=== PATIENT | male | born 1955 | race Caucasian/White ===

== ENCOUNTER 2020-01-20 13:43 | Emergency (ER) | payer OTHER, MEDICARE, SELFPAY ==
--- NOTE | ~2020-01-20 | XR_ITS ---
XR chest 2V DATE: 01/20/2020 14:10 INDICATION: Left-sided chest pain since last evening. Hypertension. Left hip surgery 2 weeks ago. TECHNIQUE: PA and lateral views COMPARISON: 02/27/2019 portable AP chest FINDINGS: Normal heart size. No hilar or mediastinal enlargement. No pulmonary infiltrate or consolid ation, pleural effusion or pulmonary vascular congestion or pneumothorax. Diffuse idiopathic skeletal hyperostosis. IMPRESSION: No active cardiopulmonary disease Diffuse idiopathic skeletal hyperostosis Reviewed, dictated and finalized at location A.
--- NOTE | ~2020-01-20 | CT_ITS ---
EXAMINATION: CTA chest PE protocol DATE: 01/20/2020 15:29 INDICATION: Chest pain for 2 days. Hip surgery 2 weeks ago. TECHNIQUE: Computed tomography angiography (CTA) of the chest was performed with 100 mL Omnipaque-350 intravenous contrast timed to evaluate the pulmonary arteries. Coronal maximum intensity projection 3D-reconstructions were created by the technologist. Automated exposure control and iterative reconst ruction technique were employed. Exam dose: 746.44 mGy-cm total exam DLP. COMPARISON: 01/20/2020 PA and lateral chest FINDINGS: There is moderate enhancement of the pulmonary arteries; no central or segmental pulmonary embolism is identified the peripheral pulmonary arteries are not optimally evaluated. No thoracic aor tic aneurysm or dissection. Heart size is normal. Coronary artery calcifications. No pericardial or pleural effusion. No hilar or mediastinal mass lesion or lymphadenopathy. Calcified right paratracheal lymph nodes. There is discoid atelectasis or scarring in the lower lobes. No pulmonary infiltrate or consolidation or pulmonary mass lesion is detected. Diffuse idiopathic skeletal hyperostosis of the thoracic spine. IMPRESSION: No pulmonary embolism detected Reviewed, dictated and finalized at Location A. Reviewed, dictated and finalized at location A.
[2020-01-20 13:45] VITALS: BP 123/88; PULSE 93; RESP 17; TEMP 36.6; O2SAT 99
--- NOTE | 2020-01-20 13:45 | ECG_ITS ---
Measurements Intervals [place] Rate: 88 P: 18 FL: 146 QRS: 19 QRSD: 96 T: 52 QT: 362 QTc: 439 Interpretive Statements SINUS RHYTHM VOLTAGE CRITERIA FOR LVH NONSPECIFIC ST ELEVATION IN DIFFUSE LEADS BASELINE ARTIFACT- I, II, III, AVR, AVL BORDERLINE ECG Electronically Signed On 01-20-2020 14:09:11 CDT by Clifton Cisneros D.O.
[2020-01-20 14:08] LABS: Basophils Absolute Auto 0.1 K/mm3 (0.0-0.1); Basophils Percent Auto 0.9 % (0.2-1.2); Eosinophils Absolute Auto 0.3 K/mm3 (0-0.3); Eosinophils Percent Auto 3.8 % (0-4.4); Hemoglobin 12.1 g/dL (14.0-18.0); Immature Granulocyte Absolute 0.02 K/mm3 (0.00-0.031); Immature Granulocyte Percent A 0.3 % (0-0.5); Lymphocytes Absolute Auto 1.44 K/mm3 (0.9-3.2); Lymphocytes Percent Auto 21.7 % (18.3-44.2); Mean Corpuscular HGB Conc 32.7 g/dl (32-36); Mean Corpuscular Hemoglobin 30.3 pg (26-34); Mean Corpuscular Volume 92.7 fl (80-100); Mean Platelet Volume 10.1 fl (7.4-10.4); Monocytes Absolute Auto 0.6 K/mm3 (0.1-0.6); Monocytes Percent Auto 9.4 % (2.6-8.5); Neutrophils Absolute Auto 4.2 K/mm3 (1.3-6.7); Neutrophils Percent Auto 63.9 % (45.5-73.1); Platelet Count Result 505 k/mm3 (150-375); Red Blood Count 3.99 M/mm3 (4.6-6.20); Red Cell Distribution Width 14.1 % (11.5-14.5); White Blood Count 6.6 K/mm3 (4.5-10.0)
[2020-01-20 14:18] LABS: INR 1.1; Prothrombin Time 14.1 Seconds (11.1-14.7)
[2020-01-20 14:19] LABS: Partial Thromboplastin Time 30.7 SECONDS (22.3-36.8)
[2020-01-20 14:33] LABS: Anion Gap 7 mmol/L (8-16); Blood Urea Nitrogen 20 mg/dL (9-20); Calcium 9.4 mg/dL (8.4-10.2); Carbon Dioxide 30 mmol/L (22-30); Chloride 98 mmol/L (98-107); Estimated CRCL calculation 97 ml/min; Estimated Glomerular Filt Rate > 60; Glucose 101 mg/dL (75-110); Potassium 4.4 mmol/L (3.4-5.0); Sodium 135 mmol/L (137-145)
[2020-01-20 14:45] LABS: Troponin I < 0.012 ng/mL (0.000-0.034)
[2020-01-20 14:51] VITALS: BP 138/87; PULSE 83; RESP 19; TEMP 36.7; O2SAT 98; O2SAT 99
--- NOTE | 2020-01-20 14:54 | PC.NURSE ---
Patient reports that he has been having occasional chest pains. States once last night and twice today. Last night he took a nitro and reports pain was gone shortly after that. Today he did not take any nitro but states that the pain self resolved. He describes the pain as a tightness that was noted to the left chest, described as tightness, and was accompanied by some nausea and shortness of breath.
--- NOTE | 2020-01-20 14:59 | PC.NURSE ---
Patient reports taking 1, 325mg, aspirin before coming to the ED
--- NOTE | 2020-01-20 15:08 | ED.CHESTPAIN ---
HPI - Chest Pain General Chief Complaint: Chest Pain Stated Complaint: Chest pain Time Seen by Provider: 01/20/20 14:48 Source: patient Mode of arrival: ambulatory Limitations: no limitations History of Present Illness HPI narrative: 61-year-old white male presents with intermittent left chest pain since last night at 8 PM. At rest, lasted 10 minutes last night, this morning the chest pain recurs twice, the first 1 lasted for 5 minutes, the second 1 lasted for 2 minutes. Patient denies any fever, chills, nausea, vomiting, shortness of breath. Patient is a status post left hip reconstruction at [facility] 2 weeks ago. Patient have history of A. fib, supposed to be on Xarelto which he stopped on his own May 2019 because he did not like it. History of hypertension, patient currently on aspirin. Related Data Home Medications Medication Instructions Recorded Confirmed clonazepam 0.5 mg PO DAILY 04/13/19 04/13/19 duloxetine 60 mg PO DAILY 04/13/19 04/13/19 metoprolol succinate 100 mg PO DAILY 04/13/19 04/13/19 Allergies Allergy/AdvReac Type Severity Reaction Status Date / Time No Known Allergies Allergy Verified 12/22/19 07:57 Review of Systems Review of Systems: Narrative: CONSTITUTIONAL: Denies fever, chills, or sweats. EYES: Denies visual changes, redness, or discharge. ENT: Denies rhinorrhea, congestion, sore throat, or otalgia. CARDIOVASCULAR: Denies chest pain, palpitations, or edema. RESPIRATORY: Denies cough or dyspnea. GASTROINTESTINAL: Denies abdominal pain, nausea, vomiting, or diarrhea. GENITOURINARY: Denies dysuria or hematuria. SKIN: Denies rash or itching. MUSCULOSKELETAL: Denies back pain, joint pain, or myalgia. NEUROLOGIC: Denies headache, numbness, or weakness. PSYCHIATRIC: Denies anxiety or depression. [facility] Past Medical History Medical History Atrial flutter Essential (primary) hypertension Gout Hip osteoarthritis Major depressive disorder, single episode, unspecified Sleep apnea Sleep apnea in adult Spondylosis without myelopathy or radiculopathy, cervical region Family History Family History Mother Depression Hypertension Family history of osteoarthritis Grandparent Hypertension Father Family history of osteoarthritis Family history of coronary artery disease Other Family history of malignant neoplasm Social History Social History Smoking status: Never smoker Gender identity (if verbalized by the patient): Male Exam Narrative: Exam Narrative: General appearance: Well-developed, well-nourished Skin: Normal color Head: Normocephalic, nontraumatic Eyes: Clear conjunctiva ENT: Oropharynx normal, ears normal, nose normal Neck: Supple, nontender Chest and respiratory: Airway patent, no respiratory distress, no accessory muscle use Heart: Regular rate/rhythm Abdomen: Soft, nontender, no organomegaly, quiet bowel sounds Vascular: Normal peripheral pulses, normal capillary refill. Musculoskeletal: Normal range of motion, nontender back Neurologic: Alert and oriented ?3, [employer] is normal as tested, no gross motor deficit Course Course Emergency Course: Stable, currently denying any shortness of breath or chest pain. Vital Signs Vital signs: Vital Signs Temperature 36.6 C 01/20/20 13:45 Pulse Rate 93 01/20/20 13:45 Respiratory Rate 17 01/20/20 13:45 Blood Pressure 123/88 01/20/20 13:45 Pulse Oximetry 99 01/20/20 13:45 Temperature 36.7 C 01/20/20 16:33 Pulse Rate 73 01/20/20 16:33 Respiratory Rate 20
[2020-01-20 15:35] LABS: D Dimer 11.24 ug/mL (<0.48)
[2020-01-20 16:33] VITALS: BP 155/89; PULSE 73; RESP 20; TEMP 36.7; O2SAT 99
[2020-01-20 17:03] LABS: Troponin I < 0.012 ng/mL (0.000-0.034)
[2020-01-20 18:10] VITALS: BP 142/90; PULSE 84; RESP 17; O2SAT 98
== END 2020-01-20 18:12 | disposition home or self-care (01) ==
PROVIDERS: Emergency Medicine; Emergency Provider Emergency Medicine; PCP Family Medicine
DX: R07.89 Other chest pain (principal); I48.91 Unspecified atrial fibrillation; I10 Essential (primary) hypertension; M10.9 Gout, unspecified; M16.10 Unilateral primary osteoarthritis, unspecified hip; G47.30 Sleep apnea, unspecified; M47.812 Spondylosis without myelopathy or radiculopathy, cervical region
CPT/HCPCS: 36415; 71046; 71275; 80048; 84484; 85025; 85380; 85610; 85730; 93005; 99284; Q9967

== ENCOUNTER → 2020-09-25 11:30 | Outpatient (CLI) | payer OTHER, MEDICARE, SELFPAY ==
--- NOTE | ~2020-09-25 | XR_ITS ---
XR chest 2V DATE: 09/25/2020 12:24 INDICATION: Cough TECHNIQUE: PA and lateral views COMPARISON: 01/20/2020 CT pulmonary scan 01/19/2022 view chest FINDINGS: No pulmonary infiltrate or consolidation, pleural effusion or pulmonary vascular congestion or pneumothorax. Heart size is within normal range. There is aortic atherosclerosis. Diffuse idiopathic skeletal hyperostosis of the thoracic spine. IMPRESSION: No active pulmonary disease Reviewed, dictated and finalized at location B. IMPRESSION: No active pulmonary disease
== END ==
PROVIDERS: PCP Family Medicine; Visit Provider Family Medicine
DX: R05 Cough (principal)
CPT/HCPCS: 71046

== ENCOUNTER 2021-02-25 02:31 | Day surgery (SDC) | payer OTHER, MEDICARE, SELFPAY ==
[2021-02-11 08:32] VITALS: BMI 33.9
--- NOTE | 2021-02-22 18:26 | WPDANESEPPF ---
Anes - Initial Pre Proc Eval Procedure: Operation Date: 02/25/21 10:00 Proposed Procedures p Screening Colonoscopy - Fran Martínez MD Date/Time: 02/22/21 18:26 Surgeon: Fran Martínez MD Pre Op Diagnosis: hx of colon polyps Patient Data Age: 65 Gender: M Height: 1.83 m Weight: 113.5 kg Allergies Allergy/AdvReac Type Severity Reaction Status Date / Time No Known Allergies Allergy Verified 02/25/21 08:59 Home Medications Medication Instructions Recorded Confirmed Type clonazepam 0.5 mg PO DAILY 04/13/19 02/11/21 History duloxetine 60 mg PO DAILY 04/13/19 02/11/21 History metoprolol succinate 100 mg PO DAILY 04/13/19 02/11/21 History allopurinol 100 mg tablet 100 mg PO DAILY #30 tablet 12/24/20 02/11/21 Rx aspirin 81 mg tablet,delayed 81 mg PO DAILY 01/08/21 02/11/21 History release amlodipine 10 mg tablet 10 mg PO DAILY #90 tablet 01/31/21 02/11/21 Rx lisinopril 20 mg tablet 20 mg PO DAILY #90 tablet 01/31/21 02/11/21 Rx Patient hx anesthesia problems: none Family hx anesthesia problems: none Results Review: All pre-operative results and documents have been reviewed as part of the pre-operative evaluation. [facility] Past Medical History Medical History Atrial flutter BMI 34.0-34.9,adult DDD (degenerative disc disease) Essential (primary) hypertension Gout Hip osteoarthritis Major depressive disorder, single episode, unspecified Sleep apnea Sleep apnea in adult Spondylosis without myelopathy or radiculopathy, cervical region Surgical History Surgical History H/O neck surgery History of back surgery History of hip surgery Family History Family History Mother Depression Hypertension Family history of osteoarthritis Grandparent Hypertension Father Family history of osteoarthritis Family history of coronary artery disease Other Family history of malignant neoplasm Social History Social History Smoking status: Never smoker Alcohol intake: current Drinks per week: 12 Alcohol use details: 12 pack beer weekly Substance use: never Substance use type: does not use Living arrangements: with family Additional living arrangements comments: lives with spouse Additional occupation/education comments: disability since 2016 Gender identity (if verbalized by the patient): Male Sexual Orientation (if Verbalized by the Patient): Straight or Heterosexual Spiritual care concerns: No Agree to blood products: Yes Anes - Eval Final PreProcedure Day of Procedure 02/22/21 18:26 Patient weight: obese Heart: regular rate and rhythm Lungs: clear to auscultation and normal air movement Airway: Mallampati scale class III Neurological: alert and oriented Last oral intake: >/= 8 hours ASA classification: III Emergent: no Anesthetic plan: proceed Anesthesia type and monitoring: general GIVS and standard monitoring Results Review: All pre-operative results and documents have been reviewed as part of the pre-operative evaluation. Informed Consent: The patient's anesthetic plan and its attendant risks and benefits were discussed with the patient/family/POA. Questions were solicited and answers provided to the satisfaction of the patient/family/POA.
--- NOTE | 2021-02-25 09:00 | PM.HPGS ---
History of Present Illness History of Present Illness Consent: Risks, benefits, and alternatives have been discussed and questions answered. Patient agrees to proceed with procedure. Chief complaint: hx of colon polyps Narrative: Cristian Jones is a 65 year old male With a history of colon polyps Review of Systems Review of Systems: All systems reviewed & are unremarkable except as noted in HPI and below PMFSH Past Medical History Medical History Atrial flutter BMI 34.0-34.9,adult DDD (degenerative disc disease) Essential (primary) hypertension Gout Hip osteoarthritis Major depressive disorder, single episode, unspecified Sleep apnea Sleep apnea in adult Spondylosis without myelopathy or radiculopathy, cervical region Surgical History Surgical History H/O neck surgery History of back surgery History of hip surgery Family History Family History Mother Depression Hypertension Family history of osteoarthritis Grandparent Hypertension Father Family history of osteoarthritis Family history of coronary artery disease Other Family history of malignant neoplasm Social History Social History Smoking status: Never smoker Alcohol intake: current Drinks per week: 12 Alcohol use details: 12 pack beer weekly Substance use: never Substance use type: does not use Living arrangements: with family Additional living arrangements comments: lives with spouse Additional occupation/education comments: disability since 2016 Gender identity (if verbalized by the patient): Male Sexual Orientation (if Verbalized by the Patient): Straight or Heterosexual Spiritual care concerns: No Agree to blood products: Yes Meds Home Medications and Allergies Home Medications Medication Instructions Recorded Confirmed Type clonazepam 0.5 mg PO DAILY 04/13/19 02/11/21 History duloxetine 60 mg PO DAILY 04/13/19 02/11/21 History metoprolol succinate 100 mg PO DAILY 04/13/19 02/11/21 History allopurinol 100 mg tablet 100 mg PO DAILY #30 tablet 12/24/20 02/11/21 Rx aspirin 81 mg tablet,delayed 81 mg PO DAILY 01/08/21 02/11/21 History release amlodipine 10 mg tablet 10 mg PO DAILY #90 tablet 01/31/21 02/11/21 Rx lisinopril 20 mg tablet 20 mg PO DAILY #90 tablet 01/31/21 02/11/21 Rx Allergies Allergy/AdvReac Type Severity Reaction Status Date / Time No Known Allergies Allergy Verified 02/25/21 08:59 Exam Const: General: alert Orientation/consciousness: patient oriented x3 Resp: Auscultation: clear to auscultation bilaterally Cardio: Rhythm: regular rhythm GI: GI Palp: Yes Soft to palpation and No Tenderness to palpation present (GI) Neuro: General: patient oriented x3 Assessment and Plan Assessment and plan (1) Colon cancer screening: Code(s): Z12.11 - Encounter for screening for malignant neoplasm of colon Status: Acute Assessment and Plan: Colonoscopy with possible biopsy or polypectomy or cautery or injection of substances.
[2021-02-25 09:01] VITALS: BP 202/104; PULSE 64; RESP 20; TEMP 36.2; O2SAT 99; BMI 34.4
[2021-02-25] MEDS: LACTATED RINGERS 1,000 ML 150 ML IV CONT (09:23)
--- NOTE | 2021-02-25 09:32 | SUR.PREOP ---
pts preop bp 201/104, waited a few minutes, retaken. 196/106. pt did take his metoprolol this am. dr sky aware, no new orders.
[2021-02-25 09:55] VITALS: BP 119/67; PULSE 65; RESP 22; O2SAT 98
[2021-02-25 10:06] VITALS: BP 130/77; PULSE 57; RESP 24; O2SAT 100
[2021-02-25 10:16] VITALS: BP 151/109; PULSE 55; RESP 18; O2SAT 100
== END 2021-02-25 10:17 | disposition home or self-care (01) ==
PROVIDERS: PCP Family Medicine; Visit Provider Internal Medicine Gastroenterology
PROC: 0DJD8ZZ Inspection of Lower Intestinal Tract, Via Natural or Artificial Opening Endoscopic (ICD-10-PCS; CPT 45378; principal; 2021-02-25 10:00)
DX: Z12.11 Encounter for screening for malignant neoplasm of colon (principal); K64.8 Other hemorrhoids; K57.30 Diverticulosis of large intestine without perforation or abscess without bleeding; D12.5 Benign neoplasm of sigmoid colon; I48.92 Unspecified atrial flutter; I10 Essential (primary) hypertension; M10.9 Gout, unspecified; F32.9 Major depressive disorder, single episode, unspecified; G47.30 Sleep apnea, unspecified; Z79.82 Long term (current) use of aspirin; E66.9 Obesity, unspecified; Z68.34 Body mass index [BMI] 34.0-34.9, adult
CPT/HCPCS: 45385; 88305; J2704; J7120

== ENCOUNTER 2023-03-06 10:53 | Outpatient (CLI) | payer MEDICARE, SELFPAY ==
--- NOTE | ~2023-03-06 | XR_ITS ---
XR abdomen/kub 1V 03/06/2023 11:05 INDICATION: Lower abdomen pain TECHNIQUE: KUB COMPARISON: None FINDINGS: Bowel gas pattern is normal. There is no evidence of free air, mass, organomegaly, ascites or obstruction. No abnormal calculi are seen. The bones appear intact. There is diffuse idiopathic skeletal hyperostosis (DISH) of the lumbar spine. There are bilateral hip arthroplasties. IMPRESSION: 1: No acute abdominal abnormality identified. Reviewed, dictated and finalized at location B.
== END 2023-03-06 10:54 | disposition home or self-care (01) ==
LOC: ANHIMG 10:55
PROVIDERS: PCP Family Medicine; Visit Provider Nurse Practitioner Family
DX: R10.9 Unspecified abdominal pain (principal)
CPT/HCPCS: 74018

== ENCOUNTER 2023-04-07 01:39 | Day surgery (SDC) | payer MEDICARE, SELFPAY ==
[2023-04-06 15:33] VITALS: BMI 33.4
[2023-04-07] VITALS (18 sets, daily range): BP systolic 106–172; BP diastolic 66–93; PULSE 69–82; RESP 19–24; TEMP 37–38.2; O2SAT 91–98; BMI 33.5
[2023-04-07 07:39] LABS: Basophils Percent Auto 0.6 % (0.2-1.2); Eosinophils Absolute Auto 0.2 K/mm3 (0-0.3); Eosinophils Percent Auto 2.2 % (0-4.4); Hematocrit 44.9 % (42.0-52.0); Hemoglobin 14.6 g/dL (14.0-18.0); Immature Granulocyte Absolute 0.01 K/mm3 (0.00-0.031); Immature Granulocyte Percent A 0.1 % (0-0.5); Lymphocytes Absolute Auto 0.56 K/mm3 (0.9-3.2); Lymphocytes Percent Auto 8.4 % (18.3-44.2); Mean Corpuscular HGB Conc 32.5 g/dl (32-36); Mean Corpuscular Hemoglobin 31.4 pg (26-34); Mean Corpuscular Volume 96.6 fl (80-100); Mean Platelet Volume 10.8 fl (7.4-10.4); Monocytes Absolute Auto 0.6 K/mm3 (0.1-0.6); Monocytes Percent Auto 8.5 % (2.6-8.5); Neutrophils Absolute Auto 5.3 K/mm3 (1.3-6.7); Neutrophils Percent Auto 80.2 % (45.5-73.1); Platelet Count Result 199 k/mm3 (150-375); Red Blood Count 4.65 M/mm3 (4.6-6.20); White Blood Count 6.7 K/mm3 (4.5-10.0)
[2023-04-07 07:51] LABS: Anion Gap 10 mmol/L (8-16); Blood Urea Nitrogen 20 mg/dL (9-20); Calcium 9.4 mg/dL (8.4-10.2); Carbon Dioxide 29 mmol/L (22-30); Chloride 101 mmol/L (98-107); Estimated CRCL calculation 90 ml/min; Estimated Glomerular Filt Rate > 60; Glucose 108 mg/dL (65-110); Potassium 3.1 mmol/L (3.4-5.0); Sodium 140 mmol/L (137-145)
--- NOTE | 2023-04-07 10:17 | P.HP_ITS ---
H&P: HPI History of Present Illness Date/Time: 04/07/23 10:17 Chief Complaint: Abnormal stress test Narrative: Patient is a 68 year old male who is referred for [facility] for chest pain in the setting of abnormal stress test. Review of Systems Review of Systems: All systems reviewed & are unremarkable except as noted in HPI and below (HPI) PMFSH Past Medical History Medical History Anxiety Arthritis Atrial flutter BMI 34.0-34.9,adult BMI 35.0-35.9,adult BPH w urinary obs/LUTS DDD (degenerative disc disease) Degenerative arthritis of knee, bilateral DISH (diffuse idiopathic skeletal hyperostosis) Essential (primary) hypertension Gout Hip osteoarthritis Hyperlipidemia Hypertension Major depressive disorder, single episode, unspecified Sleep apnea Sleep apnea in adult Spondylosis without myelopathy or radiculopathy, cervical region Vitamin D deficiency, unspecified Surgical History Surgical History H/O neck surgery History of back surgery x2 History of left hip replacement x2 - Revision for recurrent dislocation History of right hip replacement Family History Family History Mother Depression Hypertension Family history of osteoarthritis Grandparent Hypertension Father Family history of osteoarthritis Family history of coronary artery disease Heart disease Sibling Diabetes mellitus Hypertension Other Family history of malignant neoplasm Social History Social History Smoking status: Never smoker Second hand tobacco smoke exposure: Yes Alcohol intake: current Drinks per week: 18 Alcohol use details: 12 pack beer weekly Substance use: never Substance use type: does not use Lack of Transportation: No Lack of Food: Never True Current Housing: I Have Housing Concerned About Future Housing: No Difficulty Paying Gas/Electric Bills: No Difficulty Paying for Meds: No Currently Unemployed: No Education: Trade/Vocational Certificate Living arrangements: with family Additional living arrangements comments: lives with spouse Occupation/Education: retired 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 Gender identity (if verbalized by the patient): Male Sexual Orientation (if Verbalized by the Patient): Straight or Heterosexual Spiritual care concerns: No Agree to blood products: Yes Meds Home Medications and Allergies Home Medications Medication Instructions Recorded Confirmed Type clonazepam 0.5 mg tablet 0.5 mg PO DAILY 04/13/19 04/06/23 History duloxetine 60 mg capsule,delayed 60 mg PO DAILY 04/13/19 04/06/23 History release metoprolol succinate 100 mg 100 mg PO DAILY 04/13/19 04/07/23 History tablet,extended release 24 hr allopurinol 100 mg tablet 100 mg PO DAILY #30 tabs 04/06/22 04/07/23 Rx amlodipine 10 mg tablet 10 mg PO DAILY #90 tabs 05/04/22 04/07/23 Rx lisinopril 20 mg tablet 20 mg PO DAILY #90 tabs 05/04/22 04/07/23 Rx aspirin 81 mg tablet,delayed 81 mg PO DAILY PRN pain 04/06/23 04/06/23 History release esomeprazole magnesium 40 mg 40 mg PO DAILY PRN Stomach Upset 04/06/23 04/06/23 History
--- NOTE | 2023-04-07 10:19 | WPDMODSED ---
Moderate Sedation Note-Pt Data Patient Data Diagnosis: Coronary artery disease Present Complaint: Abnormal stress test Procedure to be performed/Plan: Coronary angiography, left heart cath, +/- PCI Allergies Allergy/AdvReac Type Severity Reaction Status Date / Time No Known Allergies Allergy Verified 04/06/23 15:52 Home Medications Medication Instructions Recorded Confirmed Type clonazepam 0.5 mg tablet 0.5 mg PO DAILY 04/13/19 04/06/23 History duloxetine 60 mg capsule,delayed 60 mg PO DAILY 04/13/19 04/06/23 History release metoprolol succinate 100 mg 100 mg PO DAILY 04/13/19 04/07/23 History tablet,extended release 24 hr allopurinol 100 mg tablet 100 mg PO DAILY #30 tabs 04/06/22 04/07/23 Rx amlodipine 10 mg tablet 10 mg PO DAILY #90 tabs 05/04/22 04/07/23 Rx lisinopril 20 mg tablet 20 mg PO DAILY #90 tabs 05/04/22 04/07/23 Rx aspirin 81 mg tablet,delayed 81 mg PO DAILY PRN pain 04/06/23 04/06/23 History release esomeprazole magnesium 40 mg 40 mg PO DAILY PRN Stomach Upset 04/06/23 04/06/23 History capsule,delayed release Current Medications: Active Medications Sodium Chloride (Normal Saline Iv) 500 mls @ 100 mls/hr IV CONT .Q5H GEOVANI Sedation/Anesthesia: No previous sedation/anesthesia problems (including family history). [facility] Past Medical History Medical History Anxiety Arthritis Atrial flutter BMI 34.0-34.9,adult BMI 35.0-35.9,adult BPH w urinary obs/LUTS DDD (degenerative disc disease) Degenerative arthritis of knee, bilateral DISH (diffuse idiopathic skeletal hyperostosis) Essential (primary) hypertension Gout Hip osteoarthritis Hyperlipidemia Hypertension Major depressive disorder, single episode, unspecified Sleep apnea Sleep apnea in adult Spondylosis without myelopathy or radiculopathy, cervical region Vitamin D deficiency, unspecified Surgical History Surgical History H/O neck surgery History of back surgery x2 History of left hip replacement x2 - Revision for recurrent dislocation History of right hip replacement Family History Family History Mother Depression Hypertension Family history of osteoarthritis Grandparent Hypertension Father Family history of osteoarthritis Family history of coronary artery disease Heart disease Sibling Diabetes mellitus Hypertension Other Family history of malignant neoplasm Social History Social History Smoking status: Never smoker Second hand tobacco smoke exposure: Yes Alcohol intake: current Drinks per week: 18 Alcohol use details: 12 pack beer weekly Substance use: never Substance use type: does not use Lack of Transportation: No Lack of Food: Never True Current Housing: I Have Housing Concerned About Future Housing: No Difficulty Paying Gas/Electric Bills: No Difficulty Paying for Meds: No Currently Unemployed: No Education: Trade/Vocational Certificate Living arrangements: with family Additional living arrangements comments: lives with spouse Occupation/Education: retired 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 Gender identity (if verbalized by the patient): Male Sexual Orientation (if Verbalized by the Patient): Straight or Heterosexual Spiritual care concerns: No Agree to blood products: Yes Mod Sed Physical Exam Physical Exam Pre Procedural Exam: Normal: Appearance, Lungs, Heart Rate, Heart Rhythm, Neuro Exam, Extremities and Skin and Variation: Abdomen (Obese abdomen) Hours since solid foods: 12 Hours since liquid intake: 8 Mallampati Classification: class III Internal Medicine - PN: Obj Da Vital Signs Vital Signs: Vital Signs - 24 hr 04/07/23 07:17 Temperature 37.0 C P
--- NOTE | 2023-04-07 10:22 | WPDCARDPROC ---
Cardiac Cath Procedure Note Date of procedure:: 04/07/23 Performing physician:: CATHETERIZATION LABORATORY REPORT Procedure Date: 04/07/2023 Hot Punch Press Operator: Haim Ortega M.D., [facility]? Referring Physician: Tommy Rob M.D. ? Anesthesia: Versed and Fentanyl were ordered and given in my presence at 08:54, procedure ended at 10:11. Supervision of nurse monitored moderate sedation with Versed and Fentanyl was provided for 77 minutes. Total of Versed 3mg and Fentanyl 100mcg were administered by the Data Entry Representative RN Marisela Hoffman. Pre-op Diagnosis: Coronary artery disease Post-op Diagnosis: Moderate calcific mid LAD stenosis. Attempted to IFR the lesion, however, unable to -- had a prolonged case time due to switching from radial to femoral access, patient difficulty laying on pie bakery laborer table due to chronic back pain despite sedation/pain medications, and iliac tortuosity that made it difficult to engage guide catheters. Recommend to maximize antianginal therapy, and if patient continues to have angina despite maximal tolerated antianginal therapy, then can consider IFR/FFR-guided PCI. Would not be able to do PCI at [facility] given the heavily calcific nature of the lesion. Procedure(s): 1. Moderate sedation 2. Ultrasound-guided access of the right radial artery 3. Ultrasound-guided access of the right common femoral artery 4. Coronary angiography 5. Angioseal closure of the right common femoral artery Access Site: Right radial artery / Right common femoral artery Brief History and Clinical Indications: Patient is a 68 year old male who is referred for [facility] for chest pain in the setting of abnormal stress test. All risks, benefits and alternatives to left heart catheterization with or without percutaneous coronary intervention was discussed at length with the patient. Risk of complications including but not limited to bleeding, infection, arrhythmia, stroke, worsening kidney function, blood loss, groin hematoma, limb loss, emergency coronary artery bypass grafting, and even were discussed with the patient and all questions were answered. The patient understood and wished to proceed. Time out called, patient name, date of , medical record number, allergies, procedure performed, identify Hot Punch Press Operator, patient and staff member concurred with accurate data, procedure carried on. Findings: LEFT HEART CATHETERIZATION FINDINGS: 1. Left main: The left main coronary artery is widely patent without any significant obstructive disease. 2. Left anterior descending: Heavy calcifications seen in the proximal and mid LAD. The first diagonal branch is a very small caliber vessel. The mid LAD has a calcified moderate 50-70% stenosis. Remainder of the LAD has luminal irregularities. The second diagonal branch is a medium caliber vessel without obstructive disease. 3. Left circumflex: The left circumflex artery and the main marginal branches have mild diffuse disease without any significant obstructive angiographic disease. 4. Right coronary artery: The RCA has mild diffuse disease without any significant obstructive angiographic disease. The RCA is the dominant vessel. Description of Procedure: Informed consent signed and placed in the chart. Patient transferred to pie bakery laborer room. Prepped and draped in usual sterile fashion. 2% lidocaine injected subcutaneously in right wrist area. 22-gauge venipuncture catheter used to access the right radial artery under ultrasound guidance. 6-FR slender sheath placed in right radial artery. Nitroglycerine and Verapamil were given intraarterial through the sheath. Versacore wire advanced under fluoroscopy 5F Tig 4 diagnostic catheter engaged Left Main Coronary Artery. Multiple orthogonal angiogram obtained and reviewed Unable to engage the RCA with Tig 4 catheter. Attempted to engage the RCA with a 5F FR 4 diagnostic catheter, but unable to due to subclavian/aorta tortuosity that made it diffic
[2023-04-07] MEDS: SODIUM CHLORIDE 0.9% IV 1,000 ML 125 ML IV CONT (11:59)
[2023-04-07] MEDS: hydrALAZINE HCL 20 MG/ML VIAL 10 MG IV PUSH (11:59)
[2023-04-07] MEDS: ACETAMINOPHEN 500 MG TABLET 1000 MG PO (12:00)
== END 2023-04-07 15:05 | disposition home or self-care (01) ==
PROVIDERS: PCP Family Medicine; Visit Provider Internal Medicine
PROC: (CPT 93454; principal; 2023-04-07 08:30)
PROC: (CPT 36140; 2023-04-07 08:30)
DX: R94.39 Abnormal result of other cardiovascular function study (principal); R07.9 Chest pain, unspecified; I25.84 Coronary atherosclerosis due to calcified coronary lesion; F41.9 Anxiety disorder, unspecified; I10 Essential (primary) hypertension; E78.5 Hyperlipidemia, unspecified; F32.A Depression, unspecified; E55.9 Vitamin D deficiency, unspecified; G47.30 Sleep apnea, unspecified; F32.9 Major depressive disorder, single episode, unspecified; M17.0 Bilateral primary osteoarthritis of knee; N40.1 Benign prostatic hyperplasia with lower urinary tract symptoms; Z79.82 Long term (current) use of aspirin; Z96.642 Presence of left artificial hip joint; Z86.79 Personal history of other diseases of the circulatory system; Z87.39 Personal history of other diseases of the musculoskeletal system and connective tissue; Z82.49 Family history of ischemic heart disease and other diseases of the circulatory system; Z80.9 Family history of malignant neoplasm, unspecified
CPT/HCPCS: 36140; 36415; 80048; 85025; 93454; A9270; C1760; C1769; C1887; C1894; G0269; J0360; J0583; J1644; J2250; J2305; J2405; J3010; J7030; J7040

== ENCOUNTER 2023-07-29 22:09 | Observation (INO) | payer MEDICARE, SELFPAY ==
--- NOTE | ~2023-07-29 | CT_ITS ---
Clinical Indication: Chest pain CT Scan of the Chest with Contrast: Technique: Contiguous sections were acquired throughout the chest after intravenous administration of 100 cc of Omnipaque 350. Dose reduction technique was used on this scan by utilizing automated expos ure control and iterative reconstruction technique. The dose-length product (DLP) was 970.78 mGy-cm. COMPARISON: 01/20/2020 Findings: There is no evidence of any significant mediastinal, hilar or axillary lymphadenopathy. There is no f illing defect in the pulmonary arterial tree to suggest pulmonary embolus. Ascending aorta is dilated to 5 cm. No aortic dissection. There is no evidence of pleural or pericardial effusion. The lungs are clear. No pulmonary nodules or infiltrates are noted. Images through the upper abdomen reveal no abnormalities. There is extensive DISH of the spine. Impression: No evidence of pulmonary embolus or aortic dissection. Ascending aortic aneurysm measures 5 cm in diameter. Clear lungs. Reviewed, dictated and finalized at [facility]. Impression: No evidence of pulmonary embolus or aortic dissection. Ascending aortic aneurysm measures 5 cm in diameter. Clear lungs.
--- NOTE | ~2023-07-29 | XR_ITS ---
EXAMINATION: XR chest 1V portable INDICATION: Chest pain TECHNIQUE: Portable AP chest at 2302 hours COMPARISON: 09/25/2020 FINDINGS: The lungs are free of acute opacities. No pleural effusion or pneumothorax. The cardiomedia stinal silhouette is normal. IMPRESSION: 1. No acute cardiopulmonary abnormality. Reviewed, dictated and finalized at location F.
[2023-07-29 22:11] VITALS: BP 179/96; PULSE 147; RESP 18; TEMP 36.6; O2SAT 99
--- NOTE | 2023-07-29 22:14 | ECG_ITS ---
Measurements Intervals [place] Rate: 149 P: [place]: 0 QRS: 27 QRSD: 96 T: 120 QT: 294 QTc: 464 Interpretive Statements ATRIAL FLUTTER/TACHYCARDIA WITH RAPID VENTRICULAR RESPONSE VOLTAGE CRITERIA FOR LVH ST-T WAVE ABNORMALITY IN INF/LAT LEADS- CONSIDER ISCHEMIA OR RATE RELATED ABNORMAL ECG COMPARED TO ECG 01/20/2020 13:49:04 ATRIAL FLUTTER NOW PRESENT ST-T WAVE ABNORMALITY NOW PRESENT Electronically Signed On 07-30-2023 6:26:36 CDT by Clifton Cisneros D.O.
[2023-07-29 22:19] VITALS: O2SAT 100
[2023-07-29 22:23] VITALS: PULSE 145
[2023-07-29 22:27] LABS: Basophils Percent Auto 0.5 % (0.2-1.2); Eosinophils Absolute Auto 0.3 K/mm3 (0-0.3); Eosinophils Percent Auto 3.7 % (0-4.4); Hematocrit 41.9 % (42.0-52.0); Hemoglobin 13.7 g/dL (14.0-18.0); Immature Granulocyte Absolute 0.02 K/mm3 (0.00-0.031); Immature Granulocyte Percent A 0.3 % (0-0.5); Lymphocytes Absolute Auto 2.12 K/mm3 (0.9-3.2); Lymphocytes Percent Auto 28.3 % (18.3-44.2); Mean Corpuscular HGB Conc 32.7 g/dl (32-36); Mean Corpuscular Hemoglobin 31.3 pg (26-34); Mean Corpuscular Volume 95.7 fl (80-100); Mean Platelet Volume 10.7 fl (7.4-10.4); Monocytes Absolute Auto 0.8 K/mm3 (0.1-0.6); Monocytes Percent Auto 11.2 % (2.6-8.5); Neutrophils Absolute Auto 4.2 K/mm3 (1.3-6.7); Platelet Count Result 233 k/mm3 (150-375); Red Blood Count 4.38 M/mm3 (4.6-6.20); Red Cell Distribution Width 12.9 % (11.5-14.5); White Blood Count 7.5 K/mm3 (4.5-10.0)
[2023-07-29] MEDS: ASPIRIN 81 MG CHEWABLE TABLET 324 MG PO (22:27)
[2023-07-29] MEDS: dilTIAZem HCl INJ 25 MG/5 ML VIAL 10 MG IV PUSH (22:27)
[2023-07-29 22:31] VITALS: BP 135/80; PULSE 145; RESP 20; O2SAT 100
[2023-07-29 22:36] VITALS: BP 135/80; PULSE 150
[2023-07-29] MEDS: dilTIAZem 100 MG/100 ML 100 MG/100 ML BAG IV CONT (22:36)
[2023-07-29 22:37] LABS: Alanine Aminotransferase 20 U/L (6-50); Albumin Level 4.3 g/dL (3.5-5.1); Alkaline Phosphatase 87 U/L (38-126); Anion Gap 6 mmol/L (8-16); Aspartate Amino Transferase 25 U/L (17-59); Bilirubin,Total 0.5 mg/dL (0.2-1.3); Blood Urea Nitrogen 21 mg/dL (9-20); Calcium 9.3 mg/dL (8.4-10.2); Carbon Dioxide 33 mmol/L (22-30); Chloride 98 mmol/L (98-107); Estimated CRCL calculation 82 ml/min; Estimated Glomerular Filt Rate > 60; Glucose 164 mg/dL (65-110); Lipase 152 U/L (23-300); Potassium 3.4 mmol/L (3.4-5.0); Prothrombin Time 13.6 Seconds (11.1-14.7); Sodium 137 mmol/L (137-145)
[2023-07-29 22:38] LABS: Partial Thromboplastin Time 31.5 Seconds (22.3-36.8)
--- NOTE | 2023-07-29 22:41 | ED.ARRPALP ---
HPI - Arrhythmia/Palpitations General Chief Complaint: Arrhythmia/Palpitations Stated Complaint: rapid heart rate and L arm pain Time Seen by Provider: 07/29/23 22:19 History of Present Illness HPI narrative: 68-year-old male with a history of paroxysmal atrial flutter and hypertension presents to the emergency department for palpitations, chest pain or shortness of breath that developed 45 minutes prior to arrival. Patient states he was attempting to go to sleep and lying in bed when symptoms started. States it feels like his heart is racing. He is reporting pain to the left mid axillary chest wall that radiates down into his left arm with associated dyspnea. Reports recent URI symptoms including cough and congestion. Denies lower extremity edema, history CHF. States he took sublingual nitroglycerin prior to arrival without improvement. His drop wire aligner is Dr. Rob. Chart review reveals a cardiac catheterization performed by Dr. Ortega in 04/07/23 which revealed moderate calcific mid LAD stenosis with failed attempt to IFR of the lesion Related Data Home Medications Medication Instructions Recorded Confirmed clonazepam 0.5 mg tablet 0.5 mg PO DAILY 04/13/19 04/06/23 duloxetine 60 mg capsule,delayed 60 mg PO DAILY 04/13/19 04/06/23 release metoprolol succinate 100 mg 100 mg PO DAILY 04/13/19 04/07/23 tablet,extended release 24 hr aspirin 81 mg tablet,delayed 81 mg PO DAILY PRN pain 04/06/23 04/06/23 release esomeprazole magnesium 40 mg 40 mg PO DAILY PRN Stomach Upset 04/06/23 04/06/23 capsule,delayed release Allergies Allergy/AdvReac Type Severity Reaction Status Date / Time No Known Allergies Allergy Verified 04/06/23 15:52 Review of Systems Review of Systems: CONSTITUTIONAL: Denies fever, chills, or sweats. EYES: Denies visual changes, redness, or discharge. ENT: Denies rhinorrhea, congestion, sore throat, or otalgia. CARDIOVASCULAR: See HPI RESPIRATORY: See HPI GASTROINTESTINAL: Denies abdominal pain, nausea, vomiting, or diarrhea. GENITOURINARY: Denies dysuria or hematuria. SKIN: Denies rash or itching. MUSCULOSKELETAL: Denies back pain, joint pain, or myalgia. NEUROLOGIC: Denies headache, numbness, or weakness. PSYCHIATRIC: Denies anxiety or depression. [facility] Past Medical History Medical History Anxiety Arthritis Atrial flutter BMI 34.0-34.9,adult BMI 35.0-35.9,adult BPH w urinary obs/LUTS DDD (degenerative disc disease) Degenerative arthritis of knee, bilateral DISH (diffuse idiopathic skeletal hyperostosis) Essential (primary) hypertension Gout Hip osteoarthritis Hyperlipidemia Hypertension Major depressive disorder, single episode, unspecified Sleep apnea Sleep apnea in adult Spondylosis without myelopathy or radiculopathy, cervical region Vitamin D deficiency, unspecified Surgical History Surgical History H/O neck surgery History of back surgery x2 History of left hip replacement x2 - Revision for recurrent dislocation History of right hip replacement Family History Family History Mother Depression Hypertension Family history of osteoarthritis Grandparent Hypertension Father Family history of osteoarthritis Family history of coronary artery disease Heart disease Sibling Diabetes mellitus Hypertension Other Family history of malignant neoplasm Social History Social History Smoking status: Never smoker Second hand tobacco smoke exposure: Yes Alcohol intake: current Drinks per week: 18 Alcohol use details: 12 pack beer weekly Substance use: never Substance use type: does not use Lack of Transportation: No Lack of Food: Never True Current Housing: I Have Housing Concerned About Future Housing: No D
[2023-07-29 22:48] LABS: Troponin I 0.025 ng/mL (0.000-0.034)
[2023-07-29] MEDS: ENOXAPARIN 120 MG/0.8 ML SYRINGE 111 MG SUB-Q (23:03)
[2023-07-29 23:06] LABS: Magnesium 2.2 mg/dL (1.6-2.3)
[2023-07-29 23:16] VITALS: BP 123/95; PULSE 128
[2023-07-29 23:16] LABS: NT Pro B Type Natriuretic Pept 3520 pg/mL (19.9-100)
[2023-07-29] MEDS: SODIUM CHLORIDE 0.9% IV 1,000 ML 999 ML IV CONT (23:16)
[2023-07-29 23:26] LABS: D Dimer 1.28 ug/mL (<0.48)
[2023-07-30] VITALS (24 sets, daily range): BP systolic 119–179; BP diastolic 67–101; PULSE 58–99; RESP 14–24; TEMP 36.5–36.6; O2SAT 93–98; BMI 34.9
[2023-07-30 00:02] LABS: Influenza A QL RT-PCR Negative (Negative); Influenza B QL RT-PCR Negative (Negative); RSV RNA, RT-PCR Negative (Negative); SARS-CoV-2 RNA PCR Negative (Negative)
[2023-07-30 00:16] LABS: Appearance Urine Clear (Clear); Bilirubin Urine Negative (Negative); Blood Urine Negative (Negative); Color Urine Yellow (Yellow); Glucose Urine UA Negative (Negative); Ketones Urine Negative (Negative); Leukocyte Esterase Ur Negative LEU/UL (Negative); Nitrate Urine Negative (Negative); Protein Urine Negative (Negative); Specific Grav Ur 1.007 (1.001-1.035); Urobilinogen Urine 0.2 mg/dL (<2.0); pH Urine 5.5 (5.0-9.0)
[2023-07-30 00:18] LABS: Add Urine Microscopic? NO
--- NOTE | 2023-07-30 01:14 | ECG_ITS ---
Measurements Intervals [place] Rate: 91 P: [place]: 0 QRS: 32 QRSD: 98 T: 74 QT: 385 QTc: 474 Interpretive Statements ATRIAL FIBRILLATION LEFT VENTRICULAR HYPERTROPHY WITH ST-T CHANGE BORDERLINE ST-T WAVE ABNORMALITY- INFERIOR LEADS BASELINE ARTIFACT- I, III, AVL ABNORMAL ECG COMPARED TO ECG 07/29/2023 22:16:17 ATRIAL FIBRILLATION NOW PRESENT Electronically Signed On 07-30-2023 6:35:24 CDT by Clifton Cisneros D.O.
[2023-07-30 02:06] LABS: Troponin I 0.022 ng/mL (0.000-0.034)
[2023-07-30] MEDS: AZITHROMYCIN 500 MG/NS 250 ML 500 MG/250 ML BAG 250 MG IVPB (03:21)
--- NOTE | 2023-07-30 05:47 | ADMGEN ---
This patient, Cristian Jones, was admitted to IMU Room 205-02. Patient/family oriented to hospital policies and general routines including ID bracelet, bed and alarms, visiting hours, pain management, procedures, bathroom and other care routines, personal items, smoking policy, room service/diet, and visiting hours. Information on how to activate the Rapid Response Team has been discussed. Patient/Family are encouraged to report perceived risks to care and to ask questions if they do not understand what they are told or what they should do.
[2023-07-30] MEDS: dilTIAZem 100 MG/100 ML 100 MG/100 ML BAG 10 MG IV CONT (06:48)
--- NOTE | 2023-07-30 07:16 | ECG_ITS ---
Measurements Intervals [place] Rate: 78 P: [place]: 0 QRS: 27 QRSD: 98 T: 138 QT: 418 QTc: 477 Interpretive Statements ATRIAL FIBRILLATION LEFT VENTRICULAR HYPERTROPHY WITH ST-T CHANGE BORDERLINE ST-T WAVE ABNORMALITY- INF/LAT LEADS BASELINE ARTIFACT- I, III, AVR, AVL, AVF ABNORMAL ECG COMPARED TO ECG 07/30/2023 01:23:22 NO SIGNIFICANT CHANGES Electronically Signed On 07-30-2023 8:04:04 CDT by Clifton Cisneros D.O.
[2023-07-30 07:30] LABS: Troponin I 0.019 ng/mL (0.000-0.034)
--- NOTE | 2023-07-30 09:08 | PM.IMHP ---
H&P: HPI History of Present Illness Date/Time: 07/30/23 09:08 Chief Complaint: racing heart rate Narrative: This is a 68-year-old male with past medical history significant for paroxysmal aflutter, CAD status post cardiac catheterization in 03/2023 without stent placement,BPH, degenerative joint disease, gout, hyperlipidemia, hypertension, depression, PERI, and GERD who presented to the ER overnight with complaints of a racing heart rate. He currently has an viral upper respiratory infection which has been going on for the last 10 days. In the ER he received a bolus of diltiazem and was placed on a drip. He was admitted to IMU for observation. He remains in atrial fibrillation with a rate in the 70s and on diltiazem drip at 10mg/hr. Today he is seen resting in bed with his , Rekha at bedside. He does not appear in acute distress but he does appear anxious. He states that yesterday he went to lay down to go to bed and felt his heart racing. He also experienced left-sided chest pain and dyspnea. He states that his chest pain has resolved and he is slightly short of breath but contributes this to his congestion. He does endorse sinus congestion, nasal drainage, sore throat, and productive cough with white sputum. We discussed need for anticoagulation given his history of high blood pressure, hyperlipidemia, CAD, and proximal A-Fib. He states that his leasing property manager had said in the past that he did not need anticoagulation but he cannot remember if this was before the results of his cardiac catheterization. Given his history and chads Vasc score of 3 it is recommended that he would be anticoagulated. I discussed with him risks and benefits of anticoagulation. He mentioned the possibility of a procedure that his leasing property manager mentioned rather than anticoagulation. Explained that this could be discussed outpatient but he should still consider anticoagulation now for stroke prevention. He and his like to formally be consulted by Cardiology while inpatient. Review of Systems Review of Systems: All systems reviewed & are unremarkable except as noted in HPI and below [facility] Past Medical History Medical History Anxiety Arthritis Atrial flutter BMI 34.0-34.9,adult BMI 35.0-35.9,adult BPH w urinary obs/LUTS DDD (degenerative disc disease) Degenerative arthritis of knee, bilateral DISH (diffuse idiopathic skeletal hyperostosis) Essential (primary) hypertension Gout Hip osteoarthritis Hyperlipidemia Hypertension Major depressive disorder, single episode, unspecified Sleep apnea Sleep apnea in adult Spondylosis without myelopathy or radiculopathy, cervical region Vitamin D deficiency, unspecified Surgical History Surgical History H/O neck surgery History of back surgery x2 History of left hip replacement x2 - Revision for recurrent dislocation History of right hip replacement Family History Family History Mother Depression Hypertension Family history of osteoarthritis Grandparent Hypertension Father Family history of osteoarthritis Family history of coronary artery disease Heart disease Sibling Diabetes mellitus Hypertension Other Family history of malignant neoplasm Social History Social History Smoking status: Never smoker Second hand tobacco smoke exposure: Yes Alcohol intake: current Drinks per week: 12 Alcohol use details: 12 pack beer weekly Substance use: never Substance use type: does not use Do You Feel Safe in your Home?: Yes Lack of Transportation: No Lack of Food: Never True Current Housing: I Have Housing Concerned About Future Housing: No Difficulty Paying Gas/Electric Bills: No Difficulty Paying for Meds: No Currently Unemployed: No Ed
--- NOTE | 2023-07-30 10:15 | PM.CNCAR ---
Assessment and Plan Assessment and plan (1) Atrial fibrillation with RVR: Code(s): I48.91 - Unspecified atrial fibrillation Status: Acute Assessment and Plan: History of paroxysmal atrial flutter. Presents now with symptomatic recurrence of atrial flutter. He spontaneously converted on IV diltiazem but currently is in atrial fibrillation with controlled heart rate. He takes metoprolol at home, so will shift him off the diltiazem drip back to metoprolol Previously had not been anticoagulated because of [id number] score of 1, but he now as additional risk factors (CAD, HTN, age >65). Therefore, will start him on Xarelto for cardioembolic risk reduction. Long conversation with patient and his regarding this important piece of management Outpatient referral to EP Continue to monitor on telemetry If his rate remains controlled on metoprolol, anticipate discharge tomorrow (2) CAD (coronary artery disease): Code(s): I25.10 - Atherosclerotic heart disease of [place] coronary artery without angina pectoris Status: Acute Assessment and Plan: He had a left heart cath performed here in March showing mild, nonobstructive CAD. Continue ASA, statin, and risk factor modification (3) Essential (primary) hypertension: Code(s): I10 - Essential (primary) hypertension Status: Acute Assessment and Plan: Blood pressure elevated. Resume home antihypertensives. History of Present Illness History of Present Illness Consult date/time: 07/30/23 10:15 Requesting physician: Amena Harper APRN Consult reason: atrial fibrillation, known to you and Other (CAD) Reason For Visit: AFIB with RVR Narrative: Cristian Jones is a 68 year old male with paroxysmal atrial flutter, coronary artery disease, hypertension. This is a patient who is followed in our office by Dr. Rob. He enters the hospital with a chief complaint of palpitations. He has been having symptoms of an upper respiratory infection for about 10 days. Initial EKG showed atrial flutter with a heart rate of 149. He has been placed on a diltiazem drip and did spontaneously convert to sinus rhythm but at this time he is back in atrial fibrillation with heart rate controlled. At this point he is denying any palpitations, shortness of breath, chest pain. Review of Systems Review of Systems: All systems reviewed & are unremarkable except as noted in HPI and below PMFSH Past Medical History Medical History Anxiety Arthritis Atrial flutter BMI 34.0-34.9,adult BMI 35.0-35.9,adult BPH w urinary obs/LUTS DDD (degenerative disc disease) Degenerative arthritis of knee, bilateral DISH (diffuse idiopathic skeletal hyperostosis) Essential (primary) hypertension Gout Hip osteoarthritis Hyperlipidemia Hypertension Major depressive disorder, single episode, unspecified Sleep apnea Sleep apnea in adult Spondylosis without myelopathy or radiculopathy, cervical region Vitamin D deficiency, unspecified Surgical History Surgical History H/O neck surgery History of back surgery x2 History of left hip replacement x2 - Revision for recurrent dislocation History of right hip replacement Family History Family History Mother Depression Hypertension Family history of osteoarthritis Grandparent Hypertension Father Family history of osteoarthritis Family history of coronary artery disease Heart disease Sibling Diabetes mellitus Hypertension Other Family history of malignant neoplasm Social History Social History Smoking status: Never smoker Second hand tobacco smoke exposure: Yes Alcohol intake: current Drinks per week: 12 Alcohol use details: 12 pack beer weekly Substance use: never [place]
[2023-07-30] MEDS: DULoxetine HCL 60 MG CAPSULE.DR PO (11:42)
[2023-07-30] MEDS: amLODIPine BESYLATE 5 MG TABLET 10 MG PO (11:42)
[2023-07-30] MEDS: lisinopriL 20 MG TABLET PO (11:42)
[2023-07-30] MEDS: METOPROLOL TARTRATE 25 MG TABLET PO ×2 (11:42→17:24)
[2023-07-30] MEDS: clonazePAM (*CRX) 0.5 MG TABLET PO (11:43)
[2023-07-30] MEDS: allopurinoL 100 MG TABLET PO (11:43)
[2023-07-30] MEDS: ONDANSETRON INJ 4 MG/2 ML VIAL IV PUSH (13:28)
[2023-07-30] MEDS: RIVAROXABAN 20 MG TABLET PO (17:24)
[2023-07-31] VITALS (16 sets, daily range): BP systolic 130–179; BP diastolic 74–102; PULSE 66–101; RESP 17–18; TEMP 36.4–36.6; O2SAT 92–94
[2023-07-31] MEDS: ASPIRIN 81 MG ENTERIC TABLET PO (00:10)
[2023-07-31] MEDS: METOPROLOL TARTRATE 25 MG TABLET PO ×2 (00:10→05:59)
[2023-07-31 05:08] LABS: Hemoglobin 12.1 g/dL (14.0-18.0); Mean Corpuscular HGB Conc 32.7 g/dl (32-36); Mean Corpuscular Hemoglobin 31.6 pg (26-34); Mean Corpuscular Volume 96.6 fl (80-100); Platelet Count Result 217 k/mm3 (150-375); Red Blood Count 3.83 M/mm3 (4.6-6.20); Red Cell Distribution Width 13.2 % (11.5-14.5)
[2023-07-31 05:20] LABS: Alanine Aminotransferase 18 U/L (6-50); Albumin Level 3.9 g/dL (3.5-5.1); Alkaline Phosphatase 65 U/L (38-126); Anion Gap 1 mmol/L (8-16); Aspartate Amino Transferase 20 U/L (17-59); Bilirubin,Total 0.6 mg/dL (0.2-1.3); Blood Urea Nitrogen 17 mg/dL (9-20); Calcium 9.2 mg/dL (8.4-10.2); Carbon Dioxide 33 mmol/L (22-30); Chloride 101 mmol/L (98-107); Cholesterol 176 mg/dL (0-200); Estimated CRCL calculation 92 ml/min; Estimated Glomerular Filt Rate > 60; Glucose 103 mg/dL (65-110); HDL Direct 42 mg/dL; Sodium 135 mmol/L (137-145); Triglycerides 109 mg/dL (<150)
[2023-07-31 05:31] LABS: LDL Cholesterol Direct 109 mg/dL
--- NOTE | 2023-07-31 07:14 | ECG_ITS ---
Measurements Intervals [place] Rate: 75 P: 101 [place]: 196 QRS: 29 QRSD: 98 T: -12 QT: 408 QTc: 456 Interpretive Statements SINUS RHYTHM VENTRICULAR PREMATURE COMPLEX LEFT VENTRICULAR HYPERTROPHY WITH ST-T CHANGE NONSPECIFIC ST-T WAVE ABNORMALITY- INFERIOR LEADS BASELINE ARTIFACT- I, II, III, AVR, AVL, AVF, V1, V6 BORDERLINE ECG COMPARED TO ECG 07/30/2023 07:25:10 SINUS RHYTHM NOW PRESENT Electronically Signed On 07-31-2023 8:16:39 CDT by Clifton Cisneros D.O.
--- NOTE | 2023-07-31 08:16 | PM.DS ---
DS: Admitting Diagnosis Discharge Date 07/30 Admitting Diagnosis atrial fibrillation DS: Discharge Diagnosis Discharge Diagnosis (1) Atrial fibrillation with RVR: Code(s): I48.91 - Unspecified atrial fibrillation Status: Acute Assessment and Plan: Presented with atrial fibrillation rate of 149 on EKG -history of proximal A-Fib on metoprolol succinate 100 mg daily -TSH normal -BNP 3520 -he received bolus of diltiazem and was started on a diltiazem drip. Currently drip is running at 10 mg per hour. Heart rate is in the 70s AFib. -chest pain and dyspnea have resolved -plan to stop diltiazem drip and start metoprolol tartrate 25 mg q.6 per cardiology recommendation -formal cardiology consult planned. Assistance with care and recommendations are appreciated -anticipate starting on DOAC given CHADS Vasc of 3 (2) Hyperlipidemia: Code(s): E78.5 - Hyperlipidemia, unspecified Status: Acute Assessment and Plan: Does not appear to be on a statin -lipid panel ordered -baby aspirin daily (3) Essential (primary) hypertension: Code(s): I10 - Essential (primary) hypertension Status: Acute Assessment and Plan: Blood pressures reviewed -SBP 150-170 -Restart home agents lisinopril, metoprolol, and amlodipine. Plan Feeding:heart healthy Analgesia:acetaminophen prn Thromboembolic prophylaxis: SCD Ulcer prophylaxis: n/a Glycemic control: n/a Bowel regimen: n/a Lines: PIV Antibiotics: n/a Disposition: home DS: Summary Hospital Course Reason for hospitalization: atrial fibrillation Hospital Course: This is a 68-year-old male with past medical history significant for paroxysmal aflutter, CAD status post cardiac catheterization in 03/2023 without stent placement,BPH, degenerative joint disease, gout, hyperlipidemia, hypertension, depression, PERI, and GERD who presented to the ER overnight with complaints of a racing heart rate.? He currently has an viral upper respiratory infection which has been going on for the last 10 days.? In the ER he received a bolus of diltiazem and was placed on a drip. He was admitted to IMU for observation.? He remains in atrial fibrillation with a rate in the 70s and on diltiazem drip at 10mg/hr. Today he is seen resting in bed with his , Rekha at bedside.? He does not appear in acute distress but he does appear anxious.? He states that yesterday he went to lay down to go to bed and felt his heart racing.? He also experienced left-sided chest pain and dyspnea.? He states that his chest pain has resolved and he is slightly short of breath but contributes this to his congestion.? He does endorse sinus congestion, nasal drainage, sore throat, and productive cough with white sputum.? We discussed need for anticoagulation given his history of high blood pressure, hyperlipidemia, CAD, and proximal A-Fib.? 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 Given his history and chads Vasc score of 3 it is recommended that he would be anticoagulated.? I discussed with him risks and benefits of anticoagulation.? He mentioned the possibility of a procedure that his precision agriculture specialist mentioned rather than anticoagulation.? Explained that this could be discussed outpatient but he should still consider anticoagulation now for stroke prevention.? He and his like to formally be consulted by Cardiology while inpatient. 07/30: Mr. Jones is doing well today. His heart rate is in sinus rhythm in the 70's. He is hypertensive this morning so cardiology has resumed his Imdur that was previously prescribed by his precision agriculture specialist. He is also having some atypical chest pain and nausea. The nausea he has been having on and off at home and reports difficulty with taking his pills. I gave him some Protonix which alleviated his nausea. His blood pressure is more cont
--- NOTE | 2023-07-31 08:23 | PC.NURSE ---
The pt is c/o pain to chest 3/10 numeric pain scale. Declines the need for intervention. ECG report given to Jennifer HERNÁNDEZ will place new interventions in place
--- NOTE | 2023-07-31 08:48 | PM.PNCARD ---
Progress Note: A&P Assessment and Plan (1) Atrial fibrillation with RVR: Code(s): I48.91 - Unspecified atrial fibrillation Status: Acute Assessment and Plan: History of paroxysmal atrial flutter. Presents now with symptomatic recurrence of atrial flutter. He spontaneously converted on IV diltiazem but currently is in atrial fibrillation with controlled heart rate. Continue metoprolol, shift to Toprol XL 100mg daily Previously had not been anticoagulated because of [id number] score of 1, but he now as additional risk factors (CAD, HTN, age >65). Therefore, will start him on Xarelto for cardioembolic risk reduction. Long conversation with patient and his regarding this important piece of management Outpatient referral to [facility] for discharge from the hospital today from a cardiac perspective (2) CAD (coronary artery disease): Code(s): I25.10 - Atherosclerotic heart disease of [place] coronary artery without angina pectoris Status: Acute Assessment and Plan: He had a left heart cath performed here in March showing mild, nonobstructive CAD. Continue ASA, statin, and risk factor modification. Had some CP overnight. Atypical chest pain. EKG performed this morning with no ischemic changes. Start Imdur 30mg daily (3) Essential (primary) hypertension: Code(s): I10 - Essential (primary) hypertension Status: Acute Assessment and Plan: Blood pressure remains elevated. Adding Imdur today. If BP remains above goal, recommend increasing lisinopril to 40mg daily. Subjective Date/time seen: 07/31/23 08:48 Interval history: Cardiology follow up for atrial fibrillation Date of service 07/31/2023: He had some chest pain overnight. He describes it as a squeezing pain in his axilla. No substernal pain. He spontaneously converted back to sinus rhythm yesterday. Review of Systems Review of Systems: All systems reviewed & are unremarkable except as noted in HPI and below Exam Const: General: comfortable, no acute distress, alert and awake Orientation/consciousness: patient oriented x3 HENMT: Head: normal to inspection Eyes: General: appearance normal, both eyes and all related structures Pupils: Equal, round and reactive pupils present Neck: Neck: normal visual inspection, supple and no JVD Carotids: normal carotid upstroke Resp: Effort & Inspection: normal respiratory effort Auscultation: not clear to auscultation bilaterally and diminished lung sounds Cardio: Rate: regular rate Rhythm: regular rhythm Heart sounds: S1 normal heart sound present, S2 normal heart sound present and no murmurs GI: Auscultation: normal bowel sounds Skin: General skin exam: normal color Neuro: General: patient oriented x3 Cranial nerves: Yes Equal, round and reactive pupils present Extrem: General: normal to inspection Psych: Appearance: grossly normal Mental Status: mental status grossly normal Objective Data Vital Signs Vital Signs: Vital Signs - 24 hr 07/30/23 09:36 07/30/23 11:42 07/30/23 11:23 Temperature 36.6 C Pulse Rate 86 71 Respiratory Rate 14 Blood Pressure 154/93 H Pulse Oximetry 96 98 Oxygen Delivery Room Air Fraction of Inspired Oxygen 07/30/23 10:00 07/30/23 12:00 07/30/23 12:00 Temperature Pulse Rate 82 86 Respiratory Rate Blood Pressure Pulse Oximetry Oxygen Delivery Room Air Fraction of Inspired Oxygen 07/30/23 14:00 07/30/23 16:00 07/30/23 10:00 Temperature 36.6 C Pulse Rate 69 77 82 Respiratory Rate 18 Blood Pressure 147/89 H Pulse Oximetry 93 Oxygen Delivery Fraction of Inspired Oxygen 07/30/23 12:00 07/30/23 12:45 07/30/23 16:00 Temperature Pulse Rate 82 88 78 Respiratory Rate Blood Pressure Pulse Oximetry Oxygen Delivery Fraction of Inspired Oxygen 07/30/23 17:24 07/30/23 16:00 07/30/23 18:00 Temperature Pulse Rate 86 65 Respiratory R
[2023-07-31] MEDS: DULoxetine HCL 60 MG CAPSULE.DR PO (08:53)
[2023-07-31] MEDS: amLODIPine BESYLATE 5 MG TABLET 10 MG PO (08:54)
[2023-07-31] MEDS: allopurinoL 100 MG TABLET PO (08:54)
[2023-07-31] MEDS: ISOSORBIDE MONONITRATE 30 MG TAB.ER.24H PO (08:54)
[2023-07-31] MEDS: lisinopriL 20 MG TABLET PO (08:54)
[2023-07-31] MEDS: clonazePAM (*CRX) 0.5 MG TABLET PO (08:54)
[2023-07-31] MEDS: ONDANSETRON INJ 4 MG/2 ML VIAL IV PUSH (08:55)
[2023-07-31] MEDS: METOPROLOL SUCCINATE EXT REL 100 MG TABCR PO (12:04)
[2023-07-31] MEDS: PANTOPRAZOLE 40 MG TABLET PO (12:05)
--- NOTE | 2023-07-31 14:43 | PC.NURSE ---
Education given on Discharge education. Denies pain no distress noted at the time of discharge education except for wanting to speak to case management about the Daphne coupon. Report given to case management et the pt is awaiting escort to private vehicle per w/c et staff escort. All belongings packed et waiting to be removed per family at the time of exit from the pts room.
--- NOTE | 2023-07-31 18:31 | PC.NURSE ---
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
[2023-07-31 18:47] LABS: Hemoglobin A1C 5.3 % (<5.7)
== END 2023-07-31 14:53 | disposition home or self-care (01) ==
LOC: ANHED 07-30 02:26 → ANHIMU 07-30 06:50
PROVIDERS: Nurse Practitioner Acute Care; Admitting Provider Internal Medicine; Emergency Provider Physician Assistant; PCP Family Medicine; Visit Provider General Practice
DX: I48.91 Unspecified atrial fibrillation (principal); J06.9 Acute upper respiratory infection, unspecified; R06.02 Shortness of breath; I25.10 Atherosclerotic heart disease of native coronary artery without angina pectoris; I10 Essential (primary) hypertension; E78.5 Hyperlipidemia, unspecified; M48.10 Ankylosing hyperostosis [Forestier], site unspecified; F32.9 Major depressive disorder, single episode, unspecified; G47.30 Sleep apnea, unspecified; M47.812 Spondylosis without myelopathy or radiculopathy, cervical region; E55.9 Vitamin D deficiency, unspecified; F41.9 Anxiety disorder, unspecified; N40.0 Benign prostatic hyperplasia without lower urinary tract symptoms; M10.9 Gout, unspecified; Z20.822 Contact with and (suspected) exposure to COVID-19; Z79.82 Long term (current) use of aspirin; Z79.899 Other long term (current) drug therapy
CPT/HCPCS: 36415; 71045; 71275; 80053; 80061; 83036; 83690; 83735; 83880; 84443; 84484; 85025; 85027; 85380; 85610; 85730; 87637; 93005; 96361; 96365; 96366; 96367; 96372; 96375; 96376; 99285; A9270; G0378; J0456; J0696; J1650; J2405; J7030; Q9967

== ENCOUNTER 2023-11-02 19:39 | Observation (INO) | payer MEDICARE, SELFPAY ==
[2023-11-02] VITALS (11 sets, daily range): BP systolic 146–174; BP diastolic 80–106; PULSE 79–168; RESP 16–22; TEMP 36.4–36.8; O2SAT 97–100; BMI 34.0
--- NOTE | ~2023-11-02 | XR_ITS ---
XR chest 2V Ordering provider: Radha Crane MD History: 68 years Male with . weakness, DIZZINESS. HX AFIB . Comparison: July 29, 2023 FINDINGS: MEDIASTINUM: The cardiac silhouette is not enlarged. LUNGS: No effusion or pneumothorax. Prominent markings in the lung bases is seen which may indicate a telectasis versus pneumonia. OTHER: No free air under the diaphragm. Degenerative changes of the spine. IMPRESSION: Prominent markings in the lower lobes which may indicate atelectasis versus pneumonia. Reviewed, dictated and finalized at location A. IMPRESSION: Prominent markings in the lower lobes which may indicate atelectasis versus pne umonia.
--- NOTE | 2023-11-02 19:41 | ECG_ITS ---
Test Date: 2023-11-02 19:48:39 Measurements Intervals [place] Rate: 135 P: 0 DE: 0 QRS: -11 QRSD: 91 T: 154 QT: 284 QTc: 426 Interpretive Statements ATRIAL FIBRILLATION WITH RAPID VENTRICULAR RESPONSE TRANSITIONING TO SINUS RHYTHM ABNORMAL QRS-T ANGLE [QRS-T AXIS DIFFERENCE > 60] No previous ECG available for comparison Electronically Signed On 11-03-2023 13:31:32 CDT by Haim Ortega M.D.
[2023-11-02 19:56] LABS: Basophils Percent Auto 0.4 % (0.2-1.2); Eosinophils Absolute Auto 0.3 K/mm3 (0-0.3); Eosinophils Percent Auto 3.6 % (0-4.4); Hematocrit 40.3 % (42.0-52.0); Hemoglobin 13.4 g/dL (14.0-18.0); Immature Granulocyte Absolute 0.01 K/mm3 (0.00-0.031); Immature Granulocyte Percent A 0.1 % (0-0.5); Lymphocytes Absolute Auto 1.85 K/mm3 (0.9-3.2); Lymphocytes Percent Auto 25.7 % (18.3-44.2); Mean Corpuscular HGB Conc 33.3 g/dl (32-36); Mean Corpuscular Volume 93.3 fl (80-100); Mean Platelet Volume 10.5 fl (7.4-10.4); Monocytes Absolute Auto 0.7 K/mm3 (0.1-0.6); Monocytes Percent Auto 9.4 % (2.6-8.5); Neutrophils Absolute Auto 4.4 K/mm3 (1.3-6.7); Neutrophils Percent Auto 60.8 % (45.5-73.1); Platelet Count Result 195 k/mm3 (150-375); Red Blood Count 4.32 M/mm3 (4.6-6.20); Red Cell Distribution Width 14.4 % (11.5-14.5); White Blood Count 7.2 K/mm3 (4.5-10.0)
[2023-11-02 20:07] LABS: Alanine Aminotransferase 20 U/L (6-50); Albumin Level 4.5 g/dL (3.5-5.1); Alkaline Phosphatase 78 U/L (38-126); Anion Gap 7 mmol/L (4-12); Aspartate Amino Transferase 24 U/L (17-59); Bilirubin,Total 0.6 mg/dL (0.2-1.3); Blood Urea Nitrogen 24 mg/dL (9-20); Calcium 9.2 mg/dL (8.4-10.2); Carbon Dioxide 29 mmol/L (22-30); Chloride 103 mmol/L (98-107); Estimated CRCL calculation 82 ml/min; Estimated Glomerular Filt Rate > 60; Glucose 137 mg/dL (65-110); Potassium 3.5 mmol/L (3.4-5.0); Sodium 139 mmol/L (137-145)
--- NOTE | 2023-11-02 20:48 | ED.ARRPALP ---
HPI - Arrhythmia/Palpitations General Chief Complaint: Arrhythmia/Palpitations Stated Complaint: dizziness, rapid heart rate Time Seen by Provider: 11/02/23 20:41 Source: patient and family Mode of arrival: ambulatory Limitations: no limitations History of Present Illness HPI narrative: Patient presents with complaint of dizziness and palpitations/rapid rate approximately prior to arrival. 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 His non-municipal maintenance worker is Dr Rob. His next scheduled f/u appt w/ Dr Valero is end of November. This episode today was associated with left-sided chest pain and some mild shortness of breath. He denies any lower extremity edema. He is on Xarelto and endorses taking medication missing doses. For his hypertension he is on amlodipine, lisinopril, and metoprolol. Related Data Home Medications Medication Instructions Recorded Confirmed duloxetine 60 mg capsule,delayed 60 mg PO DAILY 04/13/19 11/02/23 release clonazepam 0.5 mg tablet 0.5 mg PO DAILY anxiety 11/02/23 11/02/23 isosorbide mononitrate 30 mg 30 mg PO QAM PRN Chest Pain 11/02/23 11/02/23 tablet,extended release 24 hr pantoprazole 40 mg tablet,delayed 40 mg PO DAILY PRN Indigestion 11/02/23 11/02/23 release rivaroxaban 20 mg tablet (Xarelto) 20 mg PO DAILY 11/02/23 11/02/23 Allergies Allergy/AdvReac Type Severity Reaction Status Date / Time No Known Allergies Allergy Verified 11/02/23 20:00 [facility] Past Medical History Medical History Anxiety Arthritis Atrial flutter BMI 34.0-34.9,adult BMI 35.0-35.9,adult BPH w urinary obs/LUTS DDD (degenerative disc disease) Degenerative arthritis of knee, bilateral DISH (diffuse idiopathic skeletal hyperostosis) Essential (primary) hypertension Gout Hip osteoarthritis Hyperlipidemia Hypertension Major depressive disorder, single episode, unspecified Sleep apnea in adult Spondylosis without myelopathy or radiculopathy, cervical region Vitamin D deficiency, unspecified Surgical History Surgical History H/O neck surgery History of back surgery x2 History of left hip replacement x2 - Revision for recurrent dislocation History of radiofrequency ablation procedure for cardiac arrhythmia October 2023; Dr Valero ([facility]) History of right hip replacement Family History Family History Mother Depression Hypertension Family history of osteoarthritis Grandparent Hypertension Father Family history of osteoarthritis Family history of coronary artery disease Heart disease Sibling Diabetes mellitus Hypertension Other Family history of malignant neoplasm Social History Social History Smoking status: Never smoker Second hand tobacco smoke exposure: Yes Alcohol intake: current Drinks per week: 6 Alcohol use details: 12 pack beer weekly Substance use: never Substance use type: does not use Do You Feel Safe in your Home?: Yes Lack of Transportation: No Lack of Food: Never True Current Housing: I Have Housing Concerned About Future Housing: No Difficulty Paying Gas/Electric Bills: No Difficulty Paying for Meds: No Currently Unemployed: No Education: High School Diploma/GED Difficulty w/ Childcare or Family Care: No Living arrangements: with family Additional living arrangements comments: lives with spouse Occupation/Education: retired 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 Gender identity (if verbalized by the patient): Male Sexual Orientation (if Verbalized by the Patient): Straight or Heterosexual Spiritual care concerns: Yes (Brittaney
[2023-11-02] MEDS: METOPROLOL TARTRATE INJ 5 MG/5 ML VIAL IV PUSH (21:41)
[2023-11-02] MEDS: ASPIRIN 81 MG CHEWABLE TABLET 324 MG PO (21:52)
--- NOTE | 2023-11-02 22:27 | PM.IMHP ---
H&P: HPI History of Present Illness Date/Time: 11/02/23 22:27 Chief Complaint: palpitations Narrative: 68-year-old male with past medical history significant for paroxysmal atrial fibrillation, rate controlled, anticoagulated, underwent ablation on a week ago, hypertension, patient presents today to the emergency room after having episode of palpitations, patient has been doing fairly well after ablation, denies any fevers, rigors, chills, cough, sputum production, nausea, vomiting, abdominal pain, leg swelling, syncope or near-syncope. In emergency room he was found to heart rate 135, this responded to a dose of metoprolol. Preliminary workup was significant for troponin of 0.08 and 0.007 x2 a chest x-ray was concerning for likely lung atelectasis versus pneumonia. Patient has been admitted for further evaluation management and treatment. XR chest 2V Ordering provider: Radha Crane MD History: 68 years Male with . weakness, DIZZINESS. HX AFIB . Comparison: July 29, 2023 FINDINGS: MEDIASTINUM: The cardiac silhouette is not enlarged. LUNGS: No effusion or pneumothorax. Prominent markings in the lung bases is seen which may indicate atelectasis versus pneumonia. OTHER: No free air under the diaphragm. Degenerative changes of the spine. IMPRESSION: Prominent markings in the lower lobes which may indicate atelectasis versus pneumonia. Review of Systems Review of Systems: Palpitations, lightheadedness, shortness of breath PMFSH Past Medical History Medical History Anxiety Arthritis Atrial flutter BMI 34.0-34.9,adult BMI 35.0-35.9,adult BPH w urinary obs/LUTS DDD (degenerative disc disease) Degenerative arthritis of knee, bilateral DISH (diffuse idiopathic skeletal hyperostosis) Essential (primary) hypertension Gout Hip osteoarthritis Hyperlipidemia Hypertension Major depressive disorder, single episode, unspecified Sleep apnea in adult Spondylosis without myelopathy or radiculopathy, cervical region Vitamin D deficiency, unspecified Surgical History Surgical History H/O neck surgery History of back surgery x2 History of left hip replacement x2 - Revision for recurrent dislocation History of radiofrequency ablation procedure for cardiac arrhythmia October 2023; Dr Valero ([facility]) History of right hip replacement Family History Family History Mother Depression Hypertension Family history of osteoarthritis Grandparent Hypertension Father Family history of osteoarthritis Family history of coronary artery disease Heart disease Sibling Diabetes mellitus Hypertension Other Family history of malignant neoplasm Social History Social History Smoking status: Never smoker Second hand tobacco smoke exposure: Yes Alcohol intake: current Drinks per week: 6 Alcohol use details: 12 pack beer weekly Substance use: never Substance use type: does not use Do You Feel Safe in your Home?: Yes Lack of Transportation: No Lack of Food: Never True Current Housing: I Have Housing Concerned About Future Housing: No Difficulty Paying Gas/Electric Bills: No Difficulty Paying for Meds: No Currently Unemployed: No Education: High School Diploma/GED Difficulty w/ Childcare or Family Care: No Living arrangements: with family Additional living arrangements comments: lives with spouse Occupation/Education: retired 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 Gender identity (if verbalized by the patient): Male Sexual Orientation (if Verbalized by the Patient): Straight or Heterosexual Spiritual care concerns: Yes ([place]) Agree to blood products: Yes
[2023-11-02 22:42] LABS: Thyroid Stimulating Hormone 0.878 uIU/mL (0.465-4.680)
--- NOTE | 2023-11-02 23:59 | ADMGEN ---
This patient, Cristian Jones, was admitted to IMU Room 211-01 at 2318. Patient/family oriented to hospital policies and general routines including ID bracelet, bed and alarms, visiting hours, pain management, procedures, bathroom and other care routines, personal items, smoking policy, room service/diet, and visiting hours. Information on how to activate the Rapid Response Team has been discussed. Patient/Family are encouraged to report perceived risks to care and to ask questions if they do not understand what they are told or what they should do.
[2023-11-03] VITALS (10 sets, daily range): BP systolic 130–174; BP diastolic 82–99; PULSE 73–87; RESP 12–16; TEMP 36.6–36.8; O2SAT 97–100
[2023-11-03 01:09] LABS: Troponin I 0.079 ng/mL (0.000-0.034)
[2023-11-03] MEDS: amLODIPine BESYLATE 5 MG TABLET 10 MG PO ×2 (01:25→08:55)
[2023-11-03] MEDS: ACETAMINOPHEN 325 MG TABLET 650 MG PO (01:25)
--- NOTE | 2023-11-03 08:55 | PM.CNCAR ---
Assessment and Plan Assessment and plan (1) Atrial fibrillation with RVR: Code(s): I48.91 - Unspecified atrial fibrillation Status: Acute Assessment and Plan: Recurrence of atrial fibrillation following catheter ablation. Spontaneously converted to sinus rhythm, remains in sinus rhythm now Increase metoprolol to 150mg daily Continue a/c with Xarelto Untreated PERI, educated about importance of managing PERI Follow up with EP at [facility] - made Dr. Mcgowan aware of this admission OK for discharge today (2) Hypertension: Code(s): I10 - Essential (primary) hypertension Status: Acute Assessment and Plan: Above goal. Increase lisinopril to 40mg daily (3) Sleep apnea: Code(s): G47.30 - Sleep apnea, unspecified Status: Acute Assessment and Plan: Untreated. Outpatient sleep study History of Present Illness History of Present Illness Consult date/time: 11/03/23 08:55 Requesting physician: Radha Crane MD Consult reason: atrial fibrillation Reason For Visit: Afib RVR; Elev trop Narrative: Cristian Jones is a 68-year-old male with atrial fibrillation who recently underwent radiofrequency catheter ablation with Dr. Mcgowan at [facility]. He presents to [facility] with complaints of palpitations and dizziness. He was found to be in atrial fibrillation with rapid ventricular response, rate in the 150s. He spontaneously converted to sinus rhythm after receiving some IV Lopressor. He remains in sinus rhythm now. He feels fatigued and ?run down? but otherwise is asymptomatic at this point. Review of Systems Review of Systems: All systems reviewed & are unremarkable except as noted in HPI and below PMFSH Past Medical History Medical History Anxiety Arthritis Atrial flutter BMI 34.0-34.9,adult BMI 35.0-35.9,adult BPH w urinary obs/LUTS DDD (degenerative disc disease) Degenerative arthritis of knee, bilateral DISH (diffuse idiopathic skeletal hyperostosis) Essential (primary) hypertension Gout Hip osteoarthritis Hyperlipidemia Hypertension Major depressive disorder, single episode, unspecified Sleep apnea Sleep apnea in adult Spondylosis without myelopathy or radiculopathy, cervical region Vitamin D deficiency, unspecified Surgical History Surgical History H/O neck surgery History of back surgery x2 History of left hip replacement x2 - Revision for recurrent dislocation History of right hip replacement Family History Family History Mother Depression Hypertension Family history of osteoarthritis Grandparent Hypertension Father Family history of osteoarthritis Family history of coronary artery disease Heart disease Sibling Diabetes mellitus Hypertension Other Family history of malignant neoplasm Social History Social History Smoking status: Never smoker Second hand tobacco smoke exposure: Yes Alcohol intake: current Drinks per week: 6 Alcohol use details: 12 pack beer weekly Substance use: never Substance use type: does not use Do You Feel Safe in your Home?: Yes Lack of Transportation: No Lack of Food: Never True Current Housing: I Have Housing Concerned About Future Housing: No Difficulty Paying Gas/Electric Bills: No Difficulty Paying for Meds: No Currently Unemployed: No Education: High School Diploma/GED Difficulty w/ Childcare or Family Care: No Living arrangements: with family Additional living arrangements comments: lives with spouse Occupation/Education: retired 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 Gender identity (if verbalized by the patient): Male Sexual Orientation (if Verbalized by the Patient
[2023-11-03] MEDS: DULoxetine HCL 60 MG CAPSULE.DR PO (08:56)
[2023-11-03] MEDS: allopurinoL 100 MG TABLET PO (08:56)
[2023-11-03] MEDS: METOPROLOL SUCCINATE EXT REL 100 MG TABCR PO (08:57)
[2023-11-03] MEDS: clonazePAM (*CRX) 0.5 MG TABLET PO (08:57)
[2023-11-03] MEDS: ISOSORBIDE MONONITRATE 30 MG TAB.ER.24H PO (08:58)
[2023-11-03] MEDS: lisinopriL 20 MG TABLET PO (08:58)
--- NOTE | 2023-11-03 09:06 | PM.IMPN ---
Progress Note: A&P Assessment and Plan (1) Atrial fibrillation with RVR: Code(s): I48.91 - Unspecified atrial fibrillation Status: Acute Plan 68-year-old male with past medical history significant for paroxysmal atrial fibrillation, rate controlled, anticoagulated, underwent ablation on a week ago, hypertension, patient presents today to the emergency room after having episode of palpitations, patient has been doing fairly well after ablation, denies any fevers, rigors, chills, cough, sputum production, nausea, vomiting, abdominal pain, leg swelling, syncope or near-syncope. In emergency room he was found to heart rate 135, this responded to a dose of metoprolol. Preliminary workup was significant for troponin of 0.08 and 0.007 x2 a chest x-ray was concerning for likely lung atelectasis versus pneumonia. Paroxysmal AFib History of AFib, underwent ablation of week ago Patient present ED with a chief complaint of palpitation Patient found to have recurrent AFib RVR Continue metoprolol 100 mg daily p.o., Xarelto 20 mg daily p.o. Telemetry monitoring Continue billing machine operator for evaluation treatment Now patient has sinus rhythm, condition recommends increased metoprolol does of 150 mg daily p.o. Elevated troponin: Code(s): R79.89 - Other specified abnormal findings of blood chemistry Status: Acute Possible due to AFib RVR and uncontrolled blood pressure Patient is on Imdur 30 mg daily p.o., aspirin 324 mg once, no EKG changes (3) Hypertension: Code(s): I10 - Essential (primary) hypertension Status: Acute Assessment and Plan: home medication lisinopril 20 mg daily p.o., metoprolol 100 mg daily p.o. Increase to lisinopril 40 mg daily p.o., metoprolol 150 mg daily p.o. up to discharge, blood pressure is well controlled GERD Continue Protonix 40 mg daily p.o. Gout: continue allopurinol Subjective Date/time seen: 11/03/23 09:06 Interval history: I saw exam patient today, patient feels comfortable, denies palpitation, dizziness, chest pain, abdomen pain, nausea vomiting. Telemetry shows sinus rhythm Exam Narrative: GENERAL: Pleasant, in no acute distress. Well-nourished. - EYES: EOMI. Anicteric. - HENT: Moist mucous membranes. - LUNGS: Clear to auscultation bilaterally, no wheezing, rhonchi, or rales. - CARDIOVASCULAR: Regular rate and rhythm. No murmur. No JVD. - ABDOMEN: Soft, non-tender and non-distended. No palpable masses. - EXTREMITIES: No edema. Peripheral pulses 2+. Non-tender. - NEUROLOGIC: No focal neurological deficits. CN II-XII grossly intact. - PSYCHIATRIC: Awake, Alert and oriented x 3. Appropriate mood and affect. - SKIN: No rashes or lesions. Warm. - LYMPH: No cervical lymphadenopathy. Objective Data Vital Signs Vital Signs: Vital Signs - 24 hr 11/02/23 19:55 11/02/23 19:56 11/02/23 21:06 Temperature 97.5 F L 97.8 F Pulse Rate 80 84 82 Respiratory Rate 19 18 Blood Pressure 147/89 H 147/89 H Pulse Oximetry 97 99 Oxygen Delivery Room Air 11/02/23 20:49 11/02/23 21:01 11/02/23 21:41 Temperature Pulse Rate 85 82 168 H Respiratory Rate 18 20 Blood Pressure 149/101 H 146/83 H Pulse Oximetry 100 97 Oxygen Delivery 11/02/23 21:28 11/02/23 21:31 11/02/23 21:34 Temperature Pulse Rate 113 H 98 97 Respiratory Rate 22 H 22 H 17 Blood Pressure 149/91 H 156/106 H 155/87 H Pulse Oximetry 97 97 97 Oxygen Delivery 11/02/23 21:46 11/02/23 23:23 11/03/23 00:00 Temperature 98.2 F Pulse Rate 79 80 75 Respiratory Rate 19 16 Blood Pressure 155/80 H 174/99 H Pulse Oximetry 99 99 Oxygen Delivery 11/03/23 00:00 11/03/23 00:00 11/03/23 02:13 Temperature 98.2 F Pulse Rate 83 Respiratory Rate 16 Blood Pressure 174/99 H 159/97 H Pulse Oximetry 99 99 Oxygen Delivery Room Air 11/03/23 02:00 11/03/23 03:57 11/03/23 04:00 Temperature 97.9 F Pulse Rate 75 76 76 Respiratory Rate 16
--- NOTE | 2023-11-03 14:44 | PM.DS ---
DS: Admitting Diagnosis Discharge Date 11/02 Admitting Diagnosis (1) Atrial fibrillation with RVR: Code(s): I48.91 - Unspecified atrial fibrillation Status: Acute DS: Discharge Diagnosis Discharge Diagnosis (1) Atrial fibrillation with RVR: Code(s): I48.91 - Unspecified atrial fibrillation Status: Acute DS: Summary Hospital Course Hospital Course: 68-year-old male with past medical history significant for paroxysmal atrial fibrillation, rate controlled, anticoagulated, underwent ablation on a week ago, hypertension, patient presents today to the emergency room after having episode of palpitations, patient has been doing fairly well after ablation, denies any fevers, rigors, chills, cough, sputum production, nausea, vomiting, abdominal pain, leg swelling, syncope or near-syncope. In emergency room he was found to heart rate 135, this responded to a dose of metoprolol. Preliminary workup was significant for troponin of 0.08 and 0.007 x2 a chest x-ray was concerning for likely lung atelectasis versus pneumonia. Paroxysmal AFib History of AFib, underwent ablation of week ago Patient present ED with a chief complaint of palpitation Patient found to have recurrent AFib RVR Continue metoprolol 100 mg daily p.o., Xarelto 20 mg daily p.o. Telemetry monitoring Continue kettle skimmer for evaluation treatment Now patient has sinus rhythm, condition recommends increased metoprolol does of 150 mg daily p.o. Elevated troponin: Code(s): R79.89 - Other specified abnormal findings of blood chemistry Status: Acute Possible due to AFib RVR and uncontrolled blood pressure Patient is on Imdur 30 mg daily p.o., aspirin 324 mg once, no EKG changes Uncontrolled Hypertension: Code(s): I10 - Essential (primary) hypertension Status: Acute Assessment and Plan: home medication lisinopril 20 mg daily p.o., metoprolol 100 mg daily p.o. Increase to lisinopril 40 mg daily p.o., metoprolol 150 mg daily p.o. up to discharge, blood pressure is well controlled GERD Continue Protonix 40 mg daily p.o. Gout: continue allopurinol Patient is afebrile, white blood cell within normal limit, denies cough, shortness breath, no sign of pneumonia Patient is ready to be discharged, kettle skimmer has approved to discharge patient today Time Spent with Patient Time attestation: Total time spent providing and/or coordinating discharge services: Exam Narrative: GENERAL: Pleasant, in no acute distress. Well-nourished. - EYES: EOMI. Anicteric. - HENT: Moist mucous membranes. - LUNGS: Clear to auscultation bilaterally, no wheezing, rhonchi, or rales. - CARDIOVASCULAR: Regular rate and rhythm. No murmur. No JVD. - ABDOMEN: Soft, non-tender and non-distended. No palpable masses. - EXTREMITIES: No edema. Peripheral pulses 2+. Non-tender. - NEUROLOGIC: No focal neurological deficits. CN II-XII grossly intact. - PSYCHIATRIC: Awake, Alert and oriented x 3. Appropriate mood and affect. - SKIN: No rashes or lesions. Warm. - LYMPH: No cervical lymphadenopathy. DS: Data Data Completed and Pending Labs on day of discharge: Labs from last 24 hours 11/03/23 11/02/23 00:35 19:47 WBC 7.2 RBC 4.32 L Hgb 13.4 L Hct 40.3 L MCV 93.3 MCH 31.0 MCHC 33.3 RDW 14.4 Plt Count 195 MPV 10.5 H Immature Gran % (Auto) 0.1 Neut % (Auto) 60.8 Lymph % (Auto) 25.7 [place] % (Auto) 9.4 H Eos % (Auto) 3.6 Baso % (Auto) 0.4 Lymph # (Auto) 1.85 [place] # (Auto) 0.7 H Eos # (Auto) 0.3 Baso # (Auto) 0.0 Abs Immat Gran (auto) 0.01 Absolute Neuts (auto) 4.4 Absolute Nucleated RBC 0.000 Nucleated RBC % 0.0 Sodium 139 Potassium 3.5 Chloride 103 Carbon Dioxide 29 Anion Gap 7 BUN 24 H Creatinine 1.00 Estim Creat Clear Calc 82 Estimated GFR > 60 Glucose 137 H Calcium 9.2 Total Bilirubin 0.6 AST 24 ALT 20 Alkaline Phosphatase 7
[2023-11-03] MEDS: RIVAROXABAN 20 MG TABLET PO (16:07)
== END 2023-11-03 16:15 | disposition home or self-care (01) ==
LOC: ANHED 20:54 → ANHIMU 23:18
PROVIDERS: Admitting Provider Internal Medicine; Emergency Provider Student in an Organized Health Care Education/Training Program; PCP Family Medicine; Visit Provider Hospitalist
DX: I48.0 Paroxysmal atrial fibrillation (principal); R79.89 Other specified abnormal findings of blood chemistry; D64.9 Anemia, unspecified; I10 Essential (primary) hypertension; E78.5 Hyperlipidemia, unspecified; N40.1 Benign prostatic hyperplasia with lower urinary tract symptoms; N13.9 Obstructive and reflux uropathy, unspecified; G47.30 Sleep apnea, unspecified; M10.9 Gout, unspecified; K21.9 Gastro-esophageal reflux disease without esophagitis; F32.9 Major depressive disorder, single episode, unspecified; F41.9 Anxiety disorder, unspecified; E55.9 Vitamin D deficiency, unspecified; M48.10 Ankylosing hyperostosis [Forestier], site unspecified; Z79.01 Long term (current) use of anticoagulants
CPT/HCPCS: 36415; 71046; 80053; 84443; 84484; 85025; 93005; 96374; 99285; A9270; G0378

== ENCOUNTER 2023-12-30 08:42 | Outpatient (CLI) | payer MEDICARE, SELFPAY ==
--- NOTE | 2024-01-13 10:58 | WPDSLEEPSTUD ---
Sleep Study Date of Study: 12/30/23 Ordering Provider: No Dao, IMAGE SCIENTIST Interpreting Physician: Rosa Maria Smalls MD Sleep Study Type: Split Polysomnogram Height: 1.83 m Weight: 112.945 kg Body Mass Index: 33.7 Neck Circumference (inches): 18 [place]: 5 Reason for Sleep Study Known obstructive sleep apnea, has use CPAP; atrial fibrillation, poor sleep * 10/14/2018, home sleep test, AHI 31.9, merna 79%, BMI 33.2 * 12/07/2018, CPAP titration, optimum pressure CPAP 9 with 2 EPR Sleep History Cristian Jones is a 68-year-old man with a history of obstructive sleep apnea, has used CPAP in the past. He has difficulty falling asleep and he wakes up several times during the night. Medical comorbidities include hypertension, atrial fibrillation and depression. He never awakens from sleep feeling short of breath. He rarely wakes at night with heartburn, belching or coughing.??He frequently snores loudly enough that others complain. He occasionally has trouble sleeping when he has a cold. He never wakes up gasping for breath during the night. He rarely has breathing problems at night. He occasionally sweats excessively at night. He occasionally notices his heart pounding or beating irregularly during the night. He rarely falls asleep during the day. He never falls asleep involuntarily, never falls asleep while driving. He never experiences loss of muscle tone with strong emotion. He occasionally has daytime difficulty at work due to excessive sleepiness, currently is retired. He never feels paralyzed on waking or falling asleep. He never experiences vivid dreams upon waking or falling asleep. He never occasionally feels afraid of going to sleep. He occasionally has nightmares. He occasionally recalls his dreams. He occasionally has thoughts racing through his mind. He occasionally feels sad or depressed. He occasionally feels anxiety. He occasionally notices parts of his body jerk. He occasional kicks during the night. He occasionally feels crawling or aching feelings in his legs. He occasionally feels leg pain at night. He never has morning jaw pain, never grinds his teeth at night. He rarely feels bothered by pain during the day, occasionally awakened by pain during the night. He frequently wakes up feeling stiff in the morning, and he occasionally wakes feeling sore or achy. He occasionally awakens with pain in his neck, spine, or joints. He has fatigue Normal bedtime is 9:00 p.m. sometimes taking longer to fall asleep than at other times. He typically wakes up 3 times at night to urinate, does not stay awake long. These awakenings occur somewhere around 2:00 a.m.. On weekends, bedtime is an hour later, 10:00 p.m. and his wake time is 6:00 a.m.. He estimates getting 6 hours of sleep at night. He takes naps in the afternoon or evening. A short nap lasting 10-15 minutes sometimes is refreshing. Does not awaken feeling refreshed, often feels tired and drowsy for an hour. He feels better in the afternoon compared to other times of day. Habits:??Tobacco: Never smoked Caffeine: 2 cups of coffee daily Alcohol: 2 beers daily Recreational substances: none PMFSH Past Medical History Medical History (Updated 01/13/24 @ 11:46 by Rosa Maria Smalls MD) Anxiety Arthritis Atrial flutter BMI 34.0-34.9,adult BMI 35.0-35.9,adult BPH w urinary obs/LUTS DDD (degenerative disc disease) Degenerative arthritis of knee, bilateral DISH (diffuse idiopathic skeletal hyperostosis) Essential (primary) hypertension Gout Hip osteoarthritis Hyperlipidemia Hypertension Major depressive disorder, single episode, unspecified Obstructive sleep apnea Sleep apnea in adult Spondylosis without myelopathy or radiculopathy, cervical region Vitamin D deficiency, unspecified Surgical History Surgical History H/O neck surgery History of back surgery x2 History of left hip replacement x2 -
[2024-01-13 12:00] VITALS: BMI 33.7
== END 2023-12-31 07:00 | disposition home or self-care (01) ==
LOC: ANHCSM 08:43
PROVIDERS: PCP Family Medicine; Visit Provider Nurse Practitioner Adult Health
DX: G47.33 Obstructive sleep apnea (adult) (pediatric) (principal); I48.91 Unspecified atrial fibrillation; Z68.33 Body mass index [BMI] 33.0-33.9, adult
CPT/HCPCS: 95811

== ENCOUNTER 2024-02-01 08:35 | Outpatient (CLI) | payer MEDICARE, SELFPAY ==
--- NOTE | ~2024-02-01 | CT_ITS ---
EXAMINATION:CT diagnostic chest wo con DATE: 02/01/2024 09:06 INDICATION: Aneurysm of ascending aorta. TECHNIQUE: Computed tomography (CT) of the chest was performed without intravenous contrast. Automate d exposure control and iterative reconstruction technique were employed. The dose-length product (DLP ) was 498.18 mGy-cm. COMPARISON: Chest CT 07/30/2023 FINDINGS: The lungs demonstrate mild atelectasis. No pleural effusion. The heart size is normal. Ther e are coronary artery calcifications. Calcific mediastinal lymph nodes are consistent with old granul omatous disease. Thoracic aorta measures 4.9 cm at the sinuses of Valsalva, 3.8 cm at the sinotubular junction, 4.8 cm at the mid ascending aorta, 3.3 cm in the isthmus, and 3.5 cm at the mid descending aorta. Aortic atherosclerosis is noted. There is a 1.5 cm cyst in left kidney. There are bridging en dplate osteophytes at multiple levels in the spine, consistent with diffuse idiopathic skeletal hyper ostosis (DISH). There are changes of anterior fusion procedure at C3-C4. IMPRESSION: 1. Stable ectasia of thoracic aorta measuring 4.9 cm at the sinuses of Valsalva. Reviewed, dictated and finalized at location A. IMPRESSION: 1. Stable ectasia of thoracic aorta measuring 4.9 cm at the sinuses of Valsalva .
== END 2024-02-01 08:36 | disposition home or self-care (01) ==
LOC: ANHIMG 08:37
PROVIDERS: PCP Family Medicine; Visit Provider Nurse Practitioner Adult Health
DX: I77.810 Thoracic aortic ectasia (principal)
CPT/HCPCS: 71250

== ENCOUNTER 2024-07-01 09:04 | Emergency (ER) | payer MEDICARE, SELFPAY ==
--- NOTE | ~2024-07-01 | XR_ITS ---
XR hip LT min 3V w AP pelvis 07/01/2024 13:29 Indication: Total hip arthroplasty. Possible dislocation. Procedure: AP pelvis and 2 views left hip Comparison: No prior studies for comparison. Findings: No acute fracture or traumatic malalignment. There is a left total hip arthroplasty. There are multiple cerclage wires transfixing the proximal femur one of which is broken. There is a right t otal hip arthroplasty. Pelvic rings are intact. There is advanced lumbar spondylosis. Impression: 1: No acute fracture or traumatic malalignment. Reviewed, dictated and finalized at location L. OGY RESEARCH ASSISTANT Impression: 1: No acute fracture or traumatic malalignment.
[2024-07-01 09:13] VITALS: BP 167/89; PULSE 69; RESP 16; TEMP 36.6; O2SAT 97
--- OUTSIDE RECORDS SUMMARY | 2024-07-01 09:48 | XMS_ITS | Referral Summary ---
Author Organization [facility] [address] [address] [place] [id number] Care Team Providers Care Registrar Nurses' Registry Name Role Phone Андрей Solomon MD Primary Care Provider Encounters Date Type Department Care Team Description 05/19/2024 2:00 PM BPM ANALYST [facility] [address] [place] [phone] Lakia Kamara NP Cardiac arrhythmia, unspecified cardiac arrhythmia type (Primary Dx) 04/25/2024 Telephone [facility] Medical [facility] Cardiology [address] [place] [phone] Amador Rob MD Med Refill 04/19/2024 9:30 AM BPM ANALYST Office Visit [facility] Cardiology [address] [place] [phone] No Dao NP Paroxysmal atrial flutter (CMS/HCC) (HCC) (Primary Dx); History of radiofrequency ablation (RFA) procedure for cardiac arrhythmia; Chronic anticoagulation; Coronary artery disease involving [place] coronary artery of [place] heart, unspecified whether angina present; Statin intolerance; Aneurysm of ascending aorta without rupture (HCC); PERI (obstructive sleep apnea) from Last 3 Months Allergies No known active allergies Medications clonazePAM (KlonoPIN) 0.5 mg tablet Take one by mouth one time per day [address] (CYMBALTA) 60 mg capsule take 1 capsule (60MG) by oral route every day 0 1 Active amLODIPine (NORVASC) 10 mg tablet take 1 tablet (10MG) by oral route every day 30 11 1 Active allopurinol (ZYLOPRIM) 100 mg tablet Take 1 tablet (100 mg total) by mouth daily Active metoprolol XL (TOPROL-XL) 100 mg 24 hr tablet TAKE 1 TABLET BY MOUTH EVERY DAY 90 tablet 2 3 Active isosorbide mononitrate ER (IMDUR) 30 mg 24 hr tablet Take 1 tablet (30 mg total) by mouth daily 30 tablet 11 3 Active ondansetron ODT (ZOFRAN-ODT) 8 mg disintegrating tablet Take 1 tablet (8 mg total) by mouth as needed 4 Active lisinopriL (PRINIVIL,ZESTRIL) 40 mg tablet Take 1 tablet (40 mg total) by mouth daily Active indomethacin (INDOCIN) 50 mg capsule Take 1 capsule (50 mg total) by mouth as needed 4 Active nitroglycerin (NITROSTAT) 0.4 mg SL tabletIndications: Coronary artery disease involving [place] coronary artery of [place] heart, unspecified whether angina present Place 1 tablet (0.4 mg total) under the tongue every 5 (five) minutes as needed for chest pain May repeat dose q 5 min, up to 3 doses total 25 tablet 3 4 11/26/19 25 Active Xarelto 20 mg tabletIndications: Paroxysmal atrial flutter (CMS/HCC) (HCC) Take 1 tablet (20 mg total) by mouth daily with breakfast 90 tablet 3 4 Active lisinopriL (PRINIVIL,ZESTRIL) 40 mg tablet Take 1 tablet (40 mg total) by mouth daily 90 tablet 2 4 Active Active Problems Problem Noted Date Diagnosed Date Anticoagulation management encounter 11/10/2023 Assessment & Plan (11/10/2023 3:53 PM CDT): -remains compliant on rivaroxaban -recently reporting right red blood in stool and while wiping -we will obtain CBC and CMP to evaluate -encouraged him to reach out to his PCP for further workup Paroxysmal atrial fibrillation (CMS/HCC) 024 Coronary artery disease invo lving [place] coronary artery of [place] heart 04/27/2023 LVH (left ventricular hypertrophy) 03/03/2023 Palpitations 08/26/2022 Abnormal stress test 05/20/2019 Atypical chest pain 05/20/2019 Paroxysmal atrial flutter (CMS/HCC) 03/18/2019 Assessment & Plan (11/10/2023 3:54 PM CDT): -status post radiofrequency catheter ablation with Dr. Mcgowan -recent ER visit for atrial fibrillation with rapid ventricular rates, resolved with IV metoprolol -remains compliant on rivaroxaban and metoprolol -no medication changes were made today -reporting left lower extremity weakness and pain at the groin site -EKG today demonstrates sinus rhythm -we will obtain left lower extremity ultrasound, CBC, and CMP -we will fax the results to his PCP, patient encouraged to follow up with his PCP for further workup Assessment & Plan (09/11/2023 12:30 PM CDT): The patient has symptomatic paroxysmal atrial fibrillation / flutter. After considering possible options for manage, the patient is not in favor of antiarrhythmic pharmacologic therapy. As an alternative, we discussed catheter ablation. We discussed the rationale for atrial fibrillation ablation, including the steps involved in ablation. I detailed the risks of the procedure, including vascular injury/hematoma, myocardial injury/perforation, stroke, myocardial infarction, pulmonary vein stenosis, thermal esophageal injury, phrenic nerve injury and . I estimated a 70-80% chance of freedom from long-term atrial arrhythmia, and the patient understands that occasionally a second procedure is necessary. Because of the patient's persistent atrial fibrillation, I recommended that they undergo transesophageal echocardiography (to exclude the presence of left atrial thrombus) immediately prior to EP study and ablation. The patient has a [id number] score of 2. I have therefore recommended initiation of anticoagulation (the patient has rivaroxaban, but has not yet initiated). My office will make the appropriate arrangements. From: May, Vu LS, Demian JS, Vera H, John TAVON, Haylie JE, June OLIVIA, Emmanuelle PT, Nasrin HERNANDEZ, ME, Willi KT, Dian RL, Dejan WG, Mika PJ, Kemi CM, Shayy CW. 2014 AHA/ACC/HRS guideline for the management of patients with atrial fibrillation: a report of the [place] [employer]/[place] [employer] Association Task Force on Practice Guidelines and the Heart Rhythm Society. J Am Jnaette Cardiol 2014. 6.3. AF Catheter Ablation to Maintain Sinus Rhythm: Recommendations Class IIA. In patients with recurrent symptomatic paroxysmal AF, catheter ablation is a reasonable initial rhythm control strategy prior to therapeutic trials of antiarrhythmic drug therapy, after weighing risks and outcomes of drug and ablation therapy ([phone]). (Level of Evidence: B) Essential hypertension 03/18/2019 PERI (obstructive sleep apnea) 03/18/2019 Social History Tobacco Use Types Packs/Day Years Used Date Smoking Tobacco: Never Smokeless Tobacco: Never Tobacco Cessation:Counseling Given: Not Answered Alcohol Use Standard Drinks/Week Comments Yes 28 (1 standard drink = 0.6 oz pu re alcohol) AUDIT-C Answer Date Recorded Q1: How often do you have a drink containing alc ohol? 2-3 times a week 10/27/2023 Q2: How many drinks containi ng alcohol do you have on a typical day when you are drinking? 3 or 4 10/27/2023 Q3: How often do you have si x or more drinks on one occasion? Less than monthly 10/27/2023 Personal Safety Answer Date Recorded Have you ever been in or are you currently in a harmful physical or emotional relationship or is someone making you feel afraid or unsafe? Denies 10/27/2023 Sex and Gender Information Value Date Recorded Sex Assigned at Not on file Legal Sex Male 2:37 AM BPM ANALYST Gender Identity Not on file Sexual Orientation Not on file Last Filed Vital Signs Vital Sign Reading Time Taken Comments Blood Pressure 164/102 05/19/2024 1:45 PM BPM ANALYST Pulse 70 05/19/2024 1:45 PM BPM ANALYST Temperature 36.6 C (97.8 F) 10/27/2023 12:20 PM CDT Respiratory Rate 14 10/27/2023 12:50 PM CDT Oxygen Saturation 98% 04/19/2024 9:29 AM BPM ANALYST Inhaled Oxygen Concentration - - Weight 117.5 kg (259 lb) 05/19/2024 1:45 PM BPM ANALYST Height 182.9 cm (6') 05/19/2024 1:45 PM BPM ANALYST Body Mass Index 35.13 05/19/2024 1:45 PM BPM ANALYST Plan of Treatment Not on file Medical Devices Implanted Type Area Milk Driver Device Identifier Shelf Expiration Date Model / Serial / Lot [employer] Vascade Mvp 6-12fr Venous Closure [id number] - [id number] - [id number] Implanted:Qty: 1 on 10/27/2023 by Aleksandar Mcgowan MD at [facility] Collagen [employer] 07/19/2025 [id number]-[id number] [id number] / [id number] / [id number] [employer] Device Vascular Closure Femoral Artery Bioabsorbable Dual Method Vascade 6-7fr Collagen [id number] - [id number] - [id number] Implanted:Qty: 1 on 10/27/2023 by Aleksandar Mcgowan MD at [facility] Collagen [employer] 07/07/2025 [id number] / [id number] / [id number] [employer] Vascade Mvp 6-12fr Venous Closure [id number] - [id number] - [id number] Implanted:Qty: 1 on 10/27/2023 by Aleksandar Mcgowan MD at [facility] Collagen [employer] 07/19/2025 800-612C-1 [id number] / [id number] / [id number] [employer] Vascade Mvp 6-12fr Venous Closure [id number] - [id number] - [id number] Implanted:Qty: 1 on 10/27/2023 by Aleksandar Mcgowan MD at [facility] Collagen [employer] 07/19/2025 800-612C-[id number] [id number] / [id number] / [id number] Procedures Procedure Name Priority Date/Time Associated Diagnosis Comments ECG 12-LEAD Routine 05/19/2024 1:57 PM BPM ANALYST Cardiac arrhythmia, unspecified cardiac arrhythmia type from Last 3 Months Results * ECG 12 lead (05/19/2024 1:57 PM BPM ANALYST) Lakia Jim Kamara LIFE SKILLS EDUCATOR ECG ORDERABLES Final Resu lt from Last 3 Months Insurance T MEDICARE [facility] TNA MEDICARE GOLD Care Teams Registrar Nurses' Registry Relationship Specialty Start Date End Date Андрей Solomon MD PCP - General 07/04/09
--- OUTSIDE RECORDS SUMMARY | 2024-07-01 09:48 | XMS_ITS | Referral Summary ---
Author Organization [facility] [employer] Address [address] [place] [address] Care Team Providers Care Algology Teacher Name Role Phone Андрей Solomon MD Primary Care Provider Source Comments [facility] [employer],non-owned Affiliates and Associated Physician Practices is amultiple site organization consisting of ambulatory clinics and hospital sitesin [place], [place], [place] and [place]. This disclosure is being madepursuant to the Care Everywhere program and may not contain all information available regarding this patient. Last updated 18.[facility] [employer] Allergies No known active allergies Medications * Be aware that medications may not be up to date on this document. Alwaysverify current medications with the patient. Medication Sig Dispensed Refills Start Date End Date Status amLODIPine (NORVASC) 10 MG tablet Take 10 mg by mouth once daily. Active clonazePAM (KLONOPIN) 0.5 MG tablet Take 0.5 mg by mouth 2 times daily. Active DULoxetine (CYMBALTA) 60 MG capsule Take 60 mg by mouth once daily. Active lisinopril (PRINIVIL; ZESTRIL) 20 MG tablet Take 1 tablet by mouth once daily 01/11/2019 Active metoprolol succinate XL 24hr (TOPROL XL) 100 MG tablet Take 1 tablet by mouth once daily 07/25/2019 Active allopurinol (ZYLOPRIM) 100 MG tablet Take 1 tablet by mouth once daily 05/27/2019 Active Active Problems No known active problems Social History Tobacco Use Types Packs/Day Years Used Date Smoking Tobacco: Never Smokeless Tobacco: Never Alcohol Use Standard Drinks/Week Comments No 0 (1 standard drink = 0.6 oz pur e alcohol) not in last 3 months Sex and Gender Information Value Date Recorded Sex Assigned at Not on file Gender Identity Not on file Sexual Orientation Not on file Last Filed Vital Signs Vital Sign Reading Time Taken Comments Blood Pressure - - Pulse - - Temperature - - Respiratory Rate - - Oxygen Saturation - - Inhaled Oxygen Concentration - - Weight 108 kg (238 lb) 09/22/2012 10:10 AM CDT Height 182.9 cm (6') 09/22/2012 10:10 AM CDT Body Mass Index 32.28 09/22/2012 10:10 AM CDT Plan of Treatment Not on file Care Teams Algology Teacher Relationship Specialty Start Date End Date Андрей Solomon MD [address] [place] [address] PCP - General Family Medicine 09/22/12
--- OUTSIDE RECORDS SUMMARY | 2024-07-01 09:48 | XMS_ITS | Encounter Summary ---
Author Organization [facility] Address [address] [place] [address] Care Team Providers Care Film Library Clerk Name Role Phone Андрей Solomon MD Primary Care Provider [phone] Encounter Details Date Type Department Care Team (Late st Contact Info) Description 12/30/2023 Orders Only [facility] Health Information Management [address] [place] [id number] No Dao NP [address] [facility] [address] [place] [address] Social History Tobacco Use Types Packs/Day Years Used Date Smoking Tobacco: Never Smokeless Tobacco: Never Alcohol Use Standard Drinks/Week Comments Yes 28 [...] on file 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 Gender Identity Not on file Sexual Orientation Not on file documented as of this encounter Plan of Treatment Not on file documented as of this encounter Procedures Procedure Name Priority Date/Time Associated Diagnosis Comments SLEEP LAB/STUDY - RESULT 12/30/2023 documented in this encounter Results * SLEEP LAB/STUDY - RESULT (12/30/2023) No Dao CORPORATE EXECUTIVE CHEF Final Res ult documented in this encounter Visit Diagnoses Not on filedocumented in this encounter Care Teams Film Library Clerk Relationship Specialty Start Date End Date Андрей Solomon MD PCP - General 07/04/09 documented as of this encounter
--- OUTSIDE RECORDS SUMMARY | 2024-07-01 09:48 | XMS_ITS | Clinical Summary ---
Author Organization [facility] Address [address] [place] [phone] Phone Care Team Providers Care Bit Shaver Name Role Phone Provider, None Primary Care Provider Unavailabl e Allergies No known active allergies Medications allopurinol (ZYLOPRIM) 100 MG Tablet 05/27/2019 Active amLODIPine (NORVASC) 10 MG Tablet Take 10 mg by mouth. 05/30/2010 Active amLODIPine (NORVASC) 2.5 MG Tablet Active clonazePAM (KLONOPIN) 0.5 MG Tablet 07/04/2009 Active DULoxetine (CYMBALTA) [address] Particles Take 60 mg by mouth. 05/30/2010 Active isosorbide mononitrate (IMDUR) 30 MG TABLET SR 24 HR Take 30 mg by mouth. Active lisinopril (PRINIVIL, ZESTRIL) 20 MG Tablet Take 1 Tab by mouth. 01/11/2019 Active metoprolol Succinate (TOPROL-XL) 100 MG TABLET SR 24 HR Take 1 Tab by mouth. 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 Gender Identity Not on file Sexual Orientation Not on file Last Filed Vital Signs Vital Sign Reading Time Taken Comments Blood Pressure 196/104 10/27/2019 2:13 AM CDT Pulse 86 10/27/2019 1:22 AM CDT Temperature 36.7 C (98 F) 10/27/2019 1:09 AM CDT Respiratory Rate 17 10/27/2019 2:13 AM CDT Oxygen Saturation 100% 10/27/2019 2:13 AM CDT Inhaled Oxygen Concentration - - Weight 120.2 kg (265 lb) 10/27/2019 12:20 AM CDT Height 182.9 cm (6') 10/27/2019 12:20 AM CDT Body Mass Index 35.94 10/27/2019 12:20 AM CDT Plan of Treatment Health Maintenance Due Date Last Done Comments Hepatitis C Virus (HCV) Screening 1955 TdaP Immunization 1955 Colonoscopy 2001 Colorectal Cancer Screening 2001 Cologuard 2006 Immunochemical Fecal Occult Blood 2006 Pneumococcal Immunization (5 0+ years) (1 of 1 - PCV) 2006 Zoster Immunization (1 of 2) 2006 PSA Discussion 2011 Influenza Immunization (#1) 2024 02/11/2017 SARS-COV-2 Immunization ( season) 2024 04/19/2021, 07/16/2020 Respiratory Syncytial Virus (RSV) Immunization (Adult) (1 - 1-dose 75+ series) 2031 Hepatitis B Immunization Aged Out No longer eligible based on patient's age to complete this topic Meningococcal Immunization (ACWY) Aged Out No longer eligible b ased on patient's age to complete this topic Rotavirus Immunization Aged Out No lo nger eligible based on patient's age to complete this topic Insurance MEDICARE Care Teams Bit Shaver Relationship Specialty Start Date End Date Provider, None [place] PCP - General 10/27/19
--- OUTSIDE RECORDS SUMMARY | 2024-07-01 09:48 | XMS_ITS | Clinical Summary ---
Author Organization [facility] [employer] Address [address] [place] [address] Care Team Providers Care Manager Solar Name Role Phone Андрей Solomon MD Primary Care Provider [phone] Source Comments [facility] [employer],non-owned Affiliates and Associated Physician Practices is amultiple site organization consisting of ambulatory clinics and hospital sitesin [place], [place], [place] and [place]. This disclosure is being madepursuant to the Care Everywhere program and may not contain all information available regarding this patient. Last updated 18.[employer] Allergies No known active allergies Medications * [...] Active Active Problems No known active problems Family History Medical History Relation Name Comments CAD (Coronary Artery Disease) Father Hypertension Mother Relation Name Status Comments Father Mother Social History Tobacco Use Types Packs/Day Years [...] 09/22/2012 10:10 AM CDT Plan of Treatment Health Maintenance Due Date Last Done Comments COLOGUARD (AGES 45-75) - COL ON CA SCREENING 1956 COLON MONITORING 1956 COLONOSCOPY - COLON CA SCREENING 1956 CT COLONOGRAPHY - COLON CA SCREENING 1956 Colorectal Cancer Screening 1956 FIT - COLON CA SCREENING 1956 FLEX SIG - COLON CA SCREENING 1956 LIPID TESTING 1956 MEDICARE AWV 12 MONTHS 1956 HEPATITIS C SCREENING 03/02/1974 DTAP/TDAP/TD VACCINES (1 - Tdap) 1975 PNEUMOCOCCAL VACCINE 50+ (1 of 1 - PCV) 2006 ZOSTER VACCINE (1 of 2) 2006 COVID-19 VACCINE ( - 2023-2 5 season) 2024 INFLUENZA VACCINE (#1) 2024 8, 03/12/2016, 03/11/2015 DEPRESSION SCREENING 05/11/2024 Respiratory Syncytial Virus (RSV) Vaccine Pt: or over 60 yrs (1 - 1-dose 75+ series) 2031 HEPATITIS B VACCINE Aged Out No longe r eligible based on patient's age to complete this topic HIB VACCINE Aged Out No longer eligi ble based on patient's age to complete this topic HPV VACCINE Aged Out No longer eligi ble based on patient's age to complete this topic MENINGOCOCCAL (Group B) VACCINE Aged Out No longer eligible b ased on patient's age to complete this topic MENINGOCOCCAL VACCINE Aged Out No pacheco bridger eligible based on patient's age to complete this topic Care Teams Manager Solar Relationship Specialty Start Date End Date Андрей Solomon MD [address] [place] [address] PCP - General Family Medicine 09/22/12
--- OUTSIDE RECORDS SUMMARY | 2024-07-01 09:48 | XMS_ITS | Clinical Summary ---
Author Organization [facility] Address [address] [place] [address] Phone Care Team Providers Care Wind Field Service Manager Name Role Phone Андрей Solomon MD Primary Care Provider Allergies No known active allergies Medications lisinopril (PRINIVIL) 10 mg tablet Take 20 mg by mouth daily . Active allopurinol (ZYLOPRIM) 100 mg tablet Take 100 mg by mouth daily. Active clonazePAM (KLONOPIN) 0.5 mg Tablet Take 0.5 mg by mouth daily. Active DULoxetine (CYMBALTA) 60 mg Capsule, Delayed Release(E.C.) Take 60 mg by mouth daily. Active diazepam (VALIUM) 5 mg tablet Take 1 Tablet (5 mg) by mouth every 6 hours as needed for Spasm. 90 Tablet 0 07/19/2015 Active aspirin (GONZALO CHEWABLE) 81 mg Tablet, Chewable Take 1 Tablet (81 mg) by mouth daily with breakfast. 07/22/2015 Active metoprolol tartrate (LOPRESSOR) 50 mg tablet Take 1 Tablet (50 mg) by mouth 2 times daily. 60 Tablet 0 07/22/2015 Active isosorbide mononitrate (IMDUR) 30 mg Extended Release 24 hour tablet Take 30 mg by mouth daily doctorate of chiropractic. Active Active Problems Problem Noted Date Diagnosed Date Acute chest pain 07/20/2015 Benign hypertension 07/20/2015 HLD (hyperlipidemia) 07/20/2015 PERI (obstructive sleep apnea) 07/20/2015 Cervical stenosis of spine 07/20/2015 Leukocytosis 07/20/2015 Immunizations Immunization Administration Dates Next Due Influenza Seasonal Unspecified Formulation IM Family History Medical History Relation Name Comments Heart Disease Father CABG x 2, mult iple stents. had OK at age 39. 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 Gender Identity Not on file Sexual Orientation Not on file Last Filed Vital Signs Vital Sign Reading Time Taken Comments Blood Pressure 112/64 08/13/2015 2:46 PM CDT Pulse 71 08/13/2015 2:46 PM CDT Temperature 36.6 C (97.9 F) 07/22/2015 11:40 AM CDT Respiratory Rate 18 07/22/2015 11:40 AM CDT Oxygen Saturation 96% 08/13/2015 2:46 PM CDT Inhaled Oxygen Concentration - - Weight 115.7 kg (255 lb) 08/13/2015 2:46 PM CDT Height 182.9 cm (6') 08/13/2015 2:46 PM CDT Body Mass Index 34.58 08/13/2015 2:46 PM CDT Plan of Treatment Health Maintenance Due Date Last Done Comments DTAP/TDAP/TD VACCINES (1 - Tdap) 1975 COLORECTAL SCREENING 2001 Colorectal Cancer Screening 2001 FIT-DNA Q 3 years 2001 FIT/FOBT Q 1 year 2001 Flex Sig/CT Colonography Q 5 years 2001 PNEUMOCOCCAL VACCINE 65+ YEARS (1 of 1 - PCV) 03/06/20 06 ZOSTER VACCINE (1 of 2) 2006 INFLUENZA VACCINE (#1) 2023 03/11/2015 RSV VACCINE (60+ or ) (1 - 1-dose 75+ series) 2031 Medical Devices Implanted Type Area Manager House Device Identifier Shelf Expiration Date Model / Serial / Lot Allgrft Spacer Acf 7mm [id number] - [id number] Implanted:Qt y: 1 on 07/18/2015 by Kyle Velasco MD at [facility] Bone N/A: Spine Cervical Anterior MUSCULOSKELETAL TRANSPLANT FOU 11/05/2019 [id number] / [id number] / Description:This MTF spacer was processed on requisition,[id number] Plate Cslp Héctor Ang 29mm 450.154 - [id number] Implanted:Qt y: 1 on 07/18/2015 by Kyle Velasco MD at [facility] Plate N/A: Spine Cervical Anterior SYNTHES-STRATEC- SPINAL 450.154 / / Description:Load No 18.All S ynthes spinal hardware was processed on requisition,[id number]. Sterilized July 10, 2015 Screw Xpnhead C Spine [id number] 487.056 - [id number] Implanted:Qt y: 4 on 07/18/2015 by Kyle Velasco MD at [facility] Screw N/A: Spine Cervical Anterior SYNTHES STRATEC 487.056 / / Description:Load No 18 Sterilized July 10, 2015 Screw Lock C Spine 1.8mm 497.78 - [id number] Implanted:Qt y: 4 on 07/18/2015 by Kyle Velasco MD at [facility] Screw N/A: Spine Cervical Anterior SYNTHES-STRATEC- SPINAL 497.78 / / Description:Load No 18 Sterilized July 10, 2015 Sealant Floseal W/ Adptr 10ml [id number] - [id number] Implanted:Qt y: 1 on 07/18/2015 by Kyle Velasco MD at [facility] Sealant N/A: Spine Cervical Anterior FOSTER- BIOSCIENCE [id number] 11/07/2016 [id number] / / [id number] Insurance MEDICARE PART A AND B Advance Directives For more information, please contact: [phone] Documents on File Type Date Recorded Patient Clinical Nurse Leader Expl anation Advance Directive POA 07/25/2015 1:24 PM A dvance Directive POA Advance Directive POA 07/21/2015 5:27 PM [place] PO[place] * Full Code (Latest Code Status on File) Date Activated Date Inactivated Comments 07/20/2015 5:31 PM 07/22/2015 5:26 PM * Full Code Date Activated Date Inactivated Comments 07/18/2015 3:59 PM 07/19/2015 12:41 PM * Full Code Date Activated Date Inactivated Comments 07/18/2015 8:55 AM 07/18/2015 3:59 PM * Full Code Date Activated Date Inactivated Comments 07/18/2015 8:46 AM 07/18/2015 8:55 AM * Full Code Date Activated Date Inactivated Comments 07/18/2015 7:51 AM 07/18/2015 8:46 AM Care Teams Wind Field Service Manager Relationship Specialty Start Date End Date Андрей Solomon MD [address] [place] [address] PCP - General Family Practice 04/23/15
--- OUTSIDE RECORDS SUMMARY | 2024-07-01 09:48 | XMS_ITS | Clinical Summary ---
Author Organization [facility] [address] Address [address] [place] [address] Care Team Providers Care Clay Plant Treater Name Role Phone Андрей Solomon MD Primary Care Provider [phone] Allergies No known active allergies Medications clonazePAM [...] mg SL tabletIndications: Coronary artery disease involving cloverdale coronary artery of cloverdale heart, unspecified whether angina present Place 1 [...] (CMS/HCC) 024 Coronary artery disease invo lving cloverdale coronary artery of cloverdale heart 04/27/2023 LVH (left ventricular hypertrophy) 03/03/2023 [...] study and ablation. The patient has a [id number] score of 2. I have therefore recommended [...] with atrial fibrillation: a report of the [place] College of [employer]iology/[place] Heart Association Task Force on Practice Guidelines and the Heart Rhythm Society. J Am Janette Cardiol 2014. 6.3. AF Catheter Ablation to Maintain Sinus Rhythm: Recommendations Class IIA. In patients with recurrent symptomatic paroxysmal AF, catheter ablation is a reasonable initial rhythm control strategy prior to therapeutic trials of antiarrhythmic drug therapy, after weighing risks and outcomes of drug and ablation therapy (395-397). (Level of Evidence: B) Essential hypertension 03/18/2019 PERI (obstructive sleep apnea) 03/18/2019 Encounters Date Type Department Care Team Description 05/19/2024 2:00 PM GAS DISTRIBUTION SUPERVISOR Office Visit [facility] [address] [address] Lakia Kamara NP Cardiac arrhythmia, unspecified cardiac arrhythmia type (Primary Dx) 04/25/2024 Telephone [facility] [address] [place] [address] fraley, Amador Cristian, MD Med Refill 04/19/2024 9:30 AM GAS DISTRIBUTION SUPERVISOR Office Visit [facility] [address] [place] [address] No Dao NP Paroxysmal atrial flutter (CMS/HCC) (HCC) (Primary Dx); History of radiofrequency ablation (RFA) procedure for cardiac arrhythmia; Chronic anticoagulation; Coronary artery disease involving cloverdale coronary artery of cloverdale heart, unspecified whether angina present; Statin intolerance; Aneurysm of ascending aorta without rupture (HCC); PERI (obstructive sleep apnea) from Last 3 Months Surgical History Surgery Date Site/Laterality Comments HIP SURGERY BACK SURGERY NECK SURGERY Medical History Medical History Date Comments Hx Other Medical DJD Hx Other Medical disc problems Sleep apnea Sleep Apnea Hx Other Medical Hypertension - severe Personal history of other me ntal and behavioral disorders History of depression - (Add ed by TW Conv) Gout Gout - (Added by TW Conv) Anxiety disorder Anxiety - (Adde d by TW Conv) Personal history of other di seases of the circulatory system History of hypertension - (A dded by TW Conv) Hypertension Gout Arthritis Anxiety Atrial flutter (CMS/HCC) (HCC) Forestier disease Family History Medical History Relation Name Comments Coronary artery disease Father Michel nary Artery Bypass Graft; /Family history of coronary artery disease - (Added by TW Conv) Heart attack Father Family history of heart attack - (Added by TW Conv) Hypertension Father Hypertension - (Added by TW Conv) Hypertension Mother Hypertension - (Added by TW Conv) Heart disease Other 1 Heart Disease - (Added by TW Conv) Cancer Other 2 Cancer - (Added by TW Conv) Hypertension Other 3 Hypertension - (Added by TW Conv) Relation Name Status Comments Brother Alive Father Alive Mother Alive Other 1 Other 2 Other 3 Social History Tobacco Use Types Packs/Day Years [...] on file 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 Gender Identity Not on file Sexual Orientation Not on file Obstetrics History Last Filed Vital Signs Vital Sign Reading Time Taken Comments Blood Pressure 164/102 05/19/2024 1:45 PM GAS DISTRIBUTION SUPERVISOR Pulse 70 05/19/2024 1:45 PM GAS DISTRIBUTION SUPERVISOR Temperature 36.6 C (97.8 F) 10/27/2023 12:20 PM CDT Respiratory Rate 14 10/27/2023 12:50 PM CDT Oxygen Saturation 98% 04/19/2024 9:29 AM GAS DISTRIBUTION SUPERVISOR Inhaled Oxygen Concentration - - Weight 117.5 kg (259 lb) 05/19/2024 1:45 PM GAS DISTRIBUTION SUPERVISOR Height 182.9 cm (6') 05/19/2024 1:45 PM GAS DISTRIBUTION SUPERVISOR Body Mass Index 35.13 05/19/2024 1:45 PM GAS DISTRIBUTION SUPERVISOR Plan of Treatment Health Maintenance Due Date Last Done Comments Colon Cancer Screening-Colonoscopy 1956 Depression Screening 1956 Hepatitis C Screening 1956 Prostate Cancer Screening-PSA 1956 DTaP/Tdap/Td Vaccine (1 - Tdap) 1967 Hepatitis B Screening 1974 Pneumococcal vaccine 65+ (1 of 1 - PCV) 2006 Zoster Vaccine (1 of 2) 2006 Well Visit 65+ 2021 Influenza Vaccine (#1) 2024 8, 02/11/2017, 03/11/2015 Fall Risk Assessment 10/26/2024 10/27/2023 Medical Devices Implanted Type Area General Lot Attendant Device Identifier Shelf Expiration Date Model / Serial / Lot [employer] Vascade Mvp 6-12fr Venous Closure [id number] - [id number] - [id number] Implanted:Qty: 1 on 10/27/2023 by Aleksandar Mcgowan MD at [facility] Collagen [employer] 07/19/2025 [id number] / [id number] / [id number] [employer] Device Vascular Closure Femoral Artery Bioabsorbable Dual Method Vascade 6-7fr Collagen [id number] - [id number] - [id number] Implanted:Qty: 1 on 10/27/2023 by Aleksandar Mcgowan MD at [facility] Collagen [employer] 07/07/2025 [id number] / [id number] / [id number] [employer] Vascade Mvp 6-12fr Venous Closure [id number] - [id number] - [id number] Implanted:Qty: 1 on 10/27/2023 by Aleksandar Mcgowan MD at [facility] Collagen [employer] 07/19/2025 800-612C-[id number] [id number] / [id number] / [id number] [employer] Vascade Mvp 6-12fr Venous Closure [id number] - [id number] - [id number] Implanted:Qty: 1 on 10/27/2023 by Aleksandar Mcgowan MD at [facility] Collagen [employer] 07/19/2025 800-612C-[id number] [id number] / [id number] / [id number] Procedures Procedure Name Priority Date/Time Associated Diagnosis Comments ECG 12-LEAD Routine 05/19/2024 1:57 PM GAS DISTRIBUTION SUPERVISOR Cardiac arrhythmia, unspecified cardiac arrhythmia type from Last 3 Months Results * ECG 12 lead (05/19/2024 1:57 PM GAS DISTRIBUTION SUPERVISOR) Lakia Kamara NP ECG ORDERABLES Final Resu lt from Last 3 Months Insurance [employer] MEDICARE GOLD AET[employer] MEDICARE GOLD Care Teams Clay Plant Treater Relationship Specialty Start Date End Date Андрей Solomon MD PCP - General 07/04/09
--- OUTSIDE RECORDS SUMMARY | 2024-07-01 09:48 | XMS_ITS | Encounter Summary ---
Author Organization [facility] Address 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 [address] PCP - General Family Practice 04/23/15 documented as of this encounter
--- OUTSIDE RECORDS SUMMARY | 2024-07-01 09:48 | XMS_ITS | Clinical Summary ---
Author Organization [facility] Address [address] [place] [address] Care Team Providers Care Billing Typist Name Role Phone Unavailable Primary Care Provider Unavailabl e Social History Tobacco Use Types Packs/Day Years Used Date Smoking Tobacco: Never Sex and Gender Information Value Date Recorded Sex Assigned at Not on file Legal Sex Male 10:49 PM CDT Gender Identity Not on file Sexual Orientation Not on file Last Filed Vital Signs Vital Sign Reading Time Taken Comments Blood Pressure 135/90 07/01/2010 5:00 PM PLATER PRODUCTION Pulse 60 07/01/2010 4:59 PM PLATER PRODUCTION Temperature - - Respiratory Rate 16 07/01/2010 4:59 PM PLATER PRODUCTION Oxygen Saturation - - Inhaled Oxygen Concentration - - Weight 122.9 kg (271 lb) 07/01/2010 4:59 PM PLATER PRODUCTION Height 181.6 cm (5' 11.5 ) 07/01/2010 4:59 PM CS T Body Mass Index 37.27 07/01/2010 4:59 PM PLATER PRODUCTION Plan of Treatment Health Maintenance Due Date Last Done Comments Colorectal Cancer Screening Colonoscopy (10 Years) 1956 Hepatitis C 1974 DTaP, Tdap and Td Vaccines ( 1 - Tdap) 1975 Zoster Vaccines (1 of 2) 2006 Pneumococcal Vaccine: 65+ Ye ars (1 of 1 - PCV) 2021 COVID-19 Vaccine (1 - 2023-2 5 season) 2024 Influenza Adult (#1) 2024 RSV Immunization or 60+ Years (1 - 1-dose 75+ series) 2031 Meningococcal B Vaccine Aged Out No l onger eligible based on patient's age to complete this topic Meningococcal Vaccine Aged Out No pacheco bridger eligible based on patient's age to complete this topic RSV Immunizations Under 20 Months Aged Out No longer eligible based on patient's age to complete this topic
--- OUTSIDE RECORDS SUMMARY | 2024-07-01 09:48 | XMS_ITS | Patient Health Summary ---
Author Organization [facility] Address [address] [place] [address] Care Team Providers Care Operator Automated Process Name Role Phone Андрей Solomon MD Primary Care Provider [phone] Note from [facility],non-owned Affiliates and Associated Physician Practices is amultiple site organization consisting of ambulatory clinics and hospital sitesin [place], [place], [place] and [place]. This disclosure is being madepursuant to the Care Everywhere program and may not contain all information available regarding this patient. Last updated 18.[facility] Allergies No known active allergies Medications * Be aware that medications may not be up to date on this document. Alwaysverify current medications with the patient. * amLODIPine (NORVASC) 10 MG tablet Take 10 mg by mouth once daily. * clonazePAM (KLONOPIN) 0.5 MG tablet Take 0.5 mg by mouth 2 times daily. * DULoxetine (CYMBALTA) 60 MG capsule Take 60 mg by mouth once daily. * lisinopril (PRINIVIL; ZESTRIL) 20 MG tablet(Started 01/11/2019) Take 1 tablet by mouth once daily * metoprolol succinate XL 24hr (TOPROL XL) 100 MG tablet(Started 07/25/2019) Take 1 tablet by mouth once daily * allopurinol (ZYLOPRIM) 100 MG tablet(Started 05/27/2019) Take 1 tablet by mouth once daily Active Problems No known active problems Social [...] Mass Index 32.28 09/22/2012 10:10 AM CDT Procedures * EYE EXAM(Performed 06/24/2019) * FL SWALLOWING FUNCTION STUDY(Performed 10/06/2012) Performed for Dysphagia, Unspecified(787.20) * MOTILITY ESOPHAGEAL(Performed 09/22/2012) Performed for Dysphagia, Unspecified(787.20) * ESOPHAGEAL FUNCTION TEST(Performed 09/22/2012) Performed for Dysphagia, Unspecified(787.20) Results * EYE EXAM (06/24/2019 3:18 PM BOILER ERECTOR) Anatomical Region Laterality Modality Other Narrative 06/24/2019 3:18 PM BOILER ERECTOR Ordered by an unspecified provider. Scanned Document SCANNING ONLY * FL MODIFIED BARIUM SWALLOW W/SPEECH (10/06/2012 9:05 AM CDT) Anatomical Region Laterality Modality Chest Radio Fluoroscop y 10/06/2012 9:30 AM CDT Impressions 10/06/2012 9:35 AM CDT Findings as noted. Narrative 10/06/2012 9:35 AM CDT MODIFIED BARIUM SWALLOW WITH SPEECH THERAPY HISTORY: Dysphagia. 38 seconds of fluoroscopy is utilized. Fluoroscopy and filming were provided for speech therapy during a modified barium swallow. No aspiration was seen during the course of this study. Large osteophytes and cervical fusion is seen. This displaces the esophagus and hypopharynx anteriorly but does not obstruct flow through the lumen. Procedure Note Armando Cordova MD - 10/06/2012 MODIFIED BARIUM SWALLOW WITH SPEECH THERAPY HISTORY: Dysphagia. 38 seconds of fluoroscopy is utilized. Fluoroscopy and filming were provided for speech therapy during a modified barium swallow. No aspiration was seen during the course of this study. Large osteophytes and cervical fusion is seen. This displaces the esophagus and hypopharynx anteriorly but does not obstruct flow through the lumen. IMPRESSION Findings as noted. Aleksander Estrada MD FLUOROSCOPY ORDER YOANDY Care Teams Operator Automated Process Relationship Specialty Start Date End Date Андрей Solomon MD [address] [place] [address] PCP - General Family Medicine 09/22/12
--- OUTSIDE RECORDS SUMMARY | 2024-07-01 09:48 | XMS_ITS | Continuity of Care Document ---
Author Organization [facility] Address [address] [place] [address] Phone Care Team Providers Care Store Deli Manager Name Role Phone Kyle Velasco MD Unavailable [...] Diagnoses Date Provider Providers Copied on Encounter [facility], [address] [place] [address], [id number], tel:[phone] [facility] Follow Up of PO cervical (chief complaint) Cervical spinal stenosis 6 Rod Wright. [address] [place], [place], [id number] . tel: [phone] [facility], [address] [place] [address], [address], tel:[phone] [facility] Cervical spinal stenosis 2 - 6 Curylo Kyle. [address] [place], [place], [id number] . tel: [phone] [facility], [address] [place] [address], [facility], tel:[phone] [facility] Cervical spinal stenosis 6 Curylo Kyle. [address] [place], [place], [id number] . tel: [phone] OFFICE/OUTPAT IENT VISIT [facility], [address] [place] [address], [facility], tel:[phone] [facility] f/u cervical (chief complaint) Cervical spinal stenosis 3- 6 Curylo Kyle. [address] [place] [address], [id number] . tel: [phone] OFFICE/OUTPAT IENT VISIT [facility], [address] [place] [address], [address], [place] tel:[phone] [facility] Follow Up of cervical-M RI results (chief complaint) Cervical spinal stenosis 5 Curylo Kyle. [address] [place] [address], [id number] . tel: [phone] OFFICE/OUTPAT IENT VISIT [facility], [address] [place] [address], [facility], [place] tel:[phone] [facility] Cervical spinal stenosis 5 Curylo Kyle. [address] [place] [address], [id number] . tel: [phone] Referring Provider: Андрей Blanton, [address], [place], [address]. tel:[phone] Family History Family Member Type Diagnosis Age At Onset Daughter Problem (finding) Alive and well Daughter Problem (finding) depression Payers Payer name Insurance type Covered constitution party ID Murphy herrmann(s) [employer] [employer] [place] [id number] [facility] [place] [id number] Social History Type Description Quantity Date Captured [...]
[2024-07-01 12:30] VITALS: BP 155/73; PULSE 66; RESP 16; O2SAT 98
--- OUTSIDE RECORDS SUMMARY | 2024-07-01 12:40 | XMS_ITS | Clinical Summary ---
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
--- OUTSIDE RECORDS SUMMARY | 2024-07-01 12:40 | XMS_ITS | Referral Summary ---
Author Organization [facility] [address] Address [address] [place] [address] Care Team Providers Care Straw Hat Washer Operator Name Role Phone Андрей Solomon MD Primary Care Provider Encounters Date Type Department Care Team Description 05/19/2024 2:00 PM VICE PRESIDENT QUALITY IMPROVEMENT Office [facility] [address] [place] [phone] Lakia Kamara NP Cardiac arrhythmia, unspecified cardiac arrhythmia type (Primary Dx) 04/25/2024 Telephone [facility] Medical [facility] [address] [place] [phone] Amador Rob MD Med Refill 04/19/2024 9:30 AM VICE PRESIDENT QUALITY IMPROVEMENT Office Visit [facility] Card[facility] [address] [place] [phone] No Dao NP Paroxysmal atrial flutter (CMS/HCC) (HCC) (Primary Dx); History of radiofrequency ablation (RFA) procedure for cardiac arrhythmia; Chronic anticoagulation; Coronary artery disease involving [place] coronary artery of [place] heart, unspecified whether angina present; Statin intolerance; [...] mg SL tabletIndications: Coronary artery disease involving [place] coronary artery of [place] heart, unspecified whether angina present Place 1 [...] (CMS/HCC) 024 Coronary artery disease invo lving [place] coronary artery of [place] heart 04/27/2023 LVH (left ventricular hypertrophy) 03/03/2023 [...] study and ablation. The patient has a LIY5CH3-RRGc score of 2. I have therefore recommended [...] with atrial fibrillation: a report of the [place] College of Cardiology/[place] Heart Association Task Force on Practice Guidelines [...] on file Legal Sex Male 2:37 AM VICE PRESIDENT QUALITY IMPROVEMENT Gender Identity Not on file Sexual Orientation Not on file Last Filed Vital Signs Vital Sign Reading Time Taken Comments Blood Pressure 164/102 05/19/2024 1:45 PM VICE PRESIDENT QUALITY IMPROVEMENT Pulse 70 05/19/2024 1:45 PM VICE PRESIDENT QUALITY IMPROVEMENT Temperature 36.6 C (97.8 F) 10/27/2023 12:20 PM CDT Respiratory Rate 14 10/27/2023 12:50 PM CDT Oxygen Saturation 98% 04/19/2024 9:29 AM VICE PRESIDENT QUALITY IMPROVEMENT Inhaled Oxygen Concentration - - Weight 117.5 kg (259 lb) 05/19/2024 1:45 PM VICE PRESIDENT QUALITY IMPROVEMENT Height 182.9 cm (6') 05/19/2024 1:45 PM VICE PRESIDENT QUALITY IMPROVEMENT Body Mass Index 35.13 05/19/2024 1:45 PM VICE PRESIDENT QUALITY IMPROVEMENT Plan of Treatment Not on file Medical Devices Implanted Type Area Student Accounts Coordinator Device Identifier Shelf Expiration Date Model / Serial / Lot [employer] Vascade Mvp 6-12fr Venous Closure [id number] - [id number] - [id number] Implanted:Qty: 1 on 10/27/2023 by Aleksandar Mcgowan MD at [facility] Collagen [employer] 07/19/2025 800-612C-1 0U / [id number] / [id number] [employer] Device Vascular Closure Femoral Artery Bioabsorbable Dual Method Vascade 6-7fr Collagen [id number] - [id number] - [id number] Implanted:Qty: 1 on 10/27/2023 by Aleksandar Mcgowan MD at [facility] Collagen [employer] 07/07/2025 [id number] [id number] / [id number] / [id number] [employer] Vascade Mvp 6-12fr Venous Closure [id number] - [id number] - [id number] Implanted:Qty: 1 on 10/27/2023 by Aleksandar Mcgowan MD at [facility] Collagen [employer] 07/19/2025 800-612C-1 0U / [id number] / [id number] [employer] Vascade Mvp 6-12fr Venous Closure [id number] - [id number] - [id number] Implanted:Qty: 1 on 10/27/2023 by Aleksandar Mcgowan MD at [facility] Collagen [employer] 07/19/2025 800-612C-1 0U / [id number] / [id number] Procedures Procedure Name Priority Date/Time Associated Diagnosis Comments ECG 12-LEAD Routine 05/19/2024 1:57 PM VICE PRESIDENT QUALITY IMPROVEMENT Cardiac arrhythmia, unspecified cardiac arrhythmia type from Last 3 Months Results * ECG 12 lead (05/19/2024 1:57 PM VICE PRESIDENT QUALITY IMPROVEMENT) Lakia Jim Kamara ALBERENE STONE SETTER ECG ORDERABLES Final Resu lt from Last 3 Months Insurance T MEDICARE [facility] TNA MEDICARE GOLD Care Teams Straw Hat Washer Operator Relationship Specialty Start Date End Date Андрей Solomon MD PCP - General 07/04/09
--- OUTSIDE RECORDS SUMMARY | 2024-07-01 12:40 | XMS_ITS | Clinical Summary ---
Author Organization [facility] [employer] Address [address] [place] [address] Care Team Providers Care Pathology Laboratory Director Name Role Phone Андрей Solomon MD Primary Care Provider [phone] Source Comments [facility] [employer],non-owned Affiliates and Associated Physician Practices is amultiple site organization consisting of ambulatory clinics and hospital sitesin [place], [place], [place] and [place]. This disclosure is being madepursuant to the Care Everywhere program and may not contain all information available regarding this patient. Last updated 18.[employer] [facility] [employer] Allergies No known active allergies Medications * [...] age to complete this topic Care Teams Pathology Laboratory Director Relationship Specialty Start Date End Date Андрей Solomon MD [address] [place] [address] PCP - General Family Medicine 09/22/12
--- OUTSIDE RECORDS SUMMARY | 2024-07-01 12:40 | XMS_ITS | Encounter Summary ---
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 Gender Identity Not on file Sexual Orientation Not on file documented as of this encounter Plan of Treatment Not on file documented as of this encounter Procedures Procedure Name Priority Date/Time Associated Diagnosis Comments SLEEP LAB/STUDY - RESULT 12/30/2023 documented in this encounter Results * SLEEP LAB/STUDY - RESULT (12/30/2023) No Dao CNC MACHINE PROGRAMMER Final Res ult documented in this encounter Visit Diagnoses Not on filedocumented in this encounter Care Teams Jawbone Puller Relationship Specialty Start Date End Date Андрей Solomon MD PCP - General 07/04/09 documented as of this encounter
--- OUTSIDE RECORDS SUMMARY | 2024-07-01 12:40 | XMS_ITS | Patient Health Summary ---
Author Organization [facility] [employer] Address [address] [place] [address] Care Team Providers Care Dba Manager Name Role Phone Андрей Solomon MD Primary Care Provider [phone] Note from [facility],non-owned Affiliates and Associated Physician Practices is amultiple site organization consisting of ambulatory clinics and hospital sitesin [place], [place], [place] and [place]. This disclosure is being madepursuant to the Care Everywhere program and may not contain all information available regarding this patient. Last updated 18.[facility] Allergies No known active allergies Medications [...] Results * EYE EXAM (06/24/2019 3:18 PM DONOR SERVICES TEAM LEADER) Anatomical Region Laterality Modality Other Narrative 06/24/2019 3:18 PM DONOR SERVICES TEAM LEADER Ordered by an unspecified provider. Scanned Document [...] Estrada MD FLUOROSCOPY ORDER YOANDY Care Teams Dba Manager Relationship Specialty Start Date End Date Андрей Solomon MD [address] [place] [address] PCP - General Family Medicine 09/22/12
--- OUTSIDE RECORDS SUMMARY | 2024-07-01 12:40 | XMS_ITS | Clinical Summary ---
Author Organization [facility] Address [address] [place] [place] [address] Phone Care Team Providers Care Exchange Consultant Name Role Phone Андрей Solomon MD Primary Care Provider [phone] Allergies No known active allergies Medications lisinopril [...] tablet Take 30 mg by mouth daily wire weaver cloth. Active Active Problems Problem Noted Date Diagnosed Date Acute chest pain 07/20/2015 Benign hypertension 07/20/2015 HLD (hyperlipidemia) 07/20/2015 PERI (obstructive sleep apnea) 07/20/2015 Cervical stenosis of spine 07/20/2015 Leukocytosis 07/20/2015 Immunizations Immunization Administration Dates Next Due Influenza Seasonal Unspecified Formulation IM Family History Medical History Relation Name Comments Heart Disease Father CABG x 2, mult iple stents. had RI at age 39. 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 Gender Identity Not on file Sexual [...] series) 2031 Medical Devices Implanted Type Area Spray Foam Installer Device Identifier Shelf Expiration Date Model / Serial / Lot Allgrft Spacer Acf 7mm [id number] - [id number] Implanted:Qt y: 1 on 07/18/2015 by Kyle Velasco MD at [facility] Bone N/A: Spine Cervical Anterior MUSCULOSKELETAL TRANSPLANT FOU 11/05/2019 [id number] / [id number] / Description:This MTF spacer was processed on requisition,[id number] Plate Cslp Héctor Ang 29mm 450.154 - [id number] Implanted:Qt y: 1 on 07/18/2015 by Kyle Velasco MD at [facility] Plate N/A: Spine Cervical Anterior SYNTHES-STRATEC- SPINAL 450.154 / / Description:Load No 18.All S ynthes spinal hardware was processed on requisition,[id number]. Sterilized July 10, 2015 Screw Xpnhead C Spine 4.75y42sc 487.056 - [id number] Implanted:Qt y: 4 on 07/18/2015 by Kyle Velasco MD at [facility] Screw N/A: Spine Cervical Anterior SYNTHES STRATEC 487.056 / / Description:Load No 18 Sterilized July 10, 2015 Screw Lock C Spine 1.8mm 497.78 - [id number] Implanted:Qt y: 4 on 07/18/2015 by Kyle Velasco MD at [facility] Screw N/A: Spine Cervical Anterior SYNTHES-STRATEC- SPINAL 497.78 / / Description:Load No 18 Sterilized July 10, 2015 Sealant Floseal W/ Adptr 10ml [id number] - [id number] Implanted:Qt y: 1 on 07/18/2015 by Kyle Velasco MD at [facility] Sealant N/A: Spine Cervical Anterior FOSTER- BIOSCIENCE [id number] 11/07/2016 [id number] / / [id number] Insurance MEDICARE PART A AND B Advance Directives For more information, please contact: [phone] Documents on File Type Date Recorded Patient Pt Sitter Expl anation Advance Directive POA 07/25/2015 1:24 [...] 7:51 AM 07/18/2015 8:46 AM Care Teams Exchange Consultant Relationship Specialty Start Date End Date Андрей Solomon MD [address] [place] [address] PCP - General Family Practice 04/23/15
--- OUTSIDE RECORDS SUMMARY | 2024-07-01 12:40 | XMS_ITS | Clinical Summary ---
Author Organization [facility] [address] Address [address] [place] [address] Care Team Providers Care Rotoformer Backtender Name Role Phone Андрей Solomon MD Primary Care Provider [phone] Allergies No known active allergies Medications clonazePAM [...] mg SL tabletIndications: Coronary artery disease involving [place] coronary artery of [place] heart, unspecified whether angina present Place 1 [...] (CMS/HCC) 024 Coronary artery disease invo lving [place] coronary artery of [place] heart 04/27/2023 LVH (left ventricular hypertrophy) 03/03/2023 [...] study and ablation. The patient has a EMP0ZB3-TNJs score of 2. I have therefore recommended initiation of anticoagulation (the patient has rivaroxaban, but has not yet initiated). My office will make the appropriate arrangements. From: May, Vu LS, Demian JS, Vera H, John TAVON, Haylie JE, June OLIVIA, Emmanuelle PT, Nasrin HERANNDEZ, ME, Willi KT, Dian RL, Dejan WG, Mika PJ, Kemi CM, Shayy CW. 2014 AHA/ACC/HRS guideline for the management of patients with atrial fibrillation: a report of the [place] College of Cardiology/[place] Heart Association Task Force on Practice Guidelines [...] Department Care Team Description 05/19/2024 2:00 PM BUSINESS DEVELOPMENT SALES EXECUTIVE Office Visit [facility] [address], [place] [address] Lakia Kamara NP Cardiac arrhythmia, unspecified cardiac arrhythmia type (Primary Dx) 04/25/2024 Telephone [facility] Cardiology [address] [place] [address] fraley, Amador Cristian, MD Med Refill 04/19/2024 9:30 AM BUSINESS DEVELOPMENT SALES EXECUTIVE Office Visit [facility] Cardiology [address] [place] [address] No Dao NP Paroxysmal atrial flutter (CMS/HCC) (HCC) (Primary Dx); History of radiofrequency ablation (RFA) procedure for cardiac arrhythmia; Chronic anticoagulation; Coronary artery disease involving [place] coronary artery of [place] heart, unspecified whether angina present; Statin intolerance; [...] on file Legal Sex Male 2:37 AM BUSINESS DEVELOPMENT SALES EXECUTIVE Gender Identity Not on file Sexual Orientation Not on file Obstetrics History Last Filed Vital Signs Vital Sign Reading Time Taken Comments Blood Pressure 164/102 05/19/2024 1:45 PM BUSINESS DEVELOPMENT SALES EXECUTIVE Pulse 70 05/19/2024 1:45 PM BUSINESS DEVELOPMENT SALES EXECUTIVE Temperature 36.6 C (97.8 F) 10/27/2023 12:20 PM CDT Respiratory Rate 14 10/27/2023 12:50 PM CDT Oxygen Saturation 98% 04/19/2024 9:29 AM BUSINESS DEVELOPMENT SALES EXECUTIVE Inhaled Oxygen Concentration - - Weight 117.5 kg (259 lb) 05/19/2024 1:45 PM BUSINESS DEVELOPMENT SALES EXECUTIVE Height 182.9 cm (6') 05/19/2024 1:45 PM BUSINESS DEVELOPMENT SALES EXECUTIVE Body Mass Index 35.13 05/19/2024 1:45 PM BUSINESS DEVELOPMENT SALES EXECUTIVE Plan of Treatment Health Maintenance Due Date [...] 10/26/2024 10/27/2023 Medical Devices Implanted Type Area Sponge Clipper Device Identifier Shelf Expiration Date Model / Serial / Lot [employer] Vascade Mvp 6-12fr Venous Closure [id number] - [id number] - [id number] Implanted:Qty: 1 on 10/27/2023 by Aleksandar Mcgowan MD at [facility] Collagen [employer] 07/19/2025 800-612C-1 0U / [id number] / [id number] [employer] Device Vascular Closure Femoral Artery Bioabsorbable Dual Method Vascade 6-7fr Collagen [id number] - [id number] - [id number] Implanted:Qty: 1 on 10/27/2023 by Aleksandar Mcgowan MD at [facility] Collagen [employer] 07/07/2025 700-580I-0 5U / [id number] / [id number] [employer] Vascade Mvp 6-12fr Venous Closure [id number] - [id number] - [id number] Implanted:Qty: 1 on 10/27/2023 by Aleksandar Mcgowan MD at [facility] Collagen [employer] 07/19/2025 800-612C-1 0U / [id number] / [id number] [employer] Vascade Mvp 6-12fr Venous Closure [id number] - [id number] - [id number] Implanted:Qty: 1 on 10/27/2023 by Aleksandar Mcgowan MD at [facility] Collagen [employer] 07/19/2025 800-612C-1 0U / [id number] / [id number] Procedures Procedure Name Priority Date/Time Associated Diagnosis Comments ECG 12-LEAD Routine 05/19/2024 1:57 PM BUSINESS DEVELOPMENT SALES EXECUTIVE Cardiac arrhythmia, unspecified cardiac arrhythmia type from Last 3 Months Results * ECG 12 lead (05/19/2024 1:57 PM BUSINESS DEVELOPMENT SALES EXECUTIVE) Lakia Kamara NP ECG ORDERABLES Final Resu lt from Last 3 Months Insurance [employer] MEDICARE GOLD [employer] MEDICARE GOLD Care Teams Rotoformer Backtender Relationship Specialty Start Date End Date Андрей Solomon MD PCP - General 07/04/09
--- OUTSIDE RECORDS SUMMARY | 2024-07-01 12:40 | XMS_ITS | Clinical Summary ---
Author Organization [facility] Address [address] [place] [address] Care Team Providers Care Design Verification Engineer Name Role Phone Unavailable Primary Care Provider [...] Comments Blood Pressure 135/90 07/01/2010 5:00 PM TEACHER [employer]USTRI[employer]S Pulse 60 07/01/2010 4:59 PM TEACHER [employer] Temperature - - Respiratory Rate 16 07/01/2010 4:59 PM TEACHER [employer] Oxygen Saturation - - Inhaled Oxygen Concentration - - Weight 122.9 kg (271 lb) 07/01/2010 4:59 PM TEACHER [employer] Height 181.6 cm (5' 11.5 ) 07/01/2010 4:59 PM CS T Body Mass Index 37.27 07/01/2010 4:59 PM TEACHER [employer]USTRI[employer]S Plan of Treatment Health Maintenance Due Date [...]
--- OUTSIDE RECORDS SUMMARY | 2024-07-01 12:40 | XMS_ITS | Encounter Summary ---
Author Organization [facility] Address 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 [address] PCP - General Family Practice 04/23/15 documented as of this encounter
--- OUTSIDE RECORDS SUMMARY | 2024-07-01 12:40 | XMS_ITS | Continuity of Care Document ---
Author Organization [facility] Address [address] [facility] [address] [place] [address] Phone Care Team Providers Care Head Of Conservation Name Role Phone Kyle Velasco MD Unavailable [...] Diagnoses Date Provider Providers Copied on Encounter [facility], [address] [place] [address], [address], tel:[phone] [facility] Follow Up of PO cervical (chief complaint) Cervical spinal stenosis [address] [place], [place], [id number] . tel: [phone] [facility], [address] [place] [address], [address], tel:[phone] [facility] Cervical spinal stenosis 2 - 6 Curylo Kyle. [address] [place], [place], [id number] . tel: [phone] [facility], [address] [place] [address], [facility], tel:[phone] [facility] Cervical spinal stenosis 6 [address]. [address] [place], [place], [id number] . tel: [phone] OFFICE/OUTPAT IENT VISIT [facility] Orth[facility], [address] [place] [address], [facility], tel:[phone] [facility] f/u cervical (chief complaint) Cervical spinal stenosis 3- 6 Curylo Kyle. [address] [place] [address], [id number] . tel: [phone] OFFICE/OUTPAT IENT VISIT [facility] Orth[facility], [address] [place] [address], [id number], [place] tel:[phone] [facility] Follow Up of cervical-M RI results (chief complaint) Cervical spinal stenosis 5 Curylo Kyle. [address] [place] [address], [id number] . tel: [phone] OFFICE/OUTPAT IENT VISIT [facility] Orthopaedic Surgery, [address] [place] [address], [facility], [place] tel:[phone] [facility] Cervical spinal stenosis 5 Curylo Kyle. [address] [place] [address], [id number] . tel: [phone] Referring Provider: Андрей Blanton, [address], [place], [address]. tel:[phone] Family History Family Member Type Diagnosis Age At Onset Daughter Problem (finding) Alive and well Daughter Problem (finding) depression Payers Payer name Insurance type Covered alliance party ID Murphy herrmann(s) Shavon Administrative Services [place] [id number] [facility] E2 OT [id number] Social History Type Description Quantity Date Captured [...]
--- OUTSIDE RECORDS SUMMARY | 2024-07-01 12:40 | XMS_ITS | Referral Summary ---
Author Organization [facility] Address [address] [place] [address] Care Team Providers Care Energy Specialist Name Role Phone Андрей Solomon MD Primary Care Provider [phone] Source Comments [facility],non-owned Affiliates and Associated Physician Practices is amultiple site organization consisting of ambulatory clinics and hospital sitesin [place], [place], [place]. This disclosure is being madepursuant to the Care Everywhere program and may not contain all information available regarding this patient. Last updated 18.[facility] Allergies No known active allergies Medications * [...] of Treatment Not on file Care Teams Energy Specialist Relationship Specialty Start Date End Date Андрей Solomon MD [address] [place] [address] PCP - General Family Medicine 09/22/12
--- NOTE | 2024-07-01 12:56 | ED.LOWEXIN ---
HPI - Extremity Injury (Lower) General Chief Complaint: Extremity Injury, Lower Stated Complaint: L. hip pain, hx hip replacement Time Seen by Provider: 07/01/24 12:31 History of Present Illness HPI Narrative: 69-year-old male with a past medical history including left-sided total hip arthroplasty 5 years ago with Orthopedic surgery. He has a history of degenerative joint disease with arthritis of the knee as well. Patient presents to the emergency department today for concerns of possible dislocations left hip. He states that about 5 years prior when he had this total hip arthroplasty was having frequent dislocations posteriorly of his left hip. This resolved after the replacement and he been asymptomatic since then. Yesterday while sitting at the kitchen counter and trying to ascend with a twisting motion he felt like a possible dislocation occurred with his left hip. He was not able to bear weight. He arrived to the ER today after calling his orthopedic doctor for instruction. Was told to go the emergency department for x-rays. He states while in the waiting room he felt his hip potentially pop back into place and his pain is significantly improved. Denies any fever, chills, nausea, vomiting, abdominal pain, back pain. No paresthesias. Endorses some pain in the sciatic nerve distribution of his left-sided lower extremity. No central or midline back pain, no incontinence or saddle anesthesias. No other trauma. No falls or injury. Related Data Home Medications ?Medication ?Instructions ?Recorded ?Confirmed ?Last Taken ?Type clonazepam 0.5 mg tablet 0.5 mg PO DAILY anxiety 11/02/23 06/26/24 Unknown History rivaroxaban 20 mg tablet (Xarelto) 20 mg PO DAILY 11/02/23 06/26/24 11/02/23 History Allergies Allergy/AdvReac Type Severity Reaction Status Date / Time No Known Allergies Allergy Verified 07/01/24 09:05 Review of Systems Review of Systems: As reviewed above in HPI [facility] Past Medical History Medical History Adenomatous polyp of sigmoid colon AAA (abdominal aortic aneurysm) without rupture Obstructive sleep apnea BPH w urinary obs/LUTS Degenerative arthritis of knee, bilateral Hypertension Arthritis Anxiety Vitamin D deficiency, unspecified Hyperlipidemia DISH (diffuse idiopathic skeletal hyperostosis) DDD (degenerative disc disease) Hip osteoarthritis Gout Atrial flutter Essential (primary) hypertension Major depressive disorder, single episode, unspecified Sleep apnea in adult Spondylosis without myelopathy or radiculopathy, cervical region Surgical History Surgical History History of radiofrequency ablation procedure for cardiac arrhythmia October 2023; Dr Valero ([facility]) History of right hip replacement History of left hip replacement x2 - Revision for recurrent dislocation History of back surgery x2 H/O neck surgery History of hip replacement, total Family History Family History Mother Depression Hypertension Family history of osteoarthritis Grandparent Hypertension Father Family history of osteoarthritis Family history of coronary artery disease Heart disease Sibling Diabetes mellitus Hypertension Other Family history of malignant neoplasm Social History Social History Smoking status: Never smoker Second hand tobacco smoke exposure: Yes Alcohol intake: current Drinks per week: 6 Alcohol use details: 12 pack beer weekly Substance use: never Substance use type: does not use Do You Feel Safe in your Home?: Yes Lack of Transportation: No Lack of Food: Never True Current Housing: I Have Housing Concerned About Future Housing: No Difficulty Paying Gas/Electric Bills: No Difficulty Paying for Meds: No Currently Unemployed: No Education: Trade/Vocational Certificate Difficulty w/ Childcare or Family Care: No Living arrangements: with family Additional living arrangements comments: lives with spouse Occupation/Education: retired 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 Gender identity (if verbalized by the patient): Male Sexual Orientation (if Verbalized by the Patient): Straight or Heterosexual Spiritual care concerns: Yes (Cathoplic) Agree to blood products: Yes Exam Narrative: GENERAL: [Well-appearing, well-nourished, and in no acute distress.] HEAD: [Normocephalic, atraumatic.] EYES: [PERRLA and EOMI.] ENT: Nares clear, no rhinorrhea or epistaxis. Mucous membranes moist. NECK: Supple. CHEST: [Clear to auscultation. No respiratory distress.] HEART: [Regular rate and rhythm]. No murmur heard. [Normal peripheral pulses.] ABDOMEN: [Soft, nondistended], [nontender], [No rigidity or guarding] EXTREMITIES: Limited range of motion of left lower extremity with pain on passive hip flexion and internal external rotation. No crepitus or any palpable deformity in the left lower extremity. Intact extensor mechanism, EHL and FHL 5/5 strength. Pain with palpation of the sciatic nerve distribution left-sided lower extremity. No overlying skin changes. SKIN: Warm, dry, no rash. NEURO: [No focal deficits]. Alert and oriented [x3.] Full strength and sensation throughout both arms and legs, no saddle anesthesia. No incontinence. PSYCH: [Normal mood and affect.] Course Vital Signs Vital signs: Vital Signs Temperature 36.6 C 07/01/24 09:13 Pulse Rate 69 07/01/24 09:13 Respiratory Rate 16 07/01/24 09:13 Blood Pressure 167/89 H 07/01/24 09:13 Pulse Oximetry 97 07/01/24 09:13 Oxygen Delivery Room Air 07/01/24 09:13 Temperature 36.6 C 07/01/24 09:13 Pulse Rate 67 07/01/24 13:00 Respiratory Rate 16 07/01/24 13:00 Blood Pressure 151/73 H 07/01/24 13:00 Pulse Oximetry 97 07/01/24 13:00 Oxygen Delivery Room Air 07/01/24 09:13 MDM - Extremity Injury (Lower) MDM Narrative Medical decision making narrative: 69-year-old male presenting with left-sided hip pain. He has a history of left-sided total hip arthroplasty 5 years prior for recurrent dislocations. He presents with atraumatic left hip pain after getting up from the kitchen counter and feels like he had a dislocation once again. Appears to have spontaneously reduced as he was waiting in triage according to himself with immediate resolution of pain after feeling a pop back into place. He has not tried ambulating since this happened. He does have pain with passive range of motion but strength is intact with full strength and sensation without any neurological deficits. Vital signs are reassuring without any significant hypertension, no tachycardia, fever, hypoxia. No red flag signs on his history or physical exam concerning for any central pathology or cord compression. Possibility of hip prosthesis dislocation, relocation, periprosthetic fracture, ligamentous injury. Will obtain multiple view x-rays left hip and pelvis to assess and give him Toradol and Robaxin for analgesia. Patient was re-evaluated after pain medications and had significant improvement. Patient was able to ambulate in the emergency department without any assistance. X-rays were taken that shows no acute fractures or traumatic malalignment but there is a cerclage wire that is broken in left proximal femur although the surrounding wires appear intact. No malalignment. Discussed with the patient at bedside that this could be the issue and causing his pain as the wire could be irritating his soft tissues rather than a true dislocation given that there is no traumatic injury and his x-rays are normal otherwise. Given his ambulatory status and pain being under control I believe he can be safely discharged with orthopedic follow-up. He has an compliance specialist in [place] who he will call today and make an appointment with. Patient will be given prescription for tramadol and ketorolac for pain medication regimen and given strict return precautions. He will be made weight-bearing as tolerated and safely discharged. is comfortable with this plan will drive him home. Medical Records Attestation: I reviewed the patient's medical records. Lab Data Attestation: I reviewed the patient's lab results. Imaging Data Attestation: I personally reviewed and interpreted this imaging study as follows: My impression: Broken cerclage wire also evident. Impressions Hip/Pelvis X-Ray 07/01/24 13:57 Impression: 1: No acute fracture or traumatic malalignment. Discharge Plan Discharge Clinical Impression: Hardware failure, History of bilateral total hip arthroplasty Hip osteoarthritis Qualifiers: Osteoarthritis type: other secondary Laterality: left Qualified Code(s): M16.7 - Other unilateral secondary osteoarthritis of hip Patient Disposition: Home, Self-Care Condition: Stable Instructions: Antibiotic Form Additional Instructions: Call your compliance specialist to make an appointment for close follow-up and repeat imaging. You have a broken cerclage wire in your left hip but the surrounding wires are intact and the arthroplasty is in place without any signs of instability on your examination or imaging. We will send you home with pain medications for breakthrough pain and if you experience any recurrence of her symptoms, worsening symptoms, inability to tolerate weight-bearing, trauma or injury please return to the emergency department otherwise safely follow-up with your regular doctor outpatient. Patient Language: Yoruba Prescriptions: New ketorolac 10 mg tablet 10 mg PO Q8H PRN (Reason: pain) 5 Days Qty: 20 0RF Rx Instructions: maximum total duration of 5 days from all oral, intranasal, or parenteral formulations tramadol 50 mg tablet 50 mg PO Q8H PRN (Reason: pain) Qty: 14 0RF No Action clonazepam 0.5 mg tablet 0.5 mg PO DAILY Xarelto 20 mg tablet 20 mg PO DAILY lisinopril 20 mg tablet 40 mg PO DAILY Qty: 90 1RF metoprolol succinate 100 mg Tablet Extended Release 24 Hr 150 mg PO DAILY Qty: 90 1RF allopurinol 100 mg tablet 100 mg PO DAILY Qty: 30 2RF amlodipine 10 mg tablet See Rx Instructions .ROUTE .COMPLEX Qty: 90 0RF Dose Instruction: TAKE 1 TABLET (10 MG) BY MOUTH EVERY DAY Rx Instructions: TAKE 1 TABLET (10 MG) BY MOUTH EVERY DAY Follow-up/Referrals: Андрей Solomon MD [Primary Care Provider] - Time of Disposition: 14:46
[2024-07-01 13:00] VITALS: BP 151/73; PULSE 67; RESP 16; O2SAT 97
[2024-07-01] MEDS: methocarbamoL 750 MG TABLET PO (13:10)
[2024-07-01] MEDS: KETOROLAC 30 MG/ML VIAL (*BKC) IM (13:10)
[2024-07-01 15:30] VITALS: BP 164/94; PULSE 69; RESP 18; O2SAT 95
== END 2024-07-01 15:35 | disposition home or self-care (01) ==
PROVIDERS: Emergency Provider Student in an Organized Health Care Education/Training Program; PCP Family Medicine
DX: T84.011A Broken internal left hip prosthesis, initial encounter (principal); M16.7 Other unilateral secondary osteoarthritis of hip; I10 Essential (primary) hypertension; E78.5 Hyperlipidemia, unspecified; E55.9 Vitamin D deficiency, unspecified; N40.1 Benign prostatic hyperplasia with lower urinary tract symptoms; N13.8 Other obstructive and reflux uropathy; M17.0 Bilateral primary osteoarthritis of knee; M10.9 Gout, unspecified; G47.33 Obstructive sleep apnea (adult) (pediatric); F41.9 Anxiety disorder, unspecified; Z96.643 Presence of artificial hip joint, bilateral; Z86.0101 Personal history of adenomatous and serrated colon polyps; Z79.01 Long term (current) use of anticoagulants; Z79.899 Other long term (current) drug therapy; Z77.22 Contact with and (suspected) exposure to environmental tobacco smoke (acute) (chronic); Y79.2 Prosthetic and other implants, materials and accessory orthopedic devices associated with adverse incidents
CPT/HCPCS: 73502; 96372; 99283; A9270; J1885

== ENCOUNTER 2024-07-15 13:41 | Outpatient (CLI) | payer MEDICARE, SELFPAY ==
--- NOTE | ~2024-07-15 | CT_ITS ---
EXAMINATION: CT hip LT wo con DATE: 07/15/2024 14:14 INDICATION: Presence of left artificial hip joint. TECHNIQUE: Computed tomography (CT) of the left hip was performed without intravenous contrast. Autom ated exposure control and iterative reconstruction technique were employed. The dose-length product w as 778.61 mGy-cm. COMPARISON: Left hip radiographs 07/01/2024 FINDINGS: Partially visualizes an acute hyperdense hematoma in the left iliopsoas muscle. There is an old healed fracture of proximal left femur. There is a total left hip arthroplasty in near-anatomic alignment. There are multiple cables around the proximal left femur, one of which is broken. No perip rosthetic lucency to suggest loosening or infection. IMPRESSION: 1. Acute hematoma in the left iliopsoas muscle. 2. Total left hip arthroplasty in near-anatomic alignment. Reviewed, dictated and finalized at location A. DEALER
--- OUTSIDE RECORDS SUMMARY | 2024-07-15 14:02 | XMS_ITS | Clinical Summary ---
Author Organization [facility] Address [address] [place] 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 Active Active Problems Problem Noted Date Diagnosed Date Acute chest pain 07/20/2015 Benign hypertension 07/20/2015 HLD (hyperlipidemia) 07/20/2015 PERI (obstructive sleep apnea) 07/20/2015 Cervical stenosis of spine 07/20/2015 Leukocytosis 07/20/2015 Immunizations Immunization Administration Dates Next Due Influenza Seasonal Unspecified Formulation IM Family History Medical History Relation Name Comments Heart Disease Father CABG x 2, mult iple stents. had [place] at age 39. 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 Gender Identity Not on file Sexual Orientation [...] Colonography Q 5 years 2001 PNEUMOCOCCAL VACCINE 50+ YEARS (1 of 1 - PCV) 03/06/20 06 ZOSTER VACCINE (1 of 2) 2006 INFLUENZA VACCINE (#1) 2023 03/11/2015 RSV VACCINE (60+ or ) (1 - 1-dose 75+ series) 2031 Medical Devices Implanted Type Area Base Manager Device Identifier Shelf Expiration Date Model / Serial / Lot Allgrft Spacer Acf 7mm [id number] - [id number] Implanted:Qt y: 1 on 07/18/2015 by Kyle Velasco MD at [facility] Bone N/A: Spine Cervical Anterior MUSCULOSKELETAL TRANSPLANT FOU 11/05/2019 [id number] / [id number] / Description:This MTF spacer was processed on requisition,[id number] Plate Cslp Héctor Ang 29mm 450.154 - [id number] Implanted:Qt y: 1 on 07/18/2015 by Kyle Velasco MD at [facility] Plate N/A: Spine Cervical Anterior SYNTHES-STRATEC- SPINAL 450.154 / / Description:Load No 18.All S ynthes spinal hardware was processed on requisition,[id number]. Sterilized July 10, 2015 Screw Xpnhead C Spine [id number] 487.056 - [id number] Implanted:Qt y: 4 on 07/18/2015 by Kyle Velasco MD at [facility] Screw N/A: Spine Cervical Anterior SYNTHES STRATEC 487.056 / / Description:Load No 18 Sterilized July 10, 2015 Screw Lock C Spine 1.8mm 497.78 - [id number] Implanted:Qt y: 4 on 07/18/2015 by Kyle Velasco MD at [facility] Screw N/A: Spine Cervical Anterior SYNTHES-STRATEC- SPINAL 497.78 / / Description:Load No 18 Sterilized July 10, 2015 Sealant Floseal W/ Adptr 10ml [id number] - [id number] Implanted:Qt y: 1 on 07/18/2015 by Kyle Velasco MD at [facility] Sealant N/A: Spine Cervical Anterior FOSTER- BIOSCIENCE [id number] 11/07/2016 [id number] / / [id number] Insurance MEDICARE PART A AND B Advance Directives For more information, please contact: [phone] Documents on File Type Date Recorded Patient Quality Engineer Medical Device Expl anation Advance Directive POA 07/25/2015 1:24 [...] 7:51 AM 07/18/2015 8:46 AM Care Teams Coining Press Operator Relationship Specialty Start Date End Date Андрей Solomon MD [address] [place] [address] PCP - General Family Practice 04/23/15
--- OUTSIDE RECORDS SUMMARY | 2024-07-15 14:02 | XMS_ITS | Clinical Summary ---
Author Organization [facility] Address [address] [place] [address] Care Team Providers Care Lead Installer Name Role Phone Андрей Solomon MD Primary Care Provider [phone] Source Comments [facility],non-owned Affiliates and Associated Physician Practices is amultiple site organization consisting of ambulatory clinics and hospital sitesin [place], [place]. This disclosure is being madepursuant to the Care Everywhere program and may not contain all information available regarding this patient. Last updated 18.[facility] Allergies No known active allergies Medications * [...] age to complete this topic Care Teams Lead Installer Relationship Specialty Start Date End Date Андрей Solomon MD [address] [place] [address] PCP - General Family Medicine 09/22/12
--- OUTSIDE RECORDS SUMMARY | 2024-07-15 14:02 | XMS_ITS | Continuity of Care Document ---
Author Organization [facility] Address [address] [place] [address] Phone Care Team Providers Care Level Vial Curvature Gauger Name Role Phone Kyle Velasco MD Unavailable [...] Diagnoses Date Provider Providers Copied on Encounter [facility], [address] [place] [address], [address], tel:[phone] [facility] Orthoped[facility] Follow Up of PO cervical (chief complaint) Cervical spinal stenosis 6 [address]. [address] [place], [place], [id number] . tel: [phone] [facility], [address] [place] [address], [address], tel:[phone] [facility] Cervical spinal stenosis 2 - 6 Curylo Kyle. [address] [place], [place], [id number] . tel: [phone] [facility], [address] [place] [address], [facility], tel:[phone] [facility] Cervical spinal stenosis 6 Curylo Kyle. [address] [place], [place], [id number] . tel: [phone] OFFICE/OUTPAT IENT VISIT [facility] Surgery, [address] [place] [address], [facility], tel:[phone] [facility] f/u cervical (chief complaint) Cervical spinal stenosis 3- 6 Curylo Kyle. [address] [place] [address], [id number] . tel: [phone] OFFICE/OUTPAT IENT VISIT [facility], [address] [place] [address], [address], [place] tel:[phone] [facility] Follow Up of cervical-M RI results (chief complaint) Cervical spinal stenosis 5 Curylo Kyle. [address] [place] [address], [id number] . tel: [phone] OFFICE/OUTPAT IENT VISIT [facility], [address] [place] [address], [facility], [place] tel:[phone] [facility] Cervical spinal stenosis 5 Curylo Kyle. [address] [place] [address], [id number] . tel: [phone] Referring Provider: Андрей Blanton, [address], [place], [address]. tel:[phone] Family History Family Member Type Diagnosis Age At Onset Daughter Problem (finding) Alive and well Daughter Problem (finding) depression Payers Payer name Insurance type Covered republican ID Murphy herrmann(s) Shavon Administrative Services [place] [id number] [facility] E2 OT [id number] Social History Type Description Quantity Date Captured [...]
--- OUTSIDE RECORDS SUMMARY | 2024-07-15 14:02 | XMS_ITS | Clinical Summary ---
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
--- OUTSIDE RECORDS SUMMARY | 2024-07-15 14:02 | XMS_ITS | Referral Summary ---
Author Organization [facility] Address [address] [place] [address] Care Team Providers Care Svp Research And Strategic Analysis Name Role Phone Андрей Solomon MD Primary Care Provider [phone] Source Comments [facility],non-owned Affiliates and Associated Physician Practices is amultiple site organization consisting of ambulatory clinics and hospital sitesin [place], [place], [place] and [place]. This disclosure is being madepursuant to the Care Everywhere program and may not contain all information available regarding this patient. Last updated 18.[facility] Allergies No known active allergies Medications * [...] of Treatment Not on file Care Teams Svp Research And Strategic Analysis Relationship Specialty Start Date End Date Андрей Solomon MD [address] [place] [address] PCP - General Family Medicine 09/22/12
--- OUTSIDE RECORDS SUMMARY | 2024-07-15 14:02 | XMS_ITS | Clinical Summary ---
Author Organization [facility] [address] Address [address] [place] [address] Care Team Providers Care Sign Builder Name Role Phone Андрей Solomon MD Primary Care Provider [phone] Allergies No known active allergies Medications clonazePAM [...] mg SL tabletIndications: Coronary artery disease involving tejon coronary artery of tejon heart, unspecified whether angina present Place 1 tablet (0.4 mg total) under the tongue every 5 (five) minutes as needed for chest pain May repeat dose q 5 min, up to 3 doses total 25 tablet 3 4 11/26/19 25 Active Xarelto 20 mg tabletIndications: Paroxysmal atrial flutter (HCC) Take 1 tablet (20 mg total) [...] PCP for further workup Paroxysmal atrial fibrillation 11/10/2023 Coronary artery disease invo lving tejon coronary artery of tejon heart 04/27/2023 LVH (left ventricular hypertrophy) 03/03/2023 Palpitations 08/26/2022 Abnormal stress test 05/20/2019 Atypical chest pain 05/20/2019 Paroxysmal atrial flutter 03/18/2019 Assessment & Plan (11/10/2023 3:54 PM [...] study and ablation. The patient has a BZC5OB0-FOQt score of 2. I have therefore recommended [...] with atrial fibrillation: a report of the [place] College of Cardiology/[place] Heart Association Task Force on Practice Guidelines [...] Department Care Team Description 05/19/2024 2:00 PM EDI MANAGER Office Visit [facility] [address], [place] [address] Lakia Kamara NP Cardiac arrhythmia, unspecified cardiac arrhythmia type (Primary Dx) 04/25/2024 Telephone [facility] Cardiology [address] [place] [address] Amador Rob MD Med Refill 04/19/2024 9:30 AM EDI MANAGER Office Visit [facility]iology [address] [place] [address] No Dao NP Paroxysmal atrial flutter (HCC) (Primary Dx); History of radiofrequency ablation (RFA) procedure for cardiac arrhythmia; Chronic anticoagulation; Coronary artery disease involving te[place] coronary artery of tejon heart, unspecified whether angina present; Statin intolerance; Aneurysm of ascending aorta without rupture; PERI (obstructive sleep apnea) from Last 3 [...] Conv) Hypertension Gout Arthritis Anxiety Atrial flutter (HCC) Forestier disease Family History Medical History [...] on file Legal Sex Male 2:37 AM EDI MANAGER Gender Identity Not on file Sexual Orientation Not on file Obstetrics History Last Filed Vital Signs Vital Sign Reading Time Taken Comments Blood Pressure 164/102 05/19/2024 1:45 PM EDI MANAGER Pulse 70 05/19/2024 1:45 PM EDI MANAGER Temperature 36.6 C (97.8 F) 10/27/2023 12:20 PM CDT Respiratory Rate 14 10/27/2023 12:50 PM CDT Oxygen Saturation 98% 04/19/2024 9:29 AM EDI MANAGER Inhaled Oxygen Concentration - - Weight 117.5 kg (259 lb) 05/19/2024 1:45 PM EDI MANAGER Height 182.9 cm (6') 05/19/2024 1:45 PM EDI MANAGER Body Mass Index 35.13 05/19/2024 1:45 PM EDI MANAGER Plan of Treatment Health Maintenance Due Date [...] 10/26/2024 10/27/2023 Medical Devices Implanted Type Area Machine Engineer Device Identifier Shelf Expiration Date Model / Serial / Lot [employer] Vascade Mvp 6-12fr Venous Closure [id number] - [id number] - [id number] Implanted:Qty: 1 on 10/27/2023 by Aleksandar Mcgowan MD at [facility] Collagen [employer] 07/19/2025 800-612C-1 0U / [id number] / [id number] [employer] Device Vascular Closure Femoral Artery Bioabsorbable Dual Method Vascade 6-7fr Collagen [id number] - [id number] - [id number] Implanted:Qty: 1 on 10/27/2023 by Aleksandar Mcgowan MD at [facility] Collagen [employer] 07/07/2025 700-580I-0 5U / [id number] / [id number] [employer] Vascade Mvp 6-12fr Venous Closure [id number] - [id number] - [id number] Implanted:Qty: 1 on 10/27/2023 by Aleksandar Mcgowan MD at [facility] Collagen [employer] 07/19/2025 800-612C-1 0U / [id number] / [id number] [employer] Vascade Mvp 6-12fr Venous Closure [id number] - [id number] - [id number] Implanted:Qty: 1 on 10/27/2023 by Aleksandar Mcgowan MD at [facility] Collagen [employer] 07/19/2025 800-612C-1 0U / [id number] / [id number] Procedures Procedure Name Priority Date/Time Associated Diagnosis Comments ECG 12-LEAD Routine 05/19/2024 1:57 PM EDI MANAGER Cardiac arrhythmia, unspecified cardiac arrhythmia type from Last 3 Months Results * ECG 12 lead (05/19/2024 1:57 PM EDI MANAGER) Lakia Kamara A[employer]URE INTERNS[employer]IP ECG ORDERABLES Final Resu lt from Last 3 Months Insurance AETNA MEDICARE GOLD AETNA MEDICARE GOLD Care Teams Sign Builder Relationship Specialty Start Date End Date Андрей Solomon MD PCP - General 07/04/09
--- OUTSIDE RECORDS SUMMARY | 2024-07-15 14:02 | XMS_ITS | Encounter Summary ---
Author Organization [facility] Address [address] [place] [address] Care Team Providers Care Chief Scientist Name Role Phone Андрей Solomon MD Primary Care Provider Encounter Details Date Type Department Care Team (Late st Contact Info) Description 01/09/2005 Outpatient Historical [facility] Family Medicine [address] [address] Hilary Schulte MD NO ADDRESS ON FILE Social History Tobacco Use Types Packs/Day Years Used Date Smoking Tobacco: Never Assessed Sex and Gender Information Value Date Recorded Sex Assigned at Not on file Legal Sex Male 3:[address] Gender Identity Not on file Sexual Orientation Not on file documented as of this encounter Plan of Treatment Not on file documented as of this encounter Visit Diagnoses Not on filedocumented in this encounter Care Teams Chief Scientist Relationship Specialty Start Date End Date Андрей Solomon MD [address] [place] [address] PCP - General Family Practice 04/23/15 documented as of this encounter
--- OUTSIDE RECORDS SUMMARY | 2024-07-15 14:02 | XMS_ITS | Referral Summary ---
Author Organization [facility] [address] Address [address] [place] [address] Care Team Providers Care Animal Husbandry Teacher Name Role Phone Андрей Solomon MD Primary Care Provider Encounters Date Type Department Care Team Description 05/19/2024 2:00 PM SPIRITUAL MINISTER Office [facility] [address] [place] [address] Lakia Kamara NP Cardiac arrhythmia, unspecified cardiac arrhythmia type (Primary Dx) 04/25/2024 Telephone [facility] Cardiology [address] [place] [phone] Amador Rob MD Med Refill 04/19/2024 9:30 AM SPIRITUAL MINISTER Office Visit [facility] Cardiology [address] [place] [address] No Dao NP Paroxysmal atrial flutter (HCC) (Primary Dx); History of radiofrequency ablation (RFA) procedure for cardiac arrhythmia; Chronic anticoagulation; Coronary artery disease involving [place] coronary artery of [place] heart, unspecified whether angina present; Statin intolerance; [...] mg SL tabletIndications: Coronary artery disease involving [place] coronary artery of [place] heart, unspecified whether angina present Place 1 [...] fibrillation 11/10/2023 Coronary artery disease invo lving [place] coronary artery of [place] heart 04/27/2023 LVH (left ventricular hypertrophy) 03/03/2023 [...] study and ablation. The patient has a KVJ7KD0-BDZf score of 2. I have therefore recommended [...] with atrial fibrillation: a report of the [place] College of Cardiology/[place] Heart Association Task Force on Practice Guidelines [...] on file Legal Sex Male 2:37 AM SPIRITUAL MINISTER Gender Identity Not on file Sexual Orientation Not on file Last Filed Vital Signs Vital Sign Reading Time Taken Comments Blood Pressure 164/102 05/19/2024 1:45 PM SPIRITUAL MINISTER Pulse 70 05/19/2024 1:45 PM SPIRITUAL MINISTER Temperature 36.6 C (97.8 F) 10/27/2023 12:20 PM CDT Respiratory Rate 14 10/27/2023 12:50 PM CDT Oxygen Saturation 98% 04/19/2024 9:29 AM SPIRITUAL MINISTER Inhaled Oxygen Concentration - - Weight 117.5 kg (259 lb) 05/19/2024 1:45 PM SPIRITUAL MINISTER Height 182.9 cm (6') 05/19/2024 1:45 PM SPIRITUAL MINISTER Body Mass Index 35.13 05/19/2024 1:45 PM SPIRITUAL MINISTER Plan of Treatment Not on file Medical Devices Implanted Type Area Surplus Property Disposal Agent Device Identifier Shelf Expiration Date Model / Serial / Lot [employer] Vascade Mvp 6-12fr Venous Closure [id number] - [id number] - [id number] Implanted:Qty: 1 on 10/27/2023 by Aleksandar Mcgowan MD at [facility] Collagen [employer] 07/19/2025 800-612C-1 0U / [id number] / [id number] [employer] Device Vascular Closure Femoral Artery Bioabsorbable Dual Method Vascade 6-7fr Collagen [id number] - [id number] - [id number] Implanted:Qty: 1 on 10/27/2023 by Aleksandar Mcgowan MD at [facility] Collagen [employer] 07/07/2025 700-580I-0 5U / [id number] / [id number] [employer] Vascade Mvp 6-12fr Venous Closure [id number] - [id number] - [id number] Implanted:Qty: 1 on 10/27/2023 by Aleksandar Mcgowan MD at [facility] Collagen [employer] 07/19/2025 800-612C-1 0U / [id number] / [id number] [employer] Vascade Mvp 6-12fr Venous Closure [id number] - [id number] - [id number] Implanted:Qty: 1 on 10/27/2023 by Aleksandar Mcgowan MD at [facility] Collagen [employer] 07/19/2025 800-612C-1 0U / [id number] / [id number] Procedures Procedure Name Priority Date/Time Associated Diagnosis Comments ECG 12-LEAD Routine 05/19/2024 1:57 PM SPIRITUAL MINISTER Cardiac arrhythmia, unspecified cardiac arrhythmia type from Last 3 Months Results * ECG 12 lead (05/19/2024 1:57 PM SPIRITUAL MINISTER) Lakia Kamara SHARK BIOLOGIST ECG ORDERABLES Final Resu lt from Last 3 Months Insurance AETNA MEDICARE GOLD AETNA MEDICARE GOLD Care Teams Animal Husbandry Teacher Relationship Specialty Start Date End Date Андрей Solomon MD PCP - General 07/04/09
--- OUTSIDE RECORDS SUMMARY | 2024-07-15 14:02 | XMS_ITS | Patient Health Summary ---
Author Organization [facility] Address [address] [place] [address] Care Team Providers Care Principal Database Developer Name Role Phone Андрей Solomon MD Primary Care Provider [phone] Note from [facility],non-owned Affiliates and Associated Physician Practices is amultiple site organization consisting of ambulatory clinics and hospital sitesin [place], [place], [place] and [place]. This disclosure is being madepursuant to the Care Everywhere program and may not contain all information available regarding this patient. Last updated 18.[facility] Allergies No known active allergies Medications * [...] Results * EYE EXAM (06/24/2019 3:18 PM PUBLIC WELFARE WORKER) Anatomical Region Laterality Modality Other Narrative 06/24/2019 3:18 PM PUBLIC WELFARE WORKER Ordered by an unspecified provider. Scanned Document [...] Estrada MD FLUOROSCOPY ORDER YOANDY Care Teams Principal Database Developer Relationship Specialty Start Date End Date Андрей Solomon MD [address] [place] [address] PCP - General Family Medicine 09/22/12
--- OUTSIDE RECORDS SUMMARY | 2024-07-15 14:02 | XMS_ITS | Clinical Summary ---
Author Organization [facility] Address [address] [place] [address] Care Team Providers Care Development Team Lead Name Role Phone Unavailable Primary Care Provider [...] Comments Blood Pressure 135/90 07/01/2010 5:00 PM HAND THERMAL CUTTER Pulse 60 07/01/2010 4:59 PM HAND THERMAL CUTTER Temperature - - Respiratory Rate 16 07/01/2010 4:59 PM HAND THERMAL CUTTER Oxygen Saturation - - Inhaled Oxygen Concentration - - Weight 122.9 kg (271 lb) 07/01/2010 4:59 PM HAND THERMAL CUTTER Height 181.6 cm (5' 11.5 ) 07/01/2010 4:59 PM CS T Body Mass Index 37.27 07/01/2010 4:59 PM HAND THERMAL CUTTER Plan of Treatment Health Maintenance Due Date [...]
--- OUTSIDE RECORDS SUMMARY | 2024-07-15 14:02 | XMS_ITS | Encounter Summary ---
Author Organization [facility] Address [address] [place] [address] Care Team Providers Care Transportation Job Titles Name Role Phone Андрей Solomon MD Primary Care Provider [phone] Encounter Details Date Type Department Care Team (Late st Contact Info) Description 12/30/2023 Orders Only [facility] Health Information Management [address] [place] [id number] No Dao NP [address] [facility] [address] [place] [address] Social History Tobacco Use Types Packs/Day Years [...] on file Legal Sex Male 2:37 AM ELECTRICAL TESTER Gender Identity Not on file Sexual Orientation Not on file documented as of this encounter Plan of Treatment Not on file documented as of this encounter Procedures Procedure Name Priority Date/Time Associated Diagnosis Comments SLEEP LAB/STUDY - RESULT 12/30/2023 documented in this encounter Results * SLEEP LAB/STUDY - RESULT (12/30/2023) No Dao ACCESS LIAISON Final Res ult documented in this encounter Visit Diagnoses Not on filedocumented in this encounter Care Teams Transportation Job Titles Relationship Specialty Start Date End Date Андрей Solomon MD PCP - General 07/04/09 documented as of this encounter
== END 2024-07-15 13:42 | disposition home or self-care (01) ==
PROVIDERS: PCP Family Medicine; Visit Provider Nurse Practitioner Adult Health
DX: S70.02XA Contusion of left hip, initial encounter (principal); X58.XXXA Exposure to other specified factors, initial encounter; M79.81 Nontraumatic hematoma of soft tissue; M16.7 Other unilateral secondary osteoarthritis of hip; Z96.642 Presence of left artificial hip joint
CPT/HCPCS: 73700

== ENCOUNTER 2024-07-23 11:10 | Emergency (ER) | payer MEDICARE, SELFPAY ==
--- OUTSIDE RECORDS SUMMARY | 2024-07-23 11:16 | XMS_ITS | Clinical Summary ---
Author Organization [facility] [place] Address [address] [place] [phone] Phone Care Team Providers Care Sieve Maker Name Role Phone Provider, None Primary Care [...] on file Legal Sex Male 2:58 AM WATER VESSEL CAPTAIN Gender Identity Not on file Sexual Orientation [...] 2006 PSA Discussion 2011 Influenza Immunization (#1) 01/10/202402/08, 02/11/2017 SARS-COV-2 Immunization ( season) 2024 04/19/2021, [...] complete this topic Insurance MEDICARE Care Teams Sieve Maker Relationship Specialty Start Date End Date Provider, None [place] PCP - General 10/27/19
--- OUTSIDE RECORDS SUMMARY | 2024-07-23 11:16 | XMS_ITS | Referral Summary ---
Author Organization [facility] Address [address] [place] [address] Care Team Providers Care Architect In Training Name Role Phone Андрей Solomon MD Primary Care Provider [phone] Source Comments [facility],non-owned Affiliates and Associated Physician Practices is amultiple site organization consisting of ambulatory clinics and hospital sitesin [place], [place], [place] and [place]. This disclosure is being madepursuant to the Care Everywhere program and may not contain all information available regarding this patient. Last updated 18.[facility] Allergies No known active allergies Medications * [...] of Treatment Not on file Care Teams Architect In Training Relationship Specialty Start Date End Date Андрей Solomon MD [address] [place] [address] PCP - General Family Medicine 09/22/12
--- OUTSIDE RECORDS SUMMARY | 2024-07-23 11:16 | XMS_ITS | Referral Summary ---
Author Organization [facility] [address] [place] [address] [address] [place] [address] Care Team Providers Care Ortho Nurse Name Role Phone Андрей Solomon MD Primary Care Provider Encounters Date Type Department Care Team Description 05/19/2024 2:00 PM TRAINING DEVELOPMENT SPECIALIST Office Visit Arrhythmia Center [address], [place] [address] Lakia Kamara NP Cardiac arrhythmia, unspecified cardiac arrhythmia type (Primary Dx) 04/25/2024 Telephone [facility] Cardiology [address] [place] [address] Amador Rob MD Med Refill from Last 3 Months Allergies No known [...] mg SL tabletIndications: Coronary artery disease involving [place] coronary artery of [place] heart, unspecified whether angina present Place 1 [...] fibrillation 11/10/2023 Coronary artery disease invo lving [place] coronary artery of [place] heart 04/27/2023 LVH (left ventricular hypertrophy) 03/03/2023 Palpitations 08/26/2022 Abnormal stress test 05/20/2019 Atypical chest pain 05/20/2019 Paroxysmal atrial flutter 03/18/2019 Assessment & Plan (11/10/2023 3:54 PM CDT): -status post radiofrequency catheter ablation with Dr. Mcgowna -recent ER visit for atrial fibrillation with [...] study and ablation. The patient has a RCO1YR1-OLRk score of 2. I have therefore recommended [...] with atrial fibrillation: a report of the [place] College of Cardiology/[place] Heart Association Task Force on Practice Guidelines [...] on file Legal Sex Male 2:37 AM TRAINING DEVELOPMENT SPECIALIST Gender Identity Not on file Sexual Orientation Not on file Last Filed Vital Signs Vital Sign Reading Time Taken Comments Blood Pressure 164/102 05/19/2024 1:45 PM TRAINING DEVELOPMENT SPECIALIST Pulse 70 05/19/2024 1:45 PM TRAINING DEVELOPMENT SPECIALIST Temperature 36.6 C (97.8 F) 10/27/2023 12:20 PM CDT Respiratory Rate 14 10/27/2023 12:50 PM CDT Oxygen Saturation 98% 04/19/2024 9:29 AM TRAINING DEVELOPMENT SPECIALIST Inhaled Oxygen Concentration - - Weight 117.5 kg (259 lb) 05/19/2024 1:45 PM TRAINING DEVELOPMENT SPECIALIST Height 182.9 cm (6') 05/19/2024 1:45 PM TRAINING DEVELOPMENT SPECIALIST Body Mass Index 35.13 05/19/2024 1:45 PM TRAINING DEVELOPMENT SPECIALIST Plan of Treatment Not on file Medical Devices Implanted Type Area Clerk Guide Device Identifier Shelf Expiration Date Model / Serial / Lot [employer] Vascade Mvp 6-12fr Venous Closure [id number] - [id number] - [id number] Implanted:Qty: 1 on 10/27/2023 by Aleksandar Mcgowan MD at [facility] Collagen [employer] 07/19/2025 800-612C-1 0U / [id number] / [id number] [employer] Device Vascular Closure Femoral Artery Bioabsorbable Dual Method Vascade 6-7fr Collagen [id number] - [id number] - [id number] Implanted:Qty: 1 on 10/27/2023 by Aleksandar Mcgowan MD at [facility] Collagen [employer] 07/07/2025 700-580I-0 5U / [id number] / [id number] [employer] Vascade Mvp 6-12fr Venous Closure [id number] - [id number] - [id number] Implanted:Qty: 1 on 10/27/2023 by Aleksandar Mcgowan MD at [facility] Collagen [employer] 07/19/2025 800-612C-1 0U / [id number] / [id number] [employer] Vascade Mvp 6-12fr Venous Closure [id number] - [id number] - [id number] Implanted:Qty: 1 on 10/27/2023 by Aleksandar Mcgowan MD at [facility] Collagen [employer] 07/19/2025 800-612C-1 0U / [id number] / [id number] Procedures Procedure Name Priority Date/Time Associated Diagnosis Comments ECG 12-LEAD Routine 05/19/2024 1:57 PM TRAINING DEVELOPMENT SPECIALIST Cardiac arrhythmia, unspecified cardiac arrhythmia type from Last 3 Months Results * ECG 12 lead (05/19/2024 1:57 PM TRAINING DEVELOPMENT SPECIALIST) Lakia Kamara NP ECG ORDERABLES Final Resu lt from Last 3 Months Insurance AETNA MEDICARE GOLD AETNA MEDICARE GOLD Care Teams Ortho Nurse Relationship Specialty Start Date End Date Андрей Solomon MD PCP - General 07/04/09
--- OUTSIDE RECORDS SUMMARY | 2024-07-23 11:16 | XMS_ITS | Clinical Summary ---
Author Organization [facility] [address] Address [address] [place] [address] Care Team Providers Care Corporate Strategist Name Role Phone Андрей Solomon MD Primary Care Provider [phone] Allergies No known active allergies Medications clonazePAM [...] mg SL tabletIndications: Coronary artery disease involving [place] coronary artery of [place] heart, unspecified whether angina present Place 1 [...] fibrillation 11/10/2023 Coronary artery disease invo lving [place] coronary artery of [place] heart 04/27/2023 LVH (left ventricular hypertrophy) 03/03/2023 [...] study and ablation. The patient has a [id number] score of 2. I have therefore recommended [...] with atrial fibrillation: a report of the [place] [employer]/[place] [employer] Task Force on Practice Guidelines [...] Department Care Team Description 05/19/2024 2:00 PM CONSULTANT ELECTRONICS Office Visit [facility] [address] [address] Lakia Kamara NP Cardiac arrhythmia, unspecified cardiac arrhythmia type (Primary Dx) 04/25/2024 Telephone [facility] [address] [place] [address] Amador Rob MD Med Refill from Last 3 Months Surgical History Surgery [...] TW Conv) Gout Gout - (Added by Conv) Anxiety disorder Anxiety - (Adde d by Conv) Personal history of other di seases of the circulatory system History of hypertension - (A dded by Conv) Hypertension Gout Arthritis Anxiety Atrial flutter (HCC) Forestier disease Family History Medical History Relation Name Comments Coronary artery disease Father Michel nary Artery Bypass Graft; /Family history of coronary artery disease - (Added by Conv) Heart attack Father Family history of heart attack - (Added by Conv) Hypertension Father Hypertension - (Added by Conv) Hypertension Mother Hypertension - (Added by Conv) Heart disease Other 1 Heart Disease - (Added by Conv) Cancer Other 2 Cancer - (Added by Conv) Hypertension Other 3 Hypertension - (Added by Conv) Relation Name Status Comments Brother Alive [...] on file Legal Sex Male 2:37 AM CONSULTANT ELECTRONICS Gender Identity Not on file Sexual Orientation Not on file Obstetrics History Last Filed Vital Signs Vital Sign Reading Time Taken Comments Blood Pressure 164/102 05/19/2024 1:45 PM CONSULTANT ELECTRONICS Pulse 70 05/19/2024 1:45 PM CONSULTANT ELECTRONICS Temperature 36.6 C (97.8 F) 10/27/2023 12:20 PM CDT Respiratory Rate 14 10/27/2023 12:50 PM CDT Oxygen Saturation 98% 04/19/2024 9:29 AM CONSULTANT ELECTRONICS Inhaled Oxygen Concentration - - Weight 117.5 kg (259 lb) 05/19/2024 1:45 PM CONSULTANT ELECTRONICS Height 182.9 cm (6') 05/19/2024 1:45 PM CONSULTANT ELECTRONICS Body Mass Index 35.13 05/19/2024 1:45 PM CONSULTANT ELECTRONICS Plan of Treatment Health Maintenance Due Date [...] 10/26/2024 10/27/2023 Medical Devices Implanted Type Area Elevated Work Platform Operator Device Identifier Shelf Expiration Date Model / Serial / Lot [employer] Vascade Mvp 6-12fr Venous Closure [id number] - [id number] - [id number] Implanted:Qty: 1 on 10/27/2023 by Aleksandar Mcgowan MD at [facility] Collagen [employer] 07/19/2025 800-612C-1 [id number] / [id number] / [id number] [employer] Device Vascular Closure Femoral Artery Bioabsorbable Dual Method Vascade 6-7fr Collagen [id number] - [id number] - [id number] Implanted:Qty: 1 on 10/27/2023 by Aleksandar Mcgowan MD at [facility] Collagen [employer] 07/07/2025 [id number] 5U / [id number] / [id number] [employer] Vascade Mvp 6-12fr Venous Closure [id number] - [id number] - [id number] Implanted:Qty: 1 on 10/27/2023 by Aleksandar Mcgowan MD at [facility] Collagen [employer] 07/19/2025 800-612C-1 0U / [id number] / [id number] [employer] Vascade Mvp 6-12fr Venous Closure [id number] - [id number] - [id number] Implanted:Qty: 1 on 10/27/2023 by Aleksandar Mcgowan MD at [facility] Collagen [employer] 07/19/2025 800-612C-1 0U / [id number] / [id number] Procedures Procedure Name Priority Date/Time Associated Diagnosis Comments ECG 12-LEAD Routine 05/19/2024 1:57 PM CONSULTANT ELECTRONICS Cardiac arrhythmia, unspecified cardiac arrhythmia type from Last 3 Months Results * ECG 12 lead (05/19/2024 1:57 PM CONSULTANT ELECTRONICS) Lakia Kamara NP ECG ORDERABLES Final Resu lt from Last 3 Months Insurance A[employer] MEDICARE GOLD AETNA MEDICARE GOLD Care Teams Corporate Strategist Relationship Specialty Start Date End Date Андрей Solomon MD PCP - General 07/04/09
--- OUTSIDE RECORDS SUMMARY | 2024-07-23 11:16 | XMS_ITS | Encounter Summary ---
Author Organization [facility] Address [address] [place] [address] Care Team Providers Care Child Care Cook Name Role Phone Андрей Solomon MD Primary Care Provider [phone] Encounter Details Date Type Department Care Team (Late st Contact Info) Description 01/09/2005 Outpatient Historical [facility] Family Medicine [address] [address] Hilary Schulte MD NO ADDRESS ON FILE Social History Tobacco Use Types Packs/Day Years Used Date Smoking Tobacco: Never Assessed Sex and Gender Information Value Date Recorded Sex Assigned at Not on file Legal Sex Male 3:06 AM GROUNDS SUPERVISOR Gender Identity Not on file Sexual Orientation Not on file documented as of this encounter Plan of Treatment Not on file documented as of this encounter Visit Diagnoses Not on filedocumented in this encounter Care Teams Child Care Cook Relationship Specialty Start Date End Date Андрей Solomon MD [address] [place] [address] PCP - General Family Practice 04/23/15 documented as of this encounter
--- OUTSIDE RECORDS SUMMARY | 2024-07-23 11:16 | XMS_ITS | Clinical Summary ---
Author Organization [facility] Address [address] [place] [address] Care Team Providers Care Partition Making Machine Operator Name Role Phone Unavailable Primary Care Provider [...] Comments Blood Pressure 135/90 07/01/2010 5:00 PM PATROL CAPTAIN Pulse 60 07/01/2010 4:59 PM PATROL CAPTAIN Temperature - - Respiratory Rate 16 07/01/2010 4:59 PM PATROL CAPTAIN Oxygen Saturation - - Inhaled Oxygen Concentration - - Weight 122.9 kg (271 lb) 07/01/2010 4:59 PM PATROL CAPTAIN Height 181.6 cm (5' 11.5 ) 07/01/2010 4:59 PM CS T Body Mass Index 37.27 07/01/2010 4:59 PM PATROL CAPTAIN Plan of Treatment Health Maintenance Due Date [...]
--- OUTSIDE RECORDS SUMMARY | 2024-07-23 11:16 | XMS_ITS | Clinical Summary ---
Author Organization [facility] Address [address] [place] [address] Care Team Providers Care Grain Blender Name Role Phone Андрей Solomon MD Primary Care Provider [phone] Source Comments [facility],non-owned Affiliates and Associated Physician Practices is amultiple site organization consisting of ambulatory clinics and hospital sitesin [place], [place], [place]. This disclosure is being madepursuant to the Care Everywhere program and may not contain all information available regarding this patient. Last updated 18.[employer] [facility] Allergies No known active allergies Medications * [...] complete this topic MENINGOCOCCAL (Group B) VACCINE SHARED DECISION-MAKING Aged Out No longer eligible based on patient's age to complete this topic MENINGOCOCCAL GROUPS A/C/Y/W VACCINE Aged Out No longer eligible b ased on patient's age to complete this topic Care Teams Grain Blender Relationship Specialty Start Date End Date Андрей Solomon MD [address] [place] [address] PCP - General Family Medicine 09/22/12
--- OUTSIDE RECORDS SUMMARY | 2024-07-23 11:16 | XMS_ITS | Patient Health Summary ---
Author Organization [facility] Address [address] [place] [address] Care Team Providers Care Assistant Hairstylist Name Role Phone Андрей Solomon MD Primary Care Provider [phone] Note from [facility],non-owned Affiliates and Associated Physician Practices is amultiple site organization consisting of ambulatory clinics and hospital sitesin [place], [place], [place] and [place]. This disclosure is being madepursuant to the Care Everywhere program and may not contain all information available regarding this patient. Last updated 18.[facility] Allergies No known active allergies Medications [...] Results * EYE EXAM (06/24/2019 3:18 PM LAND ECONOMIST) Anatomical Region Laterality Modality Other Narrative 06/24/2019 3:18 PM LAND ECONOMIST Ordered by an unspecified provider. Scanned Document [...] Estrada MD FLUOROSCOPY ORDER YOANDY Care Teams Assistant Hairstylist Relationship Specialty Start Date End Date Андрей Solomon MD [address] [place] [address] PCP - General Family Medicine 09/22/12
--- OUTSIDE RECORDS SUMMARY | 2024-07-23 11:17 | XMS_ITS | Clinical Summary ---
Author Organization [facility] Address [address] 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 Active Active Problems Problem Noted Date Diagnosed Date Acute chest pain 07/20/2015 Benign hypertension 07/20/2015 HLD (hyperlipidemia) 07/20/2015 PERI (obstructive sleep apnea) 07/20/2015 Cervical stenosis of spine 07/20/2015 Leukocytosis 07/20/2015 Immunizations Immunization Administration Dates Next Due Influenza Seasonal Unspecified Formulation IM Family History Medical History Relation Name Comments Heart Disease Father CABG x 2, mult iple stents. had MA at age 39. 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 Gender Identity Not on file Sexual Orientation [...] series) 2031 Medical Devices Implanted Type Area Management Trainee Program Stores Device Identifier Shelf Expiration Date Model / Serial / Lot Allgrft Spacer Acf 7mm [id number] - [id number] Implanted:Qt y: 1 on 07/18/2015 by Kyle Velasco MD at [facility] Bone N/A: Spine Cervical Anterior MUSCULOSKELETAL TRANSPLANT FOU 11/05/2019 [id number] / [id number] / Description:This MTF spacer was processed on requisition,[id number] Plate Cslp Héctor Ang 29mm 450.154 - [id number] Implanted:Qt y: 1 on 07/18/2015 by Kyle Velasco MD at [facility] Plate N/A: Spine Cervical Anterior SYNTHES-STRATEC- SPINAL 450.154 / / Description:Load No 18.All S ynthes spinal hardware was processed on requisition,[id number]. Sterilized July 10, 2015 Screw Xpnhead C Spine 4.42a47rj 487.056 - [id number] Implanted:Qt y: 4 on 07/18/2015 by Kyle Velasco MD at [facility] Screw N/A: Spine Cervical Anterior SYNTHES STRATEC 487.056 / / Description:Load No 18 Sterilized July 10, 2015 Screw Lock C Spine 1.8mm 497.78 - [id number] Implanted:Qt y: 4 on 07/18/2015 by Kyle Velasco MD at [facility] Screw N/A: Spine Cervical Anterior SYNTHES-STRATEC- SPINAL 497.78 / / Description:Load No 18 Sterilized July 10, 2015 Sealant Floseal W/ Adptr 10ml [id number] - [id number] Implanted:Qt y: 1 on 07/18/2015 by Kyle Velasco MD at [facility] Sealant N/A: Spine Cervical Anterior FOSTER- BIOSCIENCE [id number] 11/07/2016 [id number] / / [id number] Insurance MEDICARE PART A AND B Advance Directives For more information, please contact: [phone] Documents on File Type Date Recorded 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 [address] PCP - General Family Practice 04/23/15
--- OUTSIDE RECORDS SUMMARY | 2024-07-23 11:17 | XMS_ITS | Continuity of Care Document ---
Author Organization [facility] Address [address] [place] [address] Phone Care Team Providers Care Learning Support Assistant Name Role Phone Kyle Velasco MD Unavailable [...] Diagnoses Date Provider Providers Copied on Encounter [facility], [address] [place] [address], [address], tel:[phone] [facility] Orthopedics [facility] Follow Up of PO cervical (chief complaint) Cervical spinal stenosis 6 Rod Wright. [address] [place], [place], [id number] . tel: [phone] [facility], [address] [place] [address], [id number], tel:[phone] [facility] Cervical spinal stenosis 2 - 6 Curylo Kyle. [address] [place], [place], [id number] . tel: [phone] [facility], [address] [place] [address], [facility], tel:[phone] [facility] Cervical spinal stenosis 6 Curylo Kyle. [address] [place], [place], [id number] . tel: [phone] OFFICE/OUTPAT IENT VISIT [facility], [address] [place] [address], [facility], tel:[phone] [facility] f/u cervical (chief complaint) Cervical spinal stenosis 3- 6 Curylo Kyle. [address] [place] [address], [id number] . tel: [phone] OFFICE/OUTPAT IENT VISIT [facility], [address] [place] [address], [id number], [place] tel:[phone] [facility] Follow Up of cervical-M RI results (chief complaint) Cervical spinal stenosis 5 Curylo Kyle. [address] [place] [address], [id number] . tel: [phone] OFFICE/OUTPAT IENT VISIT [facility] Surgery, [address] [place] [address], [facility], [place] tel:[phone] [facility] Cervical spinal stenosis 5 Curylo Kyle. [address] [place] [address], [id number] . tel: [phone] Referring Provider: Андрей Blanton, [address], [place], [address]. tel:[phone] Family History Family Member Type Diagnosis Age At Onset Daughter Problem (finding) Alive and well Daughter Problem (finding) depression Payers Payer name Insurance type Covered constitution party ID Murphy herrmann(s) [employer]on Administrative Services [place] [id number] [facility] E2 OT [id number] Social History Type Description Quantity Date Captured [...]
--- OUTSIDE RECORDS SUMMARY | 2024-07-23 11:17 | XMS_ITS | Encounter Summary ---
Author Organization 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 Gender Identity Not on file Sexual Orientation Not on file documented as of this encounter Plan of Treatment Not on file documented as of this encounter Procedures Procedure Name Priority Date/Time Associated Diagnosis Comments SLEEP LAB/STUDY - RESULT 12/30/2023 documented in this encounter Results * SLEEP LAB/STUDY - RESULT (12/30/2023) No Dao CABLE ARMORER Final Res ult documented in this encounter Visit Diagnoses Not on filedocumented in this encounter Care Teams Head Operator Sulfide Relationship Specialty Start Date End Date Андрей Solomon MD PCP - General 07/04/09 documented as of this encounter
--- OUTSIDE RECORDS SUMMARY | 2024-07-23 11:19 | XMS_ITS | Continuity of Care Document ---
Author Organization [facility] Address [address] [place] [address] Phone Care Team Providers Care Dry Press Operator Helper Name Role Phone Kyle Velasco MD Unavailable [...] Diagnoses Date Provider Providers Copied on Encounter [facility], [address] [place] [address], [id number], tel:[phone] [facility] Orthoped[facility] Follow Up of PO cervical (chief complaint) Cervical spinal stenosis 6 Rod Wright. [address] [place], [place], [id number] . tel: [phone] [facility], [address] [place] [address], [address], tel:[phone] [facility] Cervical spinal stenosis 2 - 6 Curylo Kyle. [address] [place], [place], [id number] . tel: [phone] [facility] Surgery, [address] [place] [address], [facility], tel:[phone] [facility] Cervical spinal stenosis 6 Curylo Kyle. [address] [place], [place], [id number] . tel: [phone] OFFICE/OUTPAT IENT VISIT [facility] Orthopaedic Surgery, [address] [place] [address], [facility], tel:[phone] [facility] f/u cervical (chief complaint) Cervical spinal stenosis 3- 6 Curylo Kyle. [address] [place] [address], [id number] . tel: [phone] OFFICE/OUTPAT IENT VISIT [facility] Orthopa[facility] Surgery, [address] [place] [address], [id number], [place] tel:[phone] [facility] Follow Up of cervical-M RI results (chief complaint) Cervical spinal stenosis 5 Curylo Kyle. [address] [place] [address], [id number] . tel: [phone] OFFICE/OUTPAT IENT VISIT [facility] Orthopaedic Surgery, [address] [place] [address], [facility], [place] tel:[phone] [facility] Cervical spinal stenosis 5 Curylo Kyle. [address] [place] [address], [id number] . tel: [phone] Referring Provider: Андрей Blanton, [address], [place], [address]. tel:[phone] Family History Family Member Type Diagnosis Age At Onset Daughter Problem (finding) Alive and well Daughter Problem (finding) depression Payers Payer name Insurance type Covered democrat ID Murphy herrmann(s) Sh[employer]on Administrative Services OT [id number] [facility] E2 OT [id number] Social History Type Description Quantity Date Captured [...]
[2024-07-23 11:29] VITALS: BP 173/91; PULSE 105; RESP 17; TEMP 37.8; O2SAT 97
--- NOTE | 2024-07-23 11:40 | ED.URI ---
HPI - URI/Sore Throat General Chief Complaint: Upper Respiratory Infection Stated Complaint: congestion and coughing History of Present Illness HPI Narrative: 69-year-old male presents today with complaints of having a slight cough last Thursday but was doing fine then last night started with a fever of 101 with worsening cough, body aches, chills. Denies any nausea, vomiting, diarrhea. Did have sick contacts including his . Denies any shortness of breath. MD elicited complaint: fever, cough and nasal congestion Onset (ago): day(s) Related Data Home Medications ?Medication ?Instructions ?Recorded ?Confirmed ?Last Taken ?Type rivaroxaban 20 mg tablet (Xarelto) 20 mg PO DAILY 11/02/23 07/18/24 11/02/23 History Allergies Allergy/AdvReac Type Severity Reaction Status Date / Time No Known Allergies Allergy Verified 07/23/24 11:31 Review of Systems Review of Systems: All systems reviewed & are unremarkable except as noted in HPI and below Eyes: Eyes: Reports as per HPI ENT: Reports as per HPI Cardiovascular: Cardiovascular: Reports as per HPI Respiratory: Respiratory: Reports as per HPI Genitourinary: Genitourinary: Reports as per HPI Musculoskeletal: Musculoskeletal: Reports as per HPI Integumentary/Breasts: Skin/Breast: Reports as per HPI Neurologic: Reports as per HPI Psychiatric: Psychiatric: Reports as per HPI Endocrine: Endocrine: Reports as per HPI Hematologic/Lymphatic: Hematologic/Lymphatic: Reports as per HPI Allergic/Immunologic: Allergic/Immunologic: Reports as per HPI PMFSH Past Medical History Medical History Broken prosthetic joint implant Adenomatous polyp of sigmoid colon AAA (abdominal aortic aneurysm) without rupture Obstructive sleep apnea BPH w urinary obs/LUTS Degenerative arthritis of knee, bilateral Hypertension Arthritis Anxiety Vitamin D deficiency, unspecified Hyperlipidemia DISH (diffuse idiopathic skeletal hyperostosis) DDD (degenerative disc disease) Hip osteoarthritis Gout Atrial flutter Essential (primary) hypertension Major depressive disorder, single episode, unspecified Sleep apnea in adult Spondylosis without myelopathy or radiculopathy, cervical region Surgical History Surgical History History of revision of total replacement of left hip joint History of radiofrequency ablation procedure for cardiac arrhythmia October 2023; Dr Valero ([facility]) History of right hip replacement History of left hip replacement x2 - Revision for recurrent dislocation History of back surgery x2 H/O neck surgery History of hip replacement, total Family History Family History Mother Depression Hypertension Family history of osteoarthritis Grandparent Hypertension Father Family history of osteoarthritis Family history of coronary artery disease Heart disease Sibling Diabetes mellitus Hypertension Other Family history of malignant neoplasm Social History Social History Smoking status: Never smoker Second hand tobacco smoke exposure: Yes Alcohol intake: current Drinks per week: 6 Alcohol use details: 12 pack beer weekly Substance use: never Substance use type: does not use Do You Feel Safe in your Home?: Yes Lack of Transportation: No Lack of Food: Never True Current Housing: I Have Housing Concerned About Future Housing: No Difficulty Paying Gas/Electric Bills: No Difficulty Paying for Meds: No Currently Unemployed: No Education: Trade/Vocational Certificate Difficulty w/ Childcare or Family Care: No Living arrangements: with family Additional living arrangements comments: lives with spouse Occupation/Education: retired 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 Gender identity (if verbalized by the patient): Male Sexual Orientation (if Verbalized by the Patient): Straight or Heterosexual Spiritual care concerns: Yes (Cathoplic) Agree to blood products: Yes Exam Const: General: cooperative, healthy appearing, comfortable, no acute distress and well developed Orientation/consciousness: patient oriented x3 HENMT: Head: normal to inspection Ears: TM's normal bilaterally Face and sinus: sinuses nontender Throat: posterior oropharynx normal Eyes: General: appearance normal, both eyes and all related structures Resp: Effort & Inspection: normal respiratory effort and able to speak in complete sentences Auscultation: clear to auscultation bilaterally Cardio: Rate: regular rate Rhythm: regular rhythm Heart sounds: S1 normal heart sound present and S2 normal heart sound present Skin: General skin exam: normal color Neuro: General: patient oriented x3 Cognition (Neuro): normal cognition Speech: normal speech Psych: Mental Status: mental status grossly normal Course Course Level of Care: Express Care Visit Vital Signs Vital signs: Vital Signs Temperature 100.0 F H 07/23/24 11:29 Pulse Rate 105 H 07/23/24 11:29 Respiratory Rate 17 07/23/24 11:29 Blood Pressure 173/91 H 07/23/24 11:29 Pulse Oximetry 97 07/23/24 11:29 Oxygen Delivery Room Air 07/23/24 11:29 Temperature 100.0 F H 07/23/24 11:29 Pulse Rate 105 H 07/23/24 11:29 Respiratory Rate 17 07/23/24 11:29 Blood Pressure 173/91 H 07/23/24 11:29 Pulse Oximetry 97 07/23/24 11:29 Oxygen Delivery Room Air 07/23/24 11:29 MDM - URI/Sore Throat MDM Narrative Medical decision making narrative: 69-year-old male HPI is noted. Differentials include influenza, COVID, sinusitis, viral infection, bronchitis, pneumonia. Influenza COVID swabs completed. Patient did test positive for influenza A. Lungs are clear without being diminished. Considering patient is positive for influenza A at this time I do not see a need for chest x-ray considering patient is not severely short of breath and lungs are clear without being diminished. Tamiflu prescribed with symptomatic treatment. Differential Diagnosis Differential diagnosis: Likely upper respiratory infection, sinusitis, viral infection and influenza Lab Data Attestation: I reviewed the patient's lab results. Labs: Lab Results 07/23/24 Range/Units 12:01 POC Influenza A Ag Positive (Negative) POC Influenza B Ag Negative (Negative) POC SARS CoV-2 Ag Negative (Negative) Discharge Plan Discharge Clinical Impression: Influenza A Patient Disposition: Home, Self-Care Condition: Stable Instructions: Antibiotic Form, Influenza (DC) Additional Instructions: he tested positive for influenza a today. I am sending Tamiflu over please start as soon as you pick it up and take as prescribed. May use Mucinex DM as needed for cough or congestion as you were. That is not working you can try the benzonatate with guaifenesin to help with the cough. Tylenol only as needed for pain or fever you are on Xarelto so you should not be using NSAIDs. To the emergency department with any urgent concerns such as severe shortness of breath or worsening Symptoms. Return for any urgent concerns. Follow-up with primary care as needed Patient Language: Japanese Prescriptions: New oseltamivir [Tamiflu] 75 mg capsule 75 mg PO Q12H 5 Days Qty: 10 0RF benzonatate 100 mg capsule See Rx Instructions .ROUTE .COMPLEX PRN (Reason: cough) Qty: 30 0RF Rx Instructions: 1-2 tabs as needed up to 3 times a day for cough guaifenesin 400 mg tablet 400 mg PO Q4H PRN (Reason: congestion) Qty: 30 0RF No Action tramadol 50 mg tablet 50 mg PO Q8H PRN (Reason: pain) Qty: 30 0RF cyclobenzaprine 5 mg tablet 5 mg PO TID PRN (Reason: muscle spasm) Qty: 20 1RF Xarelto 20 mg tablet 20 mg PO DAILY lisinopril 20 mg tablet 40 mg PO DAILY Qty: 90 1RF metoprolol succinate 100 mg Tablet Extended Release 24 Hr 150 mg PO DAILY Qty: 90 1RF amlodipine 10 mg tablet See Rx Instructions .ROUTE .COMPLEX Qty: 90 0RF Dose Instruction: TAKE 1 TABLET (10 MG) BY MOUTH EVERY DAY Rx Instructions: TAKE 1 TABLET (10 MG) BY MOUTH EVERY DAY allopurinol 100 mg tablet See Rx Instructions .ROUTE .COMPLEX Qty: 90 0RF Dose Instruction: TAKE 1 TABLET BY MOUTH EVERY DAY Rx Instructions: TAKE 1 TABLET BY MOUTH EVERY DAY Follow-up/Referrals: Андрей Solomon MD [Primary Care Provider] - ( as needed) Time of Disposition: 12:09
[2024-07-23 12:06] LABS: EDCOVIDSCREEN Negative (Negative); EDINFLUASCREEN Positive (Negative); EDINFLUBSCREEN Negative (Negative)
== END 2024-07-23 12:16 | disposition home or self-care (01) ==
PROVIDERS: Emergency Provider Nurse Practitioner Family; PCP Family Medicine
DX: J10.1 Influenza due to other identified influenza virus with other respiratory manifestations (principal); Z20.822 Contact with and (suspected) exposure to COVID-19; N40.1 Benign prostatic hyperplasia with lower urinary tract symptoms; M17.0 Bilateral primary osteoarthritis of knee; I10 Essential (primary) hypertension; E78.5 Hyperlipidemia, unspecified; M10.9 Gout, unspecified; M47.812 Spondylosis without myelopathy or radiculopathy, cervical region; I48.92 Unspecified atrial flutter; Z79.01 Long term (current) use of anticoagulants; Z96.643 Presence of artificial hip joint, bilateral
CPT/HCPCS: 87426; 87804; 99213; G0463

== ENCOUNTER 2024-08-03 09:52 | Outpatient (CLI) | payer MEDICARE, SELFPAY ==
--- NOTE | ~2024-08-03 | CT_ITS ---
EXAMINATION:CT diagnostic chest wo con DATE: 08/03/2024 10:14 INDICATION: Aortic aneurysm. TECHNIQUE: Computed tomography (CT) of the chest was performed without intravenous contrast. Automate d exposure control and iterative reconstruction technique were employed. The dose-length product (DLP ) was 508.20 mGy-cm. COMPARISON: Chest CT 02/01/2024 FINDINGS: The lungs demonstrate minimal atelectasis. A calcified right lung nodule and calcified righ t hilar and mediastinal lymph nodes are consistent with old granulomatous disease. No pleural effusio n. The heart size is normal. There are coronary artery calcifications. No pericardial effusion. There is a 17 mm cyst in left kidney. There is bilateral gynecomastia. The aorta measures 4.8 cm at the si nuses of Valsalva, 4.0 cm at the sinotubular junction, 4.8 cm in the mid ascending aorta, 3.2 cm at t he aortic isthmus, and 3.4 cm in the mid descending aorta. IMPRESSION: 1. Stable ectasia of ascending aorta measuring 4.8 cm. Reviewed, dictated and finalized at location A.
--- OUTSIDE RECORDS SUMMARY | 2024-08-03 10:59 | XMS_ITS | Clinical Summary ---
Author Organization [facility] Address [address] [place] [address] Care Team Providers Care Youth Associate Name Role Phone Андрей Solomon MD Primary Care Provider [phone] Source Comments [facility],non-owned Affiliates and Associated Physician Practices is amultiple site organization consisting of ambulatory clinics and hospital sitesin [place], [place], [place] and [place]. This disclosure is being madepursuant to the Care Everywhere program and may not contain all information available regarding this patient. Last updated [employer] [facility] Allergies No known active allergies Medications * [...] age to complete this topic Care Teams Youth Associate Relationship Specialty Start Date End Date Андрей Solomon MD [address] [place] [address] PCP - General Family Medicine 09/22/12
--- OUTSIDE RECORDS SUMMARY | 2024-08-03 10:59 | XMS_ITS | Clinical Summary ---
Author Organization [facility] Address [address] [place] [address] Care Team Providers Care Operations Tech Name Role Phone Unavailable Primary Care Provider [...] Comments Blood Pressure 135/90 07/01/2010 5:00 PM ROLL WINDER Pulse 60 07/01/2010 4:59 PM ROLL WINDER Temperature - - Respiratory Rate 16 07/01/2010 4:59 PM ROLL WINDER Oxygen Saturation - - Inhaled Oxygen Concentration - - Weight 122.9 kg (271 lb) 07/01/2010 4:59 PM ROLL WINDER Height 181.6 cm (5' 11.5 ) 07/01/2010 4:59 PM CS T Body Mass Index 37.27 07/01/2010 4:59 PM ROLL WINDER Plan of Treatment Health Maintenance Due Date [...]
--- OUTSIDE RECORDS SUMMARY | 2024-08-03 10:59 | XMS_ITS | Encounter Summary ---
Author Organization [facility] Address 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 [id number] PCP - General Family Practice 04/23/15 documented as of this encounter
--- OUTSIDE RECORDS SUMMARY | 2024-08-03 11:00 | XMS_ITS | Clinical Summary ---
Author Organization [facility] [address] Address [address] [place] [address] Care Team Providers Care Airplane Woodworker Name Role Phone Андрей Solomon MD Primary Care Provider + [phone] Caterina Walters PA Unavailable + [phone] Allergies No known active allergies Medications clonazePAM [...] mg SL tabletIndications: Coronary artery disease involving [place] coronary artery of [place] heart, unspecified whether angina present Place 1 [...] fibrillation 11/10/2023 Coronary artery disease invo lving [place] coronary artery of [place] heart 04/27/2023 LVH (left ventricular hypertrophy) 03/03/2023 [...] study and ablation. The patient has a [id number] score of 2. I have therefore recommended initiation of anticoagulation (the patient has rivaroxaban, but has not yet initiated). My office will make the appropriate arrangements. From: May, Vu LS, Demian JS, Vera H, John TAVON, Haylie JE, June OLIVIA, Emmanuelle PT, Nasrin HENRANDEZ, ME, Willi KT, Dian RL, Dejan WG, Mika PJ, Kemi CM, Shayy CW. 2014 AHA/ACC/HRS guideline for the management of patients with atrial fibrillation: a report of the [place] College of [employer]iology/[place] Heart Association Task Force on Practice Guidelines [...] Encounters Date Type Department Care Team Description 07/26/2024 Telephone [facility] Department of Otolaryngology Head-Neck Division [address] [place] [address] Ailyn Quinteros RN 07/26/2024 Telephone [facility] Cardiology [address] [facility] [address] [place] [address] Amador Rob MD 05/19/2024 2:00 PM INSULATION AND 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 Office Visit [facility] [address] [facility] [address] [place] [address] Lakia Kamara NP Cardiac arrhythmia, unspecified cardiac arrhythmia type (Primary Dx) from Last 3 Months Surgical History Surgery [...] on file Legal Sex Male 2:37 AM 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 AND 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 Gender Identity Not on file Sexual Orientation Not on file Obstetrics History Last Filed Vital Signs Vital Sign Reading Time Taken Comments Blood Pressure 164/102 05/19/2024 1:45 PM INSULATION AND 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 Pulse 70 05/19/2024 1:45 PM INSULATION AND 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 Temperature 36.6 C (97.8 F) 10/27/2023 12:20 PM CDT Respiratory Rate 14 10/27/2023 12:50 PM CDT Oxygen Saturation 98% 04/19/2024 9:29 AM INSULATION AND 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 Inhaled Oxygen Concentration - - Weight 117.5 kg (259 lb) 05/19/2024 1:45 PM INSULATION AND 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 Height 182.9 cm (6') 05/19/2024 1:45 PM INSULATION AND 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 Body Mass Index 35.13 05/19/2024 1:45 PM INSULATION AND 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 Plan of Treatment Health Maintenance Due Date [...] 10/26/2024 10/27/2023 Medical Devices Implanted Type Area Tire Worker Device Identifier Shelf Expiration Date Model / Serial / Lot [employer] Vascade Mvp 6-12fr Venous Closure [id number] - [id number] - [id number] Implanted:Qty: 1 on 10/27/2023 by Aleksandar Mcgowan MD at [facility] Collagen [employer] 07/19/2025 800-612C-1 0U / [id number] / [id number] [employer] Device Vascular Closure Femoral Artery Bioabsorbable Dual Method Vascade 6-7fr Collagen [id number] - [id number] - [id number] Implanted:Qty: 1 on 10/27/2023 by Aleksandar Mcgowan MD at [facility] Collagen [employer] 07/07/2025 700-580I-0 5U / [id number] / [id number] [employer] Vascade Mvp 6-12fr Venous Closure [id number] - [id number] - [id number] Implanted:Qty: 1 on 10/27/2023 by Aleksandar Mcgowan MD at [facility] Collagen [employer] 07/19/2025 800-612C-1 0U / [id number] / [id number] [employer] Vascade Mvp 6-12fr Venous Closure [id number] - [id number] - [id number] Implanted:Qty: 1 on 10/27/2023 by Aleksandar Mcgowan MD at [facility] Collagen [employer] 07/19/2025 800-612C-1 0U / [id number] / [id number] Procedures Procedure Name Priority Date/Time Associated Diagnosis Comments ECG 12-LEAD Routine 05/19/2024 1:57 PM INSULATION AND 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 Cardiac arrhythmia, unspecified cardiac arrhythmia type from Last 3 Months Results * ECG 12 lead (05/19/2024 1:57 PM INSULATION AND 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) Lakia Kamara NP ECG ORDERABLES Final Resu lt from Last 3 Months Insurance A[employer] MEDICARE GOLD AETNA MEDICARE GOLD Care Teams Airplane Woodworker Relationship Specialty Start Date End Date Андрей Solomon MD PCP - General 07/04/09 Caterina Walters PA [address] [address] Physician Radio Producer 07/26/24
--- OUTSIDE RECORDS SUMMARY | 2024-08-03 11:00 | XMS_ITS | Clinical Summary ---
Author Organization [facility] Address [address] 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 Active Active Problems Problem Noted Date Diagnosed Date Acute chest pain 07/20/2015 Benign hypertension 07/20/2015 HLD (hyperlipidemia) 07/20/2015 PERI (obstructive sleep apnea) 07/20/2015 Cervical stenosis of spine 07/20/2015 Leukocytosis 07/20/2015 Immunizations Immunization Administration Dates Next Due Influenza Seasonal Unspecified Formulation IM Family History Medical History Relation Name Comments Heart Disease Father CABG x 2, mult iple stents. had AK at age 39. 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 Gender Identity Not on file Sexual Orientation [...] series) 2031 Medical Devices Implanted Type Area Process Description Writer Device Identifier Shelf Expiration Date Model / Serial / Lot Allgrft Spacer Acf 7mm [id number] - [id number] Implanted:Qt y: 1 on 07/18/2015 by Kyle Velasco MD at [facility] Bone N/A: Spine Cervical Anterior MUSCULOSKELETAL TRANSPLANT FOU 11/05/2019 [id number] / [id number] / Description:This MTF spacer was processed on requisition,[id number] Plate Cslp Héctor Ang 29mm 450.154 - [id number] Implanted:Qt y: 1 on 07/18/2015 by Kyle Velasco MD at [facility] Plate N/A: Spine Cervical Anterior SYNTHES-STRATEC- SPINAL 450.154 / / Description:Load No 18.All S ynthes spinal hardware was processed on requisition,[id number]. Sterilized July 10, 2015 Screw Xpnhead C Spine 4.36b74vo 487.056 - [id number] Implanted:Qt y: 4 on 07/18/2015 by Kyle Velasco MD at [facility] Screw N/A: Spine Cervical Anterior SYNTHES STRATEC 487.056 / / Description:Load No 18 Sterilized July 10, 2015 Screw Lock C Spine 1.8mm 497.78 - [id number] Implanted:Qt y: 4 on 07/18/2015 by Kyle Velasco MD at [facility] Screw N/A: Spine Cervical Anterior SYNTHES-STRATEC- SPINAL 497.78 / / Description:Load No 18 Sterilized July 10, 2015 Sealant Floseal W/ Adptr 10ml [id number] - [id number] Implanted:Qt y: 1 on 07/18/2015 by Kyle Velasco MD at [facility] Sealant N/A: Spine Cervical Anterior FOSTER- BIOSCIENCE [id number] 11/07/2016 [id number] / / [id number] Insurance MEDICARE PART A AND B Advance Directives For more information, please contact: [phone] Documents on File Type Date Recorded 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 [address] PCP - General Family Practice 04/23/15
--- OUTSIDE RECORDS SUMMARY | 2024-08-03 11:00 | XMS_ITS | Referral Summary ---
Author Organization [facility] [address] [place] [address] [address] [place] [address] Care Team Providers Care Buying Intern Name Role Phone Андрей Solomon MD Primary Care Provider + [phone] Caterina Walters PA Unavailable + [phone] Encounters Date Type Department Care Team Description 07/26/2024 Telephone [facility] Department of Otolaryngology Head-Neck Division [address] [facility] [address] [place] [address] Ailyn Quinteros RN 07/26/2024 Telephone [facility] Cardiology [address] [place] [address] [address] [place] [address] Amador Rob MD 05/19/2024 2:00 PM ALARM SIGNALER Office Visit Arrhythmia Center [address] [facility] [address], [place] [address] Lakia Kamara NP Cardiac arrhythmia, unspecified cardiac arrhythmia type (Primary Dx) from Last 3 Months Allergies No known [...] mg SL tabletIndications: Coronary artery disease involving [place] coronary artery of [place] heart, unspecified whether angina present Place 1 [...] fibrillation 11/10/2023 Coronary artery disease invo lving [place] coronary artery of [place] heart 04/27/2023 LVH (left ventricular hypertrophy) 03/03/2023 [...] study and ablation. The patient has a [id number] score of 2. I have therefore recommended [...] with atrial fibrillation: a report of the [place] College of Cardiology/[place] Heart Association Task Force on Practice Guidelines [...] on file Legal Sex Male 2:37 AM ALARM SIGNALER Gender Identity Not on file Sexual Orientation Not on file Last Filed Vital Signs Vital Sign Reading Time Taken Comments Blood Pressure 164/102 05/19/2024 1:45 PM ALARM SIGNALER Pulse 70 05/19/2024 1:45 PM ALARM SIGNALER Temperature 36.6 C (97.8 F) 10/27/2023 12:20 PM CDT Respiratory Rate 14 10/27/2023 12:50 PM CDT Oxygen Saturation 98% 04/19/2024 9:29 AM ALARM SIGNALER Inhaled Oxygen Concentration - - Weight 117.5 kg (259 lb) 05/19/2024 1:45 PM ALARM SIGNALER Height 182.9 cm (6') 05/19/2024 1:45 PM ALARM SIGNALER Body Mass Index 35.13 05/19/2024 1:45 PM ALARM SIGNALER Plan of Treatment Not on file Medical Devices Implanted Type Area Sample Distributor Device Identifier Shelf Expiration Date Model / Serial / Lot [employer] Vascade Mvp 6-12fr Venous Closure [id number] - [id number] - [id number] Implanted:Qty: 1 on 10/27/2023 by Aleksandar Mcgowan MD at [facility] Collagen [employer] 07/19/2025 800-612C-1 0U / [id number] / [id number] [employer] Device Vascular Closure Femoral Artery Bioabsorbable Dual Method Vascade 6-7fr Collagen [id number] - [id number] - [id number] Implanted:Qty: 1 on 10/27/2023 by Aleksandar Mcgowan MD at [facility] Collagen [employer] 07/07/2025 700-580I-0 5U / [id number] / [id number] [employer] Vascade Mvp 6-12fr Venous Closure [id number] - [id number] - [id number] Implanted:Qty: 1 on 10/27/2023 by Aleksandar Mcgowan MD at [facility] Collagen [employer] 07/19/2025 800-612C-1 0U / [id number] / [id number] [employer] Vascade Mvp 6-12fr Venous Closure [id number] - [id number] - [id number] Implanted:Qty: 1 on 10/27/2023 by Aleksandar Mcgowan MD at [facility] Collagen [employer] 07/19/2025 800-612C-1 0U / [id number] / [id number] Procedures Procedure Name Priority Date/Time Associated Diagnosis Comments ECG 12-LEAD Routine 05/19/2024 1:57 PM ALARM SIGNALER Cardiac arrhythmia, unspecified cardiac arrhythmia type from Last 3 Months Results * ECG 12 lead (05/19/2024 1:57 PM ALARM SIGNALER) us Lakia Kamara FUEL EFFICIENT AIRCRAFT DESIGNER ECG ORDERABLES Final Resu lt from Last 3 Months Insurance T MEDICARE [facility] T MEDICARE [facility] Care Teams Buying Intern Relationship Specialty Start Date End Date Андрей Solomon MD PCP - General 07/04/09 Caterina Walters PA [address] [place] [address] Physician Modular Home Crew Member 07/26/24
--- OUTSIDE RECORDS SUMMARY | 2024-08-03 11:00 | XMS_ITS | Encounter Summary ---
Author Organization [facility] Healthcare Address [address] [place] [address] Care Team Providers Care Information Technology Technician Name Role Phone Андрей Solomon MD Primary Care Provider + [phone] Caterina Walters PA Unavailable + [phone] Encounter Details Date Type Department Care Team (Late st Contact Info) Description 12/30/2023 Orders Only [facility] [place] Health Information Management [address] [place] [address] No Dao NP [address] [address] Social History Tobacco Use Types Packs/Day Years [...] on file 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 Gender Identity Not on file Sexual Orientation Not on file documented as of this encounter Plan of Treatment Not on file documented as of this encounter Procedures Procedure Name Priority Date/Time Associated Diagnosis Comments SLEEP LAB/STUDY - RESULT 12/30/2023 documented in this encounter Results * SLEEP LAB/STUDY - RESULT (12/30/2023) No Dao 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
--- OUTSIDE RECORDS SUMMARY | 2024-08-03 11:00 | XMS_ITS | Clinical Summary ---
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
== END 2024-08-03 09:53 | disposition home or self-care (01) ==
PROVIDERS: PCP Family Medicine; Visit Provider Nurse Practitioner Adult Health
DX: I77.810 Thoracic aortic ectasia (principal)
CPT/HCPCS: 71250

== ENCOUNTER 2024-10-24 14:48 | Outpatient (CLI) | payer MEDICARE, SELFPAY ==
--- NOTE | ~2024-10-24 | XR_ITS ---
Cervical Spine: AP, lateral, open-mouth views Clinical History: Pain Findings: The normal lordotic curve is maintained. There is anterior plate and screws at the C3-C4 le bernard. There are extensive bridging anterior osteophytes from C2 through C7, which could reflect severe /extensive DISH. There is advanced facet arthropathy throughout the cervical spine. Pre-vertebral sof t tissues are unremarkable. Impression: Anterior orthopedic fusion at C3-C4. Extensive flowing contiguous osteophytes anteriorly from C2 through C7. Correlate for severe DISH. Advanced facet arthropathy throughout the cervical spine. Reviewed, dictated and finalized at location . Impression: Anterior orthopedic fusion at C3-C4. Extensive flowing contiguous osteophytes anteriorly from C2 through C7. Correla te for severe DISH. Advanced facet arthropathy throughout the cervical spine.
--- NOTE | ~2024-10-24 | MR_ITS ---
MR brain/brain stem wo/w con Ordering provider: RICK Fonseca History: 69 years Male with . S09.90XA - Unspecified injury of head, initial encounter . Comparison: CT head performed yesterday. Technique: MRI brain was performed with and without contrast. 20 mL MultiHance was given IV. FINDINGS: BONES: Normal. CRANIOCERVICAL JUNCTION: T1 Isointense and T2 hyperintense signal area soft tissue mass is seen in the area of the foramen magnum measuring 1.9 x 1 cm. The differential include ligamentous thickening, versus meningioma versus chor doma versus metastatic lesion. This finding sometimes seen in patient with rheumatoid arthritis. Beau vitor is less likely. No CT available for comparison. On comparison with the previous MRI done on 2019 this area was not as prominent. Cord compression is seen in the area with the anteroposte rior measurement of the cord is 5.5 mm. PITUITARY: Normal. MAJOR INTRACRANIAL VESSELS: Normal flow void. OPTIC NERVES AND CRANIAL NERVES VII AND VIII COMPLEXES: Grossly normal. BRAIN PARENCHYMA AND CSF SPACES: Mild nonspecific T2 white matter hyperintensities are seen in a jd ateral periventricular and deep white matter distribution which are likely related to chronic ischemi c small vessel disease. Mild diffuse cortical atrophy. 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 Otherwise, The brainstem and cerebellum are normal. Susceptibility focus is seen in the left parietal area measuring 6 mm. This may be due to calcificati on, hemangioma or blood either acute or chronic. Another small focus seen in the right cerebellar hem isphere which is most likely chronic hemorrhage adjacent to the old lacunar infarct mentioned above. No extra axial fluid collections. Diffusion weighted and ADC mapping images reveal no recent ischemia . No midline shift or mass effect. No abnormal contrast enhancement. PARANASAL SINUSES: Bilateral ethmoid sinus disease. MASTOIDS: Normal SUPERFICIAL/SURROUNDING SOFT TISSUES: Normal. IMPRESSION: 1. T1 isointense and T2 hyperintense signal area is seen in the foramen magnum with cord compression in the area. Differential include thickening in the ligaments which is the most probable. Other diff erential include Meningioma, metastatic lesion, chordoma and hematoma although less likely.Neurosurgi leilani consultation is advised. 2. Small foci of susceptibility artifact seen in the left parietal area which may be due to calcific ation versus acute versus chronic hemorrhage. Hemangioma also in the differential. A focus in the rig ht cerebellar hemisphere is most likely due to chronic hemorrhage.. 3. No abnormal enhancement. Physician: RICK Fonseca Was notified with the result of the patient at 4:57 PM on October 24, 2024. Reviewed, dictated and finalized at location A. IMPRESSION: 1. T1 isointense and T2 hyperintense signal area is seen in the foramen magnum with cord compression in the area. Differential include thickening in the liga ments which is the most probable. Other differential include Meningioma, metast atic lesion, chordoma and hematoma although less likely.Neurosurgical consultat ion is advised. 2. Small foci of susceptibility artifact seen in the left parietal area which may be due to calcification versus acute versus chronic hemorrhage. Hemangioma also in the differential. A focus in the right cerebellar hemisphere is most li cooper due to chronic hemorrhage.. 3. No abnormal enhancement. Physician: RICK Fonseca Was notified with the result of the patient at 4:57 PM on October 24, 2024.
--- OUTSIDE RECORDS SUMMARY | 2024-10-24 15:57 | XMS_ITS | Referral Summary ---
Author Organization [facility] [address] Address [address] [place] [address] Care Team Providers Care Law Professor Name Role Phone Андрей Solomon MD Primary Care Provider + [phone] Caterina Walters PA Unavailable + [phone] Encounters Date Type Department Care Team Description 10/18/2024 2:13 PM CDT - 10/18/2024 11:59 PM CDT Hospital Encounter [facility] [address] [place] [address] Discharge Disposition: Discharge to home or self care 10/17/2024 9:30 AM CDT - 10/17/2024 11:59 PM CDT Hospital Encounter [facility] [address] [facility] [address] [place] [address] Left hip pain Discharge Disposition: Discharge to home or self care 10/17/2024 10:00 AM CDT Office Visit [facility] Orthopaedic Surgery [address] [facility] Medical Office Building [address] [place] [address] Devonte Chambers MD Left hip pain (Primary Dx); Presence of left artificial hip joint; Broken internal joint prosthesis, initial encounter 08/08/2024 Results Follow-Up [facility] Cardiology [address] [place] [address] No Dao NP SCAN - RADIOLOGY/IMAGING 08/03/2024 Orders Only [facility] Health Information Management [address] [place] [address] No Dao NP 08/03/2024 Telephone [facility] Cardiology [address] [place] [address] Amador Rob MD 07/26/2024 Telephone [facility] Department of Otolaryngology Head-Neck Division [address] [facility] Floor 5 [place] [phone] Ailyn Quinteros RN 07/26/2024 Telephone [facility] Cardiology [address] [place] [address] Amador Rob MD from Last 3 Months Allergies No known active allergies Medications clonazePAM (KlonoPIN) 0.5 mg tablet Take one by mouth one time per day 0 0 07/04/19 10 Active Additional Information Patient not taking.Reported on 10/17/[address] (CYMBALTA) 60 mg capsule take 1 capsule (60MG) by oral route every day 0 05/30/19 11 Active Additional Information Patient not taking.Reported on 10/17/2024 amLODIPine (NORVASC) 10 mg tablet take 1 tablet (10MG) by oral route every day 30 11 05/30/19 11 Active allopurinol (ZYLOPRIM) 100 mg tablet Take 1 tablet (100 mg total) by mouth daily Active metoprolol XL (TOPROL-XL) 100 mg 24 hr tablet TAKE 1 TABLET BY MOUTH EVERY DAY 90 tablet 2 09/20/19 23 Active isosorbide mononitrate ER (IMDUR) 30 mg 24 hr tablet Take 1 tablet (30 mg total) by mouth daily 30 tablet 11 04/09/20 23 Active Additional Information Patient not taking.Reported on 10/17/2024 ondansetron ODT (ZOFRAN-ODT) 8 mg disintegrating tablet Take 1 tablet (8 mg total) by mouth as needed 08/05/19 24 Active lisinopriL (PRINIVIL,ZESTRIL) 40 mg tablet Take 1 tablet (40 mg total) by mouth daily Active indomethacin (INDOCIN) 50 mg capsule Take 1 capsule (50 mg total) by mouth as needed 11/10/19 Active nitroglycerin (NITROSTAT) 0.4 mg SL tabletIndications: Coronary artery disease involving ke[place] coronary artery of ke[place] heart, unspecified whether angina present Place 1 tablet (0.4 mg total) under the tongue every 5 (five) minutes as needed for chest pain May repeat dose q 5 min, up to 3 doses total 25 tablet 3 11/26/19 24 025 Active Xarelto 20 mg tabletIndications: Paroxysmal atrial flutter (HCC) Take 1 tablet (20 mg total) by mouth daily with breakfast 90 tablet 3 04/19/20 24 Active lisinopriL (PRINIVIL,ZESTRIL) 40 mg tablet Take 1 tablet (40 mg total) by mouth daily 90 tablet 2 04/26/20 24 025 Discontin ued(Dupli kayce order) Active Problems Problem Noted Date Diagnosed Date Anticoagulation management encounter 11/10/2023 Assessment & Plan (11/10/2023 3:53 PM CDT): -remains compliant on rivaroxaban -recently reporting right red blood in stool and while wiping -we will obtain CBC and CMP to evaluate -encouraged him to reach out to his PCP for further workup Paroxysmal atrial fibrillation 11/10/2023 Coronary artery disease invo lving keweenaw coronary artery of ke[place] heart 04/27/2023 LVH (left ventricular hypertrophy) 03/03/2023 [...] study and ablation. The patient has a PCQ2XZ6-PKCw score of 2. 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 Gender Identity Not on file Sexual Orientation Not on file Last Filed Vital Signs Vital Sign Reading Time Taken Comments Blood Pressure 164/102 05/19/2024 1:45 PM PATIENT MANAGER Pulse 70 05/19/2024 1:45 PM PATIENT MANAGER Temperature 36.6 C (97.8 F) 10/27/2023 12:20 PM CDT Respiratory Rate 14 10/27/2023 12:50 PM CDT Oxygen Saturation 98% 04/19/2024 9:29 AM PATIENT MANAGER Inhaled Oxygen Concentration - - Weight 117.5 kg (259 lb) 05/19/2024 1:45 PM PATIENT MANAGER Height 182.9 cm (6') 05/19/2024 1:45 PM PATIENT MANAGER Body Mass Index 35.13 05/19/2024 1:45 PM PATIENT MANAGER Plan of Treatment Not on file Medical Devices Implanted Type Area Phlebotomy Technologist Device Identifier Shelf Expiration Date Model / Serial / Lot [employer] Vascade Mvp 6-12fr Venous Closure [id number] - [id number] - [id number] Implanted:Qty: 1 on 10/27/2023 by Aleksandar Mcgowan MD at [facility] Collagen [employer] 07/19/2025 800-612C-1 0U / [id number] / [id number] [employer] Device Vascular Closure Femoral Artery Bioabsorbable Dual Method Vascade 6-7fr Collagen [id number] - [id number] - [id number] Implanted:Qty: 1 on 10/27/2023 by Aleksandar Mcgowan MD at [facility] Collagen [employer] 07/07/2025 [id number] 5U / [id number] / [id number] [employer] Vascade Mvp 6-12fr Venous Closure [id number] - [id number] - [id number] Implanted:Qty: 1 on 10/27/2023 by Aleksandar Mcgowan MD at [facility] Collagen [employer] 07/19/2025 800-612C-1 0U / [id number] / [id number] [employer] Vascade Mvp 6-12fr Venous Closure [id number] - [id number] - [id number] Implanted:Qty: 1 on 10/27/2023 by Aleksandar Mcgowan MD at [facility] Collagen [employer] 07/19/2025 800-612C-1 0U / [id number] / [id number] Procedures Procedure Name Priority Date/Time Associated Diagnosis Comments MSK CT OUTSIDE REFERENCE Routine 10/18/2024 2:13 PM CDT XR HIP LEFT W PELVIS 2 OR 3 VIEWS Schedule Routine, Read Routine (OP Routine) 10/17/2024 9:43 AM CDT Left hip pain SCAN - RADIOLOGY/IMAGING 08/03/2024 from Last 3 Months Results * MSK CT Outside Reference (10/18/2024 2:13 PM CDT) Impressions [facility] - 10/18/2024 2:13 PM CDT These images are for Reference purposes only and have not been reviewed by [facility] Radiology. There will be no report generated by a [facility] Radiologist. Narrative RAD_PACS_[facility] - 10/18/2024 2:13 PM CDT EXAMINATION: Images For Reference Purposes Only us Devonte Chambers MD IMG CT PROCEDURES Final Resul t RAD_PACS[facility] * XR Hip Left 2 or 3 Views W Pelvis (10/17/2024 9:43 AM CDT) Anatomical Region Laterality Modality Lower Extremities, Hip, Pelvis Left C omputed Radiography 10/17/2024 10:1 5 AM CDT Impressions 10/17/2024 5:06 PM CDT Postsurgical changes from bilateral total hip arthroplasties and interval revision of the left hip arthroplasty with left proximal femoral cerclage cable fixation. Dictated by: Zion Brown MD The radiology attending physician has personally reviewed this study, and had reviewed and/or edited this written report and agrees with it. Electronically signed by: Yolanda Dent MD Narrative 10/17/2024 5:06 PM CDT EXAMINATION: XR HIP LEFT 2 OR 3 VIEWS W PELVIS HISTORY: Left hip joint pain FINDINGS: Comparison is made to radiographs dated 09/01/2013. Postsurgical changes from bilateral total hip arthroplasties, with interval revision of the left hip arthroplasty with liner constraint and proximal femoral cerclage cable fixation. No asymmetric liner wear or periprosthetic fracture. There is fracturing of the 3rd cerclage wire. Alignment of the left hip is normal. There is extensive heterotopic ossification versus healed fracture of the proximal left femoral shaft. Procedure Note Ginger Dent MD - 10/17/2024 EXAMINATION: XR HIP LEFT 2 OR 3 VIEWS W PELVIS HISTORY: Left hip joint pain FINDINGS: Comparison is made to radiographs dated 09/01/2013. Postsurgical changes from bilateral total hip arthroplasties, with interval revision of the left hip arthroplasty with liner constraint and proximal femoral cerclage cable fixation. No asymmetric liner wear or periprosthetic fracture. There is fracturing of the 3rd cerclage wire. Alignment of the left hip is normal. There is extensive heterotopic ossification versus healed fracture of the proximal left femoral shaft. IMPRESSION: Postsurgical changes from bilateral total hip arthroplasties and interval revision of the left hip arthroplasty with left proximal femoral cerclage cable fixation. Dictated by: Zion Brown MD The radiology attending physician has personally reviewed this study, and had reviewed and/or edited this written report and agrees with it. Electronically signed by: Yolanda Dent MD us Devonte Chambers MD IMG XR PROCEDURES Final Resul t * SCAN - RADIOLOGY/IMAGING (08/03/2024) Anatomical Region Laterality Modality Other us No Dao NP Final Res ult from Last 3 Months Insurance [employer] MEDICARE [facility] [employer] MEDICARE GOLD Care Teams Law Professor Relationship Specialty Start Date End Date Андрей Solomon MD PCP - General 07/04/09 Caterina Walters PA [address] [place] [address] Physician Sash Installer 07/26/24
--- OUTSIDE RECORDS SUMMARY | 2024-10-24 15:57 | XMS_ITS | Clinical Summary ---
Author Organization [facility] Address [address] [place] [place] [address] Phone Care Team Providers Care Servicing Manager Name Role Phone Андрей Solomon MD [...] tablet Take 30 mg by mouth daily early childhood aide classroom. Active Active Problems Problem Noted Date Diagnosed Date Acute chest pain 07/20/2015 Benign hypertension 07/20/2015 HLD (hyperlipidemia) 07/20/2015 PERI (obstructive sleep apnea) 07/20/2015 Cervical stenosis of spine 07/20/2015 Leukocytosis 07/20/2015 Immunizations Immunization Administration Dates Next Due Influenza Seasonal Unspecified Formulation IM Family History Medical History Relation Name Comments Heart Disease Father CABG x 2, mult iple stents. had CA at age 39. 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 Gender Identity Not on file Sexual Orientation [...] series) 2031 Medical Devices Implanted Type Area Continuous Improvement Coordinator Device Identifier Shelf Expiration Date Model / Serial / Lot Allgrft Spacer Acf 7mm [id number] - [id number] Implanted:Qt y: 1 on 07/18/2015 by Kyle Velasco MD at [facility] Bone N/A: Spine Cervical Anterior MUSCULOSKELETAL TRANSPLANT FOU 11/05/2019 [id number] / [id number] / Description:This MTF spacer was processed on requisition,[id number] Plate Cslp Héctor Ang 29mm 450.154 - [id number] Implanted:Qt y: 1 on 07/18/2015 by Kyle Velasco MD at [facility] Plate N/A: Spine Cervical Anterior SYNTHES-STRATEC- SPINAL 450.154 / / Description:Load No 18.All S ynthes spinal hardware was processed on requisition,[id number]. Sterilized July 10, 2015 Screw Xpnhead C Spine 4.11d32ac 487.056 - [id number] Implanted:Qt y: 4 on 07/18/2015 by Kyle Velasco MD at [facility] Screw N/A: Spine Cervical Anterior SYNTHES STRATEC 487.056 / / Description:Load No 18 Sterilized July 10, 2015 Screw Lock C Spine 1.8mm 497.78 - [id number] Implanted:Qt y: 4 on 07/18/2015 by Kyle Velasco MD at [facility] Screw N/A: Spine Cervical Anterior SYNTHES-STRATEC- SPINAL 497.78 / / Description:Load No 18 Sterilized July 10, 2015 Sealant Floseal W/ Adptr 10ml [id number] - [id number] Implanted:Qt y: 1 on 07/18/2015 by Kyle Velasco MD at [facility] Sealant N/A: Spine Cervical Anterior FOSTER- BIOSCIENCE [id number] 11/07/2016 [id number] / / [id number] Insurance MEDICARE PART A AND B Advance Directives For more information, please contact: [phone] Documents on File Type Date Recorded Patient Site Administrator Expl anation Advance Directive POA 07/25/2015 1:24 [...] 7:51 AM 07/18/2015 8:46 AM Care Teams Servicing Manager Relationship Specialty Start Date End Date Андрей Solomon MD [address] [place] [address] PCP - General Family Practice 04/23/15
--- OUTSIDE RECORDS SUMMARY | 2024-10-24 15:57 | XMS_ITS | Clinical Summary ---
Author Organization [facility] [address] Address [address] [place] [address] Care Team Providers Care Federal District Clerk Name Role Phone Андрей Solomon MD Primary Care Provider + [phone] Caterina Walters PA Unavailable + [phone] Allergies No known active allergies Medications clonazePAM [...] mg total) by mouth as needed 11/10/19 24 Active nitroglycerin (NITROSTAT) 0.4 mg SL tabletIndications: [...] 90 tablet 2 04/26/20 24 025 Discontin ued(Rozli kayce order) Active Problems Problem Noted Date [...] study and ablation. The patient has a IVY9FS6-FTOy score of 2. I have therefore recommended initiation of anticoagulation (the patient has rivaroxaban, but has not yet initiated). My office will make the appropriate arrangements. From: May, Vu LS, Demian JS, Vera H, John TAVON, Haylie JE, June OLIVIA, Emmanuelle PT, Nasrin HERNANDEZ, Field DOMINGUEZ, Willi KT, Dian RL, Dejan WG, Mika PJ, Kemi CM, Shayy CW. 2014 AHA/ACC/HRS guideline for the management of patients with atrial fibrillation: a report of the [place] College of Cardiology/[place] Heart Association Task Force on Practice Guidelines [...] 07/06/2012 Arthritis 05/26/2012 Pain in extremity 05/24/2012 Encounters Date Type Department Care Team Description 10/18/2024 2:13 PM CDT - 10/18/2024 11:59 PM CDT Hospital Encounter [facility] [place] [address] Discharge Disposition: Discharge to home or self care 10/17/2024 10:00 AM CDT Office Visit [facility] Orthopaedic Surgery [address] [facility] Medical Office Building [address] [place] [address] Devonte Chambers MD Left hip pain (Primary Dx); Presence of left artificial hip joint; Broken internal joint prosthesis, initial encounter 10/17/2024 9:30 AM CDT - 10/17/2024 11:59 PM CDT Hospital Encounter [facility] [address] [facility] [address] [place] [phone] Left hip pain Discharge Disposition: Discharge to home or self care 08/08/2024 Results Follow-Up [facility] Cardiology [address] [place] [address] [place] [address] No Dao NP SCAN - RADIOLOGY/IMAGING 08/03/2024 Orders Only [facility] Health Information Management [address] [place] [address] No Dao NP 08/03/2024 Telephone [facility] Cardiology [address] [place] [address] [place] [phone] Amador Rob MD 07/26/2024 Telephone [facility] Department of Otolaryngology Head-Neck Division [address] [facility] Floor 5 [place] [address] Ailyn Quinteros RN 07/26/2024 Telephone [facility] Cardiology [address] 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 Gender Identity Not on file Sexual Orientation Not on file Obstetrics History Last Filed Vital Signs Vital Sign Reading Time Taken Comments Blood Pressure 164/102 05/19/2024 1:45 PM AUTO DESIGN DETAILER Pulse 70 05/19/2024 1:45 PM AUTO DESIGN DETAILER Temperature 36.6 C (97.8 F) 10/27/2023 12:20 PM CDT Respiratory Rate 14 10/27/2023 12:50 PM CDT Oxygen Saturation 98% 04/19/2024 9:29 AM AUTO DESIGN DETAILER Inhaled Oxygen Concentration - - Weight 117.5 kg (259 lb) 05/19/2024 1:45 PM AUTO DESIGN DETAILER Height 182.9 cm (6') 05/19/2024 1:45 PM AUTO DESIGN DETAILER Body Mass Index 35.13 05/19/2024 1:45 PM AUTO DESIGN DETAILER Plan of Treatment Health Maintenance Due Date Last Done Comments Colon Cancer Screening-Colonoscopy 1955 Depression Screening 1955 Hepatitis C Screening 1956 Prostate Cancer Screening-PSA 1956 DTaP/Tdap/Td Vaccine (1 - Tdap) 1967 Hepatitis B Screening 1974 Pneumococcal vaccine 65+ (1 of 1 - PCV) 2006 Zoster Vaccine (1 of 2) 2006 Well Visit 65+ 2021 Fall Risk Assessment 10/26/2024 10/27/2023 Influenza Vaccine (Season Ended) 2025 Medical Devices Implanted Type Area Pouncer Machine Device Identifier Shelf Expiration Date Model / Serial / Lot [employer] Vascade Mvp 6-12fr Venous Closure [id number] - [id number] - [id number] Implanted:Qty: 1 on 10/27/2023 by Aleksandar Mcgowan MD at [facility]agen [employer] 07/19/2025 800-612C-1 0U / [id number] / [id number] [employer] Device Vascular Closure Femoral Artery Bioabsorbable Dual Method Vascade 6-7fr Collagen [id number] - [id number] - [id number] Implanted:Qty: 1 on 10/27/2023 by Aleksandar Mcgowan MD at [facility] 07/07/2025 700-580I-[id number] 5U / [id number] / [id number] [employer] Vascade Mvp 6-12fr Venous Closure [id number] - [id number] - [id number] Implanted:Qty: 1 on 10/27/2023 by Aleksandar Mcgowan MD at [facility] Collagen [employer] 07/19/2025 800-612C-1 0U / [id number] / [id number] [employer] Vascade Mvp 6-12fr Venous Closure [id number] - [id number] - [id number] Implanted:Qty: 1 on 10/27/2023 by Aleksandar Mcgowan MD at [facility] Collagen [employer] 07/19/2025 800-612C-1 0U / [id number] / [id number] Procedures Procedure Name Priority Date/Time Associated Diagnosis Comments MSK CT OUTSIDE REFERENCE Routine 10/18/2024 2:13 PM CDT XR HIP LEFT W PELVIS 2 OR 3 VIEWS Schedule Routine, Read Routine (OP Routine) 10/17/2024 9:43 AM CDT Left hip pain SCAN - RADIOLOGY/IMAGING 08/03/2024 from Last 3 Months Results * MSK CT Outside Reference (10/18/2024 2:13 PM CDT) Impressions RAD_PACS[facility] - 10/18/2024 2:13 PM CDT These images are for Reference purposes only and have not been reviewed by [facility] Radiology. There will be no report generated by a [facility] Radiologist. Narrative RAD_PACS[facility] - 10/18/2024 2:13 PM CDT EXAMINATION: Images [...] it. Electronically signed by: Yolanda Dent MD Devonte Chambers MD IMG XR PROCEDURES Final Resul t * SCAN - RADIOLOGY/IMAGING (08/03/2024) Anatomical Region Laterality Modality Other No Dao RELAY ENGINEER Final Res ult from Last 3 Months Insurance [employer] MEDICARE GOLD [employer] MEDICARE GOLD Care Teams Federal District Clerk Relationship Specialty Start Date End Date Андрей Solomon MD PCP - General 2/24/10 Caterina Walters PA [address] [id number] Physician [place] Or [place] Auditor 07/26/24
--- OUTSIDE RECORDS SUMMARY | 2024-10-24 15:57 | XMS_ITS | Clinical Summary ---
Author Organization [facility] Program[facility] Address [address] [place] [address] Care Team Providers Care Golf Club Manager Name Role Phone Андрей Solomon MD Primary Care Provider [phone] Source Comments [facility],non-owned Affiliates and Associated Physician Practices is amultiple site organization consisting of ambulatory clinics and hospital sitesin [place], [place], [place] and [place]. This disclosure is being madepursuant to the Care Everywhere program and may not contain all information available regarding this patient. Last updated 18.Ready [facility] Allergies No known active allergies Medications * Be aware that medications may not be up to date on this document. Alwaysverify current medications with the patient. amLODIPine (NORVASC) 10 MG tablet Take 10 [...] at Not on file Legal Sex Male 2:02 PM CDT Gender Identity Not on file [...] COLON CA SCREENING 1955 LIPID TESTING 1956 HEPATITIS C SCREENING 03/02/1974 DTAP/TDAP/TD VACCINES (1 - Tdap) 1975 PNEUMOCOCCAL VACCINE 50+ (1 of 1 - PCV) 2006 ZOSTER VACCINE (1 of 2) 2006 COVID-19 VACCINE (1 - 2023-2 5 season) 2024 DEPRESSION SCREENING 05/11/2024 INFLUENZA VACCINE (Season Ended) 2025 02/24/2018, 03/12/2016, 03/11/2015 Respiratory Syncytial Virus (RSV) Vaccine Pt: or [...] patient's age to complete this topic Insurance [facility] MEDICARE Care Teams Golf Club Manager Relationship Specialty Start Date End Date Андрей Solomon MD [address] [place] [address] PCP - General Family Medicine 09/22/12
--- OUTSIDE RECORDS SUMMARY | 2024-10-24 15:57 | XMS_ITS | Clinical Summary ---
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 Gender Identity Not on file Sexual [...] Virus (HCV) Screening 1955 TdaP Immunization 1955 Cologuard 2001 Colonoscopy 2001 Colorectal Cancer Screening 2001 Immunochemical Fecal Occult Blood 2001 Pneumococcal Immunization (5 0+ years) (1 of 1 - PCV) 2006 Zoster Immunization (1 of 2) 2006 SARS-COV-2 Immunization (3 - season) 2024 04/19/2021, 07/16/2020 Influenza Immunization (Seas on Ended) 2025 02/24/2018, 02/11/2017 Respiratory Syncytial Virus (RSV) Immunization (Adult) (1 - 1-dose 75+ series) 2031 Hepatitis B Immunization Aged Out No longer eligible based on patient's age to complete this topic Human Papillomavirus (HPV) Immunization Aged Out No longer eligible b ased on patient's age to complete this topic Meningococcal Immunization (ACWY) Aged Out No longer eligible b ased on patient's age to complete this topic Rotavirus Immunization Aged Out No lo nger eligible based on patient's age to complete this topic Insurance MEDICARE Care Teams Correctional Corporal Relationship Specialty Start Date End Date Provider, Eileen JACKSON PCP - General 10/27/19
--- OUTSIDE RECORDS SUMMARY | 2024-10-24 15:57 | XMS_ITS | Encounter Summary ---
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 Gender Identity Not on file Sexual Orientation Not on file documented as of this encounter Plan of Treatment Not on file documented as of this encounter Procedures Procedure Name Priority Date/Time Associated Diagnosis Comments SLEEP LAB/STUDY - RESULT 12/30/2023 documented in this encounter Results * SLEEP LAB/STUDY - RESULT (12/30/2023) No Dao MEDICAL POLICY SPECIALIST Final Res ult documented in this encounter Visit Diagnoses Not on filedocumented in this encounter Care Teams Building Maintenance Custodian Relationship Specialty Start Date End Date Андрей Solomon MD PCP - General 07/04/09 Caterina Walters PA [address] [place] [address] Physician Grease Monkey 07/26/24 documented as of this encounter
--- OUTSIDE RECORDS SUMMARY | 2024-10-24 15:57 | XMS_ITS | Encounter Summary ---
Author Organization [facility] Address 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 [address] PCP - General Family Practice 04/23/15 documented as of this encounter
--- OUTSIDE RECORDS SUMMARY | 2024-10-24 15:57 | XMS_ITS | Continuity of Care Document ---
Author Organization [facility] Address [address] [place] [address] Phone Care Team Providers Care Plant Breeder Name Role Phone Kyle Velasco MD Unavailable [...] Diagnoses Date Provider Providers Copied on Encounter [facility], [address] [place] [address], [address], tel:[phone] [facility] Follow Up of PO cervical (chief complaint) Cervical spinal stenosis 6 Rod Wright. [address] [place], [place], [id number] . tel: [phone] [facility], [address] [place] [address], [address], tel:[phone] [facility] Cervical spinal stenosis 2 - 6 Curylo Kyle. [address] [place], [place], [id number] . tel: [phone] [facility], [address] [place] [address], [facility], tel:[phone] [facility] Cervical spinal stenosis 6 Curylo Kyle. [address] [place], [place], [id number] . tel: [phone] OFFICE/OUTPAT IENT VISIT [facility], [address] [place] [address], [facility], tel:[phone] [facility] f/u cervical (chief complaint) Cervical spinal stenosis 3- 6 Curylo Kyle. [address] [place] [address], [id number] . tel: [phone] OFFICE/OUTPAT IENT VISIT [facility], [address] [place] [address], [address], [place] tel:[phone] [facility] Follow Up of cervical-M RI results (chief complaint) Cervical spinal stenosis 5 Curylo Kyle. [address] [place] [address], [id number] . tel: [phone] OFFICE/OUTPAT IENT VISIT [facility], [address] [place] [address], [facility], [place] tel:[phone] [facility] Cervical spinal stenosis 5 Curylo Kyle. [address] [place] [address], [id number] . tel: [phone] Referring Provider: Андрей Blanton, [address], [place], [address]. tel:[phone] Family History Family Member Type Diagnosis Age At Onset Daughter Problem (finding) Alive and well Daughter Problem (finding) depression Payers Payer name Insurance type Covered alliance party ID Murphy herrmann(s) [employer] [place] [id number] [facility] E2 OT [id number] Social History Type Description Quantity Date Captured [...]
== END 2024-10-24 14:49 | disposition home or self-care (01) ==
PROVIDERS: PCP Family Medicine; Visit Provider Physician Assistant Medical
DX: S09.90XA Unspecified injury of head, initial encounter (principal); X58.XXXA Exposure to other specified factors, initial encounter; M25.78 Osteophyte, vertebrae; M47.812 Spondylosis without myelopathy or radiculopathy, cervical region; G95.20 Unspecified cord compression; Z98.1 Arthrodesis status
CPT/HCPCS: 70553; 72040; A9577

== ENCOUNTER 2024-11-03 14:06 | Outpatient (CLI) | payer MEDICARE, SELFPAY ==
--- NOTE | ~2024-11-03 | CT_ITS ---
EXAM: CT cervical spine wo con - 11/03/2024 14:22 CDT History: 69 years old Male with G95.89 - Other specified diseases of spinal cord COMPARISON: None available. PROCEDURE: CT of the cervical spine without contrast. Axial, sagittal and coronal reformatted plane s were evaluated. Automatic exposure control was used for this study. FINDINGS: No acute fracture or subluxation. Diffuse etiopathic skeletal hyperostosis is seen. Partially ankylos is of cervical spine is noted. Status post ACDF of C3-4 with intact hardware. Straightening of cervic al lordosis, likely positional or may be related to muscle spasm. Multilevel degenerative changes of the cervical spine include varying degrees of disk space narrowing, endplate osteophytosis as well as facet and uncal arthropathy. Prevertebral soft tissues are within normal limits. Visualized lung apices are clear. IMPRESSION: No evidence for cervical spine fracture or traumatic subluxation. Multilevel degenerative changes of the cervical spine. Reviewed, dictated and finalized at location A.
== END 2024-11-03 14:07 | disposition home or self-care (01) ==
PROVIDERS: PCP Family Medicine; Visit Provider Nurse Practitioner Adult Health
DX: M47.812 Spondylosis without myelopathy or radiculopathy, cervical region (principal); G95.89 Other specified diseases of spinal cord
CPT/HCPCS: 72125

== ENCOUNTER 2024-12-30 12:01 | Outpatient (CLI) | payer MEDICARE, SELFPAY ==
--- NOTE | ~2024-12-30 | XR_ITS ---
XR foot RT 2V 12/30/2024 13:00 Indication: Joint pain Procedure: 2 views right foot Comparison: No prior studies for comparison. Findings: There is severe degenerative changes of the right ankle, midfoot and first metatarsophalangeal joints. No acute fracture or traumatic malalignment. Lisfranc joint intact. Osteopenia. Prominent degenerative calcaneal enthesophytes. 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 Reviewed, dictated and finalized at location O. 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
--- NOTE | ~2024-12-30 | XR_ITS ---
XR sacroiliac joints min 3V 12/30/2024 13:00 Indication: Joint pain Procedure: 3 view sacroiliac joints Comparison: 07/01/2024 Findings: Stable mild degenerative changes which are symmetric in the sacroiliac joints. There is lower lumbar spondylosis. There are bilateral hip arthroplasties. No acute fracture or traumatic malalignment. Impression: 1: Stable mild symmetric degenerative changes of the sacroiliac joints. Reviewed, dictated and finalized at location O. Impression: 1: Stable mild symmetric degenerative changes of the sacroiliac joints.
--- NOTE | ~2024-12-30 | XR_ITS ---
XR ankle RT 2V, XR foot LT 2V 12/30/2024 13:00 Indication: Multiple joint pain Procedure: 2 views right ankle and 2 views right foot Comparison: No prior studies for comparison. Findings: There is severe polyarticular osteoarthritis of the right ankle and foot, most advanced at the tibiotalar, talonavicular and first MTP joints. No erosive changes. No acute fracture or traumatic malalignment. There are large calcaneal enthesophytes. There is an old healed medial malleolar fracture. Lisfranc joint intact. Impression: 1: Severe polyarticular osteoarthritis of the right ankle and foot. Reviewed, dictated and finalized at location O. Impression: 1: Severe polyarticular osteoarthritis of the right ankle and foot. Impression: 1: Severe polyarticular osteoarthritis of the right ankle and foot.
--- NOTE | ~2024-12-30 | XR_ITS ---
XR hand LT 2V, XR wrist LT 2V 12/30/2024 13:00 Indication: Joint pain Procedure: 2 views left hand and 2 views left wrist Comparison: No prior studies for comparison. Findings: There is polyarticular osteoarthritis of the radiocarpal joint, triscaphe joint, first carpal metacarpal joint, first-fourth metacarpal phalangeal joints and interphalangeal joints. No acute fracture or traumatic malalignment. Impression: 1: Moderate-severe polyarticular osteoarthritis of the left wrist and hand. Reviewed, dictated and finalized at location O. Impression: 1: Moderate-severe polyarticular osteoarthritis of the left wrist and hand. Impression: 1: Moderate-severe polyarticular osteoarthritis of the left wrist and hand.
--- NOTE | ~2024-12-30 | XR_ITS ---
XR hand RT 2V, XR wrist RT 2V 12/30/2024 13:00 Indication: Joint pain Procedure: 2 views right hand and 2 views right wrist Comparison: No prior studies for comparison. Findings: There is polyarticular osteoarthritis as follows: Radial carpal joint, triscaphe joint, first carpal metacarpal and metacarpal phalangeal joints as well as all interphalangeal joints. No acute fracture or traumatic malalignment. No soft tissue abnormality. No foreign bodies. Impression: 1: Moderate polyarticular osteoarthritis of the right hand and wrist. Reviewed, dictated and finalized at location O. Impression: 1: Moderate polyarticular osteoarthritis of the right hand and wrist. Impression: 1: Moderate polyarticular osteoarthritis of the right hand and wrist.
--- NOTE | ~2024-12-30 | XR_ITS ---
XR ankle LT 2V 12/30/2024 13:00 Indication: Joint pain Procedure: 2 views left ankle and 2 views left foot Comparison: No prior studies for comparison. Findings: There is severe osteoarthritis of the tibiotalar joint. There is a healed medial malleolar fracture. There are large calcaneal enthesophytes. There is severe polyarticular osteoarthritis of the midfoot. There is severe osteoarthritis of the first MTP and IP joints. No acute fracture or traumatic malalignment. No focal soft tissue abnormality. Impression: 1: Severe polyarticular osteoarthritis of the left ankle and foot. Reviewed, dictated and finalized at location O. Impression: 1: Severe polyarticular osteoarthritis of the left ankle and foot.
--- OUTSIDE RECORDS SUMMARY | 2024-12-30 12:07 | XMS_ITS | Clinical Summary ---
Author Organization [facility] [employer] Address [address] [place] [address] Care Team Providers Care Oral Hygienist Name Role Phone Андрей Solomon MD Primary Care Provider [phone] Source Comments [facility] [employer],non-owned Affiliates and Associated Physician Practices is amultiple site organization consisting of ambulatory clinics and hospital sitesin [place], [place], [place] and [place]. This disclosure is being madepursuant to the Care Everywhere program and may not contain all information available regarding this patient. Last updated 18.[facility] [employer] Allergies No known active allergies Medications * [...] Active Active Problems No known active problems Encounters Date Type Department Care Team Description 12/21/2024 Lab Requisition [facility] - DermPath Lab [address] [place] [id number] Ayah ParedesDO from Last 3 Months Family History Medical History Relation Name Comments [...] VACCINE ( - 2023-2 5 season) 2024 DEPRESSION SCREENING 05/11/2024 INFLUENZA VACCINE (#1) 2025 8, 03/12/2016, 03/11/2015 Respiratory Syncytial Virus (RSV) Vaccine [...] on patient's age to complete this topic Procedures Procedure Name Priority Date/Time Associated Diagnosis Comments DERMATOPATHOLOGY Routine 12/21/2024 10:5 6 AM CDT from Last 3 Months Results * DERMATOPATHOLOGY (12/21/2024 10:56 AM CDT) Case Report Dermatopathology Report Case: [id number] Authorizing Provider: Ayah Paredes DO Collected: 12/21/2024 10:56 AM Ordering Location: [facility] - Received: 12/21/2024 04:36 PM DermPath Lab Pathologist: Kerrie Hoffman MD Specimens: A) - Skin, left anteromdial le B) - Skin, left shoulder 5:09 PM CDT DERMATOPATHOLOGY LABORATORY Final Diagnosis Specimen A. SKIN, left anteromdial le: DERMATOFIBROMA (D23.9) Specimen B. SKIN, left shoulder: LENTIGINOUS MELANOCYTIC NEVUS, COMPOUND TYPE, IRRITATED AND INFLAMED (D22.62) PRESENT AT MARGIN (see microscopic description and comment) 5:09 PM CDT DERMATOPATHOLOGY LABORATORY at 1709 CDT Clinical History A: DF; R/O Atypia B: R/O MM 5:09 PM CDT DERMATOPATHOLOGY LABORATORY Gross Description Specimen A: Received is one formalin filled container labeled with the patient's name and designated left anteromdial le. The specimen consists of a shave biopsy measuring 7x6x1 mm. Jar 0. Specimen B: Received is one formalin filled container labeled with the patient's name and designated left shoulder. The specimen consists of a shave biopsy measuring 9x7x1 mm. Jar 0. 5:09 PM CDT DERMATOPATHOLOGY LABORATORY Microscopic Description Specimen A. SKIN, left anteromdial le: There is epidermal hyperplasia. Within the dermis, there are fibrohistiocytic cells in haphazard array among coarse collagen bundles. Specimen B. SKIN, left shoulder: This is a compound nevus. There is melanin pigment in the stratum corneum. There is a lentiginous proliferation of melanocytes between nevus nests of cells along the dermal epidermal junction. There is underlying fibroplasia of the papillary dermis. The intradermal component is bland in appearance and matures with depth and there are scattered melanophages. This lesion is present at the margin of the specimen. The hematoxylin and eosin stain is reviewed; immunohistochemical stains are performed to further characterize this process. Mart1/MelanA highlights the low-lying nature of the lesion. PRAME is not overexpressed (1+). p16 expression is retained and HMB45 is negative within the dermal component. COMMENT: The histopathologic findings of the portion of the lesion sampled are reassuring. However, as this lesion is present at the margins of the specimen, clinicopathological correlation is recommended as to the nature of the remaining lesion. This case has been reviewed by Dr. Loretta Garcia who concurs with the diagnosis. 5:09 PM CDT DERMATOPATHOLOGY LABORATORY Disclaimer An external and internal positive and negative controls are appropriate for the histochemical, immunohistochemical and immunofluorescence stain(s) in this case (if any), except where stated explicitly. The performance characteristics of the stain(s) cited in this report were developed and its performance characteristic determined by the Dermatopathology Laboratory at [facility], directed by Dr. Yolanda Diaz. These tests need not be, and therefore are not, approved by the [place] Food and Drug Administration. The tests are used for clinical purposes. Billing Codes Specimen Charges Stain Charges 21691 92780 1 1 50722 17405 66952 86918 1 1 1 1 5 5:09 PM CDT DERMATOPATHOLOGY LABORATORY Embedded Images 5 5:09 PM CDT DERMATOPATHOLOGY LABORATORY Pathology/Cytology TISSUE SPECIMEN FROM SKIN / Unknown 12/21/2024 10:56 AM CDT 12/21/2024 4:36 PM CDT Miscellaneous samples (specimen) TISSUE SPECIMEN FROM SKIN / Unknown 12/21/2024 10:56 AM CDT 12/21/2024 4:36 PM CDT us Ayah Paredes DO LAB - PATHOLOGY/CYTOLOGY ORDERABLES Final Result DERMATOPATHOLOGY LABORATORY [facility] - Department of Dermatology [facility] [address] [place] [address], [facility] [phone] from Last 3 Months Insurance [facility] Address: [facility] [id number] [place] [address] MEDICARE [facility] [employer]ET[employer] MEDICARE ADV Care Teams Oral Hygienist Relationship Specialty Start Date End Date Андрей Solomon MD [address] [place] [id number] PCP - General Family Medicine 09/22/12
--- OUTSIDE RECORDS SUMMARY | 2024-12-30 12:07 | XMS_ITS | Clinical Summary ---
Author Organization [facility] Address [address] [place] 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 had OH at age 39. 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 Gender Identity Not on file Sexual Orientation [...] (1 of 2) 2006 INFLUENZA VACCINE (#1) 2024 03/11/2015 RSV VACCINE (60+ or ) (1 - 1-dose 75+ series) 2031 Medical Devices Implanted Type Area Tool Design Draftsperson Device Identifier Shelf Expiration Date Model / Serial / Lot Allgrft Spacer Acf 7mm 445000 - [id number] Implanted:Qt y: 1 on 07/18/2015 by Kyle Velasco MD at [facility] Bone N/A: Spine Cervical Anterior MUSCULOSKELETAL TRANSPLANT FOU 11/05/2019 [id number] / [id number] / Description:This MTF spacer was processed on requisition,[id number] Plate Cslp Héctor Ang 29mm 450.154 - [id number] Implanted:Qt y: 1 on 07/18/2015 by Kyle Velasco MD at [facility] Plate N/A: Spine Cervical Anterior SYNTHES-STRATEC- SPINAL 450.154 / / Description:Load No 18.All S ynthes spinal hardware was processed on requisition,[id number]. Sterilized July 10, 2015 Screw Xpnhead C Spine 4.22j00yf 487.056 - [id number] Implanted:Qt y: 4 on 07/18/2015 by Kyle Velasco MD at [facility] Screw N/A: Spine Cervical Anterior SYNTHES STRATEC 487.056 / / Description:Load No 18 Sterilized July 10, 2015 Screw Lock C Spine 1.8mm 497.78 - [id number] Implanted:Qt y: 4 on 07/18/2015 by Kyle Velasco MD at [facility] Screw N/A: Spine Cervical Anterior SYNTHES-STRATEC- SPINAL 497.78 / / Description:Load No 18 Sterilized July 10, 2015 Sealant Floseal W/ Adptr 10ml [id number] - [id number] Implanted:Qt y: 1 on 07/18/2015 by Kyle Velasco MD at [facility] Sealant N/A: Spine Cervical Anterior FOSTER- BIOSCIENCE [id number] 11/07/2016 [id number] / / [id number] Insurance MEDICARE PART A AND B Advance Directives For more information, please contact: [phone] Documents on File Type Date Recorded 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 [address] PCP - General Family Practice 04/23/15
--- OUTSIDE RECORDS SUMMARY | 2024-12-30 12:07 | XMS_ITS | Encounter Summary ---
Author Organization [facility] Healthcare Address [address] [place] [address] Care Team Providers Care Debug Technician Name Role Phone Андрей Solomon MD Primary Care Provider + [phone] Caterina Walters PA Unavailable + [phone] Encounter Details Date Type Department Care Team (Late st Contact Info) Description 12/30/2023 Orders Only [facility] [place] [facility] Information Management [address] [place] [id number] No Dao NP [address] [id number] Social History Tobacco Use Types [...] on file Legal Sex Male 2:37 AM [employer] Gender Identity Not on file Sexual Orientation Not on file documented as of this encounter Plan of Treatment Not on file documented as of this encounter Procedures Procedure Name Priority Date/Time Associated Diagnosis Comments SLEEP LAB/STUDY - RESULT 12/30/2023 documented in this encounter Results * SLEEP LAB/STUDY - RESULT (12/30/2023) No Dao UND[employer]ER Final Res ult documented in this encounter Visit Diagnoses Not on filedocumented in this encounter Care Teams Debug Technician Relationship Specialty Start Date End Date Андрей Solomon MD PCP - General 07/04/09 Caterina Walters PA [address] [place] [id number] Physician Stock Raiser 07/26/24 documented as of this encounter
--- OUTSIDE RECORDS SUMMARY | 2024-12-30 12:07 | XMS_ITS | Clinical Summary ---
Author Organization [facility] [address] Address [address] [place] [address] Care Team Providers Care Game Agent Name Role Phone Андрей Solomon MD Primary Care Provider + [phone] Caterina Walters PA Unavailable + [phone] Allergies No known active allergies Medications DULoxetine DR (CYMBALTA) 60 mg capsule take 1 capsule (60MG) by oral route every day 0 05/30/19 11 Active Additional Information Patient not taking.Reported on 11/16/2024 amLODIPine (NORVASC) 10 mg tablet take 1 tablet (10MG) by oral route every day 30 11 05/30/19 11 Active allopurinol (ZYLOPRIM) 100 mg tablet Take 1 tablet (100 mg total) by mouth daily Active metoprolol XL (TOPROL-XL) 100 mg 24 hr tablet TAKE 1 TABLET BY MOUTH EVERY DAY 90 tablet 2 09/20/19 23 Active lisinopriL (PRINIVIL,ZESTRIL) 40 mg tablet Take 1 tablet (40 mg total) by mouth daily Active nitroglycerin (NITROSTAT) 0.4 mg SL tabletIndications: Coronary artery disease involving [place] coronary artery of [place] heart, unspecified whether angina present Place 1 tablet (0.4 mg total) under the tongue every 5 (five) minutes as needed for chest pain May repeat dose q 5 min, up to 3 doses total 25 tablet 3 11/26/19 24 Active Xarelto 20 mg tabletIndications: Paroxysmal atrial flutter (HCC) Take 1 tablet (20 mg total) by mouth daily with breakfast 90 tablet 3 04/19/20 24 Active traMADoL (ULTRAM) 50 mg tablet Take 1 tablet (50 mg total) by mouth 2 (two) times a day 10/25/19 25 Active clonazePAM (KlonoPIN) 0.5 mg tablet Take one by mouth one time per day 0 0 07/04/19 10 025 Discontin ued(Patie nt Reported) isosorbide mononitrate ER (IMDUR) 30 mg 24 hr tablet Take 1 tablet (30 mg total) by mouth daily 30 tablet 11 04/09/20 23 025 Discontin ued(Patie nt Reported) ondansetron ODT (ZOFRAN-ODT) 8 mg disintegrating tablet Take 1 tablet (8 mg total) by mouth as needed 08/05/19 24 025 Discontin ued(Patie nt Reported) indomethacin (INDOCIN) 50 mg capsule Take 1 capsule (50 mg total) by mouth as needed 11/10/19 24 025 Discontin ued(Patie nt Reported) hydroCHLOROthiazid e (MICROZIDE) 12.5 mg capsuleIndications :Essential hypertension Take 1 capsule (12.5 mg total) by mouth every morning 30 capsule 11 11/03/19 25 025 Discontin ued(Patie nt Reported) Active Problems Problem Noted Date Diagnosed Date Aneurysm of ascending aorta without rupture 10/10 Anticoagulation management encounter 11/10/2023 Assessment & Plan (11/10/2023 3:53 PM CDT): -remains compliant on rivaroxaban -recently reporting right red blood in stool and while wiping -we will obtain CBC and CMP to evaluate -encouraged him to reach out to his PCP for further workup Paroxysmal atrial fibrillation 11/10/2023 Assessment & Plan (12/07/2024 6:40 PM CDT): -Status post catheter ablation with Dr. Mcgowan -remains compliant on rivaroxaban and metoprolol -No medication changes made today -Recommend continued therapy with rivaroxaban for thromboprophylaxis -EKG today demonstrates sinus rhythm -he denies any reoccurrence of his atrial arrhythmia -follow up in 12 months for a 12 lead EKG and clinic visit Coronary artery disease invo lving [place] coronary artery of [place] heart 04/27/2023 LVH (left ventricular hypertrophy) 03/03/2023 [...] study and ablation. The patient has a [id number] score of 2. I have therefore recommended [...] with atrial fibrillation: a report of the [place] [employer]/[place] [employer] Task Force on Practice Guidelines [...] Encounters Date Type Department Care Team Description 12/27/2024 Telephone [facility] [address] [place] [address] [address] [place] [phone] Guadalupe Deng RN 12/27/2024 Telephone [facility] [address] [place] [address] [address] [place] [phone] Guadalupe Deng, BETTY 12/14/2024 8:23 AM CDT - 12/14/2024 11:59 PM CDT Hospital Encounter [facility] Radiology [address] [place] [phone] Bernice Beauchamp MD Parwal, Utkarsh, MD Giesler, Hannah N., RN Left hip pain Discharge Disposition: Discharge to home or self care 12/13/2024 Telephone [facility] Radiology [address] [place] [address] Amy Armenta, B.AJens 12/07/2024 Orders Only [facility] [address] [place] [address] [address] [place] [phone] Devonte Chambers MD Bilateral low back pain with sciatica, sciatica laterality unspecified, unspecified chronicity (Primary Dx) 12/07/2024 Orders Only [facility] Medicine Orthopaedic Surgery [address] Medical Office Building [address] [place] [phone] Devonte Chambers MD Left hip pain (Primary Dx) 12/06/2024 Telephone [facility] Cardiology [address] [place] [address] Amador Rob MD 12/05/2024 7:40 AM CDT Telemedicine [facility] [address] [facility] Office Building [address] [place] [phone] Devonte Chambers MD Pain in right hip (Primary Dx); Aftercare following right hip joint replacement surgery 11/30/2024 10:30 AM CDT Office Visit [facility] [address] [facility] [address] [phone] Rose Mary Aponte NP Paroxysmal atrial fibrillation (HCC) (Primary Dx) 11/16/2024 9:15 AM CDT Lab [facility] [address] [place] [address] Left hip pain 11/16/2024 8:30 AM CDT Office Visit [facility] [address] 2[address] [place] [phone] Dinora Sprague PA Presence of left artificial hip joint (Primary Dx) 11/14/2024 Orders Only [facility] [address] [place] [address] Office Building [address] [place] [phone] Devonte Chambers MD Left hip pain (Primary Dx) 11/14/2024 Telephone [facility] [address] [place] [address] Office Building [address] [place] [phone] Guadalupe Deng RN 11/07/2024 9:29 AM CDT - 11/07/2024 11:59 PM CDT Hospital Encounter [facility] Radiology [address] [phone] Jayden Fuchs MD O'Bryant, Michael William, DO Left hip pain; Presence of left artificial hip joint; Broken internal joint prosthesis, initial encounter Discharge Disposition: Discharge to home or self care 11/04/2024 Telephone [facility] Radiology [address] [place] [address] Amy Armenta, B.AJens 11/02/2024 9:15 AM CDT Office Visit [facility] Cardiology [address] [place] [phone] Amador Rob MD Essential hypertension (Primary Dx); LVH (left ventricular hypertrophy); Coronary artery disease involving [place] coronary artery of [place] heart without angina pectoris; Aneurysm of ascending aorta without rupture 11/02/2024 Orders Only [facility] Cardiology [address] [place] [phone] ProviderJuan MD 10/18/2024 2:13 PM CDT - 10/18/2024 11:59 PM CDT Hospital Encounter [facility] Rad[facility]) [address] [place] [address] Discharge Disposition: Discharge to home or self care 10/17/2024 10:00 AM CDT Office Visit [facility] Medicine Orthopaedic Surgery [address] [place] [address] Medical Office Building [address] [place] [phone] Devonte Chambers MD Left hip pain (Primary Dx); Presence of left artificial hip joint; Broken internal joint prosthesis, initial encounter 10/17/2024 9:30 AM CDT - 10/17/2024 11:59 PM CDT Hospital Encounter [facility] Radiology [address] [place] [address] [address] [place] [phone] Left hip pain Discharge Disposition: Discharge to home or self care from Last 3 Months Surgical History Surgery Date Site/Laterality Comments HIP SURGERY BACK SURGERY NECK SURGERY FLUORO GUIDED ASPIRATION OR INJECTION LARGE JOINT LEFT 11/07/2024 Left JOINT REPLACEMENT FLUORO GUIDED ASPIRATION OR INJECTION LARGE JOINT LEFT 12/14/2024 Left Medical History Medical History Date Comments Hx [...] Name Comments Coronary artery disease Father Michel ramsey Artery Bypass Graft; /Family history of coronary [...] on file Legal Sex Male 2:37 AM [employer] Gender Identity Not on file Sexual Orientation Not on file Obstetrics History Last Filed Vital Signs Vital Sign Reading Time Taken Comments Blood Pressure 179/97 12/14/2024 8:40 AM CDT Pulse 66 12/14/2024 8:40 AM CDT Temperature 36.5 C (97.7 F) 12/14/2024 8:40 AM CDT Respiratory Rate 16 12/14/2024 8:40 AM CDT Oxygen Saturation 98% 12/14/2024 8:40 AM CDT Inhaled Oxygen Concentration - - Weight 106.6 kg (235 lb) 11/30/2024 10:35 AM CDT Height 182.9 cm (6') 11/30/2024 10:35 AM CDT Body Mass Index 31.87 11/30/2024 10:35 AM CDT Plan of Treatment Health Maintenance Due Date Last Done Comments Colon Cancer Screening-Colonoscopy 1955 Depression Screening 1955 Hepatitis C Screening 1956 Prostate Cancer Screening-PSA 1956 DTaP/Tdap/Td Vaccine (1 - Tdap) 1967 Hepatitis B Screening 1974 Pneumococcal vaccine 65+ (1 of 1 - PCV) 2006 Zoster Vaccine (1 of 2) 2006 Well Visit 65+ 2021 Influenza Vaccine (#1) 2025 Fall Risk Assessment 12/14/2025 12/14/2024 Medical Devices Implanted Type 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 Device Identifier Shelf Expiration Date Model / Serial / Lot [employer] Vascade Mvp 6-12fr Venous Closure [id number] - [id number] - [id number] Implanted:Qty: 1 on 10/27/2023 by Aleksandar Mcgowan MD at [facility] Collagen [employer] 07/19/2025 800-612C-[id number] [id number] / [id number] / [id number] [employer] Device Vascular Closure Femoral Artery Bioabsorbable Dual Method Vascade 6-7fr Collagen [id number] - [id number] - [id number] Implanted:Qty: 1 on 10/27/2023 by Aleksandar Mcgowan MD at [facility] Collagen [employer] 07/07/2025 [id number] / [id number] / [id number] [employer] Vascade Mvp 6-12fr Venous Closure [id number] - [id number] - [id number] Implanted:Qty: 1 on 10/27/2023 by Aleksandar Mcgowan MD at [facility] Collagen [employer] 07/19/2025 800-612C-1 [id number] / [id number] / [id number] [employer] Vascade Mvp 6-12fr Venous Closure [id number] - [id number] - [id number] Implanted:Qty: 1 on 10/27/2023 by Aleksandar Mcgowan MD at [facility] Collagen [employer] 07/19/2025 800-612C-[id number] [id number] / [id number] / [id number] Procedures Procedure Name Priority Date/Time Associated Diagnosis Comments BASIC METABOLIC PANEL Routine 12/29/2024 12:56 PM CDT Essential hypertension FLUORO GUIDED ASPIRATION OR INJECTION LARGE JOINT LEFT Schedule Routine, Read Routine (OP Routine) 12/14/2024 9:24 AM CDT Left hip pain CELL DIFFERENTIAL, BODY FLUID Routine 12/14/2024 9:08 AM CDT CELL COUNT W/REFLEX DIFFERENTIAL, BODY FLUID Routine 12/14/2024 9:08 AM CDT CRYSTAL ANALYSIS, BODY FLUID Routine 12/14/2024 9:08 AM CDT AEROBIC AND ANAEROBIC CULTURE AND GRAM STAIN Routine 12/14/2024 9:08 AM CDT ECG 12-LEAD Routine 11/30/2024 10:36 AM CDT Paroxysmal atrial fibrillation (HCC) CRP (ACUTE PHASE) Routine 11/16/2024 9:3 2 AM CDT Left hip pain ERYTHROCYTE SEDIMENTATION RATE Routine 11/16/2024 9:32 AM CDT Left hip pain MI ARTHROCENTESIS ASPIR&/INJ MAJOR JT/BURSA W/O US Routine 11/16/2024 8:30 AM CDT Presence of left artificial hip joint FLUORO GUIDED ASPIRATION OR INJECTION LARGE JOINT LEFT Schedule Routine, Read Routine (OP Routine) 11/07/2024 10:47 AM CDT Left hip pain CRYSTAL ANALYSIS, BODY FLUID Routine 11/07/2024 10:45 AM CDT Left hip pain Presence of left artificial hip joint Broken internal joint prosthesis, initial encounter MYCOLOGY (FUNGAL) CULTURE Routine 11/07/2024 10:45 AM CDT MYCOBACTERIOLOGY AFB CULTURE Routine 11/07/2024 10:45 AM CDT AEROBIC AND ANAEROBIC CULTURE AND GRAM STAIN Routine 11/07/2024 10:45 AM CDT Left hip pain Presence of left artificial hip joint Broken internal joint prosthesis, initial encounter MSK CT OUTSIDE REFERENCE Routine 10/18/2024 2:13 PM CDT LIPID PANEL Routine 10/18/2024 10:42 AM CDT XR HIP LEFT W PELVIS 2 OR 3 VIEWS Schedule Routine, Read Routine (OP Routine) 10/17/2024 9:43 AM CDT Left hip pain from Last 3 Months Results * (ABNORMAL) Basic metabolic panel (12/29/2024 12:56 PM CDT) Glucose 126(H) 65 - 99 mg/dL [facility] Comment: Fasting reference interval For someone without known diabetes, a glucose value >125 mg/dL indicates that they may have diabetes and this should be confirmed with a follow-up test. BUN 25 7 - 25 mg/dL [facility] Creatinine 1.05 0.70 - 1.35 mg/dL [facility] eGFR 77 > OR = 60 mL/min/1.7 3m2 [facility] BUN/creat ratio SEE NOTE: 6 - 22 (calc) [facility] Comment: Not Reported: BUN and Creatinine are within reference range. Sodium 135 135 - 146 mmol/L [facility] Potassium, pl 3.5 3.5 - 5.3 mmol/L [facility] Chloride 99 98 - 110 mmol/L [facility] CO2 30 20 - 32 mmol/L [facility] Calcium 9.1 8.6 - 10.3 mg/dL [facility] Blood 12/29/2024 12:5 6 PM CDT 12/29/2024 12:57 PM CDT us Amador Rob MD LAB BLOOD ORDERABLES Ada l Result [facility] [address] [phone] * FL Fluoro Guided Aspiration or Injection Large Joint Left (12/14/2024 9:24 AM CDT) Anatomical Region Laterality Modality Body Left X-Ray Angiograph y 12/14/2024 9:29 AM CDT Impressions 12/14/2024 1:15 PM CDT 1. Left hip joint aspiration under fluoroscopic guidance. Approximately 12 mL of dark fluid was sent for cell count, Gram stain, culture, crystals, and Synovasure Dictated by: Dell Lemos MD The radiology attending physician has personally reviewed this study, and had reviewed and/or edited this written report and agrees with it. Electronically signed by: Bernice Beauchamp MD Narrative 12/14/2024 1:15 PM CDT EXAMINATION: Left hip joint aspiration under fluoroscopic guidance HISTORY: 69-year-old male with revision left total hip arthroplasty, concern for infection. ATTENDING PRESENCE: Dr. Bernice Beauchamp MD, the attending radiologist, was present from the beginning to the end of the procedure. Dr. Josesito Claudio (radiology fellow) was present and participated in the procedure. Dr. Dell Lemos (vice president of talent acquisition) was present and participated in the procedure. SEDATION: The patient did not require conscious sedation for the procedure. TECHNIQUE: The risks, benefits and alternatives were discussed and informed consent was obtained. Prior to beginning the procedure, [place] Protocol was performed to confirm the patient's identity and the planned procedure. Sterile barriers used during the procedure included cap, mask, hand hygiene, sterile gloves, and sterile drape. Chloraprep was used for cutaneous antisepsis. The patient was placed supine on the procedure table. The left hip joint was localized with fluoroscopic guidance. Local anesthesia was achieved with subcutaneous injection of 1% lidocaine 2 mL. An 18-gauge needle was then introduced into the joint under imaging guidance. Approximately 12 mL of dark fluid was aspirated from the left hip.. Subsequently 3 mL of a 2:1 mixture of Omnipaque-300 and 0.25% bupivacaine was injected to verify intra-articular position of the needle tip. The needle was removed. The skin was cleansed with hydrogen peroxide, and a bandage was placed. The aspirated joint fluid was sent for cell count, Gram stain, culture, crystals, and Synovasure. Complication: None ESTIMATED BLOOD LOSS: None CONDITION: Stable condition. DISCHARGED TO: Home FINDINGS: Imaging confirm intra-articular position of the needle tip. Procedure Note Bernice Beauchamp MD - 12/14/2024 EXAMINATION: Left hip joint aspiration under fluoroscopic guidance HISTORY: 69-year-old male with revision left total hip arthroplasty, concern for infection. ATTENDING PRESENCE: Dr. Bernice Beauchamp MD, the attending radiologist, was present from the beginning to the end of the procedure. Dr. Josesito Claudio (radiology fellow) was present and participated in the procedure. Dr. Dell Lemos (vice president of talent acquisition) was present and participated in the procedure. SEDATION: The patient did not require conscious sedation for the procedure. TECHNIQUE: The risks, benefits and alternatives were discussed and informed consent was obtained. Prior to beginning the procedure, [place] Protocol was performed to confirm the patient's identity and the planned procedure. Sterile barriers used during the procedure included cap, mask, hand hygiene, sterile gloves, and sterile drape. Chloraprep was used for cutaneous antisepsis. The patient was placed supine on the procedure table. The left hip joint was localized with fluoroscopic guidance. Local anesthesia was achieved with subcutaneous injection of 1% lidocaine 2 mL. An 18-gauge needle was then introduced into the joint under imaging guidance. Approximately 12 mL of dark fluid was aspirated from the left hip.. Subsequently 3 mL of a 2:1 mixture of Omnipaque-300 and 0.25% bupivacaine was injected to verify intra-articular position of the needle tip. The needle was removed. The skin was cleansed with hydrogen peroxide, and a bandage was placed. The aspirated joint fluid was sent for cell count, Gram stain, culture, crystals, and Synovasure. Complication: None ESTIMATED BLOOD LOSS: None CONDITION: Stable condition. DISCHARGED TO: Home FINDINGS: Imaging confirm intra-articular position of the needle tip. IMPRESSION: 1. Left hip joint aspiration under fluoroscopic guidance. Approximately 12 mL of dark fluid was sent for cell count, Gram stain, culture, crystals, and Synovasure Dictated by: Dell Lemos MD The radiology attending physician has personally reviewed this study, and had reviewed and/or edited this written report and agrees with it. Electronically signed by: Bernice Beauchamp MD Devonte Chambers MD IMG FLUOROSCOPY PROCEDURES Fi nal Result * Crystal Analysis, Body Fluid (12/14/2024 9:08 AM CDT) Pathologist [facility] Specimen type, fld Synovial Comment:Testing performed by : [facility], [address] [place] [address]., [id number] Crystals Not Present Not Present JOSE ALBERTO CRAWFORD Comment:Testing performed by : [facility], [address] [place] [address]., [id number] Fluid 12/14/2024 9:08 AM CDT 12/14/2024 12:41 PM CDT Devonte Chambers MD LAB BODY FLUIDS AND STOOLS OR DERABLES Final Result [facility] [address] [facility]. [facility] [place] [place] [address] * Cell Differential, Body Fluid (12/14/2024 9:08 AM CDT) Total cells diffed 100 % Comment: Interpretive Data Unless otherwise specified, the reference range and other method performance specifications have not been established for CSF/Body Fluid tests. The test results should be integrated into the clinical context for interpretation. Current interpretive data was last revised on 2018. Neutrophils, fld 73 % [facility] Lymphs, fld 27 % [facility] Fluid 12/14/2024 9:08 AM CDT 12/14/2024 9:32 AM CDT Devonte Chambers MD LAB BODY FLUIDS AND STOOLS OR DERABLES Edited Result - Final Performing Organization Address [facility] Co de Phone Number JOSE ALBERTO RICHARDSONWCH [address] [address] [facility] [employer] [place], [place] [id number] * Cell count w/rflx diff, body fluid (12/14/2024 9:08 AM CDT) Specimen type, fld Synovial Color, fld Red [facility] Clarity, fld Turbid [facility] Nucleated cells, fld 2,236 /cumm [facility] Comment: Interpretive Data Unless otherwise specified, the reference range and other method performance specifications have not been established for CSF/Body Fluid tests. The test results should be integrated into the clinical context for interpretation. Current interpretive data was last revised on 2018. RBC, fld 3,186,000 /cumm [facility] Fluid 12/14/2024 9:08 AM CDT 12/14/2024 9:32 AM CDT Devonte Chambers MD LAB BODY FLUIDS AND STOOLS OR DERABLES Final Result Performing Organization Address [facility] Co de Phone Number JOSE ALBERTO [facility] [address] [address] [facility] [place] [place] [address] * Aerobic and anaerobic culture and gram stain Aspirate Hip, left (12/14/2024 9:08 AM CDT) Direct Specimen Exam Stain: Rare polymorphonuclear leukocytes seen. No organisms seen. Comment:Testing performed by : [facility], [address] [place]., [address] Report Final Report: No growth JOSE ALBERTO RICHARDSONWCH Comment:Testing performed by : [facility], [address] [place]., [address] Aspirate (Hip, left) 12/14/2024 9:08 AM CDT 12/14/2024 12:41 PM CDT Devonte Chambers MD LAB MICROBIOLOGY - GENERAL OR DERABLES Final Result Performing Organization Address [facility] Co de Phone Number JOSE ALBERTO RICHARDSONCH [address] [facility]. [place] [place] [address] * ECG 12 lead (11/30/2024 10:36 AM CDT) Rose Mary Aponte NP ECG ORDERABLES Final Result * (ABNORMAL) Erythrocyte sedimentation rate (11/16/2024 9:32 AM CDT) Erythrocyte sedimentation rate 65(H) 1 - 20 mm/hr Blood 11/16/2024 9:32 AM CDT 11/16/2024 10:22 AM CDT Devonte Chambers MD LAB BLOOD ORDERABLES Final Re sult Performing Organization Address [facility] de Phone Number JOSE ALBERTO [facility] [address] [address] [place] [address] * (ABNORMAL) CRP (acute phase) (11/16/2024 9:32 AM CDT) CRP 46.0(H) <=10.0 mg/L Blood 11/16/2024 9:32 AM CDT 11/16/2024 10:22 AM CDT Devonte Chambers MD LAB BLOOD ORDERABLES Final Re sult Performing Organization Address [facility] Co de Phone Number JOSE ALBERTO [facility] [address] [facility]. [place] [place] [address] * [place] ARTHROCENTESIS ASPIR&/INJ MAJOR JT/BURSA W/O US (11/16/2024 8:30 AM CDT) Dinora Hays PA - 11/16/2024 8:30 AM CDT Dinora Sprague PA 11/16/2024 9:00 AM Large Joint Injection: L greater trochanteric bursa Performed by: Dinora Sprague PA Authorized by: Dinora Sprague PA Large Joint Injection/Aspiration: Consent Given by: Patient Site marked: the procedure site was marked Verbal consent obtained: Yes Supporting Documentation: Indications: Pain Procedure Details: Location: Hip Site: L greater trochanteric bursa Prep: patient was prepped using a clean technique Needle Size: 22 G Approach: Lateral Ultrasound guided: No Fluroscopic guidance: No Medications: 4 mL BUPivacaine HCl 0.5 % (5 mg/mL); 80 mg triamcinolone 40 mg/mL Patient tolerance: Patient tolerated the procedure well with no immediate complications Dinora SANZ IN CLINIC/BEDSIDE OR DERABLES Final Result * FL Fluoro Guided Aspiration or Injection Large Joint Left (11/07/2024 10:47 AM CDT) Anatomical Region Laterality Modality Body Left X-Ray Angiograph y 11/07/2024 11:3 0 AM CDT Impressions 11/07/2024 4:06 PM CDT 1. Left hip joint aspiration under fluoroscopic guidance. 2 mL of sanguinous joint fluid was aspirated and sent for cell count, Gram stain, and culture. Dictated by: Dell Johnson M.D. The radiology attending physician has personally reviewed this study, and had reviewed and/or edited this written report and agrees with it. Electronically signed by: Kt Painter D.O. Narrative 11/07/2024 4:06 PM CDT EXAMINATION: Left hip joint aspiration under fluoroscopic guidance HISTORY: 61-year-old patient with history of left hip arthroplasty. Concern for septic arthritis. ATTENDING PRESENCE: Dr. Kt Painter D.O., the attending radiologist, was present from the beginning to the end of the procedure. SEDATION: The patient did not require conscious sedation for the procedure. TECHNIQUE: The risks, benefits and alternatives were discussed and informed consent was obtained. Prior to beginning the procedure, [place] Protocol was performed to confirm the patient's identity and the planned procedure. Sterile barriers used during the procedure included cap, mask, hand hygiene, sterile gloves, and sterile drape. Chloraprep was used for cutaneous antisepsis. The patient was placed supine on the procedure table. The left hip joint was localized with fluoroscopic guidance. Local anesthesia was achieved with subcutaneous injection of 1% lidocaine 2 mL. An 18-gauge needle was then introduced into the joint under imaging guidance. 2 mL of sanguinous joint fluid was aspirated. Subsequently 2 mL of Optiray 350 was injected to verify intra-articular position of the needle tip. The needle was removed. The skin was cleansed with hydrogen peroxide, and a bandage was placed. Complication: None ESTIMATED BLOOD LOSS: None CONDITION: Stable condition. DISCHARGED TO: Home FINDINGS: Imaging confirm intra-articular position of the needle tip. Procedure Note Kt Painter, DO - 11/07/2024 EXAMINATION: Left hip joint aspiration under fluoroscopic guidance HISTORY: 61-year-old patient with history of left hip arthroplasty. Concern for septic arthritis. ATTENDING PRESENCE: Dr. Kt Painter D.O., the attending radiologist, was present from the beginning to the end of the procedure. SEDATION: The patient did not require conscious sedation for the procedure. TECHNIQUE: The risks, benefits and alternatives were discussed and informed consent was obtained. Prior to beginning the procedure, [place] Protocol was performed to confirm the patient's identity and the planned procedure. Sterile barriers used during the procedure included cap, mask, hand hygiene, sterile gloves, and sterile drape. Chloraprep was used for cutaneous antisepsis. The patient was placed supine on the procedure table. The left hip joint was localized with fluoroscopic guidance. Local anesthesia was achieved with subcutaneous injection of 1% lidocaine 2 mL. An 18-gauge needle was then introduced into the joint under imaging guidance. 2 mL of sanguinous joint fluid was aspirated. Subsequently 2 mL of Optiray 350 was injected to verify intra-articular position of the needle tip. The needle was removed. The skin was cleansed with hydrogen peroxide, and a bandage was placed. Complication: None ESTIMATED BLOOD LOSS: None CONDITION: Stable condition. DISCHARGED TO: Home FINDINGS: Imaging confirm intra-articular position of the needle tip. IMPRESSION: 1. Left hip joint aspiration under fluoroscopic guidance. 2 mL of sanguinous joint fluid was aspirated and sent for cell count, Gram stain, and culture. Dictated by: Dell Johnson M.D. The radiology attending physician has personally reviewed this study, and had reviewed and/or edited this written report and agrees with it. Electronically signed by: Kt Painter D.O. Devonte Chambers MD IMG FLUOROSCOPY PROCEDURES Fi nal Result * Crystal Analysis, Body Fluid (11/07/2024 10:45 AM CDT) Specimen type, fld Synovial Comment:Testing performed by : [facility], [address] [place] [address]., [id number] Crystals Not Present Not Present JOSE ALBERTO CRAWFORD Comment:Testing performed by : [facility], [address] [place] [address]., [id number] Fluid 11/07/2024 10:4 5 AM CDT 11/07/2024 1:20 PM CDT Devonte Chambers MD LAB BODY FLUIDS AND STOOLS OR DERABLES Final Result Performing Organization Address City/State/[facility] Co al Phone Number [facility] [address] [facility] Department [place] [address] * Mycology (fungal) culture Synovial fluid Hip, left (11/07/2024 10:45 AM CDT) Report Final Report: No fungus isolated Comment:Testing performed by : [facility], [address] [place] [address]., [id number] Synovial fluid (Hip, left) 11/07/2024 10:45 AM CDT 11/07/2024 12:51 PM CDT Narrative JOSE ALBERTO FAUSTINCH - 12/05/2024 1:00 PM CDT Mycology cultures are held for 4 weeks. Devonte Chambers MD LAB MICROBIOLOGY - GENERAL OR DERABLES Final Result Performing Organization Address [facility] de Phone Number JOSE ALBERTO FAUSTINCH [address] Department [place] [address] * Aerobic and anaerobic culture and gram stain Synovial fluid Hip, left (11/07/2024 10:45 AM CDT) Direct Specimen Exam Stain: No polymorphonuclear leukocytes seen. No organisms seen. Comment:Testing performed by : [facility], [address] [place] [address]., [id number] Report Final Report: No growth JOSE ALBERTO CRAWFORD Comment:Testing performed by : [facility], [address] [place] [address]., [id number] Synovial fluid (Hip, left) 11/07/2024 10:45 AM CDT 11/07/2024 12:51 PM CDT Devonte Chambers MD LAB MICROBIOLOGY - GENERAL OR DERABLES Final Result Performing Organization Address [facility] Phone Number JOSE ALBERTO RICHARDSONWCH [address] Department [place] [address] * MSK CT Outside Reference (10/18/2024 2:13 PM CDT) Impressions RAD_[facility] - 10/18/2024 2:13 PM CDT These images are for Reference purposes only and have not been reviewed by [facility] Radiology. There will be no report generated by a [facility] Radiologist. Narrative [facility] - 10/18/2024 2:13 PM CDT EXAMINATION: Images For Reference Purposes Only Devonte Chambers MD IMG CT PROCEDURES Final Resul t Performing Organization Address [facility] de Phone Number [facility] * Lipid panel (10/18/2024 10:42 AM CDT) SCRIBED Cholesterol, Total 197 30 - 199 mg/dL [facility] SCRIBED Triglycerides 62 <=149 mg/dL [facility] SCRIBED HDL 64 >=40 mg/dL [facility] SCRIBED LDL 118 <=129 mg/dL [facility] Scribed Non-HDL Cholesterol 133 NONE mg/dL [facility] SCRIBED Total Cholesterol/HDL Ratio 197 NONE [facility] Blood us Historical Provider LAB BLOOD ORDERABLES Edit ed Result - Final [facility] * XR Hip Left 2 or 3 [...] MD IMG XR PROCEDURES Final Resul t from Last 3 Months Insurance [facility] [employer] MED[employer] GOLD Care Teams Game Agent Relationship Specialty Start Date End Date Андрей Solomon MD PCP - General 07/04/09 Caterina Walters PA [address] [place] [address] [phone] Physician Cyber Intel Planner 07/26/24
--- OUTSIDE RECORDS SUMMARY | 2024-12-30 12:07 | XMS_ITS | Encounter Summary ---
Author Organization [facility] Address 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 [id number] PCP - General Family Practice 04/23/15 documented as of this encounter
--- OUTSIDE RECORDS SUMMARY | 2024-12-30 12:07 | XMS_ITS | Clinical Summary ---
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
--- OUTSIDE RECORDS SUMMARY | 2024-12-30 12:07 | XMS_ITS | Encounter Summary ---
Author Organization [facility] Address [address] [facility] [place] [address] Care Team Providers Care Java Core Developer Name Role Phone Андрей Solomon MD Primary Care Provider [phone] Encounter Details Date Type Department Care Team (Late st Contact Info) Description 12/21/2024 Lab Requisition [facility] Lab [address] [facility] [place] [address] Ayah Paredes DO [address] [facility] [address] [place] [address] Social History Tobacco Use Types Packs/Day Years [...] DERMATOPATHOLOGY Routine 12/21/2024 10:5 6 AM CDT documented in this encounter Results * DERMATOPATHOLOGY (12/21/2024 10:56 AM CDT) Case Report Dermatopathology Report Case: [id number] Authorizing Provider: Ayah Paredes DO Collected: 12/21/2024 10:56 AM Ordering Location: [facility] - Received: 12/21/2024 04:36 PM DermPath Lab Pathologist: Kerrie Hoffman MD Specimens: A) - Skin, left anteromdial le B) - Skin, left shoulder 5:09 PM [facility] DERMATOPATHOLOGY LABORATORY Final Diagnosis Specimen A. SKIN, left anteromdial le: DERMATOFIBROMA (D23.9) Specimen B. SKIN, left shoulder: LENTIGINOUS MELANOCYTIC NEVUS, COMPOUND TYPE, IRRITATED AND INFLAMED (D22.62) PRESENT AT MARGIN (see microscopic description and comment) 5:09 PM T DERMATOPATHOLOGY LABORATORY at 1709 CDT Clinical History A: DF; R/O Atypia B: R/O MM 5:09 PM [facility] DERMATOPATHOLOGY LABORATORY Gross Description Specimen A: Received [...] measuring 9x7x1 mm. Jar 0. 5:09 PM [facility] DERMATOPATHOLOGY LABORATORY Microscopic Description Specimen A. SKIN, [...] Loretta Garcia who concurs with the diagnosis. 5 5:09 PM CDT DERMATOPATHOLOGY LABORATORY Disclaimer An external and internal positive and negative controls are appropriate for the histochemical, immunohistochemical and immunofluorescence stain(s) in this case (if any), except where stated explicitly. The performance characteristics of the stain(s) cited in this report were developed and its performance characteristic determined by the Dermatopathology Laboratory at [facility], directed by Dr. Yolanda Diaz. These tests need not be, and therefore are not, approved by the [place] Food and Drug Administration. The tests are used for clinical purposes. Billing Codes Specimen Charges Stain Charges 72629 89615 1 1 36381 34694 99758 08412 1 1 1 1 5 5:09 PM CDT DERMATOPATHOLOGY LABORATORY Embedded Images 5 5:09 PM CDT DERMATOPATHOLOGY LABORATORY Pathology/Cytology TISSUE SPECIMEN FROM SKIN / Unknown 12/21/2024 10:56 AM CDT 12/21/2024 4:36 PM CDT Miscellaneous samples (specimen) TISSUE SPECIMEN FROM SKIN / Unknown 12/21/2024 10:56 AM CDT 12/21/2024 4:36 PM CDT Ayah Paredes DO LAB - PATHOLOGY/CYTOLOGY ORDERABLES Final Result DERMATOPATHOLOGY LABORATORY [facility] - Department of Dermatology [facility] Medicine [address] [place] [address], [address] [phone] documented in this encounter Visit Diagnoses Not on filedocumented in this encounter Care Teams Java Core Developer Relationship Specialty Start Date End Date Андрей Solomon MD [address] [place] [address] PCP - General Family Medicine 09/22/12 documented as of this encounter
--- OUTSIDE RECORDS SUMMARY | 2024-12-30 12:07 | XMS_ITS | Clinical Summary ---
Author Organization [facility] Address [address] [place] [address] Care Team Providers Care Sanitizer Name Role Phone Unavailable Primary Care Provider [...] Comments Blood Pressure 135/90 07/01/2010 5:00 PM BOILERHOUSE MECHANIC Pulse 60 07/01/2010 4:59 PM BOILERHOUSE MECHANIC Temperature - - Respiratory Rate 16 07/01/2010 4:59 PM BOILERHOUSE MECHANIC Oxygen Saturation - - Inhaled Oxygen Concentration - - Weight 122.9 kg (271 lb) 07/01/2010 4:59 PM BOILERHOUSE MECHANIC Height 181.6 cm (5' 11.5) 07/01/2010 4:59 PM CS T Body Mass Index 37.27 07/01/2010 4:59 PM BOILERHOUSE MECHANIC Plan of Treatment Health Maintenance Due Date Last Done Comments Colorectal Cancer Screening Colonoscopy (10 Years) 1956 Hepatitis C 1974 DTaP, Tdap and Td Vaccines ( 1 - Tdap) 1975 Pneumococcal Vaccine: 50+ Ye ars (1 of 1 - PCV) 2006 Zoster Vaccines (1 of 2) 2006 COVID-19 Vaccine ( - 2023-2 5 season) 2024 RSV Immunization or 60+ Years (1 [...]
== END 2024-12-30 12:02 | disposition home or self-care (01) ==
PROVIDERS: PCP Family Medicine; Visit Provider Nurse Practitioner
DX: M79.10 Myalgia, unspecified site (principal); R53.81 Other malaise; M19.041 Primary osteoarthritis, right hand; M19.031 Primary osteoarthritis, right wrist; M19.042 Primary osteoarthritis, left hand; M19.032 Primary osteoarthritis, left wrist; M19.071 Primary osteoarthritis, right ankle and foot; M19.072 Primary osteoarthritis, left ankle and foot; M53.3 Sacrococcygeal disorders, not elsewhere classified
CPT/HCPCS: 72202; 73100; 73120; 73600; 73620

== ENCOUNTER 2025-01-28 08:44 | Outpatient (CLI) | payer MEDICARE, SELFPAY | END 2025-01-28 08:45 | disposition home or self-care (01) | LOC: CHSIMG 08:47 | PROVIDERS: PCP Family Medicine; Visit Provider Nurse Practitioner | DX: M25.552 Pain in left hip (principal) | CPT/HCPCS: 99199 ==

== ENCOUNTER 2025-02-11 11:12 | Outpatient (CLI) | payer MEDICARE, SELFPAY ==
--- OUTSIDE RECORDS SUMMARY | 2015-09-04 04:45 | XMS_ITS | Continuity of Care Document ---
Author Organization [facility] Address [address] [facility] [address] [place] [address] Phone Care Team Providers Care Buck Presser Name Role Phone Kyle Velasco MD Unavailable [...] Diagnoses Date Provider Providers Copied on Encounter [facility], [address] [place] [address], [id number], tel:[phone] [facility] Follow Up of PO cervical (chief complaint) Cervical spinal stenosis 6 Rod Wright. [address] [place], [place], [id number] . tel: [phone] [facility], [address] [place] [address], [id number], tel:[phone] [facility] Cervical spinal stenosis 2 - 6 Curylo Kyle. [address] [place], [place], [id number] . tel: [phone] [facility], [address] [place] [address], [facility], tel:[phone] [facility] Cervical spinal stenosis 6 Curylo Kyle. [address] [place], [place], [id number] . tel: [phone] OFFICE/OUTPAT IENT VISIT [facility], [address] [place] [address], [facility], tel:[phone] [facility] f/u cervical (chief complaint) Cervical spinal stenosis 3- 6 Curylo Kyle. [address] [place] [address], [id number] . tel: [phone] OFFICE/OUTPAT IENT VISIT [facility], [address] [place] [address], [id number], [place] tel:[phone] [facility] Follow Up of cervical-M RI results (chief complaint) Cervical spinal stenosis 5 Curylo Kyle. [address] [place] [address], [id number] . tel: [phone] OFFICE/OUTPAT IENT VISIT [facility], [address] [place] [address], [facility], [place] tel:[phone] [facility] Cervical spinal stenosis 5 Curylo Kyle. [address] [place] [address], [id number] . tel: [phone] Referring Provider: Андрей Blanton, [address], [place], [address]. tel:[phone] Family History Family Member Type Diagnosis Age At Onset Daughter Problem (finding) Alive and well Daughter Problem (finding) depression Payers Payer name Insurance type Covered libertarian ID Murphy herrmann(s) [employer] OT [id number] [facility] [place] [id number] Social History Type Description Quantity Date Captured [...]
--- NOTE | ~2025-02-11 | MR_ITS ---
EXAMINATION: MR hip LT wo/w con DATE: 02/11/2025 13:11 INDICATION: Left hip pain. TECHNIQUE: Magnetic resonance imaging (MRI) of the left hip was performed without and with 20 mL MultiHance intravenous contrast. COMPARISON: Left hip radiographs 07/01/2024 FINDINGS: There are bilateral total hip arthroplasties. No fracture. There is ankylosis of the sacroiliac joints. There are bridging endplate osteophytes at multiple levels in the spine, consistent with diffuse idiopathic skeletal hyperostosis (DISH). There is a large left hip joint effusion with heterogeneous signal intensity. There are bilateral inguinal hernias containing fat. There is diverticulosis of the colon without evidence of diverticulitis. IMPRESSION: 1. Bilateral total hip arthroplasties. Metal artifact obscures detail. Consider radiographs or CT. 2. Large left hip joint effusion. Reviewed, dictated and finalized at location E.
--- OUTSIDE RECORDS SUMMARY | 2025-02-11 11:15 | XMS_ITS | Clinical Summary ---
Author Organization [facility] [address] Address [address] [place] [address] Care Team Providers Care School Treasurer Name Role Phone Андрей Solomon MD Primary Care Provider + [phone] Caterina Walters PA Unavailable + [phone] Allergies No known active allergies Medications DULoxetine DR (CYMBALTA) 60 mg capsule take 1 capsule (60MG) by oral route every day 0 1 Active Additional Information Patient not taking.Reported on 11/16/2024 amLODIPine (NORVASC) 10 mg tablet take 1 tablet (10MG) by oral route every day 30 11 1 Active allopurinol (ZYLOPRIM) 100 mg tablet Take 1 tablet (100 mg total) by mouth daily Active metoprolol XL (TOPROL-XL) 100 mg 24 hr tablet TAKE 1 TABLET BY MOUTH EVERY DAY 90 tablet 2 3 Active lisinopriL (PRINIVIL,ZESTRI L) 40 mg tablet Take 1 tablet (40 mg total) by mouth daily Active nitroglycerin (NITROSTAT) 0.4 mg SL tabletIndication s:Coronary artery disease involving united auburn coronary artery of united [place]urn heart, unspecified whether angina present Place 1 tablet (0.4 mg total) under the tongue every 5 (five) minutes as needed for chest pain May repeat dose q 5 min, up to 3 doses total 25 tablet 3 4 Active Xarelto 20 mg tabletIndication s:Paroxysmal atrial flutter (HCC) Take 1 tablet (20 mg total) by mouth daily with breakfast 90 tablet 3 4 Active traMADoL (ULTRAM) 50 mg tablet Take 1 tablet (50 mg total) by mouth 2 (two) times a day 5 Active Active Problems Problem Noted Date Diagnosed [...] clinic visit Coronary artery disease invo lving united [place]uburn coronary artery of united [place] heart 04/27/2023 LVH (left ventricular hypertrophy) 03/03/2023 [...] study and ablation. The patient has a [id number] score of 2. I have therefore recommended [...] with atrial fibrillation: a report of the [place] [employer]/[place] [employer] Association Task Force on Practice Guidelines [...] Encounters Date Type Department Care Team Description 02/07/2025 Telephone [facility] Orthopaedic Surgery [address] [facility] Medical Office Building [address] [place] [phone] Guadalupe Deng, RN 12/27/2024 Telephone [facility] Orthopaedic Surgery [address] [place] [address] [address] [place] [phone] Guadalupe Deng, RN 12/27/2024 Telephone [facility] Orthopaedic Surgery [address] [place] [address] [address] [place] [phone] Guadalupe Deng, RN 12/14/2024 8:23 AM CDT - 12/14/2024 11:59 PM CDT Hospital Encounter [facility] Radiology [address] [place] [phone] Bernice Beauchamp MD Parwal, Utkarsh, MD Giesler, Hannah N., RN Left hip pain Discharge Disposition: Discharge to home or self care 12/13/2024 Telephone [facility] Radiology [address] [place] [address] Amy Armenta, B.Enrique 12/07/2024 Orders Only [facility] Orthopaedic Surgery [address] [place] [address] [place] [phone] Devonte Chambers MD Bilateral low back pain with sciatica, sciatica laterality unspecified, unspecified chronicity (Primary Dx) 12/07/2024 Orders Only [facility] Orthopaedic Surgery [address] [place] [address] [place] [phone] Devonte Chambers MD Left hip pain (Primary Dx) 12/06/2024 Telephone [facility] Cardiology [address] [place] [phone] Amador Rob MD 12/05/2024 7:40 AM CDT Telemedicine [facility] Orthopaedic Surgery [address] [place] [address] [address] [place] [phone] Devonte Chambers MD Pain in right hip (Primary Dx); Aftercare following right hip joint replacement surgery 11/30/2024 10:30 AM CDT [facility] [address] [place] [address] Rose Mary Aponte NP Paroxysmal atrial fibrillation (HCC) (Primary Dx) 11/16/2024 9:15 AM CDT Lab [facility] [address] [place] [address] Left hip pain 11/16/2024 8:30 AM CDT Office Visit [facility] Orthopaedic Surgery [address] [facility] 2nd Floor [address] [place] [address] Dinora Sprague PA Presence of left artificial hip joint (Primary Dx) 11/14/2024 Orders Only [facility] Orthopaedic Surgery [address] [facility] Medical Office Building 4 [address] [place] [address] Devonte Chambers MD Left hip pain (Primary Dx) 11/14/2024 Telephone [facility] Orthopaedic Surgery [address] [facility] Medical Office Building 4 [address] [place] [address] Guadalupe Deng, BETTY from Last 3 Months Surgical History Surgery [...] on file 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 Gender Identity Not on file Sexual [...] of 1 - PCV) 2006 Zoster Vaccine (2 of 3) 05/07/2016 03/12/2016 Well Visit 65+ 2021 Influenza Vaccine (#1) 2025 , 02/08/2020, 02/11/2017, Additional history exists Fall Risk Assessment 12/14/2025 12/14/2024 Medical Devices Implanted Type Area First Aid Nurse Device Identifier Shelf Expiration Date Model / Serial / Lot [employer] Vascade Mvp 6-12fr Venous Closure [id number] - [id number] - [id number] Implanted:Qty: 1 on 10/27/2023 by Aleksandar Mcgowan MD at [facility] Collagen [employer] 07/19/2025 800-612C-[id number] [id number] / [id number] / [id number] [employer] Device Vascular Closure Femoral Artery Bioabsorbable Dual Method Vascade 6-7fr Collagen [id number] - [id number] - [id number] Implanted:Qty: 1 on 10/27/2023 by Aleksandar Mcgowan MD at [facility] Collagen [employer] 07/07/2025 [id number] 5U / [id number] / [id number] [employer] Vascade Mvp 6-12fr Venous Closure [id number] - [id number] - [id number] Implanted:Qty: 1 on 10/27/2023 by Aleksandar Mcgowan MD at [facility] Collagen [employer] 07/19/2025 800-612C-1 0U / [id number] / [id number] [employer] Vascade Mvp 6-12fr Venous Closure [id number] - [id number] - [id number] Implanted:Qty: 1 on 10/27/2023 by Aleksandar Mcgowan MD at [facility] Collagen [employer] 07/19/2025 800-612C-1 0U / [id number] / [id number] Procedures Procedure Name Priority Date/Time Associated [...] CDT Presence of left artificial hip joint from Last 3 Months Results * (ABNORMAL) [...] BLOOD ORDERABLES Ada l Result [facility] [address] [place] [address] * FL Fluoro Guided Aspiration or Injection [...] participated in the procedure. Dr. Dell Lemos (radiology rn) was present and participated in the procedure. SEDATION: The patient did not require conscious sedation for the procedure. TECHNIQUE: The risks, benefits and alternatives were discussed and informed consent was obtained. Prior to beginning the procedure, [place] Protocol was performed to confirm the patient's [...] participated in the procedure. Dr. Dell Lemos (radiology rn) was present and participated in the procedure. SEDATION: The patient did not require conscious sedation for the procedure. TECHNIQUE: The risks, benefits and alternatives were discussed and informed consent was obtained. Prior to beginning the procedure, [place] Protocol was performed to confirm the patient's [...] Analysis, Body Fluid (12/14/2024 9:08 AM CDT) Specimen type, fld Synovial Comment:Testing performed by : [facility], [address] [place] [address]., [address] Crystals Not Present Not Present JOSE ALBERTO CRAWFORD Comment:Testing performed by : [facility], [address] [place] [address]., [address] Fluid 12/14/2024 9:08 AM CDT 12/14/2024 12:41 PM CDT Devonte Chambers MD LAB BODY FLUIDS AND STOOLS OR DERABLES Edited Result - Final [facility] [address] [facility]. [place] [address] * Cell Differential, Body Fluid [...] Edited Result - Final Performing Organization Address [facility] de Phone Number JOSE ALBERTO FAUSTIN [address] [place] [address] * Cell count w/rflx diff, body fluid [...] OR DERABLES Final Result Performing Organization Address [facility] de Phone Number [facility] [address] [employer] [facility] [place] [address] * Aerobic and anaerobic culture and gram stain Aspirate Hip, left (12/14/2024 9:08 AM CDT) Direct Specimen Exam Stain: Rare polymorphonuclear leukocytes seen. No organisms seen. Comment:Testing performed by : [facility], [address] [place] [address]., [address] Report Final Report: No growth JOSE ALBERTO CRAWFORD Comment:Testing performed by : [facility], [address] [place] [address]., [address] Aspirate (Hip, left) 12/14/2024 9:08 AM CDT 12/14/2024 12:41 PM CDT Devonte Chambers MD LAB MICROBIOLOGY - GENERAL OR DERABLES Final Result Performing Organization Address [facility] Co de Phone Number JOSE ALBERTO [facility] [address] [place] [address] * ECG 12 lead (11/30/2024 10:36 AM CDT) Rose Mary Aponte NP ECG ORDERABLES Final Result * (ABNORMAL) Erythrocyte sedimentation rate (11/16/2024 9:32 AM CDT) Pathologist [facility] Erythrocyte sedimentation rate 65(H) 1 - 20 mm/hr Blood 11/16/2024 9:32 AM CDT 11/16/2024 10:22 AM CDT Devonte Chambers MD LAB BLOOD ORDERABLES Final Re sult Performing Organization Address [facility] Co de Phone Number JOSE ALBERTO [facility] [address] [place] [address] * (ABNORMAL) CRP (acute phase) (11/16/2024 9:32 AM CDT) Pathologist [facility] CRP 46.0(H) <=10.0 mg/L Blood 11/16/2024 9:32 AM CDT 11/16/2024 10:22 AM CDT us Devonte Chambers MD LAB BLOOD ORDERABLES Final Re sult JOSE ALBERTO [facility] [address] [facility]. [place] [address] * [place] ARTHROCENTESIS ASPIR&/INJ MAJOR JT/BURSA W/O US (11/16/2024 8:30 AM CDT) Narrative Dinora Sprague PA - 11/16/2024 8:30 AM CDT Dinora [...] the procedure well with no immediate complications us Dinora SANZ IN CLINIC/BEDSIDE OR DERABLES Final Result from Last 3 Months Insurance AETNA MEDICARE GOLD AEST. [facility] MEDICARE GOLD Care Teams School Treasurer Relationship Specialty Start Date End Date Андрей Solomon MD PCP - General 07/04/09 Caterina Watlers PA [address] [address] Physician Disc Pad Knockout Worker 07/26/24
--- OUTSIDE RECORDS SUMMARY | 2025-02-11 11:15 | XMS_ITS | Encounter Summary ---
Author Organization [facility] Address [address] [facility] [place] [address] Care Team Providers Care Pantry Attendant Name Role Phone Андрей Solomon MD Primary Care Provider [phone] Encounter Details Date Type Department Care Team (Late st Contact Info) Description 12/21/2024 Lab Requisition [facility] - DermPath Lab [address] [facility], [place] [address] Ayah Paredes DO [address] [facility] 3 DEPT [place] [address] Social History Tobacco Use Types Packs/Day Years [...] AM CDT) Case Report Dermatopathology Report Case: [id number] Authorizing Provider: Ayah Paredes DO Collected: 12/21/2024 10:56 AM Ordering Location: [facility] - Received: 12/21/2024 04:36 PM DermPath Lab Pathologist: Kerrie Hoffman MD Specimens: A) - Skin, left anteromdial le B) - Skin, left shoulder 5:09 PM [facility] DERMATOPATHOLOGY LABORATORY Final Diagnosis Specimen A. SKIN, left anteromdial le: DERMATOFIBROMA (D23.9) Specimen B. SKIN, left shoulder: LENTIGINOUS MELANOCYTIC NEVUS, COMPOUND TYPE, IRRITATED AND INFLAMED (D22.62) PRESENT AT MARGIN (see microscopic description and comment) 5:09 PM T DERMATOPATHOLOGY LABORATORY at 1709 CDT Clinical History A: DF; R/O Atypia B: R/O MM 5:09 PM [facility] DERMATOPATHOLOGY LABORATORY Gross Description Specimen A: Received [...] measuring 9x7x1 mm. Jar 0. 5:09 PM [facility] DERMATOPATHOLOGY LABORATORY Microscopic Description Specimen A. SKIN, [...] characteristic determined by the Dermatopathology Laboratory at [facility], directed by Dr. Yolanda Diaz. These tests need not be, and therefore are not, approved by the [place] Food and Drug Administration. The tests are used for clinical purposes. Billing Codes Specimen Charges Stain Charges 99409 05316 1 1 01056 79373 73215 47283 1 1 1 1 5 5:09 PM CDT DERMATOPATHOLOGY LABORATORY Embedded Images 5 5:09 PM CDT DERMATOPATHOLOGY LABORATORY Pathology/Cytology TISSUE SPECIMEN FROM SKIN / Unknown 12/21/2024 10:56 AM CDT 12/21/2024 4:36 PM CDT Miscellaneous samples (specimen) TISSUE SPECIMEN FROM SKIN / Unknown 12/21/2024 10:56 AM CDT 12/21/2024 4:36 PM CDT Ayah Paredes DO LAB - PATHOLOGY/CYTOLOGY ORDERABLES Final Result DERMATOPATHOLOGY LABORATORY [facility] - Department of Dermatology [facility] [address] [place] [address], [address] Floor [address] [phone] documented in this encounter Visit Diagnoses Not on filedocumented in this encounter Care Teams Pantry Attendant Relationship Specialty Start Date End Date Андрей Solomon MD [address] [place] [address] PCP - General Family Medicine 09/22/12 documented as of this encounter
--- OUTSIDE RECORDS SUMMARY | 2025-02-11 11:15 | XMS_ITS | Clinical Summary ---
Author Organization [facility] Address [address] 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 had FL at age 39. 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 Gender Identity Not on file Sexual Orientation [...] 08/13/2015 2:46 PM CDT Plan of Treatment Upcoming Encounters Date Type Department Care Team (Late st Contact Info) Description 04/19/2025 1:30 PM PIECE GOODS PACKER Office Visit [facility] Oncology and Hematology - Xander [address] [facility] [address] [place] [address] Flip Nicole MD [address] [facility] [address] [place] [address] Health Maintenance Due Date Last Done Comments [...] series) 2031 Medical Devices Implanted Type Area Customer Sales Distributor Device Identifier Shelf Expiration Date Model / Serial / Lot Allgrft Spacer Acf 7mm [id number] - [id number] Implanted:Qt y: 1 on 07/18/2015 by Kyle Velasco MD at [facility] Bone N/A: Spine Cervical Anterior MUSCULOSKELETAL TRANSPLANT FOU 11/05/2019 [id number] / [id number] / Description:This MTF spacer was processed on requisition,[id number] Plate Cslp Héctor Ang 29mm 450.154 - [id number] Implanted:Qt y: 1 on 07/18/2015 by Kyle Velasco MD at [facility] Plate N/A: Spine Cervical Anterior SYNTHES-STRATEC- SPINAL 450.154 / / Description:Load No 18.All S ynthes spinal hardware was processed on requisition,[id number]. Sterilized July 10, 2015 Screw Xpnhead C Spine 4.59s17qy 487.056 - [id number] Implanted:Qt y: 4 on 07/18/2015 by Kyle Velasco MD at [facility] Screw N/A: Spine Cervical Anterior SYNTHES STRATEC 487.056 / / Description:Load No 18 Sterilized July 10, 2015 Screw Lock C Spine 1.8mm 497.78 - [id number] Implanted:Qt y: 4 on 07/18/2015 by Kyle Velasco MD at [facility] Screw N/A: Spine Cervical Anterior SYNTHES-STRATEC- SPINAL 497.78 / / Description:Load No 18 Sterilized July 10, 2015 Sealant Floseal W/ Adptr 10ml [id number] - [id number] Implanted:Qt y: 1 on 07/18/2015 by Kyle Velasco MD at [facility] Sealant N/A: Spine Cervical Anterior FOSTER- BIOSCIENCE [id number] 11/07/2016 [id number] / / [id number] Insurance MEDICARE PART A AND B Advance Directives For more information, please contact: [phone] Documents on File Type Date Recorded Patient Driver Sales Expl anation Advance Directive POA 07/25/2015 1:24 [...] 7:51 AM 07/18/2015 8:46 AM Care Teams Loan Clerk Relationship Specialty Start Date End Date Андрей Solomon MD [address] [place] [phone] PCP - General Family Practice 04/23/15
--- OUTSIDE RECORDS SUMMARY | 2025-02-11 11:15 | XMS_ITS | Clinical Summary ---
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
--- OUTSIDE RECORDS SUMMARY | 2025-02-11 11:15 | XMS_ITS | Clinical Summary ---
Author Organization [facility] Address [address] [place] [address] Care Team Providers Care Personal Care Home Administrator Name Role Phone Unavailable Primary Care Provider [...] Comments Blood Pressure 135/90 07/01/2010 5:00 PM VALVE FITTER Pulse 60 07/01/2010 4:59 PM VALVE FITTER Temperature - - Respiratory Rate 16 07/01/2010 4:59 PM VALVE FITTER Oxygen Saturation - - Inhaled Oxygen Concentration - - Weight 122.9 kg (271 lb) 07/01/2010 4:59 PM VALVE FITTER Height 181.6 cm (5' 11.5) 07/01/2010 4:59 PM CS T Body Mass Index 37.27 07/01/2010 4:59 PM VALVE FITTER Plan of Treatment Health Maintenance Due Date Last Done Comments Colorectal Cancer Screening Colonoscopy (10 Years) 1956 Hepatitis C 1974 DTaP, Tdap and Td Vaccines ( 1 - Tdap) 1975 Pneumococcal Vaccine: 50+ Ye ars (1 of 1 - PCV) 2006 Zoster Vaccines (1 of 2) 2006 COVID-19 Vaccine ( - 2023-2 5 season) 2025 RSV Immunization or 60+ Years (1 - [...]
--- OUTSIDE RECORDS SUMMARY | 2025-02-11 11:15 | XMS_ITS | Encounter Summary ---
Author Organization [facility] Address 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 Gender Identity Not on file Sexual Orientation Not on file documented as of this encounter Plan of Treatment Upcoming Encounters Date Type Department Care Team (Late st Contact Info) Description 04/19/2025 1:30 PM LEAD HANDLER Office Visit [facility] Oncology and Hematology - [place] [address] [place] [address] Dr [address] [place] [address] Flip Nicole MD [address] [facility] [address] [place] [address] documented as of this encounter Visit Diagnoses Not on filedocumented in this encounter Care Teams Band Machine Operator Relationship Specialty Start Date End Date Андрей Solomon MD [address] [place] [address] PCP - General Family Practice 04/23/15 documented as of this encounter
--- OUTSIDE RECORDS SUMMARY | 2025-02-11 11:15 | XMS_ITS | Clinical Summary ---
Author Organization [facility] [employer] Address [address] [facility] [place] [address] Care Team Providers Care Fire Officer Name Role Phone Андрей Solomon MD Primary Care Provider Source Comments [facility] [employer],non-owned Affiliates and Associated Physician Practices is amultiple site organization consisting of ambulatory clinics and hospital sitesin [place], [place], [place] and [place]. This disclosure is being madepursuant to the Care Everywhere program and may not contain all information available regarding this patient. Last updated 18.[facility] [employer] Allergies No known active allergies Medications * [...] Department Care Team Description 12/21/2024 Lab Requisition [facility] - DermPath Lab [address] [place] [phone] Ayah ParedesDO from Last 3 Months Family [...] 2006 ZOSTER VACCINE (1 of 2) 2006 DEPRESSION SCREENING 05/11/2024 MEDICARE AWV CALENDAR YEAR 2024 COVID-19 VACCINE (1 - 2023-2 5 season) 2025 INFLUENZA VACCINE (#1) 2025 8, 03/12/2016, 03/11/2015 [...] AM CDT) Case Report Dermatopathology Report Case: [id number] Authorizing Provider: Ayah Paredes DO Collected: 12/21/2024 10:56 AM Ordering Location: [facility] - Received: 12/21/2024 04:36 PM [...] characteristic determined by the Dermatopathology Laboratory at [facility], directed by Dr. Yolanda Diaz. These tests need not be, and therefore are not, approved by the [place] Food and Drug Administration. The tests are used for clinical purposes. Billing Codes Specimen Charges Stain Charges 39950 09704 1 1 97314 80341 95250 84370 1 1 1 1 5 5:09 PM CDT DERMATOPATHOLOGY LABORATORY Embedded Images 5 5:09 PM CDT DERMATOPATHOLOGY LABORATORY Pathology/Cytology TISSUE SPECIMEN FROM SKIN / Unknown 12/21/2024 10:56 AM CDT 12/21/2024 4:36 PM CDT Miscellaneous samples (specimen) TISSUE SPECIMEN FROM SKIN / Unknown 12/21/2024 10:56 AM CDT 12/21/2024 4:36 PM CDT us Ayah Paredes DO LAB - PATHOLOGY/CYTOLOGY ORDERABLES Final Result DERMATOPATHOLOGY LABORATORY [facility] - Department of Dermatology [facility] [address] [facility], 3rd [place] [address], [facility] [phone] from Last 3 Months Insurance [facility] MEDICARE [facility] AETNA MEDICARE ADV Care Teams Fire Officer Relationship Specialty Start Date End Date Андрей Solomon MD [address] [place] [address] PCP - General Family Medicine 09/22/12
== END 2025-02-11 11:13 | disposition home or self-care (01) ==
LOC: CHSIMG 11:14
PROVIDERS: PCP Family Medicine; Visit Provider Nurse Practitioner
DX: M25.552 Pain in left hip (principal); Z96.643 Presence of artificial hip joint, bilateral; M25.452 Effusion, left hip
CPT/HCPCS: 73723; A9577

== ENCOUNTER 2025-02-28 00:21 | Day surgery (SDC) | payer MEDICARE, SELFPAY ==
--- OUTSIDE RECORDS SUMMARY | 2015-09-04 04:45 | XMS_ITS | Continuity of Care Document ---
Author Organization [facility] Address [address] [facility] [address] [place] [address] Phone Care Team Providers Care Check Embosser Name Role Phone Kyle Velasco MD Unavailable Unavailable Allergies, Adverse Reactions, Alerts Substance Reaction Status Criticality No Known Allergies Active No Inform ation Medications Medication Instructions Dosage Effective Dates (start - stop) Status Comments LISINOPRIL (unknown strength) Not Available - Active BYSTOLIC (unknown strength) Not Available - Active DULOXETINE HCL (unknown strength) Not Available - Active CLONAZEPAM (unknown strength) Not Available - Active AMLODIPINE BESYLATE (unknown strength) Not Available - Active ALLOPURINOL (unknown strength) Not Available - Active Procedures Procedure Date POSTOP FOLLOW-UP VISIT POSTOP FOLLOW-UP VISIT OFFICE/OUTPATIENT VISIT EST OFFICE/OUTPATIENT VISIT EST OFFICE/OUTPATIENT VISIT EST Advance Directives Directive Yes / No Effective Date File Name No Information Encounters Encounter Description Practice Location Reason(s) For Visit Diagnoses Date Provider Providers Copied on Encounter [facility], [address] [place] [address], [id number], tel:[phone] [facility] Follow Up of PO cervical (chief complaint) Cervical spinal stenosis 6 Rod Wright. [address] [place], [place], [id number] . tel: [phone] [facility], [address] [place] [address], [id number], tel:[phone] [facility] Cervical spinal stenosis 2 - 6 Curylo Kyle. [address] [place], [place], [id number] . tel: [phone] [facility], [address] [place] [address], [facility], tel:[phone] [facility] Cervical spinal stenosis 6 Curylo Kyle. [address] [place], [place], [id number] . tel: [phone] OFFICE/OUTPAT IENT VISIT [facility], [address] [place] [address], [facility], tel:[phone] [facility] f/u cervical (chief complaint) Cervical spinal stenosis 3- 6 Curylo Kyle. [address] [place] [address], [id number] . tel: [phone] OFFICE/OUTPAT IENT VISIT [facility], [address] [place] [address], [id number], [place] tel:[phone] [facility] Follow Up of cervical-M RI results (chief complaint) Cervical spinal stenosis 5 Curylo Kyle. [address] [place] [address], [id number] . tel: [phone] OFFICE/OUTPAT IENT VISIT [facility], [address] [place] [address], [facility], [place] tel:[phone] [facility] Cervical spinal stenosis 5 Curylo Kyle. [address] [place] [address], [id number] . tel: [phone] Referring Provider: Андрей Blanton, [address], [place], [address]. tel:[phone] Family History Family Member Type Diagnosis Age At Onset Daughter Problem (finding) Alive and well Daughter Problem (finding) depression Payers Payer name Insurance type Covered green party ID Murphy herrmann(s) [employer] OT [id number] [employer] E2 OT [id number] Social History Type Description Quantity Date Captured Comments Alcohol Use Details Unknown Caffeine Use Details Unknown Tobacco Use Status No Information Smoking Status No Information Sex Male Chief Complaint And Reason For Visit From encounter dated '09/04/2015 09:45'. Follow Up of PO cervical (chief complaint) Reason For Referral Reason For Referral No Information Plan Of Treatment Date Type Action Status Referral Ordered: RADEX SPI CRV MINIMUM 4 VIEWS ordered Referral Ordered: RADEX SPI CRV 2/3 VIEWS ordered Referral Ordered: RADEX SPI CRV COMPL W/OBLQ&FLEXION&/XTN STDS ordered Referral Ordered: MRI SPI CANAL&CNTS CRV C-MATRL spine, cervical Appointment date/timeframe: 04/09/2015 ordered History Of Present Illness Encounter Date Complaint History Of Prese nt Illness f/u cervical Follow Up of cervical-MRI result s Functional Status Date Functional Assessmen t No Information Instructions Date Instruction Additional Infor mation Avoid prolonged bed rest. Relate d to Cervical spinal stenosis Take medication as prescribed. R elated to Cervical spinal stenosis Activity as tolerated. Related t o Cervical spinal stenosis Assessments Type Assessment Date assessment Cervical spinal stenosis 2015 Patient Care Teams Name Effective Dates (start - stop) Status Members No Information
[2025-02-21 14:22] VITALS: BMI 30.9
--- NOTE | 2025-02-21 14:51 | PC.NURSE ---
Spoke with PATIENT regarding medication XARELTO. PATIENT verbalizes understanding that the last dose is to be taken on 02/25/2025 and the Endoscopist will instruct them when to restart after the procedure.
--- OUTSIDE RECORDS SUMMARY | 2025-02-28 00:24 | XMS_ITS | Clinical Summary ---
Author Organization [facility] [address] Address [address] [place] [address] Care Team Providers Care Specifications Checker Name Role Phone Андрей Solomon MD Primary Care Provider [phone] Caterina Walters PA Unavailable + [phone] Allergies No known active allergies Medications DULoxetine [...] DAY 90 tablet 2 3 Active lisinopriL (PRINIVIL,ZESTR IL) 40 mg tablet Take 1 tablet (40 mg total) by mouth daily Active nitroglycerin (NITROSTAT) 0.4 mg SL tabletIndicatio ns:Coronary artery disease involving [place] coronary artery of [place] heart, unspecified whether angina present Place 1 tablet (0.4 mg total) under the tongue every 5 (five) minutes as needed for chest pain May repeat dose q 5 min, up to 3 doses total 25 tablet 3 4 Active Xarelto 20 mg tabletIndicatio ns:Paroxysmal atrial flutter (HCC) Take 1 tablet (20 mg total) by mouth daily with breakfast 90 tablet 3 4 Active traMADoL (ULTRAM) 50 mg tablet Take 1 tablet (50 mg total) by mouth 2 (two) times a day 5 Active methylPREDNISol one (MEDROL DOSEPACK) 4 mg Dosepack Take as directed on package. Monitor blood pressure while taking this prescription. 1 packet 5 02/23/20 25 Active Problems Problem Noted Date Diagnosed Date [...] clinic visit Coronary artery disease invo lving [place] coronary artery of [place] heart 04/27/2023 LVH (left ventricular hypertrophy) 03/03/2023 [...] study and ablation. The patient has a CKN1ZM7-TLEs score of 2. I have therefore recommended [...] with atrial fibrillation: a report of the [place] [employer]/[place] [employer] Task Force on Practice Guidelines [...] Encounters Date Type Department Care Team Description 02/17/2025 Telephone [facility] Cardiology [address] [place] [address] Amador Rob MD Med Management 02/17/2025 Orders Only [facility] Orth[facility] [address] [place] [address] Office [facility] [address] [place] [phone] Quintin Bertrand MD Chronic left hip pain; Left thigh pain 02/16/2025 9:01 AM CDT - 02/16/2025 11:59 PM CDT Hospital Encounter [facility] [address] [place] [address] Diagnosis unknown Discharge Disposition: Discharge to home or self care 02/16/2025 8:45 AM CDT - 02/16/2025 11:59 PM CDT Hospital Encounter [facility] [place] [place] Rad[place] [address] [place] [address] [address] [place] [phone] Chronic left hip pain; Left thigh pain Discharge Disposition: Discharge to home or self care 02/16/2025 8:30 AM CDT Office Visit [facility] [address] [place] [address] [address] [place] [phone] Quintin Bertrand MD Chronic left hip pain (Primary Dx); Left thigh pain; Lumbar spondylosis; Ankylosing spondylitis of lumbar region (HCC); Osteoarthritis of both sacroiliac joints 02/16/2025 8:29 AM CDT - 02/16/2025 11:59 PM CDT Hospital Encounter [facility] Radiology [facility] [address] [place] [address] Discharge Disposition: Discharge to home or self care 02/16/2025 Results Follow-Up [facility] Orth[facility] [address] [place] [address] Office [facility] 4 [address] [place] [phone] Quintin Bertrand MD X-ray lumbar spine complete 4+ views 02/07/2025 Telephone [facility] Orth[facility] [address] Medical Office Building [address] [place] [address] Guadalupe Deng, RN 12/27/2024 Telephone [facility] Orth[facility] [address] [place] [address] [address] [place] [phone] Guadalupe Deng, RN 12/27/2024 Telephone [facility] Orth[facility] Surgery [address] [place] [address] [address] [place] [phone] Guadalupe Deng, RN 12/14/2024 8:23 AM CDT - 12/14/2024 11:59 PM CDT Hospital Encounter [facility] Radiology [address] [place] [phone] Bernice Beauchamp MD Parwal, Utkarsh, MD Giesler, Hannah N., RN Left hip pain Discharge Disposition: Discharge to home or self care 12/13/2024 Telephone [facility] Radiology [address] [place] [address] Amy Armenta, B.AJens 12/07/2024 Orders Only [facility] Orthopa[facility] Surgery [address] [place] [address] [place] [phone] Devonte Chambers MD Bilateral low back pain with sciatica, sciatica laterality unspecified, unspecified chronicity (Primary Dx) 12/07/2024 Orders Only [facility] Orth[facility] Surgery [address] [place] [address] [place] [phone] Devonte Chambers MD Left hip pain (Primary Dx) 12/06/2024 Telephone [facility] Cardiology [address] [place] [phone] Amador Rob MD 12/05/2024 7:40 AM CDT Telemedicine [facility] Orthopa[facility] Surgery [address] [place] [address] [address] [place] [phone] Devonte Chambers MD Pain in right hip (Primary Dx); Aftercare following right hip joint replacement surgery 11/30/2024 10:30 AM CDT Office Visit [facility] [address] [facility] [address] [place] [phone] Rose Mary Aponte NP Paroxysmal atrial fibrillation (HCC) (Primary Dx) from Last 3 Months Surgical [...] on file 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 Gender Identity Not on file Sexual Orientation [...] 12/14/2025 12/14/2024 Medical Devices Implanted Type Area Outpatient Coding Specialist Device Identifier Shelf Expiration Date Model / Serial / Lot [employer] Vascade Mvp 6-12fr Venous Closure [id number] - [id number] - [id number] Implanted:Qty: 1 on 10/27/2023 by Aleksandar Mcgowan MD at [facility] Collagen [employer] 07/19/2025 800-612C-1 [id number] / [id number] / [id number] [employer] Device Vascular Closure Femoral Artery Bioabsorbable Dual Method Vascade 6-7fr Collagen [id number] - [id number] - [id number] Implanted:Qty: 1 on 10/27/2023 by Aleksandar Mcgowan MD at [facility] [employer] 07/07/2025 [id number] 5U / [id number] / [id number] [employer] Vascade Mvp 6-12fr Venous Closure [id number] - [id number] - [id number] Implanted:Qty: 1 on 10/27/2023 by Aleksandar Mcgowan MD at [facility] [employer] 07/19/2025 800-612C-1 0U / [id number] / [id number] [employer] Vascade Mvp 6-12fr Venous Closure [id number] - [id number] - [id number] Implanted:Qty: 1 on 10/27/2023 by Aleksandar Mcgowan MD at [facility] [employer] 07/19/2025 800-612C-1 0U / [id number] / [id number] Procedures Procedure Name Priority Date/Time Associated Diagnosis Comments CT BODY OUTSIDE REFERENCE Routine 02/16/2025 9:01 AM CDT Diagnosis unknown XR SPINE LUMBAR COMPLETE 4 OR MORE VIEWS Schedule Routine, Read Routine (OP Routine) 02/16/2025 8:59 AM CDT Chronic left hip pain Left thigh pain MSK MR OUTSIDE REFERENCE Routine 02/16/2025 8:29 AM CDT BASIC METABOLIC PANEL Routine 12/29/2024 12:56 PM [...] 10:36 AM CDT Paroxysmal atrial fibrillation (HCC) from Last 3 Months Results * CT Body Outside Reference (02/16/2025 9:01 AM CDT) Impressions [facility] - 02/16/2025 9:01 AM CDT These images are for Reference purposes only and have not been reviewed by [facility] Radiology. There will be no report generated by a [facility] Radiologist. Narrative [facility] - 02/16/2025 9:01 AM CDT EXAMINATION: Images For Reference Purposes Only us Quintin Bertrand MD IMG CT PROCEDURES Final Re sult [facility] * X-ray lumbar spine complete 4+ views (02/16/2025 8:59 AM CDT) Anatomical Region Laterality Modality Spine N/A Computed Radiogr aphy 02/16/2025 11:5 1 AM CDT Impressions 02/16/2025 5:12 PM CDT 1. Progressive ossification of the anterior and posterior spinal longitudinal ligaments can be seen in ankylosing spondylitis. 2. 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 Dictated by: Abdirahman Matute M.D. The radiology attending physician has personally reviewed this study, and had reviewed and/or edited this written report and agrees with it. Electronically signed by: Bernice Beauchamp MD Narrative 02/16/2025 5:12 PM CDT EXAMINATION: XR SPINE LUMBAR 4 OR MORE VIEWS HISTORY: Chronic left posterior hip pain COMPARISON: X-ray dated 05/24/2012 FINDINGS: 4 views of the lumbar spine was submitted for interpretation. Partially imaged bilateral total hip replacement. There is loss of lumbar lordosis with progressive calcification of the anterior and posterior longitudinal ligaments. Degenerative changes of both sacroiliac joints. Moderate multilevel lumbar spine degenerative disc disease with moderate facet joint osteoarthritis. The lumbar vertebral body heights are maintained. No acute fracture or dislocation. Procedure Note Bernice Beauchamp MD - 02/16/2025 EXAMINATION: XR SPINE LUMBAR 4 OR MORE VIEWS HISTORY: Chronic left posterior hip pain COMPARISON: X-ray dated 05/24/2012 FINDINGS: 4 views of the lumbar spine was submitted for interpretation. Partially imaged bilateral total hip replacement. There is loss of lumbar lordosis with progressive calcification of the anterior and posterior longitudinal ligaments. Degenerative changes of both sacroiliac joints. Moderate multilevel lumbar spine degenerative disc disease with moderate facet joint osteoarthritis. The lumbar vertebral body heights are maintained. No acute fracture or dislocation. IMPRESSION: 1. Progressive ossification of the anterior and posterior spinal longitudinal ligaments can be seen in ankylosing spondylitis. 2. 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 Dictated by: Abdirahman Matute M.D. The radiology attending physician has personally reviewed this study, and had reviewed and/or edited this written report and agrees with it. Electronically signed by: Bernice Beauchamp MD Quintin Bertrand MD [facility] [place] [facility] XR PROCEDURES Final Re sult * MSK MR Outside Reference (02/16/2025 8:29 AM CDT) Impressions [facility] - 02/16/2025 8:29 AM CDT These images are for Reference purposes only and have not been reviewed by [facility] Radiology. There will be no report generated by a [facility] Radiologist. Narrative [facility] - 02/16/2025 8:29 AM CDT EXAMINATION: Images For Reference Purposes Only Quintin MOREL MRI PROCEDURES Final R esult [facility] * (ABNORMAL) Basic metabolic panel (12/29/2024 12:56 [...] en[place] BUN/creat ratio SEE NOTE: 6 - (calc) [facility] Comment: Not Reported: [...] MD LAB BLOOD ORDERABLES Ada l Result Performing Organization Address [facility] Co de Phone Number QUEST [facility] [address] [place] [address] * FL Fluoro Guided Aspiration or Injection [...] participated in the procedure. Dr. Dell Lemos (resident intern) was present and participated in the procedure. SEDATION: The patient did not require conscious sedation for the procedure. TECHNIQUE: The risks, benefits and alternatives were discussed and informed consent was obtained. Prior to beginning the procedure, [place] Protocol was performed to confirm the patient's [...] participated in the procedure. Dr. Dell Lemos (resident intern) was present and participated in the procedure. SEDATION: The patient did not require conscious sedation for the procedure. TECHNIQUE: The risks, benefits and alternatives were discussed and informed consent was obtained. Prior to beginning the procedure, [place] Protocol was performed to confirm the patient's [...] by: Bernice Beauchamp MD Devonte Chambers MD IM FLUOROSCOPY PROCEDURES Fi nal Result * Crystal Analysis, Body Fluid (12/14/2024 9:08 AM CDT) Specimen type, fld Synovial Comment:Testing performed by : [facility], [address] [place] [address], [place]., [address] Crystals Not Present Not Present JOSE ALBERTO [facility]IR[facility] Comment:Testing performed by : [facility], [address] [place] [address]., [id number] Fluid 12/14/2024 9:08 AM CDT 12/14/2024 12:41 PM CDT Devonte Chambers MD LAB BODY FLUIDS AND STOOLS OR DERABLES Edited Result - Final Performing Organization Address [facility] de Phone Number JOSE ALBERTO RICHARDSONIRA [facility] [address] [place] [employer]. [facility] [place] [address] * Cell Differential, Body Fluid (12/14/2024 9:08 [...] Edited Result - Final Performing Organization Address [facility] de Phone Number JOSE ALBERTO RICHARDSONCH [address] [employer] [facility] [place] [address] * Cell count w/rflx diff, body fluid [...] revised on 2018. RBC, fld 3,186,000 /cumm JOSE ALBERTO CRAWFORD Fluid 12/14/2024 9:08 AM CDT 12/14/2024 9:32 AM CDT Devonte Chambers MD LAB BODY FLUIDS AND STOOLS OR DERABLES Final Result Performing Organization Address [facility] de Phone Number JOSE AL[facility]ERTO [facility] [address] [place] [address] * Aerobic and anaerobic culture and gram stain Aspirate Hip, left (12/14/2024 9:08 AM CDT) Direct Specimen Exam Stain: Rare polymorphonuclear leukocytes seen. No organisms seen. Comment:Testing performed by : [facility], [address] [place] [address]., [address] Report Final Report: No growth JOSE ALBERTO CRAWFORD Comment:Testing performed by : [facility], [address] [place] [address]., [id number] Aspirate (Hip, left) 12/14/2024 9:08 AM CDT 12/14/2024 12:41 PM CDT Devonte Chambers MD LAB MICROBIOLOGY - GENERAL OR DERABLES Final Result Performing Organization Address [facility] de Phone Number JOSE ALBERTO [facility] [address] [employer] [facility] [place] [address] * ECG 12 lead (11/30/2024 10:36 AM CDT) Rose Mary Aponte NP ECG ORDERABLES Final Result from Last 3 Months Insurance [employer] MEDICARE GOLD AET MEDICARE GOLD Care Teams Specifications Checker Relationship Specialty Start Date End Date Андрей Solomon MD PCP - General 07/04/09 Caterina Walters PA [address] [address] Physician Spot Checker 07/26/24
--- OUTSIDE RECORDS SUMMARY | 2025-02-28 00:24 | XMS_ITS | Clinical Summary ---
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
--- OUTSIDE RECORDS SUMMARY | 2025-02-28 00:24 | XMS_ITS | Clinical Summary ---
Author Organization [facility] Address [address] [place] [address] Care Team Providers Care Soda Jerker Name Role Phone Unavailable Primary Care Provider [...] Comments Blood Pressure 135/90 07/01/2010 5:00 PM MACHINE BURRER Pulse 60 07/01/2010 4:59 PM MACHINE BURRER Temperature - - Respiratory Rate 16 07/01/2010 4:59 PM MACHINE BURRER Oxygen Saturation - - Inhaled Oxygen Concentration - - Weight 122.9 kg (271 lb) 07/01/2010 4:59 PM MACHINE BURRER Height 181.6 cm (5' 11.5) 07/01/2010 4:59 PM CS T Body Mass Index 37.27 07/01/2010 4:59 PM MACHINE BURRER Plan of Treatment Health Maintenance Due Date Last Done Comments Colorectal Cancer Screening Colonoscopy (10 Years) 1955 Hepatitis C 1974 DTaP, Tdap and Td Vaccines ( 1 - Tdap) 1975 Pneumococcal Vaccine: 50+ Ye ars (1 of 1 - PCV) 2006 Zoster Vaccines (1 of 2) 2006 COVID-19 Vaccine (1 - 2023-2 5 season) 2025 Influenza Adult (#1) 2025 RSV Immunization or 60+ Years (1 - 1-dose 75+ series) 2031 Hepatitis A Vaccines Aged Out No long er eligible based on patient's age to complete this topic Meningococcal B Vaccine Aged Out No l onger eligible based on patient's age to complete this topic Meningococcal Vaccine Aged Out No pacheco bridger eligible based on patient's age to complete this topic RSV Immunizations Under 20 Months Aged Out No longer eligible based on patient's age to complete this topic
--- OUTSIDE RECORDS SUMMARY | 2025-02-28 00:24 | XMS_ITS | Encounter Summary ---
Author Organization [facility] Address [address] [facility] [place] [address] Care Team Providers Care Editor Magazine Name Role Phone Андрей Solomon MD Primary Care Provider [phone] Encounter Details Date Type Department Care Team (Late st Contact Info) Description 12/21/2024 Lab Requisition [facility] - DermPath Lab [address] [facility], [place] [address] Ayah Paredes DO [address] [facility] 3 [place] [address] Social History Tobacco Use Types Packs/Day Years [...] AM CDT) Case Report Dermatopathology Report Case: [id number] Authorizing Provider: Ayah Paredes DO Collected: 12/21/2024 10:56 AM Ordering Location: [facility] - Received: 12/21/2024 04:36 PM DermPath Lab Pathologist: Kerrie Hoffman MD Specimens: A) - Skin, left anteromdial le B) - Skin, left shoulder 5:09 PM [facility] DERMATOPATHOLOGY [facility]ORATORY Final Diagnosis Specimen A. SKIN, left anteromdial le: DERMATOFIBROMA (D23.9) Specimen B. SKIN, left shoulder: LENTIGINOUS MELANOCYTIC NEVUS, COMPOUND TYPE, IRRITATED AND INFLAMED (D22.62) PRESENT AT MARGIN (see microscopic description and comment) 5:09 PM T DERMATOPATHOLOGY LABORATORY at 1709 CDT Clinical History A: DF; R/O Atypia B: R/O MM 5:09 PM [facility] DERMATOPATHOLOGY [facility]OR[facility] Gross Description Specimen A: Received [...] measuring 9x7x1 mm. Jar 0. 5:09 PM [facility] DERMATOPATHOLOGY [facility]ORATORY Microscopic Description Specimen A. SKIN, [...] characteristic determined by the Dermatopathology Laboratory at [facility], directed by Dr. Yolanda Diaz. These tests need not be, and therefore are not, approved by the [place] Food and Drug Administration. The tests are used for clinical purposes. Billing Codes Specimen Charges Stain Charges 18632 65600 1 1 33971 57420 [id number] 62368 1 1 1 1 5 5:09 PM CDT DERMATOPATHOLOGY LABORATORY Embedded Images 5 5:09 PM CDT DERMATOPATHOLOGY LABORATORY Pathology/Cytology TISSUE SPECIMEN FROM SKIN / Unknown 12/21/2024 10:56 AM CDT 12/21/2024 4:36 PM CDT Miscellaneous samples (specimen) TISSUE SPECIMEN FROM SKIN / Unknown 12/21/2024 10:56 AM CDT 12/21/2024 4:36 PM CDT Ayah Paredes DO LAB - PATHOLOGY/CYTOLOGY ORDERABLES Final Result DERMATOPATHOLOGY LABORATORY [facility] - Department of Dermatology [facility] Medicine [address] [place] [address], [address] [phone] documented in this encounter Visit Diagnoses Not on filedocumented in this encounter Care Teams Editor Magazine Relationship Specialty Start Date End Date Андрей Solomon MD [address] [place] [address] PCP - General Family Medicine 09/22/12 documented as of this encounter
--- OUTSIDE RECORDS SUMMARY | 2025-02-28 00:24 | XMS_ITS | Clinical Summary ---
Author Organization [facility] Address [address] [facility] [address] Care Team Providers Care Lace Stripper Name Role Phone Андрей Solomon MD Primary Care Provider [phone] Source Comments [facility],non-owned Affiliates and Associated Physician Practices is amultiple site organization consisting of ambulatory clinics and hospital sitesin [place], [place], [place] and [place]. This disclosure is being madepursuant to the Care Everywhere program and may not contain all information available regarding this patient. Last updated 18.[facility] Allergies No known active allergies Medications * [...] Care Team Description 12/21/2024 Lab Requisition [facility] - DermPath Lab [address] [place] [phone] Ayah ParedesDO from Last 3 Months Family [...] AM CDT) Case Report Dermatopathology Report Case: [id number] Authorizing Provider: Ayah Paredes DO Collected: 12/21/2024 10:56 AM Ordering Location: [facility] - Received: 12/21/2024 [...] purposes. Billing Codes Specimen Charges Stain Charges 15208 [id number] 1 1 [id number] 80432 60380 86113 1 1 1 1 5 5:09 PM [...] DERMATOPATHOLOGY LABORATORY [facility] - Department of Dermatology [facility] [address] [facility], 3rd [place] [address], [facility] [phone] from Last 3 Months Insurance [facility] MEDICARE [facility] AETNA MEDICARE ADV Care Teams Lace Stripper Relationship Specialty Start Date End Date Андрей Solomon MD [address] [place] [address] PCP - General Family Medicine 09/22/12
--- OUTSIDE RECORDS SUMMARY | 2025-02-28 00:24 | XMS_ITS | Encounter Summary ---
Author Organization [facility] Address [address] [place] [address] Phone Care Team Providers Care Instrumentation Tech Name Role Phone Андрей Solomon MD Primary Care Provider + [phone] Caterina Walters PA Unavailable + [phone] Encounter Details Date Type Department Care Team (Latest Contact Info) Description 02/16/2025 Results Follow-Up 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 I have reached out to Dr. Chambers for his review of hip MRI. I recommend CT scan of the lumbar spine as symptoms affecting left hip may in part be related to referred nerve pain from the spine. documented in this encounter Plan of Treatment Not on file documented as of this encounter Visit Diagnoses Not on filedocumented in this encounter Care Teams Instrumentation Tech Relationship Specialty Start Date End Date Андрей Solomon MD PCP - General 07/04/09 Caterina Walters PA [address] [place] [address] Physician Java Android Developer 07/26/24 documented as of this encounter
--- OUTSIDE RECORDS SUMMARY | 2025-02-28 00:24 | XMS_ITS | Encounter Summary ---
Author Organization [facility] Address 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 Gender Identity Not on file Sexual Orientation Not on file documented as of this encounter Plan of Treatment Upcoming Encounters Date Type Department Care Team (Late st Contact Info) Description 04/19/2025 1:30 PM ADVERTISING SALES EXECUTIVE Office Visit [facility] Oncology and Hematology - [place] [address] [place] [address] [address] [place] [address] Flip Nicole MD [address] [facility] [address] [place] [address] documented as of this encounter Visit Diagnoses Not on filedocumented in this encounter Care Teams Human Relations Professor Relationship Specialty Start Date End Date Андрей Solomon MD [address] [place] [address] PCP - General Family Practice 04/23/15 documented as of this encounter
--- OUTSIDE RECORDS SUMMARY | 2025-02-28 00:24 | XMS_ITS | Clinical Summary ---
Author Organization [facility] Address [address] [place] 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 Active Active Problems Problem Noted Date Diagnosed Date Acute chest pain 07/20/2015 Benign hypertension 07/20/2015 HLD (hyperlipidemia) 07/20/2015 PERI (obstructive sleep apnea) 07/20/2015 Cervical stenosis of spine 07/20/2015 Leukocytosis 07/20/2015 Immunizations Immunization Administration Dates Next Due Influenza Seasonal Unspecified Formulation IM Family History Medical History Relation Name Comments Heart Disease Father CABG x 2, mult iple stents. had IA at age 39. 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 CLERK Gender Identity Not on file Sexual Orientation [...] st Contact Info) Description 04/19/2025 1:30 PM TELEVISION PRODUCTION CLERK Office Visit [facility] Oncology and Hematology - Xander [address] [facility] [address] [place] [address] Flip Nicole MD [address] [facility] [address] [place] [address] Health Maintenance Due Date Last Done Comments DTAP/TDAP/TD VACCINES (1 - Tdap) 1975 Traditional Medicare (ACO) Annual Wellness Visit 03/06 COLORECTAL SCREENING 2001 Colorectal Cancer Screening 2001 FIT-DNA Q 3 years 2001 FIT/FOBT Q 1 year 2001 Flex Sig/CT Colonography Q 5 years 2001 PNEUMOCOCCAL VACCINE 50+ YEARS (1 of 1 - PCV) 03/06/20 06 ZOSTER VACCINE (1 of 2) 2006 INFLUENZA VACCINE (#1) 2024 03/11/2015 RSV VACCINE (60+ or ) (1 - 1-dose 75+ series) 2031 Medical Devices Implanted Type Area Fast Food Attendant Device Identifier Shelf Expiration Date Model / Serial / Lot Allgrft Spacer Acf 7mm [id number] - [id number] Implanted:Qt y: 1 on 07/18/2015 by Kyle Velasco MD at [facility] Bone N/A: Spine Cervical Anterior MUSCULOSKELETAL TRANSPLANT FOU 11/05/2019 [id number] / [id number] / Description:This MTF spacer was processed on requisition,[id number] Plate Cslp Héctor Ang 29mm 450.154 - [id number] Implanted:Qt y: 1 on 07/18/2015 by Kyle Velasco MD at [facility] Plate N/A: Spine Cervical Anterior SYNTHES-STRATEC- SPINAL 450.154 / / Description:Load No 18.All S ynthes spinal hardware was processed on requisition,[id number]. Sterilized July 10, 2015 Screw Xpnhead C Spine 4.54k20ps 487.056 - [id number] Implanted:Qt y: 4 on 07/18/2015 by Kyle Velasco MD at [facility] Screw N/A: Spine Cervical Anterior SYNTHES STRATEC 487.056 / / Description:Load No 18 Sterilized July 10, 2015 Screw Lock C Spine 1.8mm 497.78 - [id number] Implanted:Qt y: 4 on 07/18/2015 by Kyle Velasco MD at [facility] Screw N/A: Spine Cervical Anterior SYNTHES-STRATEC- SPINAL 497.78 / / Description:Load No 18 Sterilized July 10, 2015 Sealant Floseal W/ Adptr 10ml [id number] - [id number] Implanted:Qt y: 1 on 07/18/2015 by Kyle Velasco MD at [facility] Sealant N/A: Spine Cervical Anterior FOSTER- BIOSCIENCE [id number] 11/07/2016 [id number] / / [id number] Insurance [place]IC[place] [address] [place] [address] Advance Directives For more information, please contact: [phone] Documents on File Type Date Recorded Patient Youth Officer Expl anation Advance Directive POA 07/25/2015 1:24 [...] 7:51 AM 07/18/2015 8:46 AM Care Teams Data Processing Mechanic Relationship Specialty Start Date End Date Андрей Solomon MD [address] [place] [address] PCP - General Family Practice 04/23/15
[2025-02-28 13:17] VITALS: BP 166/100; PULSE 86; RESP 18; TEMP 36.6; O2SAT 100
[2025-02-28] MEDS: LACTATED RINGERS 1,000 ML 150 ML IV CONT (13:27)
--- NOTE | 2025-02-28 13:29 | WPDANESEPPF ---
Anes - Initial Pre Proc Eval Procedure: Operation Date: 02/28/25 14:30 Proposed Procedures p Diagnostic Colonoscopy - Alvin Dumas MD Date/Time: 02/28/25 13:29 Surgeon: Alvin Dumas MD Pre Op Diagnosis: Melena Patient Data Age: 69 Gender: M Height: 1.83 m Weight: 105 kg Last Vital Signs Temp 36.6 C 02/28/25 13:17 Pulse 86 02/28/25 13:17 Resp 18 02/28/25 13:17 BP 166/100 H 02/28/25 13:17 Pulse Ox 100 02/28/25 13:17 O2 Del Method Room Air 02/28/25 13:17 Allergies Allergy/AdvReac Type Severity Reaction Status Date / Time No Known Allergies Allergy Verified 02/28/25 13:07 Home Medications ?Medication ?Instructions ?Recorded ?Confirmed ?Type lisinopril 20 mg tablet 40 mg (2 x 20 mg) PO DAILY #90 tabs 11/03/23 02/21/25 Rx amlodipine 10 mg tablet See Rx Instructions .Route 10/05/24 02/21/25 Rx .COMPLEX #90 tabs rivaroxaban 20 mg tablet (Xarelto) 20 mg PO DAILY 10/11/24 02/28/25 History tramadol 50 mg tablet 50 mg PO BID PRN pain #20 tabs 10/24/24 02/21/25 Rx allopurinol 100 mg tablet See Rx Instructions .Route 01/04/25 02/21/25 Rx .COMPLEX #90 tabs duloxetine 60 mg capsule,delayed 60 mg PO DAILY #90 caps 02/12/25 02/21/25 Rx release hydrochlorothiazide 12.5 mg capsule 12.5 mg PO DAILY PRN edema 02/21/25 02/21/25 History lisinopril 40 mg tablet 40 mg PO DAILY 02/21/25 02/21/25 History metoprolol succinate 100 mg 100 mg PO DAILY 02/21/25 02/21/25 History tablet,extended release 24 hr Patient hx anesthesia problems: none Family hx anesthesia problems: none Results Review: All pre-operative results and documents have been reviewed as part of the pre-operative evaluation. [facility] Past Medical History Medical History HLA B27 positive Broken prosthetic joint implant Adenomatous polyp of sigmoid colon AAA (abdominal aortic aneurysm) without rupture Obstructive sleep apnea BPH w urinary obs/LUTS Degenerative arthritis of knee, bilateral Hypertension Arthritis Anxiety Vitamin D deficiency, unspecified Hyperlipidemia DISH (diffuse idiopathic skeletal hyperostosis) DDD (degenerative disc disease) Hip osteoarthritis Gout Atrial flutter Essential (primary) hypertension Major depressive disorder, single episode, unspecified Sleep apnea in adult Spondylosis without myelopathy or radiculopathy, cervical region Surgical History Surgical History History of revision of total replacement of left hip joint History of radiofrequency ablation procedure for cardiac arrhythmia October 2023; Dr Valero ([facility]) History of right hip replacement History of left hip replacement x2 - Revision for recurrent dislocation History of back surgery x2 H/O neck surgery History of hip replacement, total Family History Family History Mother Depression Hypertension Family history of osteoarthritis Grandparent Hypertension Father Family history of osteoarthritis Family history of coronary artery disease Heart disease Sibling Diabetes mellitus Hypertension Other Family history of malignant neoplasm Social History Social History Smoking status: Never smoker Second hand tobacco smoke exposure: Yes Alcohol intake: current Drinks per week: 6 Alcohol use details: 12 pack beer weekly Substance use: never Substance use type: does not use Do You Feel Safe in your Home?: Yes Lack of Transportation: No Lack of Food: Never True Current Housing: I Have Housing Concerned About Future Housing: No Difficulty Paying Gas/Electric Bills: No Difficulty Paying for Meds: No Currently Unemployed: No Education: Trade/Vocational Certificate Difficulty w/ Childcare or Family Care: No Living arrangements: with family Additional living arrangements comments: lives with spouse Occupation/Education: retired 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 Gender identity (if verbalized by the patient): Male Sexual Orientation (if Verbalized by the Patient): Straight or Heterosexual Spiritual care concerns: Yes (Cathoplic) Agree to blood products: Yes Anes - Eval Final PreProcedure Day of Procedure 02/28/25 13:29 Patient weight: obese Heart: regular rate and rhythm Lungs: clear to auscultation Airway: Mallampati scale class II Neurological: alert and oriented Last oral intake: >/= 8 hours ASA classification: III Emergent: no Anesthetic plan: proceed Anesthesia type and monitoring: general GIVS and standard monitoring Results Review: All pre-operative results and documents have been reviewed as part of the pre-operative evaluation. Informed Consent: The patient's anesthetic plan and its attendant risks and benefits were discussed with the patient/family/POA. Questions were solicited and answers provided to the satisfaction of the patient/family/POA.
--- NOTE | 2025-02-28 14:02 | PM.HPGS ---
History of Present Illness History of Present Illness Consent: Risks, benefits, and alternatives have been discussed and questions answered. Patient agrees to proceed with procedure. Chief complaint: blood stool Narrative: Cristian Jones is a 69 year old male with intermittent blood in stool, last colonoscopy about 5 years ago Review of Systems Review of Systems: All systems reviewed & are unremarkable except as noted in HPI and below PMFSH Past Medical History Medical History (Updated 02/28/25 @ 14:02 by Alvin Dumas MD) Hematochezia HLA B27 positive Broken prosthetic joint implant Adenomatous polyp of sigmoid colon AAA (abdominal aortic aneurysm) without rupture Obstructive sleep apnea BPH w urinary obs/LUTS Degenerative arthritis of knee, bilateral Hypertension Arthritis Anxiety Vitamin D deficiency, unspecified Hyperlipidemia DISH (diffuse idiopathic skeletal hyperostosis) DDD (degenerative disc disease) Hip osteoarthritis Gout Atrial flutter Essential (primary) hypertension Major depressive disorder, single episode, unspecified Sleep apnea in adult Spondylosis without myelopathy or radiculopathy, cervical region Surgical History Surgical History History of revision of total replacement of left hip joint History of radiofrequency ablation procedure for cardiac arrhythmia October 2023; Dr Valero ([facility]) History of right hip replacement History of left hip replacement x2 - Revision for recurrent dislocation History of back surgery x2 H/O neck surgery History of hip replacement, total Family History Family History Mother Depression Hypertension Family history of osteoarthritis Grandparent Hypertension Father Family history of osteoarthritis Family history of coronary artery disease Heart disease Sibling Diabetes mellitus Hypertension Other Family history of malignant neoplasm Social History Social History Smoking status: Never smoker Second hand tobacco smoke exposure: Yes Alcohol intake: current Drinks per week: 6 Alcohol use details: 12 pack beer weekly Substance use: never Substance use type: does not use Do You Feel Safe in your Home?: Yes Lack of Transportation: No Lack of Food: Never True Current Housing: I Have Housing Concerned About Future Housing: No Difficulty Paying Gas/Electric Bills: No Difficulty Paying for Meds: No Currently Unemployed: No Education: Trade/Vocational Certificate Difficulty w/ Childcare or Family Care: No Living arrangements: with family Additional living arrangements comments: lives with spouse Occupation/Education: retired 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 Gender identity (if verbalized by the patient): Male Sexual Orientation (if Verbalized by the Patient): Straight or Heterosexual Spiritual care concerns: Yes (Cathoplic) Agree to blood products: Yes Meds Home Medications and Allergies Home Medications ?Medication ?Instructions ?Recorded ?Confirmed ?Type lisinopril 20 mg tablet 40 mg (2 x 20 mg) PO DAILY #90 tabs 11/03/23 02/21/25 Rx amlodipine 10 mg tablet See Rx Instructions .Route 10/05/24 02/21/25 Rx .COMPLEX #90 tabs rivaroxaban 20 mg tablet (Xarelto) 20 mg PO DAILY 10/11/24 02/28/25 History tramadol 50 mg tablet 50 mg PO BID PRN pain #20 tabs 10/24/24 02/21/25 Rx allopurinol 100 mg tablet See Rx Instructions .Route 01/04/25 02/21/25 Rx .COMPLEX #90 tabs duloxetine 60 mg capsule,delayed 60 mg PO DAILY #90 caps 02/12/25 02/21/25 Rx release hydrochlorothiazide 12.5 mg capsule 12.5 mg PO DAILY PRN edema 02/21/25 02/21/25 History lisinopril 40 mg tablet 40 mg PO DAILY 02/21/25 02/21/25 History metoprolol succinate 100 mg 100 mg PO DAILY 02/21/25 02/21/25 History tablet,extended release 24 hr Allergies Allergy/AdvReac Type Severity Reaction Status Date / Time No Known Allergies Allergy Verified 02/28/25 13:07 Vital Signs Vital Signs - 24 hr 02/28/25 13:17 Temperature 97.8 F Pulse Rate 86 Respiratory Rate 18 Blood Pressure 166/100 H Pulse Oximetry 100 Oxygen Delivery Room Air Exam Const: General: comfortable and no acute distress HENMT: Face/Nose/Sinus: Normal nares present Eyes: General: appearance normal, both eyes and all related structures Neck: Neck: no JVD Resp: Auscultation: clear to auscultation bilaterally Cardio: Rate: regular rate Rhythm: regular rhythm GI: Inspection: non-distended GI Palp: Yes Soft to palpation Skin: General skin exam: normal color Extrem: General: normal to inspection Psych: Mental Status: mental status grossly normal Assessment and Plan Assessment and plan (1) Hematochezia: Code(s): K92.1 - Melena Status: Acute Assessment and Plan: colonoscopy
--- NOTE | 2025-02-28 14:25 | S_PTH ---
PATIENT: Cristian Jones LOC: [facility] [place]#:[id number] AGE/SX: 69/M ROOM: RE02/28/[address]: Alvin Dumas MD : 1955 BED: DIS: 02/28/2025 SPEC #: [id number] RECD: 03/01/25 10:51 STATUS: LIN RESalena #: [id number] DOLORES: 02/28/25 14:[address]: Alvin Dumas DEPT: [facility] Surgical RECD BY: Megha Ward ENTERED: 03/01/25 10:53 SP TYPE: Surgical OTHR DR: Андрей Solomon MD Tissues: A - Colon Polypectomy B - Colon Polypectomy C - Colon Polypectomy Procedures: Hematoxylin and Eosin Stain Gross and Microscopic Level 4
[2025-02-28 14:26] VITALS: BP 109/76; PULSE 86; RESP 18; O2SAT 96
[2025-02-28 14:36] VITALS: BP 117/75; PULSE 78; RESP 18; O2SAT 95
[2025-02-28 14:46] VITALS: BP 147/86; PULSE 78; RESP 20; O2SAT 95
== END 2025-02-28 15:04 | disposition home or self-care (01) ==
PROVIDERS: PCP Family Medicine; Referring Provider Nurse Practitioner Family; Visit Provider Internal Medicine Gastroenterology
PROC: 0DJD8ZZ Inspection of Lower Intestinal Tract, Via Natural or Artificial Opening Endoscopic (ICD-10-PCS; CPT 45378; principal; 2025-02-28 14:30)
DX: D12.0 Benign neoplasm of cecum (principal); D12.3 Benign neoplasm of transverse colon; D12.4 Benign neoplasm of descending colon; K64.8 Other hemorrhoids; K57.30 Diverticulosis of large intestine without perforation or abscess without bleeding; E78.5 Hyperlipidemia, unspecified; I10 Essential (primary) hypertension; F41.9 Anxiety disorder, unspecified; E55.9 Vitamin D deficiency, unspecified; F32.9 Major depressive disorder, single episode, unspecified; G47.33 Obstructive sleep apnea (adult) (pediatric); I48.92 Unspecified atrial flutter; M17.0 Bilateral primary osteoarthritis of knee; N40.1 Benign prostatic hyperplasia with lower urinary tract symptoms; M47.812 Spondylosis without myelopathy or radiculopathy, cervical region; M48.10 Ankylosing hyperostosis [Forestier], site unspecified; M51.9 Unspecified thoracic, thoracolumbar and lumbosacral intervertebral disc disorder; M16.10 Unilateral primary osteoarthritis, unspecified hip; E66.9 Obesity, unspecified; Z68.31 Body mass index [BMI] 31.0-31.9, adult; Z79.01 Long term (current) use of anticoagulants; Z79.891 Long term (current) use of opiate analgesic; Z98.890 Other specified postprocedural states; Z98.1 Arthrodesis status; Z15.89 Genetic susceptibility to other disease; Z86.79 Personal history of other diseases of the circulatory system; Z80.9 Family history of malignant neoplasm, unspecified; Z82.49 Family history of ischemic heart disease and other diseases of the circulatory system
CPT/HCPCS: 45385; 88305; J7120

== ENCOUNTER 2025-04-19 14:00 | Outpatient (CLI) | payer MEDICARE, SELFPAY ==
--- OUTSIDE RECORDS SUMMARY | 2025-04-19 13:30 | XMS_ITS | Encounter Summary ---
Author Organization [facility] ARVIND Oneal [facility] Address [address] [place] [address] Care Team Providers Care Edger Hand Name Role Phone Андрей Solomon MD Primary Care Provider [phone] Reason for Visit * Reason Comments Establish Care Encounter Details Date Type Department Care Team (Late st Contact Info) Description 04/19/2025 1:30 PM MARITIME ENGINEER Office Visit [facility] Oncology and Hematology - [place] [address] [place] [address] [address] [place] [address] Flip Nicole MD [address] [facility] [address] [place] [address] Chronic anemia (Primary Dx) Social History Tobacco Use Types Packs/Day Years Used Date Smoking Tobacco: Never Smokeless Tobacco: Never Alcohol Use Standard Drinks/Week Comments Yes 5 (1 standard drink = 0.6 oz pur e alcohol) Occasionally Sex and Gender Information Value Date Recorded Sex Assigned at Not on file Legal Sex Male 3:06 AM 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 Gender Identity Not on file Sexual Orientation Not on file documented as of this encounter Last Filed Vital Signs Vital Sign Reading Time Taken Comments Blood Pressure 156/96 04/19/2025 1:23 PM MARITIME ENGINEER Pulse 82 04/19/2025 1:14 PM MARITIME ENGINEER Temperature 36.4 C (97.6 F) 04/19/2025 1:14 PM MARITIME ENGINEER Respiratory Rate 15 04/19/2025 1:14 PM MARITIME ENGINEER Oxygen Saturation 96% 04/19/2025 1:14 PM MARITIME ENGINEER Inhaled Oxygen Concentration - - Weight 110.1 kg (242 lb 12.8 oz) 04/19/2025 1:14 PM MARITIME ENGINEER Height 182.9 cm (6') 04/19/2025 1:14 PM MARITIME ENGINEER Body Mass Index 32.93 04/19/2025 1:14 PM MARITIME ENGINEER documented in this encounter Progress Notes * Flip Nicole MD - 04/19/2025 1:36 PM CST Hematology-oncology consult Note Requesting Physician Андрей Solomon MD Primary Care Physician Андрей Solomon MD Problem list Patient Active Problem List Diagnosis Code Acute chest pain R07.9 Benign hypertension I10 HLD (hyperlipidemia) E78.5 PERI (obstructive sleep apnea) G47.33 Cervical stenosis of spine M48.02 Leukocytosis D72.829 Previous TREATMENT ? Measurable Disease ? Reason for Visit Cristian Jones is a 70 y.o. male who was referred for consultation for iron deficiency anemia. History of present illness This is a pleasant 70-year-old male with history of atrial fibrillation status post ablation, hypertension, gout and depression presented with tiredness and fatigue and labs revealed iron deficiency anemia. He was also losing weight but now is stable. He denies any previous history of anystomach surgery. Denies being a vegetarian. He had episode of GI bleed 3 months ago with a darker stool. Colonoscopy was performed on February 28, 2025 showed diverticulosis, internal hemorrhoids and benign colon polyps. Patient was taking oral iron supplement but discontinued after receiving iron infusion on February 09, 2025. He denies any excessive tiredness and fatigue. Denies any other new complaints. Past Medical History Past Medical History: Diagnosis Date A-fib (CMS/HCC) Acute chest pain 07/20/2015 Anxiety Arthritis Depression DISH (diffuse idiopathic skeletal hyperostosis) Gout HTN (hypertension) Hyperlipidemia Injury of back Injury of face and neck Obstructive sleep apnea (adult) (pediatric) Surgical History Past Surgical History: Procedure Laterality Date HX HIP REPLACEMENT 2013, 2014 left and then right HX SPINAL SURGERY 2012 bone spur removal lumbar HI ARTHRD ANT INTERBODY MIN DSC CRV BELOW C2 N/A 07/18/2015 CERVICAL DISCECTOMY FUSION 1 LEVEL ANTERIOR C3-C4 performed by Kyle Velasco MD at [facility] OR [facility] HI UNLISTED PROCEDURE SPINE N/A 07/18/2015 VERTEBRECTOMY- C3,4,5,6 performed by Kyle Velasco MD at [facility] Medications Current Outpatient Medications Medication Sig Dispense Refill Xarelto 20 mg Tablet Take 20 mg by mouth daily with breakfast. allopurinol (ZYLOPRIM) 100 mg tablet Take 100 mg by mouth daily. amLODIPine (NORVASC) 10 mg tablet Take 10 mg by mouth daily. metoprolol tartrate (LOPRESSOR) 50 mg tablet Take 1 Tablet (50 mg) by mouth 2 times daily. 60 Tablet 0 lisinopril (PRINIVIL) 10 mg tablet Take 20 mg by mouth daily . DULoxetine (CYMBALTA) 60 mg Capsule, Delayed Release(E.C.) Take 60 mg by mouth daily. No current facility-administered medications for this visit. Allergies No Known Allergies Immunizations: Immunization History Administered Date(s) Administered Influenza Seasonal Unspecified Formulation IM 03/11/2015 Family History Family History Problem Relation Name Age of Onset Heart Disease Father CABG x 2, multiple stents. had [place] at age 39. Hypertension Mother High Cholesterol Mother Heart Disease Brother No Known Problems Child No Known Problems Child No Known Problems Child Social History Social History Tobacco Use Smoking status: Never Smokeless tobacco: Never Substance Use Topics Alcohol use: Yes Alcohol/week: 5.0 standard drinks of alcohol Types: 5 Cans of beer per week Comment: Occasionally Review of Systems Constitutional: Patient did not mention fever; no night sweats; no anorexia; no weight loss; complain of mild tiredness and fatigue NEENT: Patient did not mention headache; no change in vision; no change in hearing; no sore throat;no dysphagia Respiratory: Patient did not mention shortness of breath; no pleuritic chest pain; no cough; no hemoptysis Cardiac: Patient did not mention cardiac-like chest pain; no palpitations; no orthopnea; no PND; noDOE GI: Patient did not mention abdominal pain; no nausea; no vomiting; no diarrhea; no hematochezia; no melena : Patient did not mention dysuria; no frequency; no hesitancy; no hematuria CONSTRUCTION AND MAINTENANCE INSPECTOR: Musculosketetal: Patient did not mention bone pain; no arthralgia; no joint swelling; no myalgia; Skin: Patient did not mention pruritis; no rash; no petechiae; no ecchymoses Endocrine: Patient did not mention polydipsia; no polyuria; no unusual weight gain Neuro: Patient did not mention headache; no change in vision; no sensory changes; no muscle weakness; no confusion; no seizures Psych: Patient did not mention anxiety; no depression; Physical Exam Vitals: As per nursing note Constitutional: Well developed, well nourished, no acute distress, non-toxic appearance Teeth and gum. No signs of infection or swelling. Eyes: PERRL, conjunctiva normal HEENT: Atraumatic, external ears normal, nose normal, oropharynx moist, no pharyngeal exudates. no sinus tenderness Neck- normal range of motion, no tenderness, supple Respiratory: No respiratory distress, normal breath sounds, no rales, no wheezing Cardiovascular: Normal rate, normal rhythm, no murmurs, no gallops, no rubs GI: Soft, nondistended, normal bowel sounds, nontender, no splenomegaly, no hepatomegaly, no mass, no rebound, no guarding : No costovertebral angle tenderness Musculoskeletal: No edema, no tenderness, no deformities. Back- no tenderness Integument: Well hydrated, no rash, Digits and nails inspection normal Lymphatic: No lymphadenopathy noted Neurologic: Alert & oriented x 3, CN 2-12 normal, normal motor function, normal sensory function, no focal deficits noted Psychiatric: Speech and behavior appropriate ? labs No results found for this or any previous visit (from the past 24 hours). Labs from January 24, 2025 showed hemoglobin 9.9 iron 34 saturation 8% ferritin 44 Pathology ? Imaging & Other Studies Performance Status? Assessment / Plan: ? Iron efficiency anemia. Patient is a pleasant 70-year-old male with history of atrial fibrillation status post ablation done was been taking Xarelto along with history of gout, depression and hypertension referred to me for iron deficiency anemia. He had history of melena 3 months ago andcolonoscopy was performed on February 28, 2025 that showed diverticulosis internal hemorrhoids and benign polyps. He denies any previous stomach surgery. Denies being a vegetarian. He received iron infusion on February 09, 2025. He is not taking any iron supplements at this time. I will repeat today including iron studies, level, CBC and serum. Based on the labs we will decide about iron supplementat ion. He may need to go back to Dr. Lyman for completion of the GI evaluation including EGD and capsule enteroscopy. I also instructed to talk to Dr. Rob regarding continuation of Xarelto as patient already had ablation done for the A-fib and now has a history of GI bleed. I will discuss withhim next week. I have answered all the questions to patient's satisfaction. Atrial fibrillation is status post ablation. He is on Xarelto and will discuss with Dr. Rob regarding continuation. Hypertension. Patient is on amlodipine and lisinopril. Gout. He is on allopurinol. Depression. He is on Cymbalta. Thank you very much for allowing me to participate in Cristian Jones's evaluation and management. Please feel free to contact if I can be of any further assistance in your patient???s care requiring hematology or oncology evaluation. Sincerely, ? ? Flip Nicole M.D. cell TOBACCO COUNSELING He is not a tobacco/nicotine user. Flip Nicole MD ,04/19/2025 2:18 PM ? Total time spent 60 minutes, two third of the total time spent counseling patient [id number]. CC:?Андрей Solomon MD TIME ENGINEER documented in this encounter Plan of Treatment Upcoming Encounters Date Type Department Care Team (Late st Contact Info) Description 04/26/2025 4:30 PM MARITIME ENGINEER Telephone Check Up [facility] Oncology and Hematology [facility] [address] [place] [address] [facility] [address] [place] [address] Flip Nicole MD [address] [facility] [address] [place] [address] Scheduled Orders Name Type Priority Associated Diagnoses Orde r Schedule CBC WITH DIFFERENTIAL Lab Stat Chronic anemia Expected: 04/19/2025, Expires: 04/19/2026 COMPREHENSIVE METABOLIC PANEL Lab Stat Chronic anemia Expected: 04/19/2025, Expires: 04/19/2026 FERRITIN Lab Routine Chronic anemia Expected: 04/19/2025, Expires: 04/19/2026 IRON, TIBC, AND PERCENT SATURATION Lab Routine Chronic anemia Expected: 04/19/2025, Expires: 04/19/2026 TRANSFERRIN RECEPTOR TFR SOLUBLE Lab Routine Chronic anemia Expected: 04/19/2025, Expires: 04/19/2026 VITAMIN B12 AND FOLATE Lab Routine Chronic anemia Expected: 04/19/2025, Expires: 04/19/2026 documented as of this encounter Visit Diagnoses Diagnosis Chronic anemia- Primary Anemia, unspecified documented in this encounter Care Teams Edger Hand Relationship Specialty Start Date End Date Андрей Solomon MD [address] [place] [address] PCP - General Family Practice 04/23/15 documented as of this encounter
[2025-04-19 14:25] LABS: Hematocrit 38.5 % (42.0-52.0); Hemoglobin 12.4 g/dL (14.0-18.0); Immature Granulocyte Percent A 0.4 % (0-0.5); Lymphocytes Absolute Auto 1.65 K/mm3 (0.9-3.2); Mean Corpuscular HGB Conc 32.2 g/dl (32-36); Mean Corpuscular Hemoglobin 27.7 pg (26-34); Mean Corpuscular Volume 85.9 fl (80-100); Nucleated Red Blood Cells Absolute Auto 0.000 K/mm3 (0.0-0.012); Nucleated Red Blood Cells Perc 0.0 % (0.0-0.2); Platelet Count Result 299 k/mm3 (150-375); Red Blood Count 4.48 M/mm3 (4.6-6.20); White Blood Count 7.8 K/mm3 (4.5-10.0)
[2025-04-19 16:59] LABS: Alanine Aminotransferase 18 U/L (6-50); Albumin Level 4.3 g/dL (3.5-5.1); Alkaline Phosphatase 110 U/L (38-126); Anion Gap 4 mmol/L (4-12); Aspartate Amino Transferase 29 U/L (17-59); Bilirubin,Total 0.7 mg/dL (0.2-1.3); Blood Urea Nitrogen 20 mg/dL (9-20); Calcium 9.2 mg/dL (8.4-10.2); Carbon Dioxide 30 mmol/L (22-30); Chloride 102 mmol/L (98-107); Estimated Glomerular Filt Rate > 60; Glucose 83 mg/dL (65-110); Potassium 3.9 mmol/L (3.4-5.0); Sodium 136 mmol/L (137-145); Total Protein 8.5 g/dL (6.3-8.2)
[2025-04-19 17:02] LABS: Iron 107 ug/dL (49-181)
[2025-04-19 17:46] LABS: Ferritin 37.30 ng/mL (11.1-264)
[2025-04-19 17:52] LABS: Percent Iron Saturation 24 % (20-50)
[2025-04-19 17:55] LABS: Vitamin B12 236.0 pg/mL (239-931)
--- OUTSIDE RECORDS SUMMARY | 2025-04-19 18:29 | XMS_ITS | Encounter Summary ---
Author Organization [facility] Address [address] [place] [address] Care Team Providers Care Hospice/Home Health Aide Name Role Phone Андрей Solomon MD Primary Care Provider [phone] Encounter Details Date Type Department Care Team (Late st Contact Info) Description 01/09/2005 Outpatient Historical [facility] [address] [place] [address] Hilary Schulte MD NO ADDRESS ON FILE Social History Tobacco Use Types Packs/Day Years Used Date Smoking Tobacco: Never Assessed Sex and Gender Information Value Date Recorded Sex Assigned at Not on file Legal Sex Male 3:06 AM SECURITY CONTROLS ASSESSOR Gender Identity Not on file Sexual Orientation Not on file documented as of this encounter Plan of Treatment Upcoming Encounters Date Type Department Care Team (Late st Contact Info) Description 04/26/2025 4:30 PM SECURITY CONTROLS ASSESSOR Telephone Check Up [facility] Oncology and Hematology - [place] [address] [facility] [address] [place] [address] Flip Nicole MD [address] [facility] [address] [place] [address] documented as of this encounter Visit Diagnoses Not on filedocumented in this encounter Care Teams Hospice/Home Health Aide Relationship Specialty Start Date End Date Андрей Solomon MD [address] [place] [address] PCP - General Family Practice 04/23/15 documented as of this encounter
--- OUTSIDE RECORDS SUMMARY | 2025-04-19 18:30 | XMS_ITS | Encounter Summary ---
Author Organization [facility] Address [address] [place] [address] Phone Care Team Providers Care Knit Goods Mender Name Role Phone Андрей Solomon MD Primary Care Provider [phone] Caterina Walters PA Unavailable [phone] Encounter Details Date Type Department Care Team (Late st Contact Info) Description 03/08/2025 Results Follow-Up [facility] Medicine and [facility] ([facility]) - [facility] [address] [place] [address] Quintin Bertrand MD [address] [facility] [address] [place], [place] [id number] CT lumbar spine without contrast Social History Tobacco Use Types Packs/Day Years [...] on file Legal Sex Male 2:37 AM FOREIGN CLERK Gender Identity Not on file Sexual Orientation Not on file documented as of this encounter Miscellaneous Notes * Result Encounter Note - Precious Rehman LPN - 03/15/2025 11:05 AM FOREIGN CLERK Call placed to pt to schedule recommended injection with Dr Kuhn IGN CLERK * Result Encounter Note - Quintin Bertrand MD - 03/08/2025 6:[address] scan of the lumbar spine demonstrates arthritic changes causing narrowed space where nerves exitthe spine most significant at L3/L4 and L4/L5. Narrowed space on the left at L3/L4 correlates best with symptoms affecting the left hip and thigh. Given the severity of symptoms, I recommend 1 steroid and anesthetic injection under fluoroscopy image guidance placed on the left where the L3 nerve root exits. This is an outpatient procedure with a local anesthetic, no sedation, similar to what has been done for the left hip. Please update with any changes in symptoms, and please share thoughts/questions regarding these results and recommendation for the injection. documented in this encounter Plan of Treatment Not on file documented as of this encounter Visit Diagnoses Not on filedocumented in this encounter Care Teams Knit Goods Mender Relationship Specialty Start Date End Date Андрей Solomon MD PCP - General 07/04/09 Caterina Walters PA [address] [address] Physician Liquefaction Plant Operator 07/26/24 documented as of this encounter
--- OUTSIDE RECORDS SUMMARY | 2025-04-19 18:30 | XMS_ITS | Clinical Summary ---
Author Organization [facility] Address [address] [place] [address] Phone Care Team Providers Care Foreign Service Officer Name Role Phone Андрей Solomon MD Primary Care Provider [phone] Allergies No known active allergies Medications lisinopril (PRINIVIL) 10 mg tablet Take 20 mg by mouth daily . Active allopurinol (ZYLOPRIM) 100 mg tablet Take 100 mg by mouth daily. Active DULoxetine (CYMBALTA) 60 mg Capsule, Delayed Release(E.C.) Take 60 mg by mouth daily. Active metoprolol tartrate (LOPRESSOR) 50 mg tablet Take 1 Tablet (50 mg) by mouth 2 times daily. 60 Tablet 0 07/22/2015 Active amLODIPine (NORVASC) 10 mg tablet Take 10 mg by mouth daily. Active Xarelto 20 mg Tablet Take 20 mg by mouth daily with breakfast. 04/19/2024 Active Active Problems Problem Noted Date Diagnosed Date Acute chest pain 07/20/2015 Benign hypertension 07/20/2015 HLD (hyperlipidemia) 07/20/2015 PERI (obstructive sleep apnea) 07/20/2015 Cervical stenosis of spine 07/20/2015 Leukocytosis 07/20/2015 Encounters Date Type Department Care Team Description 04/19/2025 1:30 PM IMMIGRATION INSPECTOR Office Visit [facility] Oncology and Hematology - [place] [address] [place] [address] Flip Nicole MD Chronic anemia (Primary Dx) from Last 3 Months Immunizations Immunization Administration Dates Next Due Influenza Seasonal Unspecified Formulation IM Family History Medical History Relation Name Comments Heart Disease Brother No Known Problems Child 1 No Known Problems Child 2 No Known Problems Child 3 Heart Disease Father CABG x 2, mult iple stents. had [place] at age 39. High Cholesterol Mother Hypertension Mother Relation Name Status Comments Brother Alive Child 1 Alive Child 2 Alive Child 3 Alive Father Alive Mother Social History Tobacco Use Types Packs/Day Years Used Date Smoking Tobacco: Never Smokeless Tobacco: Never Alcohol Use Standard Drinks/Week Comments Yes 5 (1 standard drink = 0.6 oz pur e alcohol) Occasionally Sex and Gender Information Value Date Recorded Sex Assigned at Not on file Legal Sex Male 3:06 AM IMMIGRATION INSPECTOR Gender Identity Not on file Sexual Orientation Not on file Last Filed Vital Signs Vital Sign Reading Time Taken Comments Blood Pressure 156/96 04/19/2025 1:23 PM IMMIGRATION INSPECTOR Pulse 82 04/19/2025 1:14 PM IMMIGRATION INSPECTOR Temperature 36.4 C (97.6 F) 04/19/2025 1:14 PM IMMIGRATION INSPECTOR Respiratory Rate 15 04/19/2025 1:14 PM IMMIGRATION INSPECTOR Oxygen Saturation 96% 04/19/2025 1:14 PM IMMIGRATION INSPECTOR Inhaled Oxygen Concentration - - Weight 110.1 kg (242 lb 12.8 oz) 04/19/2025 1:14 PM IMMIGRATION INSPECTOR Height 182.9 cm (6') 04/19/2025 1:14 PM IMMIGRATION INSPECTOR Body Mass Index 32.93 04/19/2025 1:14 PM IMMIGRATION INSPECTOR Plan of Treatment Upcoming Encounters Date Type Department Care Team (Late st Contact Info) Description 04/26/2025 4:30 PM IMMIGRATION INSPECTOR Telephone Check Up [facility] Oncology and Hematology - [place] [address] [facility] [address] [place] [address] Flip Nicole MD [address] [facility] [address] [place] [address] Health Maintenance Due Date Last Done Comments DTAP/TDAP/TD VACCINES (1 - Tdap) 1975 COLORECTAL SCREENING 2001 Colorectal Cancer Screening 2001 FIT-DNA Q 3 years 2001 FIT/FOBT Q 1 year 2001 Flex Sig/CT Colonography Q 5 years 2001 PNEUMOCOCCAL VACCINE 50+ YEARS (1 of 1 - PCV) 03/06/20 06 ZOSTER VACCINE (1 of 2) 2006 Medicare Advantage ([place]) Prev entative Visit/Annual Wellness Visit 05/11/2024 INFLUENZA VACCINE (#1) 2024 03/11/2015 RSV VACCINE (60+ or ) (1 - 1-dose 75+ series) 2031 Medical Devices Implanted Type Area Aircraft Line Assembler Device Identifier Shelf Expiration Date Model / Serial / Lot Allgrft Spacer Acf 7mm [id number] - [id number] Implanted:Qt y: 1 on 07/18/2015 by Kyle Velasco MD at [facility] Bone N/A: Spine Cervical Anterior MUSCULOSKELETAL TRANSPLANT FOU 11/05/2019 [id number] / [id number] / Description:This MTF spacer was processed on requisition,[id number] Plate Cslp Héctor Ang 29mm 450.154 - [id number] Implanted:Qt y: 1 on 07/18/2015 by Kyle Velasco MD at [facility] Plate N/A: Spine Cervical Anterior SYNTHES-STRATEC- SPINAL 450.154 / / Description:Load No 18.All S ynthes spinal hardware was processed on requisition,[id number]. Sterilized July 10, 2015 Screw Xpnhead C Spine 4.35c55zo 487.056 - [id number] Implanted:Qt y: 4 on 07/18/2015 by Kyle Velasco MD at [facility] Screw N/A: Spine Cervical Anterior SYNTHES STRATEC 487.056 / / Description:Load No 18 Sterilized July 10, 2015 Screw Lock C Spine 1.8mm 497.78 - [id number] Implanted:Qt y: 4 on 07/18/2015 by Kyle Velasco MD at [facility] Screw N/A: Spine Cervical Anterior SYNTHES-STRATEC- SPINAL 497.78 / / Description:Load No 18 Sterilized July 10, 2015 Sealant Floseal W/ Adptr 10ml [id number] - [id number] Implanted:Qt y: 1 on 07/18/2015 by Kyle Velasco MD at [facility] Sealant N/A: Spine Cervical Anterior FOSTER- BIOSCIENCE [id number] 11/07/2016 [id number] / / [id number] Insurance AETNA O [facility] Address: [facility] [address] [place] [address] Advance Directives For more information, please contact: [phone] Documents on File Type Date Recorded Patient Overlock Sleeve Setter Expl anation Advance Directive POA 07/25/2015 1:24 PM Advance Directive POA 07/21/2015 5:27 PM I [...] 7:51 AM 07/18/2015 8:46 AM Care Teams Foreign Service Officer Relationship Specialty Start Date End Date Андрей Solomon MD [address] [place] [address] PCP - General Family Practice 04/23/15
--- OUTSIDE RECORDS SUMMARY | 2025-04-19 18:30 | XMS_ITS | Clinical Summary ---
Author Organization [facility] Address [address] [place] [address] Care Team Providers Care Electric Needle Specialist Name Role Phone Андрей Solomon MD Primary Care Provider [phone] Source Comments [facility],non-owned Affiliates and Associated Physician Practices is amultiple site organization consisting of ambulatory clinics and hospital sitesin [place], [place], [place] and [place]. This disclosure is being madepursuant to the Care Everywhere program and may not contain all information available regarding this patient. Last updated 18.[employer] [facility] Allergies No known active allergies Medications * [...] CALENDAR YEAR 2024 COVID-19 VACCINE (1 - 2024-2 6 season) 2025 INFLUENZA VACCINE (#1) 2025 8, [...] patient's age to complete this topic Insurance AET MEDICARE [facility] AETNA MEDICARE ADV SELF PAY NO INSURANCE Member Subscriber Plan / Payer (Ef fective for All Dates) Name:RobertMiln Member ID:Not on file Relation to Subscriber:Not on file Name:ROBERTMILN Subscriber ID:Not on file (Home) Address: [address] [place] [id number] Payer ID:Not on file Group ID:Not on file Type:Self Pay Address: [place], [place] Care Teams Electric Needle Specialist Relationship Specialty Start Date End Date Андрей Solomon MD [address] [place] [address] PCP - General Family Medicine 09/22/12
--- OUTSIDE RECORDS SUMMARY | 2025-04-19 18:30 | XMS_ITS | Clinical Summary ---
Author Organization [facility] Address [address] [place] [address] Care Team Providers Care Technical Services Specialist Name Role Phone Unavailable Primary Care Provider [...] Comments Blood Pressure 135/90 07/01/2010 5:00 PM ELEMENTARY ASSISTANT PRINCIPAL Pulse 60 07/01/2010 4:59 PM ELEMENTARY ASSISTANT PRINCIPAL Temperature - - Respiratory Rate 16 07/01/2010 4:59 PM ELEMENTARY ASSISTANT PRINCIPAL Oxygen Saturation - - Inhaled Oxygen Concentration - - Weight 122.9 kg (271 lb) 07/01/2010 4:59 PM ELEMENTARY ASSISTANT PRINCIPAL Height 181.6 cm (5' 11.5) 07/01/2010 4:59 PM CS T Body Mass Index 37.27 07/01/2010 4:59 PM ELEMENTARY ASSISTANT PRINCIPAL Plan of Treatment Health Maintenance Due Date Last Done Comments Colorectal Cancer Screening Colonoscopy (10 Years) 1956 Hepatitis C 1974 DTaP, Tdap and Td Vaccines ( 1 - Tdap) 1975 Pneumococcal Vaccine: 50+ Ye ars (1 of 1 - PCV) 2006 Zoster Vaccines (1 of 2) 2006 COVID-19 Vaccine ( - 2024-2 6 season) 2025 Influenza Adult (#1) 2025 RSV [...]
--- OUTSIDE RECORDS SUMMARY | 2025-04-19 18:30 | XMS_ITS | Clinical Summary ---
Author Organization [facility] Address [address] [place] [id number] Phone Care Team Providers Care Machine Lead Burner Name Role Phone Provider, None Primary Care [...] on file Legal Sex Male 2:58 AM SUPERSONIC ENGINEER Gender Identity Not on file Sexual [...] complete this topic Human Papillomavirus (HPV) Immunization (No Doses Required) Completed Meningococcal Immunization (ACWY) Aged Out No longer eligible b ased on patient's age to complete this topic Rotavirus Immunization Aged Out No lo nger eligible based on patient's age to complete this topic Insurance MEDICARE Care Teams Machine Lead Burner Relationship Specialty Start Date End Date Provider, None RENETTA PCP - General 10/27/19
--- OUTSIDE RECORDS SUMMARY | 2025-04-19 18:30 | XMS_ITS | Encounter Summary ---
Author Organization [facility] Address [address] [place] [address] Phone Care Team Providers Care Pulp Mill Operator Name Role Phone Андрей Solomon MD Primary Care Provider + [phone] Caterina Walters PA Unavailable + [phone] Encounter Details Date Type Department Care Team (Latest Contact Info) Description 02/16/2025 Results Follow-Up [facility] Medicine Orthopaedic Surgery [address] [place] [address] Quintin Bertrand MD [address] [place], [place] [id number] X-ray lumbar spine complete 4+ views Social [...] making you feel afraid or unsafe? Denies 03/23/2025 Sex and Gender Information Value Date Recorded Sex Assigned at Not on file Legal Sex Male 2:37 AM SYSTEM SAFETY ENGINEER Gender Identity Not on file Sexual Orientation Not on file documented as of this encounter Functional Status * C.A.G.E. Question Answer Date of Assessment Author Have you ever felt the need to Cut down on your drinking? 0 03/23/2025 6:24 PM SYSTEM SAFETY ENGINEER Benita Hutchins RN Have people ever Annoyed yo u by criticizing your drinking? 0 03/23/2025 6:24 PM SYSTEM SAFETY ENGINEER Jair eisenbergkBenita RN Have you ever felt bad or Guilty about your drinking? 0 03/23/2025 6:24 PM SYSTEM SAFETY ENGINEER Benita Sánchez RN Have you ever had a drink first thing in the morning to steady your nerves or get rid of a hangover? Eye timber sizer? 0 03/23/2025 6:24 PM Benita Lala RN CAGE SCORE: 2 or Greater = Positive 0 03/23/2025 6:24 PM SYSTEM SAFETY ENGINEER Benita Stack RN * Fall Risk Assessment Tool - MEDFRAT Question Answer Date of Assessment Author Prior Fall Event (Autopopulated from EMR) None found 03/23/2025 3:44 PM Sylvain Terrazas RN Pt needs supervision/assistance with ambulation? (makes patient High risk) No 03/23/2025 3:44 PM Sylvain Terrazas RN History of falling in last 3 months, including since admission 1 03/23/2025 3:44 PM Sylvain Terrazas RN Confusion or disorientation 0 03/23/2025 3: 44 PM Sylvain Terrazas RN Intoxicated or sedated 0 03/23/2025 3:44 PM Sylvain Terrazas RN Impaired gait 0 03/23/2025 3:44 PM Sylvain Terrazas RN Mobility assist device used 0 03/23/2025 3: 44 PM Sylvain Terrazas RN Altered elimination 0 03/23/2025 3:44 PM CS T Sylvain Delgado RN Fall risk score: (1-2 low risk), (3-4 moderate risk), (5 or more high risk) 1 03/23/2025 3:44 PM SYSTEM SAFETY ENGINEER Sylvain Delgado RN * Question Answer Date of Assessment Author MAP (mmHg) 100 03/23/2025 10:02 PM SYSTEM SAFETY ENGINEER Mark Jeff RN documented as of this encounter Mental Status * Question Answer Entry Date Author Level of Consciousness Alert 6:28 PM SYSTEM SAFETY ENGINEER Benita Stack RN Orientation Oriented X4 (person, place, time, situation) 03/23/2025 6:28 PM SYSTEM SAFETY ENGINEER Benita Stack RN Neuro (WDL) WDL 03/23/2025 10:14 PM SYSTEM SAFETY ENGINEER Mark Grigsby RN documented in this encounter Miscellaneous Notes * Result Encounter [...] on filedocumented in this encounter Care Teams Pulp Mill Operator Relationship Specialty Start Date End Date Андрей Solomon MD PCP - General 07/04/09 Caterina Walters PA [address] [place] [id number] Physician Dry Box Tender 07/26/24 documented as of this encounter
--- OUTSIDE RECORDS SUMMARY | 2025-04-19 18:30 | XMS_ITS | Clinical Summary ---
Author Organization [facility] [address] Address [address] [place] [address] Care Team Providers Care Rum Processing Operator Name Role Phone Андрей Solomon MD Primary Care Provider + [phone] Caterina Walters PA Unavailable + [phone] Allergies No known active allergies Medications DULoxetine [...] EVERY DAY 90 tablet 2 3 Active nitroglycerin (NITROSTAT) 0.4 mg SL tabletIndicatio ns:Coronary artery disease involving curyung coronary artery of curyung heart, unspecified whether angina present Place 1 [...] 2 (two) times a day 5 Active methocarbamoL (ROBAXIN) 500 mg tablet Take 1 tablet (500 mg total) by mouth nightly as needed for muscle spasms 7 tablet 5 Active lisinopriL (PRINIVIL,ZESTR IL) 40 mg tablet Take 1 tablet (40 mg total) by mouth daily 90 tablet 1 5 Active lisinopriL (PRINIVIL,ZESTR IL) 40 mg tablet Take 1 tablet (40 mg total) by mouth daily 025 Discontin ued(Reord er) lisinopriL (PRINIVIL,ZESTR IL) 40 mg tablet Take 1 tablet (40 mg total) by mouth daily 90 tablet 1 5 025 Discontin ued(Reord er) lisinopriL (PRINIVIL,ZESTR IL) 40 mg tablet Take 1 tablet (40 mg total) by mouth daily 90 tablet 1 5 025 Discontin ued(Reord er) Active Problems Problem Noted Date Diagnosed Date [...] clinic visit Coronary artery disease invo lving curyung coronary artery of curyung heart 04/27/2023 LVH (left ventricular hypertrophy) 03/03/2023 [...] study and ablation. The patient has a [id number] score of 2. I have therefore recommended [...] with atrial fibrillation: a report of the [place] [employer]/[place] [employer] Task Force on Practice Guidelines [...] Encounters Date Type Department Care Team Description 04/12/2025 10:17 AM TACTICAL/MOBILE WATCH OFFICER - 04/12/2025 11:59 PM TACTICAL/MOBILE WATCH OFFICER Hospital Encounter [id number] [address] [facility] [address] [place] [phone] Quintin Bertrand MD Lumbar radicular pain; Lumbar spondylosis Discharge Disposition: Discharge to home or self care 04/11/2025 Telephone Radiology - [address] [facility] [address] [place] [address] Seth Montilla, RT 03/31/2025 Telephone [facility] Cardiology [address] [place] [address] [address] [place] [phone] Amador Rob MD 03/23/2025 6:05 PM TACTICAL/MOBILE WATCH OFFICER - 03/23/2025 10:14 PM [facility] Emergency Department [address] [place] [address] Олег Mcclendon MD Closed head injury, initial encounter (Primary Dx); Concussion without loss of consciousness, initial encounter Discharge Disposition: Discharge to home or self care 03/22/2025 Telephone Radiology - [address] [facility] [address] [place] [address] Mel Aguirre, 03/20/2025 Telephone [facility] Cardiology [address] [facility] [address] [place] [address] Amador Rob MD 03/17/2025 Telephone [facility] Cardiology [address] [place] [address] Amador Rob MD 03/16/2025 Documentation [facility] Medicine Orthopaedic Surgery [address] [facility] 6th [place] [address] [place] [address] Quintin Bertrand MD 03/15/2025 Orders Only [facility] Medicine Orthopaedic Surgery [address] [facility] Office Building [address] [place] [phone] Quintin Bertrand MD Lumbar radicular pain (Primary Dx); Lumbar spondylosis 03/14/2025 Telephone [facility] [place] [place] Orthopaedic Surgery [address] [facility] [address] [place] [phone] Precious Rehman LPN 03/13/2025 Orders Only [facility] [place] [place] Orthopaedic Surgery [address] [facility] [address] [place] [phone] Quintin Bertrand MD Lumbar spondylosis; Lumbar radicular pain 03/09/2025 Telephone [facility] [place] [place] Orthopaedic Surgery [address] [facility] [address] [place] [address] Guadalupe Deng RN 03/08/2025 Results Follow-Up [facility] [place] [place] [facility] [place] [facility] - [facility] [address] [place] [address] lumbar spine without contrast 03/07/2025 4:24 PM CDT - 03/07/2025 11:59 PM CDT Hospital Encounter [facility] [address] [place] [address] Quintin Bertrand MD Chronic left hip pain; Left thigh pain Discharge Disposition: Discharge to home or self care 02/17/2025 Telephone [facility] Cardiology [address] [place] [address] Amador Rob MD Med Management 02/17/2025 Orders Only [facility] [place] [place] Orthopaedic Surgery [address] [place] [address] Office [facility] [address] [place] [address] Quintin Bertrand MD Chronic left hip pain; Left thigh pain 02/16/2025 9:01 AM CDT - 02/16/2025 11:59 PM CDT Hospital Encounter [facility] [address] [place] [address] Diagnosis unknown Discharge Disposition: Discharge to home or self care 02/16/2025 8:45 AM CDT - 02/16/2025 11:59 PM CDT Hospital Encounter [id number] [address] [place] [address] [address] [place] [phone] Chronic left hip pain; Left thigh pain Discharge Disposition: Discharge to home or self care 02/16/2025 8:30 AM CDT Office Visit [facility] [place] [place] Orthopaedic Surgery [address] [place] [address] [address] [place] [phone] Quintin Bertrand MD Chronic left hip pain (Primary Dx); Left thigh pain; Lumbar spondylosis; Ankylosing spondylitis of lumbar region (HCC); Osteoarthritis of both sacroiliac joints 02/16/2025 8:29 AM CDT - 02/16/2025 11:59 PM CDT Hospital Encounter [facility] ([facility]) [address] [place] [address] Discharge Disposition: Discharge to home or self care 02/16/2025 Results Follow-Up [facility] [place] [place] Orthopaedic Surgery [address] [place] [address] [address] [place] [phone] Quintin Bertrand MD X-ray lumbar spine complete 4+ views 02/07/2025 Telephone [facility] [place] [place] Orthopaedic Surgery [address] [place] [address] [address] [place] [phone] Guadalupe Deng RN from Last 3 Months Surgical History Surgery Date Site/Laterality Comments HIP SURGERY BACK SURGERY NECK SURGERY FLUORO GUIDED ASPIRATION OR INJECTION LARGE JOINT LEFT 11/07/2024 Left JOINT REPLACEMENT FLUORO GUIDED ASPIRATION OR INJECTION LARGE JOINT LEFT 12/14/2024 Left TRANSFORAMINAL EPIDURAL INJE CTION LUMBAR SACRAL 1 LEVEL LEFT 04/12/2025 Left Medical History Medical History Date Comments [...] on file Legal Sex Male 2:37 AM TACTICAL/MOBILE WATCH OFFICER Gender Identity Not on file Sexual Orientation Not on file Last Filed Vital Signs Vital Sign Reading Time Taken Comments Blood Pressure 144/80 03/23/2025 10:02 PM TACTICAL/MOBILE WATCH OFFICER Pulse 59 03/23/2025 10:02 PM TACTICAL/MOBILE WATCH OFFICER Temperature 36.5 C (97.7 F) 03/23/2025 6:17 PM TACTICAL/MOBILE WATCH OFFICER Respiratory Rate 14 03/23/2025 10:02 PM TACTICAL/MOBILE WATCH OFFICER Oxygen Saturation 98% 03/23/2025 10:02 PM TACTICAL/MOBILE WATCH OFFICER Inhaled Oxygen Concentration - - Weight 104.3 kg (230 lb) 03/23/2025 6:17 PM TACTICAL/MOBILE WATCH OFFICER Height 182.9 cm (6') 03/23/2025 6:17 PM TACTICAL/MOBILE WATCH OFFICER Body Mass Index 31.19 03/23/2025 6:17 PM TACTICAL/MOBILE WATCH OFFICER Plan of Treatment Health Maintenance Due Date Last Done Comments Colon Cancer Screening-Colonoscopy 1955 Depression Screening 1955 Hepatitis C Screening 1956 Prostate Cancer Screening-PSA 1956 DTaP/Tdap/Td Vaccine (1 - Tdap) 1967 Hepatitis B Screening 1974 Pneumococcal vaccine 65+ (1 of 1 - PCV) 2006 Zoster Vaccine (2 of 3) 05/07/2016 03/12/2016 Well Visit 65+ 2021 Influenza Vaccine (#1) 2025 4, 02/08/2020, 02/11/2017, Additional history exists Fall Risk Assessment 12/14/2025 12/14/2024 Medical Devices Implanted Type Area Manager Product Support Device Identifier Shelf Expiration Date Model / Serial / Lot [employer] Vascade Mvp 6-12fr Venous Closure [id number] - [id number] - [id number] Implanted:Qty: 1 on 10/27/2023 by Aleksandar Mcgowan MD at [facility] [employer] 07/19/2025 800-612C-1 [id number] / [id number] / [id number] [employer] Device Vascular Closure Femoral Artery Bioabsorbable Dual Method Vascade 6-7fr Collagen [id number] - [id number] - [id number] Implanted:Qty: 1 on 10/27/2023 by Aleksandar Mcgowan MD at [facility] [employer] 07/07/2025 [id number] [id number] / [id number] / [id number] [employer] Vascade Mvp 6-12fr Venous Closure [id number] - [id number] - [id number] Implanted:Qty: 1 on 10/27/2023 by Aleksandar Mcgowan MD at [facility] [employer] 07/19/2025 800-612C-1 0U / [id number] / [id number] [employer] Vascade Mvp 6-12fr Venous Closure [id number] - [id number] - [id number] Implanted:Qty: 1 on 10/27/2023 by Aleksandar Mcgowan MD at [facility] [employer] 07/19/2025 800-612C-1 [id number] / [id number] / [id number] Procedures Procedure Name Priority Date/Time Associated Diagnosis Comments TRANSFORAMINAL EPIDURAL INJECTION LUMBAR SACRAL 1 LEVEL LEFT Schedule Routine, Read Routine (OP Routine) 04/12/2025 12:22 PM TACTICAL/MOBILE WATCH OFFICER Lumbar radicular pain Lumbar spondylosis XR HIP LEFT 2 OR 3 VIEWS ED 03/23/2025 8:56 PM TACTICAL/MOBILE WATCH OFFICER CT HEAD AND CERVICAL SPINE WO CONTRAST ED 03/23/2025 7:21 PM TACTICAL/MOBILE WATCH OFFICER ECG 12-LEAD STAT 03/23/2025 7:04 PM TACTICAL/MOBILE WATCH OFFICER CT LUMBAR SPINE WO CONTRAST Schedule Routine, Read Routine (OP Routine) 03/07/2025 4:31 PM CDT Chronic left hip pain Left thigh pain CT BODY OUTSIDE REFERENCE Routine 02/16/2025 9:01 AM CDT Diagnosis unknown XR SPINE LUMBAR COMPLETE 4 OR MORE VIEWS Schedule Routine, Read Routine (OP Routine) 02/16/2025 8:59 AM CDT Chronic left hip pain Left thigh pain MSK MR OUTSIDE REFERENCE Routine 02/16/2025 8:29 AM CDT from Last 3 Months Results * IR Transforaminal Epidural Injection Lumbar Sacral 1 Level Left (04/12/2025 12:22 PM TACTICAL/MOBILE WATCH OFFICER) Narrative [facility] - 04/12/2025 12:22 PM TACTICAL/MOBILE WATCH OFFICER The images from this study are not interpreted by Radiology. Please refer to the physician's procedure / OR operative note. us Quintin Bertrand MD IMG IR PROCEDURES Final Re sult [facility] * XR Hip Left 2 or 3 Views (03/23/2025 8:56 PM TACTICAL/MOBILE WATCH OFFICER) Anatomical Region Laterality Modality Lower Extremities, Hip, Pelvis Left C omputed Radiography 03/23/2025 9:37 PM TACTICAL/MOBILE WATCH OFFICER Impressions 03/24/2025 9:29 AM TACTICAL/MOBILE WATCH OFFICER FINDINGS/IMPRESSION: LEFT HIP: There is an radiograph dated 10/18/2024 Postsurgical changes of revision left total hip arthroplasty. Unchanged appearance of the cerclage wires, including fracturing of the 3rd cerclage wire. Component in expected alignment. Exuberant heterotopic ossification at the left hip. A peripherally calcified density adjacent to the superior left acetabulum, partially seen on the lumbar spine radiographs from 02/16/2025, may represent additional heterotopic ossification or myositis ossificans. No acute fractures. Degenerative changes of the pubic symphysis. Dictated by: Bettie Romero MD The radiology attending physician has personally reviewed this study, and had reviewed and/or edited this written report and agrees with it. Electronically signed by: Berenice Martin M.D. Narrative 03/24/2025 9:29 AM TACTICAL/MOBILE WATCH OFFICER EXAMINATION: XR HIP LEFT 2 OR 3 VIEWS HISTORY: Left hip pain s/p fall Procedure Note Berenice Martin MD - 03/24/2025 EXAMINATION: XR HIP LEFT 2 OR 3 VIEWS HISTORY: Left hip pain s/p fall IMPRESSION: FINDINGS/IMPRESSION: LEFT HIP: There is an radiograph dated 10/18/2024 Postsurgical changes of revision left total hip arthroplasty. Unchanged appearance of the cerclage wires, including fracturing of the 3rd cerclage wire. Component in expected alignment. Exuberant heterotopic ossification at the left hip. A peripherally calcified density adjacent to the superior left acetabulum, partially seen on the lumbar spine radiographs from 02/16/2025, may represent additional heterotopic ossification or myositis ossificans. No acute fractures. Degenerative changes of the pubic symphysis. Dictated by: Bettie Romero MD The radiology attending physician has personally reviewed this study, and had reviewed and/or edited this written report and agrees with it. Electronically signed by: Berenice Martin M.D. Korey Brunson MD IMG XR PROCEDURES Final Result * CT Head and Cervical Spine WO Contrast (03/23/2025 7:21 PM TACTICAL/MOBILE WATCH OFFICER) Anatomical Region Laterality Modality Head and Neck N/A Computed Tomogra phy 03/23/2025 7:57 PM TACTICAL/MOBILE WATCH OFFICER Addenda Addendum by Amador Chi MD on 03/24/2025 12:13 PM TACTICAL/MOBILE WATCH OFFICER Discussed overread finding with patient 03/24/25. Germanai SANTILLAN RN. Edited by: Germania Spears Electronically signed by: Amador Chi M.D. Impressions 03/24/2025 10:18 AM TACTICAL/MOBILE WATCH OFFICER 1. No acute intracranial process. 2. No evidence of acute fracture in the cervical spine. 3. Extensive ankylosis of the cervical spine, which can be seen in the setting of ankylosing spondylitis. ADDENDUM - This addendum is being placed on the report for a non-time dependent finding on a patient who was discharged from the emergency room (1C). Degenerative pannus about the odontoid process at the craniocervical junction results in severe canal stenosis at this level. There is suggestion mild anterior subluxation of C1. Further evaluation with dedicated cervical spine MR examination is recommended. Attempts will be made to contact the patient or his/her primary doctor during regular business hours Thursday-Thursday. An addendum will be issued to confirm contact has been made to communicate this finding. Dictated by: Jim Bhardwaj M.D. The radiology attending physician has personally reviewed this study, and had reviewed and/or edited this written report and agrees with it. Electronically signed by: Amador Chi M.D. Narrative 03/24/2025 10:18 AM TACTICAL/MOBILE WATCH OFFICER EXAMINATION: 1. CT head without contrast 2. CT of the cervical spine without contrast HISTORY: Head trauma, on blood thinners. TECHNIQUE: CT of the head was performed with images acquired from skull base to vertex without intravenous contrast. CT of the cervical spine was performed according to the standard protocol without intravenous contrast. COMPARISON: None Available. FINDINGS: HEAD: There is no acute intracranial hemorrhage. Ventricles are of normal size and morphology. No mass effect or midline shift is present. The howell-white matter differentiation is normal. Atherosclerotic calcifications of the intracranial vessels. The visualized portions of the orbits are normal. The visualized portions of the mastoids are normal. Mucus retention cyst in the left maxillary sinus No fractures are identified. CERVICAL SPINE: Patient is imaged in a cervical collar with associated straightening post surgical changes of anterior instrumented fusion from C3 to C4. There is extensive ankylosis of the cervical spine. No evidence of acute fracture. No compression fracture. Osteoarthritic changes are present involving the anterior arch of C1 and the odontoid process of C2 vertebra with predental space narrowing, sclerosis and osteophytes. Extensive bilateral to moderate neural foraminal stenosis in the cervical spine. The craniocervical junction is normal. Limited views of the skull base appear normal. The sphenoid sinus is well aerated. No soft tissue abnormality is identified. Procedure Note Amador Chi MD - 03/24/2025 EXAMINATION: 1. CT head without contrast 2. CT of the cervical spine without contrast HISTORY: Head trauma, on blood thinners. TECHNIQUE: CT of the head was performed with images acquired from skull base to vertex without intravenous contrast. CT of the cervical spine was performed according to the standard protocol without intravenous contrast. COMPARISON: None Available. FINDINGS: HEAD: There is no acute intracranial hemorrhage. Ventricles are of normal size and morphology. No mass effect or midline shift is present. The howell-white matter differentiation is normal. Atherosclerotic calcifications of the intracranial vessels. The visualized portions of the orbits are normal. The visualized portions of the mastoids are normal. Mucus retention cyst in the left maxillary sinus No fractures are identified. CERVICAL SPINE: Patient is imaged in a cervical collar with associated straightening post surgical changes of anterior instrumented fusion from C3 to C4. There is extensive ankylosis of the cervical spine. No evidence of acute fracture. No compression fracture. Osteoarthritic changes are present involving the anterior arch of C1 and the odontoid process of C2 vertebra with predental space narrowing, sclerosis and osteophytes. Extensive bilateral to moderate neural foraminal stenosis in the cervical spine. The craniocervical junction is normal. Limited views of the skull base appear normal. The sphenoid sinus is well aerated. No soft tissue abnormality is identified. IMPRESSION: 1. No acute intracranial process. 2. No evidence of acute fracture in the cervical spine. 3. Extensive ankylosis of the cervical spine, which can be seen in the setting of ankylosing spondylitis. ADDENDUM - This addendum is being placed on the report for a non-time dependent finding on a patient who was discharged from the emergency room (1C). Degenerative pannus about the odontoid process at the craniocervical junction results in severe canal stenosis at this level. There is suggestion mild anterior subluxation of C1. Further evaluation with dedicated cervical spine MR examination is recommended. Attempts will be made to contact the patient or his/her primary doctor during regular business hours Thursday-Thursday. An addendum will be issued to confirm contact has been made to communicate this finding. Dictated by: Jim Bhardwaj M.D. The radiology attending physician has personally reviewed this study, and had reviewed and/or edited this written report and agrees with it. Electronically signed by: Amador Chi M.D. Олег Mcclendon MD IM CT PROCEDURES Edited Re sult - Final * ECG 12-LEAD (03/23/2025 7:04 PM TACTICAL/MOBILE WATCH OFFICER) Narrative [facility] - 03/23/2025 7:04 PM TACTICAL/MOBILE WATCH OFFICER Олег Mcclendon MD 03/23/2025 11:23 PM ECG 12 lead Date/Time: 03/23/2025 7:04 PM Performed by: Korey Brunson MD Authorized by: Korey Brunson MD Interpretation: Interpretation: non-specific Comments: Heart rate 65, normal sinus rhythm, intervals within normal limits, no axis deviation, nonspecific T-wave changes, unchanged from last EKG dated 11/16/24 us Korey Brunson MD ECG ORDERABLES Final R esult [facility] * CT lumbar spine without contrast (03/07/2025 4:31 PM CDT) Anatomical Region Laterality Modality Spine N/A Computed Tomogra phy 03/08/2025 10:2 3 AM CDT Impressions 03/08/2025 10:23 AM CDT 1. Diffuse ankylosis of the lumbar spine and visualized lower thoracic spine, which may be sequela of ankylosing spondylitis or diffuse idiopathic skeletal hyperostosis. 2. Multilevel degenerative changes in the lumbar spine, most pronounced at L3-L4 and L4-L5 with moderate spinal canal stenosis. 3. Retroperitoneal/para-aortic lymphadenopathy. This could be further evaluated with CT of the abdomen and pelvis with intravenous contrast. Electronically signed by: Preet Gandhi M.D. Narrative 03/08/2025 10:23 AM CDT EXAMINATION: CT of the lumbar spine without contrast HISTORY: Hip pain. Back pain. TECHNIQUE: CT of the lumbar spine was performed according to the standard protocol without intravenous contrast. COMPARISON: None Available. FINDINGS: There is diffuse ankylosis of the vertebral bodies throughout the visualized thoracolumbar spine. There is ankylosis of the posterior elements at T11-L4. There is straightening of the normal lumbar lordosis. There is no acute fracture. The vertebral bodies are normal in height without compression fractures. Multilevel calcification/ankylosis. Prominent para-aortic lymphadenopathy. Atherosclerotic aspiration of the abdominal aorta is seen. L1-L2: Ankylosis/fusion. There is moderate bilateral facet arthropathy. There is mild to moderate left neuroforaminal stenosis. There is no spinal canal stenosis. L2-L3: Ankylosis/fusion. There is moderate left and mild to moderate right facet arthropathy. There is mild to moderate bilateral neuroforaminal stenosis. There is mild spinal canal stenosis. L3-L4: Ankylosis/fusion. Right-sided laminectomy. There is moderate to severe bilateral facet arthropathy. There is moderate bilateral neuroforaminal stenosis. There is moderate spinal canal stenosis. L4-L5: Ankylosis/fusion. There is moderate bilateral facet arthropathy. There is moderate bilateral neuroforaminal stenosis. There is moderate spinal canal stenosis. L5-S1: Ankylosis/fusion. There is moderate bilateral facet arthropathy. There is mild to moderate bilateral neuroforaminal stenosis. There is no spinal canal stenosis. Procedure Note Preet Gandhi MD - 03/08/2025 EXAMINATION: CT of the lumbar spine without contrast HISTORY: Hip pain. Back pain. TECHNIQUE: CT of the lumbar spine was performed according to the standard protocol without intravenous contrast. COMPARISON: None Available. FINDINGS: There is diffuse ankylosis of the vertebral bodies throughout the visualized thoracolumbar spine. There is ankylosis of the posterior elements at T11-L4. There is straightening of the normal lumbar lordosis. There is no acute fracture. The vertebral bodies are normal in height without compression fractures. Multilevel calcification/ankylosis. Prominent para-aortic lymphadenopathy. Atherosclerotic aspiration of the abdominal aorta is seen. L1-L2: Ankylosis/fusion. There is moderate bilateral facet arthropathy. There is mild to moderate left neuroforaminal stenosis. There is no spinal canal stenosis. L2-L3: Ankylosis/fusion. There is moderate left and mild to moderate right facet arthropathy. There is mild to moderate bilateral neuroforaminal stenosis. There is mild spinal canal stenosis. L3-L4: Ankylosis/fusion. Right-sided laminectomy. There is moderate to severe bilateral facet arthropathy. There is moderate bilateral neuroforaminal stenosis. There is moderate spinal canal stenosis. L4-L5: Ankylosis/fusion. There is moderate bilateral facet arthropathy. There is moderate bilateral neuroforaminal stenosis. There is moderate spinal canal stenosis. L5-S1: Ankylosis/fusion. There is moderate bilateral facet arthropathy. There is mild to moderate bilateral neuroforaminal stenosis. There is no spinal canal stenosis. IMPRESSION: 1. Diffuse ankylosis of the lumbar spine and visualized lower thoracic spine, which may be sequela of ankylosing spondylitis or diffuse idiopathic skeletal hyperostosis. 2. Multilevel degenerative changes in the lumbar spine, most pronounced at L3-L4 and L4-L5 with moderate spinal canal stenosis. 3. Retroperitoneal/para-aortic lymphadenopathy. This could be further evaluated with CT of the abdomen and pelvis with intravenous contrast. Electronically signed by: Preet Gandhi M.D. Quintin Bertrand MD IM CT PROCEDURES Final Re sult * CT Body Outside Reference (02/16/2025 9:01 AM CDT) Impressions [facility] - 02/16/2025 9:01 AM CDT These images are for Reference purposes only and have not been reviewed by [facility]. There will be no report generated by a [facility] Radiologist. Narrative [facility] - 02/16/2025 9:01 AM CDT EXAMINATION: Images For Reference Purposes Only Quintin Bertrand MD [facility] [place] PROCEDURES Final Re sult [facility] * [...] it. Electronically signed by: Bernice Beauchamp MD us Quintin Bertrand MD IMG XR PROCEDURES Final Re sult * MS[facility] MR Outside Reference (02/16/2025 8:29 AM CDT) Impressions [facility] - 02/16/2025 8:29 AM CDT These images are for Reference purposes only and have not been reviewed by [facility]. There will be no report generated by a [facility] Radiologist. Narrative [facility] - 02/16/2025 8:29 AM CDT EXAMINATION: Images For Reference Purposes Only us Quintin Bertrand MD IMG MRI PROCEDURES Final R esult [facility] from Last 3 Months Insurance A[employer] MEDICARE GOLD AET[employer] MEDICARE GOLD Care Teams Rum Processing Operator Relationship Specialty Start Date End Date Андрей Solomon MD PCP - General 07/04/09 Caterina Walters PA [address] [address] Physician Chip Machine Operator 07/26/24
--- OUTSIDE RECORDS SUMMARY | 2025-04-19 18:31 | XMS_ITS | Encounter Summary ---
Author Organization [facility] Address [address] [place] [address] Care Team Providers Care System Safety Manager Name Role Phone Андрей Solomon MD Primary Care Provider [phone] Encounter Details Date Type Department Care Team (Late st Contact Info) Description 12/21/2024 Lab Requisition [facility] DermPath Lab [address] [facility] [facility] [place] [address] Ayah Paredes DO [address] [facility] [address] [place] [address] Social History Tobacco Use Types Packs/Day Years [...] AM CDT) Case Report Dermatopathology Report Case: [id number] Authorizing Provider: Ayah Paredes DO Collected: 12/21/2024 10:56 AM Ordering Location: [facility] - Received: 12/21/2024 04:36 PM DermPath Lab Pathologist: Kerrie Hoffman MD Specimens: A) - Skin, left anteromdial le B) - Skin, left shoulder 5:09 PM [facility] [place][NOTE 3] DERMATOPATHOLOGY LABORATORY Final Diagnosis Specimen A. SKIN, left anteromdial le: DERMATOFIBROMA (D23.9) Specimen B. SKIN, left shoulder: LENTIGINOUS MELANOCYTIC NEVUS, COMPOUND TYPE, IRRITATED AND INFLAMED (D22.62) PRESENT AT MARGIN (see microscopic description and comment) 5:09 PM T DERMATOPATHOLOGY LABORATORY at 1709 CDT Clinical History A: DF; R/O Atypia B: R/O MM 5:09 PM [facility] [place]NOTE 3] DERMATOPATHOLOGY LABORATORY Gross Description Specimen A: Received [...] measuring 9x7x1 mm. Jar 0. 5:09 PM [facility] [place]NOTE 3] DERMATOPATHOLOGY LABORATORY Microscopic Description Specimen A. SKIN, [...] characteristic determined by the Dermatopathology Laboratory at [facility], directed by Dr. Yolanda Diaz. These tests need not be, and therefore are not, approved by the [place] Food and Drug Administration. The tests are used for clinical purposes. Billing Codes Specimen Charges Stain Charges 81169 88603 1 1 [id number] 08511 92911 64333 1 1 1 1 5 5:09 PM CDT DERMATOPATHOLOGY LABORATORY Embedded Images 5 5:09 PM CDT DERMATOPATHOLOGY LABORATORY Pathology/Cytology TISSUE SPECIMEN FROM SKIN / Unknown 12/21/2024 10:56 AM CDT 12/21/2024 4:36 PM CDT Miscellaneous samples (specimen) TISSUE SPECIMEN FROM SKIN / Unknown 12/21/2024 10:56 AM CDT 12/21/2024 4:36 PM CDT Ayah Paredes DO LAB - PATHOLOGY/CYTOLOGY ORDERABLES Final Result DERMATOPATHOLOGY LABORATORY [facility] - Department of Dermatology [facility] [address] [place] [address], [address] [phone] documented in this encounter Visit Diagnoses Not on filedocumented in this encounter Care Teams System Safety Manager Relationship Specialty Start Date End Date Андрей Solomon MD [address] [place] [address] PCP - General Family Medicine 09/22/12 documented as of this encounter
== END 2025-04-19 14:01 | disposition home or self-care (01) ==
LOC: ANHLAB 14:01
PROVIDERS: PCP Family Medicine; Visit Provider Internal Medicine Hematology & Oncology
DX: D64.9 Anemia, unspecified (principal)
CPT/HCPCS: 36415; 80053; 82607; 82728; 82746; 83540; 83550; 84238; 85025

== ENCOUNTER 2025-05-06 07:07 | Outpatient (CLI) | payer MEDICARE, SELFPAY ==
--- NOTE | ~2025-05-06 | MR_ITS ---
EXAMINATION: MR cervical spine wo/w con DATE: 05/06/2025 08:12 INDICATION: Neck pain. TECHNIQUE: Magnetic resonance imaging (MRI) of the cervical spine was performed without and with 10 mL MultiHance intravenous contrast. COMPARISON: Cervical spine MRI 05/18/2019, CT 11/03/2024 FINDINGS: Alignment is normal. There is mild chronic anterior wedging of C5 vertebral body. There are changes of anterior fusion procedure from C3-C4 with anterior plate and screws. There are bridging endplate osteophytes from C2 to at least T2, consistent with diffuse idiopathic skeletal hyperostosis (DISH). The C1 ring is small. 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 There is severe central canal stenosis at C1 with ventral and dorsal indentation of the spinal cord. The spinal cord signal intensity is normal. The following disc levels are specifically discussed: C2-C3: There is a central protrusion. There is mild bilateral uncovertebral joint osteoarthritis. There is moderate bilateral facet joint osteoarthritis. There is no neural foraminal stenosis. There is mild central canal stenosis. C3-C4: There is mild right and severe left uncovertebral joint hypertrophy. There is mild bilateral facet joint hypertrophy. There is mild right and moderate left neural foraminal stenosis. There is mild central canal stenosis. C4-C5: There is a central extrusion. There is moderate bilateral uncovertebral joint hypertrophy. There is no facet joint hypertrophy. There is moderate bilateral neural foraminal stenosis. There is mild central canal stenosis. C5-C6: There is a central extrusion. There is mild bilateral uncovertebral joint hypertrophy. There is moderate bilateral facet joint hypertrophy. There is mild bilateral neural foraminal stenosis. There is mild central canal stenosis. C6-C7: There is a central protrusion. There is moderate bilateral uncovertebral joint hypertrophy. There is mild bilateral facet joint hypertrophy. There is mild bilateral neural foraminal stenosis. There is mild central canal stenosis. C7-T1: There is a central extrusion. There is mild bilateral uncovertebral joint hypertrophy. There is severe bilateral facet joint osteoarthritis. There is mild bilateral neural foraminal stenosis. There is mild central canal stenosis. IMPRESSION: 1. DISH. 2. Anterior fusion procedure at C3-C4. 3. Severe central canal stenosis at C1. Otherwise moderate cervical spondylosis. Reviewed, dictated and finalized at location E. UTER OPERATIONS SUPERVISOR IMPRESSION: 1. DISH. 2. Anterior fusion procedure at C3-C4. 3. Severe central canal stenosis at C1. Otherwise moderate cervical spondylosis .
== END 2025-05-06 07:08 | disposition home or self-care (01) ==
LOC: CHSIMG 07:08
PROVIDERS: PCP Family Medicine; Visit Provider Physician Assistant Medical
DX: M43.22 Fusion of spine, cervical region (principal); M48.12 Ankylosing hyperostosis [Forestier], cervical region; M48.02 Spinal stenosis, cervical region; M43.02 Spondylolysis, cervical region
CPT/HCPCS: 72156; A9577